=== PATIENT | female | born 1935 | race Caucasian/White ===

== ENCOUNTER 2020-02-28 22:10 | Inpatient (IN) ==
[2020-02-28] MEDS ORDERED: SODIUM CHLORIDE 0.9% 1000ML 1,000 ML IV ONE (22:22)
[2020-02-28] MEDS ORDERED: SODIUM CHLORIDE 0.9% 1000ML 500 ML IV ONE (22:53)
[2020-02-28] MEDS ORDERED: SODIUM CHLORIDE 0.9% 500 ML IV SCH (23:00)
[2020-02-28 23:09] LABS: INR 1.2 (0.9-1.1); Partial Thromboplastin Ratio 1.1; Partial Thromboplastin Time 31.9 Seconds (21.0-31.0); Prothrombin Time 12.7 Seconds (9.0-12.0)
[2020-02-28 23:10] LABS: Appearance Urine Turbid (Clear); Bacteria Urine Automated 1+ (Negative); Bilirubin Urine Negative (Negative); Blood Urine 3+ (Negative); Color Urine Yellow; Epithelial Cell Urine Auto >30 /lpf (0-5); Glucose Urine UA Negative (Negative); Ketones Urine Negative (Negative); Leukocyte Esterase Urine 3+ (Negative); Nitrite Urine Positive (Negative); Protein Urine 3+ (Negative); Specific Gravity Urine 1.012 (1.000-1.030); Urobilinogen Urine Negative (Negative); WBC Urine Automated >30 /hpf (0-5)
[2020-02-28 23:11] LABS: BUN Creatinine Ratio 8.6 (10-20); Calcium 7.9 mg/dl (8.5-10.1); Creatinine Clr Calc Pharmacy 17.3 ml/min; Est GFR (African American) 20.9; Est GFR (Non-African American) 18.1; Magnesium 1.4 mg/dl (1.8-2.4)
[2020-02-28] MEDS ORDERED: POTASSIUM CHLORIDE 10 MEQ TABCR PO STA (23:14)
[2020-02-28 23:16] LABS: Basophils # (auto) 0.04 K/uL (0-0.2); Basophils % (auto) 0.1 %; Eosinophils # (auto) 0.05 K/uL (0-0.5); Eosinophils % (auto) 0.1 %; Hematocrit (blood only) 28.4 % (37-47); Hemoglobin 9.2 g/dL (12.0-16.0); Immature Granulocytes # (auto) 1.02 K/uL (0.00-0.02); Immature Granulocytes % (auto) 2.6 %; Lymphocytes # (auto) 0.81 K/uL (1.2-3.4); Lymphocytes % (auto) 2.1 %; Mean Corpuscular Hemoglobin 29.4 pg (25-34); Mean Corpuscular Hgb Conc 32.4 g/dL (32-36); Mean Corpuscular Volume 90.7 fL (80-100); Mean Platelet Volume 9.9 fL (7.4-10.4); Monocytes # (auto) 1.81 K/uL (0.11-0.59); Monocytes % (auto) 4.7 %; Neutrophils # (auto) 34.81 K/uL (1.4-6.5); Neutrophils % (auto) 90.4 %; Platelet Count 228 K/uL (130-400); Platelet Estimate Normal (Normal); RDW Coefficient of Variation 15.5 % (11.5-14.5); RDW Standard Deviation 51.7 fL (36.4-46.3); Red Blood Count 3.13 M/uL (4.2-5.4); White Blood Count 38.54 K/uL (4.8-10.8)
[2020-02-28] MEDS ORDERED: VANCOMYCIN HCL 1,500 MG in SODIUM CHLORIDE 0.9% 500 ML IV ONE (23:17)
[2020-02-28] MEDS ORDERED: PIPERACILLIN/TAZOBACTAM 4.5 GM/120 ML BAG IV ONE (23:17)
[2020-02-28] MEDS ORDERED: SODIUM CHLORIDE 0.9% 500 ML IV ONE (23:17)
[2020-02-28] MEDS ORDERED: PIPERACILL/TAZOBAC CONSULT ACTIVE PRN (23:17)
[2020-02-28] MEDS ORDERED: VANCOMYCIN CONSULT ACTIVE PRN (23:17)
[2020-02-28 23:25] LABS: Albumin Globulin Ratio 0.6 (0.9-2); Bilirubin,Total 0.6 mg/dl (0.2-1); Globulin 3.5 gm/dl (2.5-4.0); Total Protein 5.5 gm/dl (6.4-8.2); Troponin I 0.022 ng/ml (0-0.045)
[2020-02-28] MEDS: MAGNESIUM SULFATE / D5W 1 GM/100 ML BAG IV SCH (23:43)
[2020-02-29] MEDS ORDERED: SODIUM CHLORIDE 0.9% 1000ML 500 ML IV ONE ×2 (00:33→02:02)
[2020-02-29] MEDS: MAGNESIUM SULFATE / D5W 1 GM/100 ML BAG IV SCH (00:49)
--- NOTE | 2020-02-29 00:50 | Emergency Department Note ---
History of Present Illness General Chief complaint: Fall Stated complaint: FALL, L HIP & R SHOULDER PAIN, HYPOTENSIVE, TACHY Time Seen by Provider: 02/28/20 22:22 History of Present Illness Maximum Pain Intensity: 4 This 84-year-old presents to the ER complaining of fall and weakness Location: Generalized Quality: Weak Severity: Moderate Duration: Last night Timing: Patient states she fell and was unable to get up Context: Granddaughter was concerned and sent her in Modifying factors: better with rest; worse with activity Patient states she fell last night in the kitchen and could not get up. Patient denies chest pain, dyspnea, Bon pain, vomiting, diarrhea, urinary symptoms, head injury, neck pain, numbness, tingling. Patient denies any medical complaints currently. She appears quite dehydrated. Home Medications Home Medications Medication Instructions Recorded Confirmed Type aspirin 81 mg PO DAILY 02/28/20 02/28/20 History levothyroxine 1 tab PO DAILY 02/28/20 02/28/20 History tramadol 50 mg PO DAILY PRN 02/28/20 02/28/20 History Allergies Allergy/AdvReac Type Severity Reaction Status Date / Time No Known Allergies Allergy Unverified 02/28/20 23:08 Past Med/Surg History Medical History Hypothyroidism Surgical History No pertinent past surgical history Social History Smoking Status: Never smoker Hx Alcohol Use: No Hx Substance Use: No Beliefs That Will Affect Care: None Current Living Situation: Alone Other Information That Helps Us Care for You: No Feels Safe at Home: Yes Safety Concerns: Feels Safe At This Time Review of Systems A total of 10 systems reviewed and were otherwise negative Physical Exam Vital Signs Vital Signs - 24 hr 02/28/20 22:26 02/28/20 22:31 02/28/20 22:57 Temperature 37.8 C H Temperature Source Oral Pulse Rate 119 H Pulse Rate [Bilateral Apical] 113 H Respiratory Rate 24 24 Respiratory Effort / Characteristics Spontaneous Non-Labored Respiratory Depth Normal Blood Pressure 91/43 L Blood Pressure [Right Arm] 101/47 L Blood Pressure Mean 59 Blood Pressure Mean [Right Arm] 65 Pulse Oximetry 100 100 100 Oxygen Delivery Method Room Air Room Air Room Air Sepsis Recent Fever Within 48 Hours Yes Sepsis New/Unexplained Change in Mental Status No Sepsis Action Taken by Nursing Physician Notified 02/28/20 23:17 02/29/20 00:15 02/29/20 00:16 Temperature 37 C Temperature Source Oral Pulse Rate Pulse Rate [Bilateral Apical] 112 H 106 H Respiratory Rate 18 20 Respiratory Effort / Characteristics Non-Labored Respiratory Depth Blood Pressure Blood Pressure [Right Arm] 92/54 L 84/41 L Blood Pressure Mean Blood Pressure Mean [Right Arm] 66 55 Pulse Oximetry 98 95 95 Oxygen Delivery Method Room Air Room Air Room Air Sepsis Recent Fever Within 48 Hours Sepsis New/Unexplained Change in Mental Status Sepsis Action Taken by Nursing 02/29/20 00:42 Temperature Temperature Source Pulse Rate Pulse Rate [Bilateral Apical] 101 H Respiratory Rate 22 Respiratory Effort / Characteristics Non-Labored Respiratory Depth Blood Pressure Blood Pressure [Right Arm] 88/59 L Blood Pressure Mean Blood Pressure Mean [Right Arm] 68 Pulse Oximetry 95 Oxygen Delivery Method Room Air Sepsis Recent Fever Within 48 Hours Sepsis New/Unexplained Change in Mental Status Sepsis Action Taken by Nursing VITALS: Vitals are noted on the nurse's note and reviewed by myself. Vital signs hypertensive and tachycardic. GENERAL: Elderly female dehydrated appearing, in acute distress SKIN: The skin was without rashes, erythema, edema, or bruising. There is no tenting of the skin. Capillary reflex less than 2 seconds. HEAD: Normocephalic atraumatic. EARS: External auditory canals clear, tympanic membranes pearly parrish without erythema or effusion bilaterally. EYES: Pupils equal round and reactive to light and accommodation. Conjunctivae without injection, sclerae without icterus. Extraocular movements intact. NOSE: Patent, turbinates without inflammation or discharge. No sinus tenderness. MOUTH: Mucous membranes dry. Pharynx without erythema or exudate. Uvula midline. Airway patent. Tongue does not deviate. NECK: Supple without nuchal rigidity. No lymphadenopathy. No thyromegaly. Cervical spine is nontender. No JVD. HEART: Regular rate and rhythm LUNGS: Clear to auscultation bilaterally without wheezes, rales or rhonchi. No retractions or accessory muscle use. ABDOMEN: Positive bowel sounds x 4. Normal tympanic percussion. Soft, tender to palpation lower abdomen, without masses or organomegaly. Rubi sign negative. No guarding or rebound tenderness. No CVA tenderness MUSCULOSKELETAL: No muscle atrophy, erythema, or edema noted. NEURO: Patient was alert and oriented to person place and time. Normal sensation to light and sharp touch. No focal neurological deficits. Course Administered Medications Norepinephrine Bitartrate 8 mg (/ Dextrose) 508 mls @ 33.147 mls/hr IV .[id number] INGE; Protocol Stop: 03/30/20 01:29 Last Titration: 02/29/20 02:56 Dose: 0.12 mcg/kg/min, 33.1 mls/hr Documented by: [id number] Admin: 02/29/20 02:13 Dose: 0.05 mcg/kg/min, 13.8 mls/hr Documented by: [id number] Cosigned by: [id number] Sodium Chloride (Nss 1000ml) 1,000 mls @ 100 mls/hr IV .Q10H [facility] Stop: 03/30/20 01:54 Last Admin: 02/29/20 01:58 Dose: 100 mls/hr Documented by: [id number] Famotidine 20 mg/ Syringe 5 mls @ 2.5 mls/min IV Q12 INGE Stop: 03/30/20 01:54 Last Admin: 02/29/20 02:10 Dose: 2.5 mls/min Documented by: [id number] Ondansetron HCl (Zofran) 4 mg IV Q4H PRN PRN Reason: Nausea Stop: 03/30/20 02:40 Last Admin: 02/29/20 02:50 Dose: 4 mg Documented by: [id number] Discontinued Medications Fentanyl Citrate (Fentanyl Citrate) 25 mcg IV NOW ONE Stop: 02/29/20 02:41 Last Admin: 02/29/20 03:33 Dose: Not Given Documented by: [id number] Sodium Chloride (Nss 1000ml) 1,000 mls @ 999 mls/hr IV .Q1H1M ONE Stop: 02/28/20 23:22 Last Infusion: 02/28/20 23:29 Dose: 0 mls/hr Documented by: [id number] Admin: 02/28/20 22:32 Dose: 999 mls/hr Documented by: [id number] Sodium Chloride (Nss 1000ml) 500 mls @ 999 mls/hr IV .Q31M ONE Stop: 02/28/20 23:23 Last Infusion: 02/28/20 23:49 Dose: 0 mls/hr Documented by: [id number] Admin: 02/28/20 22:50 Dose: 999 mls/hr Documented by: [id number] Sodium Chloride (Nss) 500 mls @ 100 mls/hr IV .Q5H [facility] Stop: 03/29/20 22:59 Last Infusion: 02/29/20 03:15 Dose: 0 mls/hr Documented by: [id number] Infusion: 02/29/20 02:40 Dose: 0 mls/hr Documented by: [id number] Admin: 02/28/20 23:43 Dose: 100 mls/hr Documented by: [id number] Magnesium Sulfate/Dextrose (Magnesium Sulfate / D5w) 1 gm in 100 mls @ 100 mls/hr IV Q1H [facility] Stop: 02/29/20 01:15 Last Infusion: 02/29/20 01:30 Dose: 0 mls/hr Documented by: [id number] Admin: 02/29/20 00:49 Dose: 100 mls/hr Documented by: [id number] Infusion: 02/29/20 00:41 Dose: 0 mls/hr Documented by: [id number] Admin: 02/28/20 23:43 Dose: 100 mls/hr Documented by: [id number] Piperacillin Sod/Tazobactam Sod (Zosyn) 4.5 gm in 120 mls @ 240 mls/hr IV NOW ONE Stop: 02/28/20 23:46 Last Infusion: 02/29/20 00:52 Dose: 0 mls/hr Documented by: [id number] Admin: 02/29/20 00:02 Dose: 240 mls/hr Documented by: [id number] Vancomycin HCl 1,500 mg/ (Sodium Chloride) 530 mls @ 200 mls/hr IV NOW ONE Stop: 02/29/20 01:55 Last Infusion: 02/29/20 03:16 Dose: 0 mls/hr Documented by: [id number] Admin: 02/29/20 00:55 Dose: 200 mls/hr Documented by: [id number] Sodium Chloride (Nss) 500 mls @ 999 mls/hr IV .Q31M ONE Stop: 02/28/20 23:47 Last Infusion: 02/29/20 00:19 Dose: 0 mls/hr Documented by: [id number] Admin: 02/28/20 23:43 Dose: 999 mls/hr Documented by: [id number] Sodium Chloride (Nss 1000ml) 500 mls @ 999 mls/hr IV .Q31M ONE Stop: 02/29/20 01:03 Last Infusion: 02/29/20 02:39 Dose: 0 mls/hr Documented by: [id number] Admin: 02/29/20 01:08 Dose: 999 mls/hr Documented by: [id number] Albumin Human (Albumin 25%) 50 mls @ 50 mls/hr IV Q1H [facility] Stop: 02/29/20 03:59 Last Infusion: 02/29/20 02:58 Dose: 0 mls/hr Documented by: [id number] Admin: 02/29/20 01:58 Dose: 50 mls/hr Documented by: [id number] Infusion: 02/29/20 01:58 Dose: 50 mls/hr Documented by: [id number] Admin: 02/29/20 01:14 Dose: 50 mls/hr Documented by: [id number] Sodium Chloride (Nss 1000ml) 1,000 mls @ 100 mls/hr IV .Q10H [facility] Stop: 03/30/20 02:14 Last Admin: 02/29/20 02:23 Dose: Not Given Documented by: [id number] Sodium Chloride (Nss 1000ml) 500 mls @ 999 mls/hr IV .Q31M ONE Stop: 02/29/20 02:32 Last Infusion: 02/29/20 02:39 Dose: 0 mls/hr Documented by: [id number] Admin: 02/29/20 02:04 Dose: 999 mls/hr Documented by: [id number] Potassium Chloride (Klor-Con M10) 40 meq PO NOW STA Stop: 02/28/20 23:15 Last Admin: 02/28/20 23:42 Dose: 40 meq Documented by: [id number] Critical Care Time Critical Care Time: Yes Total Critical Care Time: 60 I have personally spent 60 minutes of critical care time in the direct management of this patient. This includes bedside care, interpretation of diagnostic studies, and testing, discussion with consultants, patient, and fa bebe members, and other required patient management activities. This 60 minutes is in excess of all separately billable procedures. Medical Decision Making Medical Records Attestation: I reviewed the patient's medical records. Home Medications Current Medication List: was personally reviewed by me Laboratory Data Attestation: I reviewed the patient's lab results. Result diagrams: 02/28/20 22:41 02/28/20 22:41 Lab Results 02/28/20 02/28/20 02/28/20 Range/Units 22:25 22:41 22:41 WBC 38.54 H* (4.8-10.8) K/uL RBC 3.13 L (4.2-5.4) M/uL Hgb 9.2 L (12.0-16.0) g/dL Hct 28.4 L (37-47) % MCV 90.7 (80-100) fL MCH 29.4 (25-34) pg MCHC 32.4 (32-36) g/dL RDW Std Deviation 51.7 H (36.4-46.3) fL RDW Coeff of Marisel 15.5 H (11.5-14.5) % Plt Count 228 (130-400) K/uL MPV 9.9 (7.4-10.4) fL Immature Gran % (Auto) 2.6 % Neut % (Auto) 90.4 % Lymph % (Auto) 2.1 % [place] % (Auto) 4.7 % Eos % (Auto) 0.1 % Baso % (Auto) 0.1 % Neut # (Auto) 34.81 H (1.4-6.5) K/uL Lymph # (Auto) 0.81 L (1.2-3.4) K/uL [place] # (Auto) 1.81 H (0.11-0.59) K/uL Eos # (Auto) 0.05 (0-0.5) K/uL Baso # (Auto) 0.04 (0-0.2) K/uL Immature Gran # (Auto) 1.02 H (0.00-0.02) K/uL Platelet Estimate Normal (Normal) PT 12.7 H (9.0-12.0) Seconds INR 1.2 H (0.9-1.1) APTT 31.9 H (21.0-31.0) Seconds PTT Ratio 1.1 Sodium (136-145) mmol/L Potassium (3.5-5.1) mmol/L Chloride (98-107) mmol/L Carbon Dioxide (21-32) mmol/L Anion Gap (3-11) BUN (7-18) mg/dl Creatinine (0.6-1.2) mg/dl Est Cr Clr Drug Dosing ml/min Est GFR ( Amer) Est GFR (Non-Af Amer) BUN/Creatinine Ratio (10-20) Glucose (70-99) mg/dl POC Glucose 97 (70-99) mg/dl Lactate (0.4-2.0) mmol/L Calcium (8.5-10.1) mg/dl Magnesium (1.8-2.4) mg/dl Total Bilirubin (0.2-1) mg/dl AST (15-37) U/L ALT (12-78) U/L Alkaline Phosphatase (45-117) U/L Total Creatine Kinase (26-192) U/L Troponin I (0-0.045) ng/ml Total Protein (6.4-8.2) gm/dl Albumin (3.4-5.0) gm/dl Globulin (2.5-4.0) gm/dl Albumin/Globulin Ratio (0.9-2) Procalcitonin (0-0.5) ng/ml Random Cortisol mcg/dl Urine Color Urine Appearance (Clear) Urine pH (4.5-7.5) Ur Specific [place] (1.000-1.030) Urine Protein (Negative) Urine Glucose (UA) (Negative) Urine Ketones (Negative) Urine Blood (Negative) Urine Nitrite (Negative) Urine Bilirubin (Negative) Urine Urobilinogen (Negative) Ur Leukocyte Esterase (Negative) Urine WBC (Auto) (0-5) /hpf Urine RBC (Auto) (0-4) /hpf U Hyaline Cast (Auto) (0-5) /lpf U Epithel Cells (Auto) (0-5) /lpf Urine Bacteria (Auto) (Negative) Urine Yeast 02/28/20 02/28/20 02/28/20 Range/Units 22:41 22:43 22:44 WBC (4.8-10.8) K/uL RBC (4.2-5.4) M/uL Hgb (12.0-16.0) g/dL Hct (37-47) % MCV (80-100) fL MCH (25-34) pg MCHC (32-36) g/dL RDW Std Deviation (36.4-46.3) fL RDW Coeff of Marisel (11.5-14.5) % Plt Count (130-400) K/uL MPV (7.4-10.4) fL Immature Gran % (Auto) % Neut % (Auto) % Lymph % (Auto) % [place] % (Auto) % Eos % (Auto) % Baso % (Auto) % Neut # (Auto) (1.4-6.5) K/uL Lymph # (Auto) (1.2-3.4) K/uL [place] # (Auto) (0.11-0.59) K/uL Eos # (Auto) (0-0.5) K/uL Baso # (Auto) (0-0.2) K/uL Immature Gran # (Auto) (0.00-0.02) K/uL Platelet Estimate (Normal) PT (9.0-12.0) Seconds INR (0.9-1.1) APTT (21.0-31.0) Seconds PTT Ratio Sodium 141 (136-145) mmol/L Potassium 3.0 L (3.5-5.1) mmol/L Chloride 113 H (98-107) mmol/L Carbon Dioxide 12 L (21-32) mmol/L Anion Gap 15.0 H (3-11) BUN 21 H (7-18) mg/dl Creatinine 2.40 H (0.6-1.2) mg/dl Est Cr Clr Drug Dosing 17.3 ml/min Est GFR ( Amer) 20.9 Est GFR (Non-Af Amer) 18.1 BUN/Creatinine Ratio 8.6 L (10-20) Glucose 97 (70-99) mg/dl POC Glucose (70-99) mg/dl Lactate 8.6 H* (0.4-2.0) mmol/L Calcium 7.9 L (8.5-10.1) mg/dl Magnesium 1.4 L (1.8-2.4) mg/dl Total Bilirubin 0.6 (0.2-1) mg/dl AST 42 H (15-37) U/L ALT 16 (12-78) U/L Alkaline Phosphatase 75 (45-117) U/L Total Creatine Kinase 1202 H (26-192) U/L Troponin I 0.022 (0-0.045) ng/ml Total Protein 5.5 L (6.4-8.2) gm/dl Albumin 2.0 L (3.4-5.0) gm/dl Globulin 3.5 (2.5-4.0) gm/dl Albumin/Globulin Ratio 0.6 L (0.9-2) Procalcitonin (0-0.5) ng/ml Random Cortisol 133.61 mcg/dl Urine Color Urine Appearance (Clear) Urine pH (4.5-7.5) Ur Specific [place] (1.000-1.030) Urine Protein (Negative) Urine Glucose (UA) (Negative) Urine Ketones (Negative) Urine Blood (Negative) Urine Nitrite (Negative) Urine Bilirubin (Negative) Urine Urobilinogen (Negative) Ur Leukocyte Esterase (Negative) Urine WBC (Auto) (0-5) /hpf Urine RBC (Auto) (0-4) /hpf U Hyaline Cast (Auto) (0-5) /lpf U Epithel Cells (Auto) (0-5) /lpf Urine Bacteria (Auto) (Negative) Urine Yeast 02/28/20 02/28/20 02/29/20 Range/Units 22:44 22:50 00:44 WBC (4.8-10.8) K/uL RBC (4.2-5.4) M/uL Hgb (12.0-16.0) g/dL Hct (37-47) % MCV (80-100) fL MCH (25-34) pg MCHC (32-36) g/dL RDW Std Deviation (36.4-46.3) fL RDW Coeff of Marisel (11.5-14.5) % Plt Count (130-400) K/uL MPV (7.4-10.4) fL Immature Gran % (Auto) % Neut % (Auto) % Lymph % (Auto) % [place] % (Auto) % Eos % (Auto) % Baso % (Auto) % Neut # (Auto) (1.4-6.5) K/uL Lymph # (Auto) (1.2-3.4) K/uL [place] # (Auto) (0.11-0.59) K/uL Eos # (Auto) (0-0.5) K/uL Baso # (Auto) (0-0.2) K/uL Immature Gran # (Auto) (0.00-0.02) K/uL Platelet Estimate (Normal) PT (9.0-12.0) Seconds INR (0.9-1.1) APTT (21.0-31.0) Seconds PTT Ratio Sodium (136-145) mmol/L Potassium (3.5-5.1) mmol/L Chloride (98-107) mmol/L Carbon Dioxide (21-32) mmol/L Anion Gap (3-11) BUN (7-18) mg/dl Creatinine (0.6-1.2) mg/dl Est Cr Clr Drug Dosing ml/min Est GFR ( Amer) Est GFR (Non-Af Amer) BUN/Creatinine Ratio (10-20) Glucose (70-99) mg/dl POC Glucose (70-99) mg/dl Lactate 6.5 H* (0.4-2.0) mmol/L Calcium (8.5-10.1) mg/dl Magnesium (1.8-2.4) mg/dl Total Bilirubin (0.2-1) mg/dl AST (15-37) U/L ALT (12-78) U/L Alkaline Phosphatase (45-117) U/L Total Creatine Kinase (26-192) U/L Troponin I (0-0.045) ng/ml Total Protein (6.4-8.2) gm/dl Albumin (3.4-5.0) gm/dl Globulin (2.5-4.0) gm/dl Albumin/Globulin Ratio (0.9-2) Procalcitonin 63.80 H (0-0.5) ng/ml Random Cortisol mcg/dl Urine Color Yellow Urine Appearance Turbid A (Clear) Urine pH 6.0 (4.5-7.5) Ur Specific [place] 1.012 (1.000-1.030) Urine Protein 3+ H (Negative) Urine Glucose (UA) Negative (Negative) Urine Ketones Negative (Negative) Urine Blood 3+ H (Negative) Urine Nitrite Positive A (Negative) Urine Bilirubin Negative (Negative) Urine Urobilinogen Negative (Negative) Ur Leukocyte Esterase 3+ H (Negative) Urine WBC (Auto) >30 H (0-5) /hpf Urine RBC (Auto) 10-30 H (0-4) /hpf U Hyaline Cast (Auto) 1-5 (0-5) /lpf U Epithel Cells (Auto) >30 H (0-5) /lpf Urine Bacteria (Auto) 1+ H (Negative) Urine Yeast Not Reportable Imaging Data Attestation: I personally reviewed and interpreted this imaging study as follows: Blood Pressure Blood Pressure Findings: Low blood pressure Blood Pressure Disposition: further management by hospitalist [facility] Narrative Prior records/ancillary studies reviewed and summarized above. Nursing notes reviewed. Additional history obtained from EMS. The patient's history was concerning for weakness Differential diagnosis: Etiologies such as metabolic, infection, hypo/hyperglycemia, electrolyte abnormalities, cardiac sources, intracerebral event, toxicologic, neurologic, as well as others were entertained. Physical examination: As above. ER treatment provided: IV Lock An order was placed for continuous cardiac monitoring. The monitor shows a rate of 60-1 20 with a sinus rhythm. IV fluids, Zosyn, vancomycin, magnesium, potassium 2 IV lines, Levophed On reassessment the patient felt better. Diagnostics interpretation by me: ECG: Ordered for weakness EKG: Normal sinus, normal intervals, no acute ST-T wave changes. Rate of 114. Impression sinus tachycardia interpreted by myself I think arrhythmia is unlikely. EKG shows normal sinus rhythm with no interval abnormalities such as QT prolongation or WPW. There are no findings to suggest Brugada syndrome. Cardiac monitoring in the emergency department reveals no tachycardic or bradycardic dysrhythmia. Hypertrophic cardiomyopathy was considered but there are no clear historical elements pointing toward this. EKG is not suggestive. The QRS voltage is not extremely large and there are no suggestive Q waves. The labs revealed leukocytosis, elevated creatinine, low potassium, low magnesium, urine is infected Extremely elevated lactic and repeat is minimally improved Blood cultures pending, COVID test pending Imaging studies: Chest x-ray with no acute consolidation, pneumothorax or free air per my termination ADDENDUM - Added by Shailesh Jackson M.D. on 02/29/2020 12:44 AM (-07:00) 8 mm calculus at the distal aspect of the right ureter near the UVJ with mild to moderate upstream dilatation of the collecting system. Also there is some perinephric stranding/fluid involving the left kidney (staghorn calculus). Would correlate clinically to exclude left renal infection. Spoke with her requesting provider at 9:43 PM 02/28/20. CT ABDOMEN & PELVIS Without Contrast: Distended gallbladder. Staghorn calculus involving the left kidney. No hydronephrosis. No appendicitis, colitis, diverticulitis or bowel obstruction. No adnexal masses, free air or free fluid. Small to moderate hiatal hernia. Coronary arteriosclerosis. Radiologist: Shailesh Jackson M.D. CT C SPINE: No evidence of acute or healing fracture or malalignment. Multilevel spine degenerative changes. Diffuse osteopenia. No critical central canal stenosis or apical pneumothorax. Radiologist: Shailesh Jackson M.D. CT HEAD: No acute intracranial hemorrhage, mass effect or edema. No evidence of acute cortical stroke. Periventricular small vessel ischemic change. No midline shift or hydrocephalus. Diffuse parenchymal atrophy. 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 Atherosclerotic calcifications of the carotid siphons and vertebrobasilar arteries. Visualized sinuses and mastoid air cells are clear. Radiologist: Shailesh Jackson M.D. Consultation: A consultation was placed with the hospitalist, Dr. Mejia and MAYELA Vidal from the unit. The case was discussed and diagnostics were reviewed. The patient was evaluated in the ER for further treatment. The unit was consulted and the MAYELA Vidal was made aware of the critical status of this patient. Patient was sent to the unit. Consultation with urology, Dr. Bauman. He was paged for over an hour and a half with no response. We were able to get a hold Dr. Hooper who got a hold of Dr. Bauman and he came in to evaluate the patient and take him to the OR from the ICU. Exam and history seem consistent with septic shock and infected kidney stone with acute renal failure low potassium and low magnesium. Patient given broad- spectrum antibiotics. 2 lines were placed. Medicine and the unit were consulted. Urology was consulted. She will be admitted. She was reassessed multiple times. Patient's blood pressure began to drop. She was placed on Levophed. This did improve. Multiple pages were made to urology with no response. Finally we were able to speak with urology and they took the patient emergently to the OR from the unit. By the evaluation outlined above emergent etiologies such as cardiac sources, intracerebral event, toxologic, neurologic, as well as others were deemed relatively unlikely. The pt informed about the findings as listed above. All questions were answered and pleased with the treatment. The chart was completed utilizing [employer] Speech voice recognition software. Grammatical errors, random word insertions, pronoun errors, and incomplete sentences are an occassional consequence of this system due to software limitations, ambient noise, and hardware issues. Any formal questions or concerns about the content, text, or information contained within the body of this dictation should be directly addressed to the physician intellectual property legal assistant for clarification. Impression & Plan Septic shock, Ureterolithiasis, Acute pyelonephritis, Acute kidney failure, Hypokalemia, Hypomagnesemia Discharge Plan Visit Data *Final* Discharge Date/Time: 02/29/20 01:35 Chief Complaint: Fall Stated Complaint: FALL, L HIP & R SHOULDER PAIN, HYPOTENSIVE, TACHY ED Provider: Frankie Liu ED Midlevel Provider: Camilla Mckeon Discharge Problem: Septic shock, Ureterolithiasis, Acute pyelonephritis, Acute kidney failure, Hypokalemia, Hypomagnesemia Patient Disposition: Admitted As Inpatient Condition: Critical Discharge Instructions Interventions: ED Discharge Assessment Last Done: 02/29/20 01:35
[2020-02-29] MEDS: ALBUMIN 25% 50 ML IV SCH ×2 (01:14→01:58)
[2020-02-29] MEDS ORDERED: STAT IV Infusion **Titration per Protocol STA ×3 (01:20→05:05)
[2020-02-29] MEDS ORDERED: PIPERACILL/TAZOBAC CONSULT ACTIVE PRN (01:55)
[2020-02-29] MEDS ORDERED: ICU PROTOCOL FOR HYPERGLYCEMIA PRN (01:55)
[2020-02-29] MEDS ORDERED: VANCOMYCIN CONSULT ACTIVE PRN (01:55)
[2020-02-29] MEDS: SODIUM CHLORIDE 0.9% 1000ML 1,000 ML IV SCH (01:58)
[2020-02-29] MEDS: FAMOTIDINE 20 MG in SYRINGE 3 ML IV SCH ×3 (02:10→20:06)
--- NOTE | 2020-02-29 02:10 | Critical Care Consultation ---
Date of Consultation February 29, 2020 Assessment & Plan (1) Admitted to intensive care unit: Reason Critically Ill: 84-year-old female presenting after ground-level fall laying on the floor for greater than 24 hours found to be in severe sepsis with septic shock secondary to retained ureteral stone and UTI requiring close hemodynamic monitoring and urological intervention for ureteral stenting. NEURO - * CAM ICU: NEGATIVE * PAIN: Fentanyl PRN/Acetaminophen CARDIAC/VASCULAR - * Rhabdomyolysis: * CPK ~1,000 * Continue IVF - received aggressive boluses in the ED. * Monitor renal function. * Hypotension: * In the setting of sepsis. * Appropriate IVF boluses in the ED. * Continue w/ aggressive IVF. * Pressors as needed. * EKG: ST@114bpm, No ST/T-wave changes appreciated. QTc 476 ms. Monitor on telemetry. RESPIRATORY - * Respiratory Distress: * Compensatory in the setting of profound metabolic acidosis. * Chest x-ray without infiltrative changes or pulmonary edema. * Physical exam consistent with tachypnea and clear lung sounds. No rales or rhonchi noted. * ABG demonstrates metabolic acidosis with respiratory compensation. * Concerns for respiratory failure in the setting of severe sepsis, metabolic acidosis, and generalized physical fatigue. * Low threshold for intubation. GI/NUTRITION - * N.p.o. * Prophylaxis: Famotidine RENAL/LYTES - * Acute kidney injury: * Multifactorial in the setting of prerenal from hypovolemia as well as rhabdomyolysis. * Received aggressive IV fluid resuscitation. * Continue with IV fluids. * Trend PRP. * Hypokalemia: * Received p.o. in the emergency department. * Repeat lytes. Replace appropriately. * Hypomagnesemia: * Replete as needed. * IVF: Normal saline at 100 mL/hr. - * Retained RIGHT-sided ureteral stone with pyelonephritis and UTI: * Resulting in severe sepsis. * Received IV vancomycin and Zosyn in the emergency department. * Please see ID. * Plan to go to the OR for bilateral ureteral stent placement. * Aim for source control. * Mayer in place - Strict I&Os. ENDO - * No history of diabetes. * BSGs per unit protocol. ISS --> gtt per unit policy. * Hypothyroidism: * Continue with levothyroxine either p.o./IV as tolerated. HEME - * Anemia: * Uncertain at baseline. * Will type and screen. * Trend H&H. * Transfuse as needed. ID - * Severe sepsis with septic shock secondary to retained RIGHT-sided ureteral stone with pyelonephritis and UTI: * Received IV vancomycin and Zosyn in the emergency department. * Likely discontinue vancomycin pending nasal MRSA swab. * Continue with aggressive IV antibiotics in the critically ill patient. * Lactate greater than 8. Trending down. Continue to trend. * Check procalcitonin. * Blood/urine cultures pending. LINES/IV ACCESS - * PIVs x2 * Mayer DVT PROPHYLAXIS - * Heparin SQ * SCDs I have personally spent 60 minutes of critical care time in the direct management of this patient. This is a life/limb threatening event. This includes time spent evaluating patient, direct bedside care, chart review, placing orders, interpretation of diagnostic studies, discussion with consultants, p atient, and family members, as well as other required patient management activities. This time is exclusive of all separately billable procedures, and teaching time and separate from and in addition to any other critical care service time. Thank you for allowing us to participate in the care of this patient. Please refer to my attending physician's documentation for any further recommendations. (2) Severe sepsis: (3) Pyelonephritis: (4) UTI (urinary tract infection): (5) Rhabdomyolysis: (6) Fall: (7) Hypomagnesemia: (8) Hypokalemia: (9) REEMA (acute kidney injury): (10) Ureterolithiasis: (11) Septic shock: History of Present Illness Attending Physician: Roman Oliveros MD History of Present Illness Patient is an 84-year-old female with limited past medical history significant for hypothyroidism alone presenting to the emergency department after a fall sustained greater than 24 hours ago. The patient subsequently laid on the floor until she was found by her granddaughter this evening. She reports that she remembers the fall and states that she "tripped" which caused the event. She was unable to gather herself from the ground. She did not strike her head. She reports no loss of consciousness. She does admit to having to sleep on the binh or, however. Patient admits to experiencing some RIGHT-sided flank pain over the last few days as well as some slight burning with urination which she reports is not her baseline. She denies any previous history of similar symptoms in the past. Upon arrival in the emergency department, the patient was found to be hypotensive and tachycardic. She received appropriate crystalloid resuscitation as well as IV antibiotics. CT scan demonstrates RIGHT-sided distal 8 mm calculus with RIGHT-sided ureteral stranding and mild hydronephrosis. Left-sided staghorn calculi appreciated with some mild pe rinephric stranding as well. Urine is foul appearing and consistent with infection. Patient ultimately with severe sepsis with septic shock secondary to retained stone and UTI. Leukocytosis in excess of 38,000. Lactate 8.6 which is downtrending to 6.5. CPK greater than 1200. Upon arrival in the ICU, the patient is awake, alert, and oriented. She reports that she generally feels poor. She does complain of some RIGHT-sided abdominal pain and flank pain. She denies any headaches, dizziness, lightheadedness, chest pain, palpitations, shortness of breath, difficulty breathing, nausea, vomiting, or blood in her urine or stool. Patient is not a daily smoker. Allergies Allergy/AdvReac Type Severity Reaction Status Date / Time No Known Allergies Allergy Unverified 02/28/20 23:08 Home Medications Home Medications Medication Instructions Recorded Confirmed Type aspirin 81 mg PO DAILY 02/28/20 02/28/20 History levothyroxine 1 tab PO DAILY 02/28/20 02/28/20 History tramadol 50 mg PO DAILY PRN 02/28/20 02/28/20 History Patient History Medical History Hypothyroidism Surgical History No pertinent past surgical history Social History Smoking Status: Never smoker Hx Alcohol Use: No Hx Substance Use: No Beliefs That Will Affect Care: None Current Living Situation: Alone Other Information That Helps Us Care for You: No Feels Safe at Home: Yes Safety Concerns: Feels Safe At This Time Review of Systems Review of Systems: A complete 10 point review of systems was reviewed with the patient with pertinent positives and negatives as per history of present illness. All else were negative. Physical Exam Physical Exam: VITAL SIGNS - Vital signs and nursing notes were reviewed. GENERAL - 84-year-old female appearing her stated age who is in mild distress. Communicates well with provider and answers questions appropriately. SKIN - Without rashes. HEAD - NC/AT. EYES - PERRL with EOMI bilaterally. Sclera anicteric. EARS - No deformities of external structures noted on gross examination bilaterally. NOSE - Midline and without cyanosis. No epistaxis or purulent drainage noted. MOUTH/OROPHARYNX - Without perioral cyanosis. Buccal mucosa pink and dry. Tongue midline with equal elevation of palate bilaterally. NECK - Neck with FROM. No nuchal rigidity. LUNGS - Tachypneic. Chest wall symmetric without accessory muscle use, intercostals retractions, or central cyanosis. Normal vesicular breath sounds CTA B/L. No wheezes, rales, or rhonchi appreciated. CARDIAC - RRR with S1/S2. No murmur, rubs, or gallops appreciated. ABDOMEN - Abdominal contour obese without pulsations or visible masses. BS normoactive all four quadrants. Mild RIGHT sided TTP. No palpable masses, hepatosplenomegaly, or ascites noted. EXTREMITIES - No clubbing or peripheral cyanosis. No pretibial edema present. +3/5 radial and dorsalis pedis pulses palpated throughout. +5/5 strength noted in UE/LE bilaterally. NEUROLOGIC - Cranial nerves II through XII grossly intact. Sensory intact to light touch throughout. PSYCH - A&Ox3 and cooperates fully with examiner. Pt is very pleasant and interacts well with examiner. Results & Data Results & Data ([facility]) Vital Signs (Past 12 Hours) Vital Signs Temp Pulse Pulse Resp BP BP Pulse Ox 02/29/20 01:35 106 H 20 82/51 L 98 02/29/20 01:24 37.1 C 102 H 20 85/47 L 96 02/29/20 00:42 101 H 22 88/59 L 95 02/29/20 00:16 95 02/29/20 00:15 37 C 106 H 20 84/41 L 95 02/28/20 23:17 112 H 18 92/54 L 98 02/28/20 22:57 113 H 24 101/47 L 100 02/28/20 22:31 100 02/28/20 22:26 37.8 C H 119 H 24 91/43 L 100 Coding Level of Care Code Critical Care 1st 30-74 mins Diagnoses Admitted to intensive care unit Z78.9 Severe sepsis A41.9; R65.20 Pyelonephritis N12 UTI (urinary tract infection) N39.0 Rhabdomyolysis M62.82 Fall W19.XXXA Hypomagnesemia E83.42 Hypokalemia E87.6 REEMA (acute kidney injury) N17.9 Ureterolithiasis N20.1 Septic shock A41.9; R65.21 Time Spent (min) 65
[2020-02-29] MEDS ORDERED: PNEUMOCOCCAL ADMINISTRATION CHARGE ONE (02:13)
[2020-02-29] MEDS ORDERED: PNEUMOCOCCAL POLYSACCHARIDES 25 MCG/0.5 ML VIAL/SYR IM ONE (02:13)
[2020-02-29] MEDS: NOREPINEPHRINE BIT INJ 8 MG in DEXTROSE 5% 500 ML IV SCH ×4 (02:13→22:50)
[2020-02-29] MEDS ORDERED: SODIUM CHLORIDE 0.9% 1000ML 1,000 ML IV SCH (02:15)
[2020-02-29] MEDS ORDERED: FAMOTIDINE 20 MG in SYRINGE 3 ML IV SCH (02:15)
[2020-02-29] MEDS ORDERED: fentaNYL citrate 100 MCG/2 ML VIAL IV ONE (02:40)
[2020-02-29] MEDS ORDERED: ONDANSETRON INJ 2 MG/ML 2 ML VIAL IV PRN (02:41)
--- NOTE | 2020-02-29 02:56 | Urology Consultation ---
Date of Consultation February 29, 2020 Assessment & Plan (1) Septic shock: Acute ill with obstructing right stone and left staghorn. Will plan for cystoscopy with bilateral stent placement. Agree with critical management and continued fluid management. Patient on small amount of pressor for hypotension. On broad spectrum IV. Plan for emergent stent placement. Risks and benefits discussed with patient. Understands need for urgent intervention. (2) Ureterolithiasis: (3) Acute pyelonephritis: History of Present Illness Attending Physician: Roman Oliveros MD History of Present Illness New consultation for patient with UTI/Pyelo, discomfort, and ill feelings. Patient has left staghorn with right obstructing stone and signs of sepsis. Presented acutely ill. Patient developed sudden onset of pain into flank going down and radiating into groin and back in waves comes and goes. Can be severe at times. Discussed and reviewed patient's family history for any history of issues, infections, and disease. Also, discussed patient's medical/surgery history especially related to any history of urinary issues or stone disease. Patient was admitted and is undergoing fluid resuscitation and critical management with broad spectrum IV antibiotics. Allergies Allergy/AdvReac Type Severity Reaction Status Date / Time No Known Allergies Allergy Unverified 02/28/20 23:08 Home Medications Home Medications Medication Instructions Recorded Confirmed Type aspirin 81 mg PO DAILY 02/28/20 02/28/20 History levothyroxine 1 tab PO DAILY 02/28/20 02/28/20 History tramadol 50 mg PO DAILY PRN 02/28/20 02/28/20 History Patient History Medical History Hypothyroidism Surgical History No pertinent past surgical history Social History Smoking Status: Never smoker Hx Alcohol Use: No Hx Substance Use: No Beliefs That Will Affect Care: None Current Living Situation: Alone Other Information That Helps Us Care for You: No Feels Safe at Home: Yes Safety Concerns: Feels Safe At This Time Review of Systems Review of Systems: All systems reviewed & are unremarkable except as noted in HPI & below Limited due to acute illness. Physical Exam Physical Exam: General: Alert and answering questions and acutely ill. Advanced age with chronic issues. HEENT: Normocephalic Atraumatic. Inspection normal. Cranial Nerves 2-12 Grossly intact. Nares are clear. Neck is supple. Normal inspection of neck. Neurologic: No deficits on inspection. Acutely ill. Baseline for motor function and sensory. Psychologic: Anxious Respiratory: Mild increased effort. No use of accessory muscles. Tachypnea Cardiovascular: Mild tachycardia Skin: Diaphoretic Extremities: Moving without issues. No motor deficits on inspection Lymphatics: No edema Abdomen: Moderate flank tenderness. Distended. No rebound or guarding. Results & Data Vital Signs (Past 12 Hours) Vital Signs Temp Pulse Pulse Resp BP BP Pulse Ox 02/29/20 01:40 37.3 C 109 H 30 H 93/49 L 93 02/29/20 01:35 106 H 20 82/51 L 98 02/29/20 01:24 37.1 C 102 H 20 85/47 L 96 02/29/20 00:42 101 H 22 88/59 L 95 02/29/20 00:16 95 02/29/20 00:15 37 C 106 H 20 84/41 L 95 02/28/20 23:17 112 H 18 92/54 L 98 02/28/20 22:57 113 H 24 101/47 L 100 02/28/20 22:31 100 02/28/20 22:26 37.8 C H 119 H 24 91/43 L 100 PG Care Time/CCT Total # of Minutes Spent Total Time Spent with Patient: Total time spent is greater than 50% in coordination of care (as documented) at patient's floor/unit and/or counseling patient: Coding Level of Care Code 88991 Inpt Consult Level 5 Diagnoses Septic shock A41.9; R65.21 Ureterolithiasis N20.1 Acute pyelonephritis N10
--- NOTE | 2020-02-29 03:26 | Anesthesiology Consultation ---
Date of Service February 29, 2020 Assessment & Plan (1) Encounter for pre-operative examination: Chart Review Chart Review: Acceptable Risk for Surgery and Patient NOT seen in Pre Admission Testing Consults Requested none ASA [id number] Proposed Anesthesia Anesthesia Type: General Anesthesia Line Insertion: Arterial line and Central Venous Catheter Risk / Benefits Reviewed With: PT / POA / Parent / Guardian, Accepts Plan and Informed Consent Obtained History Surgery Operation Date: 02/29/20 03:30 Proposed Procedures p Ureteral Stent Insertion/Removal(Bilateral) - Patrick Bauman DO Height/Weight Height: 5 ft 4 in Weight: 74.4 kg Allergies Allergy/AdvReac Type Severity Reaction Status Date / Time No Known Allergies Allergy Unverified 02/28/20 23:08 Medications Home Medications Medication Instructions Recorded Confirmed Last Taken aspirin 81 mg PO DAILY 02/28/20 02/28/20 Unknown levothyroxine 1 tab PO DAILY 02/28/20 02/28/20 Unknown tramadol 50 mg PO DAILY PRN 02/28/20 02/28/20 Unknown Active Medications Generic Name Dose Route Start Last Admin Trade Name Freq PRN Reason Stop Dose Admin Norepinephrine Bitartrate 8 mg 508 mls @ 33.147 mls/hr 02/29/20 01:30 02:56 / Dextrose IV 03/30/20 01:29 0.12 mcg/kg/min .[id number] INGE 33.1 mls/hr Titration Protocol 0.12 MCG/KG/MIN Sodium Chloride 1,000 mls @ 100 mls/hr 02/29/20 01:55 02/29/20 01:58 Nss 1000ml IV 03/30/20 01:54 100 mls/hr .Q10H INGE Administration Famotidine 20 mg/ Syringe 5 mls @ 2.5 mls/min 02/29/20 01:55 02/29/20 02:10 IV 03/30/20 01:54 2.5 mls/min Q12 INGE Administration Ondansetron HCl 4 mg 02/29/20 02:41 02/29/20 02:50 Zofran IV 03/30/20 02:40 4 mg Q4H PRN Administration Nausea NPO Date Last Intake of Fluids: 02/28/20 Last Intake of Fluids Comment: unknown time Date Last Intake of Solids: 07/25/20 Last Intake of Solids Comment: unknown time Past Medical History Medical History Hypothyroidism Exercise / Class Metabolic Activity III < 4 Walking/Shop/Light housework Past Surgical History Surgical History No pertinent past surgical history Past Anesthesia History No Hx of Anesthesia Complications and No Family Hx of Anesthesia Complications History of PONV No Hx of PONV and No Hx of Motion Sickness Social History Smoking Status: Never smoker Hx Alcohol Use: No Hx Substance Use: No Physical Exam Vital Signs Last Vital Signs Temp 37.7 C H 02/29/20 04:50 Pulse 147 H 02/29/20 05:10 Resp 14 02/29/20 05:10 BP 125/67 02/29/20 05:10 Pulse Ox 100 02/29/20 05:10 ENMT Mouth: no dentition abnormality Thyromental Distance: > or= 3.5 Finger Breadths Mallampati Class: II Neck normal visual inspection Respiratory + uses accessory muscles and + tachypneic Auscultation: lungs clear to auscultation bilaterally Cardiovascular Rate/Rhythm: regular rate and regular rhythm Psychiatric Orientation: alert Testing Laboratory Results 02/28/20 22:41 02/28/20 22:41 PT 12.7 Seconds (9.0-12.0) H 02/28/20 22:41 INR 1.2 (0.9-1.1) H 02/28/20 22:41 APTT 31.9 Seconds (21.0-31.0) H 02/28/20 22:41 Urine Color Yellow 02/28/20 22:50 Urine Appearance Turbid (Clear) A 02/28/20 22:50 Urine pH 6.0 (4.5-7.5) 02/28/20 22:50 Ur Specific [place] 1.012 (1.000-1.030) 02/28/20 22:50 Urine Protein 3+ (Negative) H 02/28/20 22:50 Urine Glucose (UA) Negative (Negative) 02/28/20 22:50 Urine Ketones Negative (Negative) 02/28/20 22:50 Urine Nitrite Positive (Negative) A 02/28/20 22:50 Ur Leukocyte Esterase 3+ (Negative) H 02/28/20 22:50 Urine WBC (Auto) >30 /hpf (0-5) H 02/28/20 22:50 Urine RBC (Auto) 10-30 /hpf (0-4) H 02/28/20 22:50 U Hyaline Cast (Auto) 1-5 /lpf (0-5) 02/28/20 22:50 U Epithel Cells (Auto) >30 /lpf (0-5) H 02/28/20 22:50 Urine Bacteria (Auto) 1+ (Negative) H 02/28/20 22:50 02/28/20 22:25 POC Glucose 97
--- NOTE | 2020-02-29 03:35 | Emergency Department Note ---
ED Visit Note The patient was seen and examined with Alyssia Mckeon PA-C. I agree with the history, physical and findings. Please see the note for disposition and details. Patient presented. Laboratory testing was initiated. The patient was hydrated. She was found to have a significant leukocytosis and lactic acidosis. This was concerning for sepsis. She also had REEMA and hypokalemia on chemistry panel. The patient was hydrated with 30 mL/kg of normal saline. She received Zosyn and vancomycin for broad-spectrum antibiotic coverage. CT imaging of the head, cervical spine, and abdomen and pelvis was performed. The patient has hydronephrosis and a right distal ureteral stone. Her urinalysis was very concerning for infection. This couples to sepsis from a urinary source likely due to UTI and obstructing kidney stone. The patient had blood pressures that were fluctuating and going low despite the fluid resuscitation. Levophed was ordered. The patient also had consultations with internal medicine, critical care, and urology. The patient was admitted to the ICU by internal medicine. There was some difficulty getting in touch with urology but I was able to contact Dr. Hooper for assistance even though he was not surety bond agent. He was able to reach Dr. Bauman who was on-call and he presented to the hospital due to the concerns for infected kidney stone. I refer you to the EMR for their notes for further details. The patient was admitted to the ICU and then taken to the OR by urology. Critical care: I have personally spent greater than 45 minutes of critical care time in the direct management of this patient. This includes bedside care, interpretation of diagnostic studies, and testing, discussion with consultants, patient, and family members, and other required patient management activities. These minutes are in excess of all separately billable procedures. .
[2020-02-29 04:27] LABS: iSTAT Allen Test Pass; iSTAT Arterial Blood Gas HCO3 12 meg/L (19-24); iSTAT Arterial Blood Gas pCO2 18 mmHg (35-46); iSTAT Arterial Blood Gas pH 7.43 (7.35-7.45); iSTAT Arterial Blood Gas pO2 72 mmHg (80-95); iSTAT Carbon Dioxide 12 mmol/L (24-31); iSTAT Site R Radial
--- NOTE | 2020-02-29 04:41 | Operative Report ---
PG Post Operative Report Pre & Post Diagnosis Operation Date: 02/29/20 03:30 Pre-Op Diagnosis: Septic shock, Ureterolithiasis, Acute pyelonephritis Post-Op Diagnosis: Septic shock, Ureterolithiasis, Acute pyelonephritis I identified the patient and participated in the time-out.: Yes Procedure Operation Date: 02/29/20 03:30 Actual Procedures p Emergent Cystoscopy, Bilateral retrograde pyelogram and Ureteral stent insertion bilateral(Bilateral) - Patrick Bauman DO Surgeon Patrick Bauman, II, DO Hotel General Manager None Estimated Blood Loss 1 Findings Consistent with Post-Op Diagnosis Stent placed in good position draining purulent urine from left renal pelvis. Specimens None Drains 6 Fr x 24 cm bilateral stents. 20 Fr Catheter Anesthesia Type General Complications none Disposition Disposition: Recovery Room Indications Patient with obstruction and sepsis. Emergent stent placement. Risks and benefits discussed at length but patient unable to sign due to illness. Verbal consent documented by nursing after discussing with myself. Description of Procedure Patient was consented and brought back to the operating room. Patient was placed under anesthesia in the supine position and moved to the dorsal lithotomy position. Patient was prepped and draped in the regular sterile fashion. A time out was completed. A 30degree Cystoscope was placed into the bladder and the entire bladder was examined. The UO's were identified. The left followed by the right UO was cannulized with a catheter and a retrograde pyelogram was completed. A wire was then placed. With the wire in place, a 6 Fr Double J stent was placed. This was repeated for the right ureter. It was confirmed with fluoroscopy. With the stent in place, the bladder was emptied and irrigated. The bladder was partially filled. The scope was removed. A 20 Fr Catheter was placed. The patient was cleaned, aroused from anesthesia, and transferred to the pacu in stable condition having tolerated the procedure well with no complications. I was present and participated in all aspects of the procedure. The patient will be monitored in the PACU until transferred. I attest to the content of the Intraoperative Record and any orders documented therein. Any exceptions are noted below.
[2020-02-29] MEDS ORDERED: SUCCINYLCHOLINE 100MG/5ML SYR IV ONE (04:43)
[2020-02-29] MEDS ORDERED: PHENYLEPHRINE 100MCG/ML 5ML SYR ONE (04:43)
[2020-02-29] MEDS ORDERED: fentaNYL citrate 100 MCG/2 ML VIAL ONE (04:43)
[2020-02-29] MEDS ORDERED: PROPOFOL IV EMULSION 10 MG/ML 20 ML VIAL IV ONE (04:43)
[2020-02-29] MEDS ORDERED: PROPOFOL IV EMULSION 10 MG/ML 100 ML VIAL IV ONE (05:03)
[2020-02-29] MEDS ORDERED: MIDAZOLAM BOLUS FROM BAG IV PRN (05:05)
[2020-02-29] MEDS ORDERED: ICU ELECTROLYTE REPLACEMENT PROTOCOL PRN (05:05)
[2020-02-29] MEDS ORDERED: MIDAZOLAM HCL 125 MG/250 ML BAG IV SCH (05:15)
[2020-02-29] MEDS ORDERED: ACETAMINOPHEN 1000 MG/100 ML IV IV PRN (05:21)
--- NOTE | 2020-02-29 05:21 | Anesthesiology Progress Note ---
Date of Service February 29, 2020 Anesthesia Post Procedure Vital Signs Vital Signs: Temp Pulse Pulse Resp BP BP Pulse Ox 02/29/20 05:10 147 H 14 125/67 100 02/29/20 05:00 145 H 14 119/58 L 100 02/29/20 04:50 37.7 C H 149 H 14 125/67 100 02/29/20 02:53 124 H 32 H 89/56 L 100 02/29/20 02:38 125 H 35 H 86/41 L 93 02/29/20 02:35 119 H 37 H 82/33 L 91 02/29/20 02:33 118 H 39 H 77/34 L 86 L 02/29/20 02:26 115 H 30 H 80/41 L 92 02/29/20 02:23 111 H 33 H 75/42 L 83 L 02/29/20 02:08 111 H 33 H 84/43 L 94 02/29/20 01:53 113 H 30 H 78/47 L 96 02/29/20 01:45 121 H 17 93/49 L 96 02/29/20 01:40 37.3 C 109 H 30 H 93/49 L 93 02/29/20 01:35 106 H 20 82/51 L 98 02/29/20 01:24 37.1 C 102 H 20 85/47 L 96 02/29/20 00:42 101 H 22 88/59 L 95 02/29/20 00:16 95 02/29/20 00:15 37 C 106 H 20 84/41 L 95 02/28/20 23:17 112 H 18 92/54 L 98 02/28/20 22:57 113 H 24 101/47 L 100 02/28/20 22:31 100 02/28/20 22:26 37.8 C H 119 H 24 91/43 L 100 Pain Intensity Left Arm: Pain Intensity: 2 Transfer of Care Handoff Completed per policy Notes Mental Status: see notes below Nausea / Vomiting: adequately controlled Pain: adequately controlled Airway Patency, RR, SpO2: see Notes below BP & HR: see Notes below Hydration State: see Notes below Anesthetic Complications: no major complications apparent Notes: Patient remains intubated and on pressors as planned. CXR ordered for line and tube placement by ICU. Full signout to ICU NADINE
[2020-02-29] MEDS ORDERED: ePHEDrine sulfate 50 MG/ML AMP IV PRN (05:23)
[2020-02-29] MEDS ORDERED: ATROPINE SULFATE 0.1 MG/ML 10ML SYR IV PRN (05:23)
--- NOTE | 2020-02-29 05:23 | Anesthesia Procedure Note ---
Anesthesia Procedure Note Central Line Note Indication: Central intravenous access Consent: Risk / Benefits Reviewed With: PT / POA / Parent / Guardian, Accepts Plan and Informed Consent Obtained Monitors attached: Blood Pressure, CO2, EKG and Pulse Oximetry Oxygen delivery method: ETT Time out completed: Yes Premedication: General anesthesia Laterality: Left Location: Internal Jugular Surgical Prep: Hand hygeine: Alcohol based hand rub Equipment/Supplies: Cap, Mask, Sterile gown, Sterile gloves, Sterile drapes and Sterile procedures used Skin prep: Chloraprep Ultrasound Guidance: Ultrasound used: Yes US equipment and supplies: Sterile Gel and Sterile Probe Cover Central line lumen: Triple Attempts: 1 Post-Procedure: Pt hemodynamically stable (patient remains on pressors to ICU), Pt tolerates well, No complication and Post placement CXR ordered Anesthesia Charges Indication for Procedure (1) Encounter for pre-operative examination:
--- NOTE | 2020-02-29 06:14 | History & Physical Report ---
Date of Service February 29, 2020 Assessment & Plan (1) Admitted to intensive care unit: Admitted to intensive care unit with septic shock secondary to complicated UTI/8 mm right UVJ obstructing stone causing mild to moderate hydro-ureter dilatation/pyelonephritis- Present on Admission?: Yes (2) Pyelonephritis: Present on Admission?: Yes (3) Severe sepsis: Severe sepsis/septic shock/due to complicated UTI/pyelonephritis/obstructing right UVJ stone- Empiric antibiotic treatment with vancomycin IV and Zosyn IV. Aggressive IV fluid with normal saline per septic protocol. Maintenance fluids normal saline at 150 mils per hour Follow urine culture and sensitivities Patient may require pressors. Patient taken urgently to the OR by urology for removal of obstructing stone. Present on Admission?: Yes (4) Septic shock: See above Present on Admission?: Yes (5) Rhabdomyolysis: CK 1202 upon admission, with creatinine 2.40. Patient had a fall and was possibly laying on the floor for up to 24 hours. Follow serial BMP magnesium and CK levels Present on Admission?: Yes (6) REEMA (acute kidney injury): See above Creatinine was 2.40 upon admission, with no previous for comparison Follow serial laboratories after rehydration Present on Admission?: Yes (7) Hypomagnesemia: Replacing IV Present on Admission?: Yes (8) Fall: See above Present on Admission?: Yes (9) Ureterolithiasis: See above Present on Admission?: Yes Admission and Anticipated Discharge Date Admission Date: February 29, 2020 History of Present Illness Chief Complaint: The patient presented to the emergency department complaining of generalized weakness, recent fall, with left hip and right shoulder pain. Primary Care Provider: Rob Mann The patient is a 84-year-old female with a past medical history including hypothyroidism and arthritis, who presented to the emergency department after a fall which was preceded by generalized weakness, and resulted in pain in left hip and right shoulder. Upon arrival to emergency department, patient was found to be hypotensive and tachycardic. She did have appropriate laboratories and imaging studies ordered, and did receive IV fluid resuscitation. Allergies Allergy/AdvReac Type Severity Reaction Status Date / Time No Known Allergies Allergy Unverified 02/28/20 23:08 Home Medications Home Medications Medication Instructions Recorded Confirmed Type aspirin 81 mg PO DAILY 02/28/20 02/28/20 History levothyroxine 1 tab PO DAILY 02/28/20 02/28/20 History tramadol 50 mg PO DAILY PRN 02/28/20 02/28/20 History Past Med/Surg History Medical History Hypothyroidism Surgical History No pertinent past surgical history Social History Smoking Status: Never smoker Hx Alcohol Use: No Hx Substance Use: No Beliefs That Will Affect Care: None Current Living Situation: Alone Other Information That Helps Us Care for You: No Feels Safe at Home: Yes Safety Concerns: Feels Safe At This Time Review of Systems Review of Systems: Unobtainable due to cognitive status Physical Exam Physical Exam: The patient is lethargic and nonresponsive, normocephalic and atraumatic, lying in bed and in no acute distress, looks parrish and septic. HEENT--PERRL, EOMI, mucous membranes and oropharynx dry. Neck--supple. No JVD. No bruits. Thyroid normal, trachea midline, no adenopathy. Heart--normal S1 and S2. No murmurs, rubs or gallops. Lungs--clear bilaterally, no respiratory distress, no accessory muscle use. Abdomen--normal bowel sounds and soft. Nontender. Nondistended Extremities--no cyanosis or clubbing. No edema. Dermatologic--skin appears parrish and dry. Neurologic--cranial nerves II through XII grossly intact. Rheumatologic--limited exam Psychiatric--lethargic and unresponsive Results & Data Results & Data ([facility]) Vital Signs (Past 12 Hours) Vital Signs Temp Pulse Pulse Resp BP BP Pulse Ox 02/29/20 05:29 142 H 97/57 L 99 02/29/20 05:20 144 H 14 112/61 99 02/29/20 05:10 147 H 14 125/67 100 02/29/20 05:00 145 H 14 119/58 L 100 02/29/20 04:50 99.9 F H 149 H 14 125/67 100 02/29/20 02:53 124 H 32 H 89/56 L 100 02/29/20 02:38 125 H 35 H 86/41 L 93 02/29/20 02:35 119 H 37 H 82/33 L 91 02/29/20 02:33 118 H 39 H 77/34 L 86 L 02/29/20 02:26 115 H 30 H 80/41 L 92 02/29/20 02:23 111 H 33 H 75/42 L 83 L 02/29/20 02:08 111 H 33 H 84/43 L 94 02/29/20 01:53 113 H 30 H 78/47 L 96 02/29/20 01:45 121 H 17 93/49 L 96 02/29/20 01:40 99.1 F 109 H 30 H 93/49 L 93 02/29/20 01:35 106 H 20 82/51 L 98 02/29/20 01:24 98.8 F 102 H 20 85/47 L 96 02/29/20 00:42 101 H 22 88/59 L 95 02/29/20 00:16 95 02/29/20 00:15 98.6 F 106 H 20 84/41 L 95 02/28/20 23:17 112 H 18 92/54 L 98 02/28/20 22:57 113 H 24 101/47 L 100 02/28/20 22:31 100 02/28/20 22:26 100.0 F H 119 H 24 91/43 L 100 Laboratory Results Laboratory Results WBC 38.54 K/uL (4.8-10.8) H* 02/28/20 22:41 RBC 3.13 M/uL (4.2-5.4) L 02/28/20 22:41 Hgb 9.2 g/dL (12.0-16.0) L 02/28/20 22:41 Hct 28.4 % (37-47) L 02/28/20 22:41 MCV 90.7 fL (80-100) 02/28/20 22:41 MCH 29.4 pg (25-34) 02/28/20 22:41 MCHC 32.4 g/dL (32-36) 02/28/20 22:41 RDW Std Deviation 51.7 fL (36.4-46.3) H 02/28/20 22:41 RDW Coeff of Marisel 15.5 % (11.5-14.5) H 02/28/20 22:41 Plt Count 228 K/uL (130-400) 02/28/20 22:41 MPV 9.9 fL (7.4-10.4) 02/28/20 22: Immature Gran % (Auto) 2.6 % 02/28/20: Neut % (Auto) 90.4 % 02/28/20: Lymph % (Auto) 2.1 % 02/28/20: [place] % (Auto) 4.7 % 02/28/20: Eos % (Auto) 0.1 % 02/28/20: Baso % (Auto) 0.1 % 02/28/20: Neut # (Auto) 34.81 K/uL (1.4-6.5) H 02/28/20: Lymph # (Auto) 0.81 K/uL (1.2-3.4) L 02/28/20 22: [place] # (Auto) 1.81 K/uL (0.11-0.59) H 02/28/20: Eos # (Auto) 0.05 K/uL (0-0.5) 02/28/20: Baso # (Auto) 0.04 K/uL (0-0.2) 02/28/20: Immature Gran # (Auto) 1.02 K/uL (0.00-0.02) H 02/28/20:41 Platelet Estimate Normal (Normal) 02/28/20: PT 12.7 Seconds (9.0-12.0) H 02/28/20: INR 1.2 (0.9-1.1) H 02/28/20 22:41 APTT 31.9 Seconds (21.0-31.0) H 02/28/20: PTT Ratio 1.1 02/28/20: Sample Site R Radial 02/29/20 02:28 POC pH 7.43 (7.35-7.45) 02/29/20 02:28 POC pCO2 18 mmHg (35-46) L 02/29/20 02:28 POC pO2 72 mmHg (80-95) L 02/29/20 02:28 POC HCO3 12 barbara/L (19-24) L 02/29/20 02:28 POC Total CO2 12 mmol/L (24-31) L 02/29/20 02:28 POC Base Excess -13.0 barbara/L (-9-1.8) L 02/29/20 02:28 POC ABG O2 Sat 95.0 % (90-95) 02/29/20 02:28 Miguel Angel Test Pass 02/29/20 02:28 Sodium 141 mmol/L (136-145) 02/28/20 22:41 Potassium 3.0 mmol/L (3.5-5.1) L 02/28/20 22:41 Chloride 113 mmol/L (98-107) H 02/28/20 22:41 Carbon Dioxide 12 mmol/L (21-32) L 02/28/20 22:41 Anion Gap 15.0 (3-11) H 02/28/20 22:41 BUN 21 mg/dl (7-18) H 02/28/20 22:41 Creatinine 2.40 mg/dl (0.6-1.2) H 02/28/20 22:41 Est Cr Clr Drug Dosing 17.3 ml/min 02/28/20 22:41 Est GFR ( Amer) 20.9 02/28/20 22:41 Est GFR (Non-Af Amer) 18.1 02/28/20 22:41 BUN/Creatinine Ratio 8.6 (10-20) L 02/28/20 22:41 Glucose 97 mg/dl (70-99) 02/28/20 22:41 POC Glucose 97 mg/dl (70-99) 02/28/20 22:25 Lactate 6.5 mmol/L (0.4-2.0) H* 02/29/20 00:44 Calcium 7.9 mg/dl (8.5-10.1) L 02/28/20 22:41 Magnesium 1.4 mg/dl (1.8-2.4) L 02/28/20 22:41 Total Bilirubin 0.6 mg/dl (0.2-1) 02/28/20 22:41 AST 42 U/L (15-37) H 02/28/20 22:41 ALT 16 U/L (12-78) 02/28/20 22:41 Alkaline Phosphatase 75 U/L (45-117) 02/28/20 22:41 Total Creatine Kinase 1202 U/L (26-192) H 02/28/20 22:41 Troponin I 0.022 ng/ml (0-0.045) 02/28/20 22:41 Total Protein 5.5 gm/dl (6.4-8.2) L 02/28/20 22:41 Albumin 2.0 gm/dl (3.4-5.0) L 02/28/20 22:41 Globulin 3.5 gm/dl (2.5-4.0) 02/28/20 22:41 Albumin/Globulin Ratio 0.6 (0.9-2) L 02/28/20 22:41 Procalcitonin 63.80 ng/ml (0-0.5) H 02/28/20 22:44 Random Cortisol 133.61 mcg/dl 02/28/20 22:44 Urine Color Yellow 02/28/20 22:50 Urine Appearance Turbid (Clear) A 02/28/20 22:50 Urine pH 6.0 (4.5-7.5) 02/28/20 22:50 Ur Specific [place] 1.012 (1.000-1.030) 02/28/20 22:50 Urine Protein 3+ (Negative) H 02/28/20 22:50 Urine Glucose (UA) Negative (Negative) 02/28/20 22:50 Urine Ketones Negative (Negative) 02/28/20 22:50 Urine Blood 3+ (Negative) H 02/28/20 22:50 Urine Nitrite Positive (Negative) A 02/28/20 22:50 Urine Bilirubin Negative (Negative) 02/28/20 22:50 Urine Urobilinogen Negative (Negative) 02/28/20 22:50 Ur Leukocyte Esterase 3+ (Negative) H 02/28/20 22:50 Urine WBC (Auto) >30 /hpf (0-5) H 02/28/20 22:50 Urine RBC (Auto) 10-30 /hpf (0-4) H 02/28/20 22:50 U Hyaline Cast (Auto) 1-5 /lpf (0-5) 02/28/20 22:50 U Epithel Cells (Auto) >30 /lpf (0-5) H 02/28/20 22:50 Urine Bacteria (Auto) 1+ (Negative) H 02/28/20 22:50 Urine Yeast Not Reportable 02/28/20 22:50 Nasal Screen MRSA (PCR) Negative (Negative) 02/29/20 02:57 Stl C. diff Tox B Gene Negative Cdiff Gene (Neg) 02/29/20 02:57 Diagnostic Findings [facility] Patient: LINDA WRIGHT (Female) : 37 Status: ER Date: 02/28/20 23:09 Room #: History: PATIENT FELL Slices: 59 Priors: Tech: Echo Bruner @ [phone] Exams: CT HEAD Accession Numbers: [id number] Preliminary Findings Only See Final Report For Complete Findings CT HEAD: No acute intracranial hemorrhage, mass effect or edema. No evidence of acute cortical stroke. Periventricular small vessel ischemic change. No midline shift or hydrocephalus. Diffuse parenchymal atrophy. 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 Atherosclerotic calcifications of the carotid siphons and vertebrobasilar arteries. Visualized sinuses and mastoid air cells are clear. Radiologist: Shailesh Jackson M.D. Study ready at 23:10 and initial results transmitted at 00:00 Communications: Clear Time Type Notes 02/29/20 00:[address] Liu on 02/28 00:38 (-04:00) *This report constitutes a preliminary interpretation only. Non-acute findings felt to be unrelated to the clinical presentation may not be discussed in this report. The study will be interpreted and a final report will be generated by the local Radiologist the following shift. To reach the hospital radiology department call [phone]. If a discrepancy is found between the preliminary and final interpretations of this study, please notify us via our Client Portal at [email or web address].You can also fax this report with a description of the discrepancy, or include the final report, to our daytime fax number [phone].If faxing, please indicate the severity of discrepancy using one of the following categories: [ ] 1 - Agree/Informational [ ] 2 - Unlikely to Affect Management [ ] 3 - Possible Eventual Change of Management [ ] 4 - Probable Immediate Change of Management For all other patient related information, please fax us at [phone]. [id number] [facility] Patient: LINDA WRIGHT (Female) : 37 Status: ER Date: 02/28/20 23:10 Room #: History: PATIENT FELL, BEST OBTAINABLE IMAGES, PATIENT UNABLE TO HOLD STILL Slices: 640 Priors: Tech: Echo Bruner @ [phone] Exams: CT C SPINE Accession Numbers: [id number] Preliminary Findings Only See Final Report For Complete Findings CT C SPINE: No evidence of acute or healing fracture or malalignment. Multilevel spine degenerative changes. Diffuse osteopenia. No critical central canal stenosis or apical pneumothorax. Radiologist: Shailesh Jackson M.D. Study ready at 23:14 and initial results transmitted at 00:08 *This report constitutes a preliminary interpretation only. Non-acute findings felt to be unrelated to the clinical presentation may not be discussed in this report. The study will be interpreted and a final report will be generated by the local Radiologist the following shift. To reach the hospital radiology department call [phone]. If a discrepancy is found between the preliminary and final interpretations of this study, please notify us via our Client Portal at [email or web address].You can also fax this report with a description of the discrepancy, or include the final report, to our daytime fax number [phone].If faxing, please indicate the severity of discrepancy using one of the following categories: [ ] 1 - Agree/Informational [ ] 2 - Unlikely to Affect Management [ ] 3 - Possible Eventual Change of Management [ ] 4 - Probable Immediate Change of Management For all other patient related information, please fax us at [phone]. [id number] [facility] Patient: LINDA WRIGHT (Female) : 37 Status: ER Date: 02/28/20 23:14 Room #: History: PATIENT FELL, ABDOMINAL PAINS UNKNOWN ABOUT APPENDIX, BEST OBTAINABLE IMAGES, PATIENT UNABLE TO HOLD BREATH OR RAISE ARMS Slices: 526 Priors: Tech: Echo Bruner @ [phone] Exams: CT ABDOMEN & PELVIS Without Contrast Accession Numbers: [id number] Preliminary Findings Only See Final Report For Complete Findings ADDENDUM - Added by Shailesh Jackson M.D. on 02/29/2020 12:44 AM (-07:00) 8 mm calculus at the distal aspect of the right ureter near the UVJ with mild to moderate upstream dilatation of the collecting system. Also there is some perinephric stranding/fluid involving the left kidney (staghorn calculus). Would correlate clinically to exclude left renal infection. Spoke with her requesting provider at 9:43 PM 02/28/20. CT ABDOMEN & PELVIS Without Contrast: Distended gallbladder. Staghorn calculus involving the left kidney. No hydronephrosis. No appendicitis, colitis, diverticulitis or bowel obstruction. No adnexal masses, free air or free fluid. Small to moderate hiatal hernia. Coronary arteriosclerosis. Radiologist: Shailesh Jackson M.D. Study ready at 23:15 and initial results transmitted at 00:18 *This report constitutes a preliminary interpretation only. Non-acute findings felt to be unrelated to the clinical presentation may not be discussed in this report. The study will be interpreted and a final report will be generated by the local Radiologist the following shift. To reach the hospital radiology department call [phone]. If a discrepancy is found between the preliminary and final interpretations of this study, please notify us via our Client Portal at [email or web address] [email or web address].You can also fax this report with a description of the discrepancy, or include the final report, to our daytime fax number [phone].If faxing, please indicate the severity of discrepancy using one of the following categories: [ ] 1 - Agree/Informational [ ] 2 - Unlikely to Affect Management [ ] 3 - Possible Eventual Change of Management [ ] 4 - Probable Immediate Change of Management For all other patient related information, please fax us at [phone]. [id number] Code Status & VTE Plan Code Status Full code VTE Prophylaxis Plan VTE Prophylaxis will be ordered: Yes Critical Care Time Critical Care Time: Yes Total Critical Care Time: 40 PG Care Time/CCT Total # of Minutes Spent Total Time Spent with Patient: Total time spent is greater than 50% in coordination of care (as documented) at patient's floor/unit and/or counseling patient: Critical Care Time: Yes Total Critical Care Time: 40 Coding Level of Care Code 71785 Initial Inpt Care Lvl 3 Diagnoses Admitted to intensive care unit Z78.9 Pyelonephritis N12 Severe sepsis A41.9; R65.20 Septic shock A41.9; R65.21 Rhabdomyolysis M62.82 REEMA (acute kidney injury) N17.9 Hypomagnesemia E83.42 Fall W19.XXXA Ureterolithiasis N20.1 Additional Codes Critical Care Time - Critical Care Time: Yes ([id number]) Time Spent (min) 40
[2020-02-29] MEDS ORDERED: STAT IV STA (06:22)
[2020-02-29] MEDS ORDERED: SODIUM BICARB 8.4% INJ 50 MEQ/50 ML SYR IV STA (06:22)
[2020-02-29] MEDS: VASOPRESSIN 20 UNITS in 0.9 % SODIUM CHLORIDE 100 ML IV SCH ×3 (06:26→19:15)
--- NOTE | 2020-02-29 06:27 | Communication Note ---
Date of Service: February 29, 2020 Shortly after arrival in the ICU, patient was assessed by urology. She was taken emergently to the OR where she underwent cystoscopy with bilateral ureter al stenting. Patient remained intubated status post intervention. She remains on Levophed. Central line and arterial lines placed by anesthesia. Upon arrival in the ICU, the patient is sedated on propofol. Orders were placed for vasopressin in addition to Levophed as there is been escalation of her dosing. ABG was attempted, however arterial line dislodged. Additional arterial access was obtained by myself. Please see separate note. ABG concerning for worsening metabolic acidosis with less respiratory compromise. Orders were placed for sodium bicarbonate pushes as well as bicarb drip. Patient remains hypotensive and tachycardic. Orders were made to increase respiratory rate and decrease FiO2. I have personally spent 38 minutes of critical care time in the direct management of this patient. This is a life/limb threatening event. This includes time spent evaluating patient, direct bedside care, chart review, placing orders, interpretation of diagnostic studies, discussion with consultants, patient, and family members, as well as other required patient management activities. This time is exclusive of all separately billable procedures, and teaching time and separate from and in addition to any other critical care service time. Coding Level of Care Code Critical Care alec henson'l 30 min Time Spent (min) 38
--- NOTE | 2020-02-29 06:28 | Procedure Note ---
Procedure Note Date of Service February 29, 2020 Procedure: Arterial Line Placement Attending: Dr. Olmedo APC: Young Castellanos PA-C Indication: Monitoring on Pressors Anesthesia: None Emergent consent implied in the setting of need for frequent ABGs, currently on pressors, and for frequent lab draws. Arterial line from the OR had dislodged. Replacement necessary. A time-out was completed verifying correct patient, procedure, site, positioning, and implant(s) or special equipment if applicable. Allens test was performed to ensure adequate perfusion. Patients LEFT wrist was prepped and draped in the usual sterile fashion. Ultrasound guidance was used to aid needle placement. A 20g Arrow arterial line was introduced into the LEFT Radial artery. Catheter was threaded, and the needle was removed with appropriate blood return. Good waveform was observed. The patient tolerated the procedure well. Confirmation of placement with ultrasound. Blood Loss: Minimal Complications: None Procedural Ultrasound Guidance: Procedure Date: 02/29/2020 Indication: Pressors, ABGs, Frequent Labs Attending: Dr. Olmedo APC: Young Castellanos PA-C Artery Identified: YES Line confirmed in Artery with ultrasound: YES Complications: NONE Patient tolerated procedure: WELL Coding CPT Codes Tubes, Drains, and Vasc Access - Tubes, Drains, and Vasc Access: [id number] Place Catheter In Artery ([id number]) [facility] [place] Procedure Codes (Charges) Tubes, Drains, and Vasc Access Procedure 1: Tubes, Drains, and Vasc Access: [id number] Place Catheter In Artery
[2020-02-29 06:33] LABS: iSTAT Art Bld Gas pCO2 Correct 50 mmHg (35-46); iSTAT Art Bld Gas pH Corrected 7.121 (7.35-7.45); iSTAT Arterial Blood Gas HCO3 16 meg/L (19-24); iSTAT Arterial Blood Gas pCO2 49 mmHg (35-46); iSTAT Arterial Blood Gas pH 7.13 (7.35-7.45); iSTAT Arterial Blood Gas pO2 272 mmHg (80-95); iSTAT Arterial Blood Gas pO2 C 276; iSTAT Carbon Dioxide 18 mmol/L (24-31); iSTAT FiO2 100 %; iSTAT Hematocrit 26 % (37-47); iSTAT Hemoglobin 8.8 g/dl (12.0-16.0); iSTAT Potassium 4.1 mmol/L (3.3-5.0); iSTAT Site Art Line; iSTAT Sodium 139 mmol/L (135-144)
[2020-02-29] MEDS: SODIUM BICARBONATE 8.4% 150 MEQ in DEXTROSE 5% 1,000 ML IV SCH ×2 (06:37→17:03)
[2020-02-29 06:40] LABS: Hematocrit (blood only) 27.9 % (37-47); Hemoglobin 8.8 g/dL (12.0-16.0); Mean Corpuscular Hemoglobin 28.9 pg (25-34); Mean Corpuscular Hgb Conc 31.5 g/dL (32-36); Mean Corpuscular Volume 91.8 fL (80-100); Mean Platelet Volume 10.4 fL (7.4-10.4); Platelet Count 172 K/uL (130-400); RDW Coefficient of Variation 15.5 % (11.5-14.5); RDW Standard Deviation 52.3 fL (36.4-46.3); Red Blood Count 3.04 M/uL (4.2-5.4); White Blood Count 35.29 K/uL (4.8-10.8)
[2020-02-29 06:50] LABS: INR 1.3 (0.9-1.1)
[2020-02-29 07:01] LABS: ANC (manual) 31.06 K/uL (1.4-6.5); Dohle Bodies 1+; Echinocytes 1+; Lymphocytes % (manual) 3.4 %; Metamyelocytes # (manual) 3.03 K/uL (0-0); Metamyelocytes % (manual) 8.6 %; Neutrophils # (manual) 31.06 K/uL (1.4-6.5); Toxic Vacuolation 2+
[2020-02-29 07:11] LABS: Albumin Globulin Ratio 0.6 (0.9-2); Albumin Level 2.1 gm/dl (3.4-5.0); BUN Creatinine Ratio 11.1 (10-20); Bilirubin,Total 1.1 mg/dl (0.2-1); Creatinine Clr Calc Pharmacy 18.5 ml/min; Est GFR (African American) 22.3; Est GFR (Non-African American) 19.2; Globulin 3.3 gm/dl (2.5-4.0); Total Protein 5.4 gm/dl (6.4-8.2)
--- NOTE | 2020-02-29 07:38 | CT Scan Report ---
CT SCAN OF THE CERVICAL SPINE CLINICAL HISTORY: Fall. COMPARISON STUDY: No priors. TECHNIQUE: CT scan of the cervical spine is performed from the skull base to the upper thoracic spine . Images are reviewed in the axial, sagittal, and coronal planes. IV contrast was not administered fo r this examination. A dose lowering technique was utilized adhering to the principles of ALARA. FINDINGS: Skeletal structures: The skeletal structures are osteopenic. There is no evidence of fracture or subl uxation involving the cervical spine. Vertebral body height is maintained. There is minimal retrolist hesis at C3-C4. Alignment is otherwise preserved. Anterior osteophytes are seen throughout. The odont oid process and lateral masses are intact. The atlantoaxial articulation is preserved noting producti ve degenerative change. The spinous processes appear intact. There is mild to moderate multilevel cer vical spondylosis. Uncovertebral and facet arthropathy contribute to neural foraminal narrowing at se veral levels. Intervertebral discs: There is moderate disc space narrowing seen at C5-C6 and C6-C7. The remaining d isc spaces appear maintained. Central canal: Posterior discussed by complexes at C5-C6 and C6-7 may contribute to mild acquired com promise of the central canal. Soft tissues: The prevertebral and paraspinous soft tissues are within normal limits. Calvarium: The visualized calvarium at the skull base appears intact. Brain parenchyma: Partially visualized brain parenchyma the skull base is within normal limits. Sinuses and mastoids: The visualized paranasal sinuses are clear. The mastoid air cells are well pneu matized. Lung apices: Clear as visualized. IMPRESSION: 1. There is no evidence of fracture or subluxation involving the cervical spine. 2. Osteopenia and spondylotic change as above. ACT 112: Negative or not required by law. Electronically signed by: Naseem Bararza M.D. 02/29/2020 7:36 AM
[2020-02-29] MEDS: fentaNYL citrate 100 MCG/2 ML VIAL IV PRN ×3 (07:57→17:03)
[2020-02-29] MEDS: PIPERACILLIN/TAZOBACTAM 4.5 GM in DEXTROSE 5% 100 ML IV SCH ×2 (07:57→20:05)
[2020-02-29] MEDS ORDERED: MAGNESIUM SULFATE / D5W 1 GM/100 ML BAG IV ONE (08:00)
--- NOTE | 2020-02-29 08:05 | CT Scan Report ---
CT SCAN OF THE BRAIN WITHOUT IV CONTRAST CLINICAL HISTORY: Fall. COMPARISON STUDY: No priors. TECHNIQUE: Unenhanced axial CT scan of the brain is performed from the vertex to the skull base. A do se lowering technique was utilized adhering to the principles of ALARA. The examination is degraded b y motion artifact. CT DOSE: 1934.57 mGy.cm FINDINGS: Brain parenchyma: There are age-related involutional changes noting moderate patchy subcortical and periventricular microangiopathic change. There is no hemorrhage, mass effect, or evidence of acute te rritorial ischemia by CT criteria. 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 A small chronic lacunar infarct is noted in the left thalamus. Zendejas-white matter differentiation i s preserved. No extra-axial fluid collection is seen. Ventricles, sulci, cisterns: Prominent secondary to involutional change. Intracranial vasculature: There is atherosclerotic calcification of the cavernous carotid and vertebr al arteries. Calvarium: The skeletal structures are osteopenic. No depressed calvarial fracture is identified. Sinuses and mastoids: The visualized paranasal sinuses are clear. The mastoid air cells are well pneu matized. Orbits: The bony orbits are grossly intact. IMPRESSION: There is no hemorrhage, mass effect, or evidence of acute territorial ischemia by CT crit ruchi noting a motion degraded examination. ACT 112: Negative or not required by law. Electronically signed by: Naseem Barraza M.D. 02/29/2020 8:03 AM
--- NOTE | 2020-02-29 08:09 | CT Scan Report ---
ABDOMEN AND PELVIS CT WITHOUT CONTRAST HISTORY: Acute abdominal pain status post fall fall, pain TECHNIQUE: Multiaxial CT images of the abdomen and pelvis were performed without contrast. A dose lo wering technique was utilized adhering to the principles of ALARA. COMPARISON STUDY: None. FINDINGS: Limited exam secondary to motion artifact and upper cavity positioning. Bibasilar opacities suggest a telectasis. No pneumatosis or pneumoperitoneum. Imaged inferior cardiac chambers are moderately enlar ged. Coronary artery calcifications. Limited evaluation of the solid abdominal organs without the use of IV contrast. There is trace abdominal pelvic ascites. The visualized spleen is unremarkable. Mild adrenal gland thickening. Trace edema surrounds the distal pancreatic body and tail. Moderately dist ended gallbladder. Unenhanced liver is unremarkable. Bilateral perinephric stranding. Left staghorn calculus of the renal pelvis measures up to at least 2 .3 cm. Mild dilation of the left superior pole collecting system. There is moderate right-sided hydro ureteronephrosis secondary to an obstructing 8 x 4 x 10 mm calculus of the distal right ureter approx imately 5 mm proximal to the ureterovesicular junction. Partially decompressed urinary bladder. Unrem arkable uterus and adnexa. Aorta and IVC are unremarkable. Nonspecific mildly enlarged right inguinal lymph node, 12 mm. Prominent distal esophageal lymph nodes with small to moderate hiatal hernia. No bowel obstruction or bowel wall thickening. The appendix is not definitively seen. Soft tissues are unremarkable. 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 IMPRESSION: 1. Limited exam as above. 2. Moderate right-sided hydroureteronephrosis secondary to an 8 x 4 x 10 mm calculus of the distal ri ght ureter just proximal to the ureterovesicular junction. 3. Large left-sided staghorn calculus with mild dilation of the left superior pole collecting system. 4. Trace abdominal pelvic ascites. 5. Stranding is also noted surrounding the distal pancreatic body and tail. Correlate with lipase lev el. 6. Small hiatal hernia with distal periesophageal stranding. 7. Moderate gallbladder distention. ACT 112: Negative or not required by law. The above report was generated using voice recognition software. It may contain grammatical, syntax o r spelling errors. Electronically signed by: Be Brice M.D. 02/29/2020 8:07 AM
--- NOTE | 2020-02-29 08:36 | XRay Report ---
XR chest 1V portable HISTORY: 84 years-old Female central line, ETT placement acute respiratory failure COMPARISON: Chest radiograph 02/28/2020 TECHNIQUE: Semierect AP view of the chest FINDINGS: Cardiac silhouette is enlarged. Mild pulmonary vascular congestion with hypoinflation. Endotracheal t ube overlies the midline, 4.0 cm superior to the anny. Status post placement of a left IJ central v enous catheter, distal tip partially obscured from telemetry leads. The distal tip appears to project within the location of the SVC brachiocephalic confluence. No postprocedural pneumothorax. Mild blun ting of the costophrenic angles. Hazy bibasilar opacities suggest atelectasis. No overt pulmonary alfonso ma. Degenerative changes of the shoulders and spine. IMPRESSION: 1. Satisfactory positioning of the endotracheal tube. 2. Left IJ central venous catheter distal tip terminates in the expected location of the brachiocepha lic SVC confluence. No postprocedural pneumothorax identified. 3. Cardiomegaly. ACT 112: Negative or not required by law. The above report was generated using voice recognition software. It may contain grammatical, syntax o r spelling errors. Electronically signed by: Be Brice M.D. 02/29/2020 8:35 AM
--- NOTE | 2020-02-29 08:39 | Fluoroscopy Report ---
FL retrograde includes kub HISTORY: 84 years-old Female BILATERAL STENTS STATUS post placement of bilateral ureteral stents COMPARISON: CT abdomen pelvis 02/28/2020 TECHNIQUE: 4 spot fluoroscopic images of the abdomen and pelvis were obtained utilizing 115.8 seconds fluoroscopy time FINDINGS: Persistent right hydronephrosis. Bilateral ureteral stents appear to be in satisfactory positioning. Calculus of the distal right ureter redemonstrated. IMPRESSION: Fluoroscopic assistance as above. Please see procedural report for further details. ACT 112: Negative or not required by law. The above report was generated using voice recognition software. It may contain grammatical, syntax o r spelling errors. Electronically signed by: Be Brice M.D. 02/29/2020 8:38 AM
--- NOTE | 2020-02-29 08:50 | XRay Report ---
XR chest 1V portable HISTORY: 84 years-old Female fall acute chest trauma status post fall COMPARISON: Chest radiograph 02/29/2020 at 5:10 AM, CT abdomen pelvis 02/28/2020 TECHNIQUE: Portable AP view of the chest FINDINGS: Cardiac silhouette is mildly enlarged. No pneumothorax, pleural effusion, airspace consolidation or o vert pulmonary edema. Minimal bibasilar atelectasis. Degenerative changes of the shoulders and spine. IMPRESSION: Cardiomegaly without acute process. ACT 112: Negative or not required by law. The above report was generated using voice recognition software. It may contain grammatical, syntax o r spelling errors. Electronically signed by: Be Brice M.D. 02/29/2020 8:48 AM
[2020-02-29] MEDS: HEPARIN SOD 5,000 UNIT/0.5 ML VIAL SQ SCH ×2 (08:57→20:05)
[2020-02-29] MEDS ORDERED: VANCOMYCIN HCL 1,000 MG in SODIUM CHLORIDE 0.9% 250 ML IV SCH (09:00)
[2020-02-29] MEDS: MIDAZOLAM HCL 1 MG/ML 2ML VIAL IV PRN (10:23)
--- NOTE | 2020-02-29 13:19 | Urology Progress Note ---
Date of Service February 29, 2020 Assessment & Plan (1) Septic shock: Acute ill with obstructing right stone and left staghorn. POD0 s/p stent for bilateral obstruction. Urine from left appeared more concerning than right which was the obstructed side. Large debris in bladder. Catheter in place. Agree with critical management and continued fluid management. Patient on pressor for hypotension to maintain blood pressure. Patient has Gram - Bacilli. Would presume Pseudomonas On broad spectrum IV with zosyn and vancomycin. Will await full culture report and may be able to deesculate off of vancomycin. Patient's emergency contact had lost her phone after leaving hospital yesterday and has been out of contact. Multiple attempts to call Granddaughter by myself. Nursing has been in contact and updated them on procedure and condition. Agree with continued critical management and close monitoring. (2) Ureterolithiasis: (3) Acute pyelonephritis: Subjective Postop from stent placement for obstruction issues with sepsis. Patient acutely ill after found down by family. On ventilator and critical management of issue. Gram neg Bacilli in culture. Continues to have hypotension and acute illness. Severely acidotic on p resentation. Patient tolerated stent placement and continues with critical management on pressors. No new nausea or vomiting. Urine output has been good. Sedated to prevent removal of lines and due to acute illness. Review of Systems Review of Systems: Unobtainable due to cognitive status, Unobtainable due to endotracheal tube and Unobtainable due to reduced consciousness Limited due to acute illness. Physical Exam Physical Exam: General: Intubated, Sedated. Critical condition in ICU HEENT: Normocephalic Atraumatic. Inspection normal. Intubated. Psychologic: Sedated Respiratory: Intubated and rate controlled. No use of accessory muscles. No tachypnea or dyspnea. Cardiovascular: Moderate tachycardia Skin: Starr and Dry. No rashes or visible lesions. Multiple bruises from arterial lines Extremities/Lymphatics: Moderate edema Abdomen: Mod distended. No rebound or guarding. : Mayer draining clear urine. Results & Data Vital Signs (Past 12 Hours) Vital Signs Temp Pulse Pulse Resp BP BP Pulse Ox 02/29/20 12:59 124 H 103/46 L 97 02/29/20 12:10 128 H 90/60 L 99 02/29/20 12:00 128 H 90/60 L 02/29/20 11:36 37.6 C H 130 H 115/62 99 02/29/20 11:07 130 H 90/60 L 99 02/29/20 10:50 129 H 26 H 100 02/29/20 10:38 131 H 71/47 L 100 02/29/20 10:15 132 H 02/29/20 10:00 37.9 C H 132 H 45/23 L 02/29/20 09:44 133 H 106/72 02/29/20 09:30 132 H 02/29/20 08:59 133 H 100/79 02/29/20 08:30 134 H 115/75 100 02/29/20 08:00 37.9 C H 137 H 130/87 100 02/29/20 07:49 138 H 20 100 02/29/20 07:44 137 H 143/80 H 100 02/29/20 07:29 138 H 142/95 H 100 02/29/20 06:59 137 H 139/83 100 02/29/20 06:34 142 H 18 100 02/29/20 05:29 142 H 97/57 L 99 02/29/20 05:20 144 H 14 112/61 99 02/29/20 05:10 147 H 14 125/67 100 02/29/20 05:00 145 H 14 119/58 L 100 02/29/20 04:51 135 H 14 100 02/29/20 04:50 37.7 C H 149 H 14 125/67 100 02/29/20 02:53 124 H 32 H 89/56 L 100 02/29/20 02:38 125 H 35 H 86/41 L 93 02/29/20 02:35 119 H 37 H 82/33 L 91 02/29/20 02:33 118 H 39 H 77/34 L 86 L 02/29/20 02:26 115 H 30 H 80/41 L 92 02/29/20 02:23 111 H 33 H 75/42 L 83 L 02/29/20 02:08 111 H 33 H 84/43 L 94 02/29/20 01:53 113 H 30 H 78/47 L 96 02/29/20 01:45 121 H 17 93/49 L 96 02/29/20 01:40 37.3 C 109 H 30 H 93/49 L 93 02/29/20 01:35 106 H 20 82/51 L 98 02/29/20 01:24 37.1 C 102 H 20 85/47 L 96 PG Care Time/CCT Total # of Minutes Spent Total Time Spent with Patient: Total time spent is greater than 50% in coordination of care (as documented) at patient's floor/unit and/or counseling patient: Coding Level of Care Code 77890 Subseq Hosp Care Lvl 3 Diagnoses Septic shock A41.9; R65.21 Ureterolithiasis N20.1 Acute pyelonephritis N10
--- NOTE | 2020-02-29 14:27 | Hospitalist Progress Note ---
Date of Service February 29, 2020 Assessment & Plan (1) Admitted to intensive care unit: Admitted to intensive care unit with septic shock secondary to complicated UTI/8 mm right UVJ obstructing stone causing mild to moderate hydro-ureter dilatation/pyelonephritis- Respiratory status improving Ongoing pressor support required Maintain intubation to avoid re-intubation if pt were to suddenly decompensate (2) Pyelonephritis: (3) Severe sepsis: Severe sepsis/septic shock/due to complicated UTI/pyelonephritis/obstructing right UVJ stone- Empiric antibiotic treatment with vancomycin IV and Zosyn IV. Aggressive IV fluid with normal saline per septic protocol. Maintenance fluids normal saline at 150 mils per hour Follow urine culture and sensitivities Patient may require pressors. 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 Patient had a fall and was possibly laying on the floor for up to 24 hours. Follow serial BMP magnesium and CK levels (6) REEMA (acute kidney injury): See above Creatinine was 2.40 upon admission, with no previous for comparison Follow serial laboratories after rehydration (7) Hypomagnesemia: Replacing IV (8) Fall: See above (9) Ureterolithiasis: See above Admission and Anticipated Discharge Date Admission Date: February 29, 2020 Subjective Pt still with need for pressors per nursing, however she is improving. There was some discussion regarding extubation options as pt is stable from a respiratory standpoint, however it will be left in place due to risk of decompensation related more to other hemodynamic instability regarding BP. Pt is uncomfortable and asking for mouth swabs. Denies other pain or SOB. Review of Systems Review of Systems: Unable to obtain full ROS due to pt's intubation status Physical Exam Constitutional: WD/WN, vitals as above Eyes: normal visual hamm by confrontation and + anicteric sclerae Neck: normal visual inspection and trachea midline Respiratory: normal respiratory effort; no respiratory distress coarse lung sounds on vent Cardiovascular: Rate/Rhythm: regular rate and regular rhythm Gastrointestinal (Abdomen): Inspection/Auscultation: abdomen not distended Percussion/Palpation: abdomen soft; abdomen nontender Musculoskeletal: Head/Neck/Chest: normocephalic and head atraumatic negative for edema, peripheral pulses intact Skin: no rashes, warm and dry Neurologic: awake; not confused Speech / Cognition: normal speech Psychiatric: Orientation: alert and cooperative Eye Contact: good eye contact Results & Data Results & Data ([facility]) Vital Signs (Past 12 Hours) Vital Signs Temp Pulse Pulse Resp BP BP Pulse Ox 02/29/20 12:59 124 H 103/46 L 97 02/29/20 12:10 128 H 90/60 L 99 02/29/20 12:00 128 H 90/60 L 02/29/20 11:36 37.6 C H 130 H 115/62 99 02/29/20 11:07 130 H 90/60 L 99 02/29/20 10:50 129 H 26 H 100 02/29/20 10:38 131 H 71/47 L 100 02/29/20 10:15 132 H 02/29/20 10:00 37.9 C H 132 H 45/23 L 02/29/20 09:44 133 H 106/72 02/29/20 09:30 132 H 02/29/20 08:59 133 H 100/79 02/29/20 08:30 134 H 115/75 100 02/29/20 08:00 37.9 C H 137 H 130/87 100 02/29/20 07:49 138 H 20 100 02/29/20 07:44 137 H 143/80 H 100 02/29/20 07:29 138 H 142/95 H 100 02/29/20 06:59 137 H 139/83 100 02/29/20 06:34 142 H 18 100 02/29/20 05:29 142 H 97/57 L 99 02/29/20 05:20 144 H 14 112/61 99 02/29/20 05:10 147 H 14 125/67 100 02/29/20 05:00 145 H 14 119/58 L 100 02/29/20 04:51 135 H 14 100 02/29/20 04:50 37.7 C H 149 H 14 125/67 100 02/29/20 02:53 124 H 32 H 89/56 L 100 02/29/20 02:38 125 H 35 H 86/41 L 93 02/29/20 02:35 119 H 37 H 82/33 L 91 02/29/20 02:33 118 H 39 H 77/34 L 86 L 07/26/20 02:26 115 H 30 H 80/41 L 92 PG Care Time/CCT Total # of Minutes Spent Total Time Spent with Patient: Total time spent is greater than 50% in coordination of care (as documented) at patient's floor/unit and/or counseling patient: Coding Level of Care Code 01265 Subseq Hosp Care Lvl 3 Diagnoses Admitted to intensive care unit Z78.9 Pyelonephritis N12 Severe sepsis A41.9; R65.20 Septic shock A41.9; R65.21 Rhabdomyolysis M62.82 REEMA (acute kidney injury) N17.9 Hypomagnesemia E83.42 Fall W19.XXXA Ureterolithiasis N20.1
[2020-02-29] MEDS ORDERED: DAPTOMYCIN CONSULT ACTIVE PRN (16:18)
[2020-02-29] MEDS ORDERED: DAPTOmycin 325 MG in SYRINGE 0 ML IV SCH (20:00)
[2020-02-29 23:29] LABS: Hematocrit (blood only) 25.7 % (37-47); Hemoglobin 8.5 g/dL (12.0-16.0)
[2020-02-29 23:39] LABS: iSTAT Art Bld Gas pCO2 Correct 24 mmHg (35-46); iSTAT Art Bld Gas pH Corrected 7.518 (7.35-7.45); iSTAT Arterial Blood Gas HCO3 19 meg/L (19-24); iSTAT Arterial Blood Gas pCO2 23 mmHg (35-46); iSTAT Arterial Blood Gas pH 7.53 (7.35-7.45); iSTAT Arterial Blood Gas pO2 90 mmHg (80-95); iSTAT Arterial Blood Gas pO2 C 94; iSTAT Carbon Dioxide 20 mmol/L (24-31); iSTAT FiO2 30 %; iSTAT Hematocrit 24 % (37-47); iSTAT Hemoglobin 8.2 g/dl (12.0-16.0); iSTAT Potassium 3.3 mmol/L (3.3-5.0); iSTAT Site Art Line; iSTAT Sodium 137 mmol/L (135-144)
[2020-02-29 23:58] LABS: BUN Creatinine Ratio 13.2 (10-20); Calcium 7.1 mg/dl (8.5-10.1); Creatinine Clr Calc Pharmacy 18.6 ml/min; Est GFR (African American) 22.4; Est GFR (Non-African American) 19.3; Phosphorus 2.5 mg/dl (2.5-4.9); Potassium 3.3 mmol/L (3.5-5.1)
[2020-03-01] MEDS ORDERED: CALCIUM GLUCONATE 10% 1,000 MG in SODIUM CHLORIDE 0.9% 50 ML IV STA (00:10)
[2020-03-01] MEDS ORDERED: MAGNESIUM SULFATE / D5W 1 GM/100 ML BAG IV ONE (00:10)
[2020-03-01] MEDS: SODIUM CHLORIDE 0.9% 1000ML 1,000 ML IV SCH ×3 (00:19→21:47)
[2020-03-01] MEDS: POTASSIUM CHLORIDE / WTR 20 MEQ/100 ML PLCT IV SCH ×2 (00:21→02:20)
[2020-03-01] MEDS: VASOPRESSIN 20 UNITS in 0.9 % SODIUM CHLORIDE 100 ML IV SCH ×2 (03:06→13:16)
[2020-03-01 05:01] LABS: INR 1.3 (0.9-1.1); Prothrombin Time 13.2 Seconds (9.0-12.0)
[2020-03-01 05:11] LABS: Albumin Level 1.7 gm/dl (3.4-5.0); BUN Creatinine Ratio 14.5 (10-20); Calcium 7.1 mg/dl (8.5-10.1); Creatinine Clr Calc Pharmacy 20.2 ml/min; Est GFR (African American) 24.9; Est GFR (Non-African American) 21.5; Magnesium 2.2 mg/dl (1.8-2.4); Potassium 4.1 mmol/L (3.5-5.1)
[2020-03-01 05:12] LABS: Albumin Globulin Ratio 0.5 (0.9-2); Bilirubin,Total 0.9 mg/dl (0.2-1); Globulin 3.6 gm/dl (2.5-4.0); Phosphorus 2.5 mg/dl (2.5-4.9); Total Protein 5.3 gm/dl (6.4-8.2)
[2020-03-01 05:28] LABS: Hematocrit (blood only) 24.5 % (37-47); Hemoglobin 8.1 g/dL (12.0-16.0); Mean Corpuscular Hemoglobin 29.1 pg (25-34); Mean Corpuscular Hgb Conc 33.1 g/dL (32-36); Mean Corpuscular Volume 88.1 fL (80-100); Mean Platelet Volume 12.6 fL (7.4-10.4); Platelet Count 55 K/uL (130-400); RDW Coefficient of Variation 15.6 % (11.5-14.5); RDW Standard Deviation 50.7 fL (36.4-46.3); Red Blood Count 2.78 M/uL (4.2-5.4); White Blood Count 33.11 K/uL (4.8-10.8)
[2020-03-01 05:30] LABS: Basophils # (auto) 0.01 K/uL (0-0.2); Echinocytes 1+; Eosinophils # (auto) 0.02 K/uL (0-0.5); Eosinophils % (auto) 0.1 %; Immature Granulocytes # (auto) 2.47 K/uL (0.00-0.02); Immature Granulocytes % (auto) 7.5 %; Lymphocytes # (auto) 1.42 K/uL (1.2-3.4); Lymphocytes % (auto) 4.3 %; Monocytes # (auto) 1.22 K/uL (0.11-0.59); Monocytes % (auto) 3.7 %; Neutrophils # (auto) 27.97 K/uL (1.4-6.5); Neutrophils % (auto) 84.4 %; Platelet Estimate Decreased (Normal); Toxic Granulation 1+; Toxic Vacuolation 2+
[2020-03-01 05:44] LABS: iSTAT Allen Test Pass; iSTAT Arterial Blood Gas HCO3 19 meg/L (19-24); iSTAT Arterial Blood Gas pCO2 24 mmHg (35-46); iSTAT Arterial Blood Gas pH 7.52 (7.35-7.45); iSTAT Arterial Blood Gas pO2 95 mmHg (80-95); iSTAT Carbon Dioxide 20 mmol/L (24-31); iSTAT FiO2 30 %; iSTAT Site Art Line
--- NOTE | 2020-03-01 07:30 | XRay Report ---
XR chest 1V portable HISTORY: 84 years-old Female f/u acute respiratory failure COMPARISON: Chest radiograph 02/29/2020 TECHNIQUE: Portable AP view of the chest FINDINGS: Endotracheal tube overlies the midline, 2.9 cm superior to the anny. Left IJ central venous cathete r distal tip terminates in the expected location of the proximal SVC. Cardiomegaly with pulmonary vas cular congestion. No pneumothorax. Trace pleural effusions with mild left greater than right bibasila r opacities. Degenerative changes of the shoulders and spine. IMPRESSION: 1. Satisfactory positioning of the endotracheal tube. 2. Cardiomegaly with pulmonary vascular congestion. 3. Small pleural effusions with mild left greater than right bibasilar opacities ACT 112: Negative or not required by law. The above report was generated using voice recognition software. It may contain grammatical, syntax o r spelling errors. Electronically signed by: Be Brice M.D. 03/01/2020 7:28 AM
[2020-03-01 07:54] LABS: iSTAT Art Bld Gas pCO2 Correct 26 mmHg (35-46); iSTAT Art Bld Gas pH Corrected 7.494 (7.35-7.45); iSTAT Arterial Blood Gas HCO3 20 meg/L (19-24); iSTAT Arterial Blood Gas pCO2 26 mmHg (35-46); iSTAT Arterial Blood Gas pO2 108 mmHg (80-95); iSTAT Arterial Blood Gas pO2 C 109; iSTAT Carbon Dioxide 21 mmol/L (24-31); iSTAT FiO2 30 %; iSTAT Hematocrit 23 % (37-47); iSTAT Hemoglobin 7.8 g/dl (12.0-16.0); iSTAT Potassium 3.9 mmol/L (3.3-5.0); iSTAT Site Art Line; iSTAT Sodium 136 mmol/L (135-144)
--- NOTE | 2020-03-01 08:05 | Anesthesiology Progress Note ---
Date of Service March 01, 2020 Anesthesia Post Procedure Vital Signs Vital Signs: Temp Pulse Pulse Resp BP BP Pulse Ox 03/01/20 07:32 92 H 100 03/01/20 07:30 94 H 100 03/01/20 07:20 94 H 28 H 100 03/01/20 07:15 91 H 100 03/01/20 07:01 91 H 97/50 L 100 03/01/20 07:00 92 H 100 03/01/20 06:45 93 H 100 03/01/20 06:31 95 H 99/60 L 100 03/01/20 06:16 93 H 100 03/01/20 06:01 98 H 99/55 L 100 03/01/20 05:31 91 H 93/51 L 99 03/01/20 05:28 89 21 100 03/01/20 05:15 92 H 18 97 03/01/20 05:08 37.3 C 03/01/20 05:01 99 H 86/55 L 100 03/01/20 04:31 94 H 127/65 100 03/01/20 04:01 96 H 104/61 100 03/01/20 03:31 91 H 104/58 L 100 03/01/20 03:01 98 H 102/58 L 100 03/01/20 02:31 101 H 22 101/59 L 100 03/01/20 02:02 105 H 150/63 H 03/01/20 01:31 104 H 125/67 100 03/01/20 01:00 101 H 115/60 100 03/01/20 00:30 103 H 94/62 L 100 03/01/20 00:00 96 H 102/64 97 02/29/20 23:32 107 H 24 96 02/29/20 23:30 113 H 93/57 L 02/29/20 23:27 112 H 110/63 02/29/20 23:21 114 H 70/56 L 97 02/29/20 23:07 110 H 98/54 L 100 02/29/20 22:51 100 H 152/69 H 99 02/29/20 22:36 107 H 127/80 99 02/29/20 22:22 109 H 137/58 L 99 02/29/20 22:06 37.2 C 111 H 127/72 99 02/29/20 21:51 107 H 131/91 100 02/29/20 21:36 113 H 136/66 100 02/29/20 21:21 112 H 137/64 100 02/29/20 21:06 113 H 122/66 99 02/29/20 20:51 109 H 119/74 100 02/29/20 20:36 111 H 144/54 H 100 02/29/20 20:21 110 H 131/65 100 02/29/20 20:06 111 H 123/66 100 02/29/20 20:00 111 H 26 H 100 02/29/20 19:51 110 H 135/65 99 02/29/20 19:36 111 H 121/58 L 99 02/29/20 19:21 113 H 114/62 98 02/29/20 19:11 118 H 107/57 L 99 02/29/20 18:30 37.7 C H 124 H 94 02/29/20 18:15 131 H 95 02/29/20 18:00 123 H 94 02/29/20 17:45 117 H 94 02/29/20 17:30 125 H 97 02/29/20 17:25 125 H 26 H 98 02/29/20 17:15 131 H 02/29/20 17:00 130 H 02/29/20 16:45 129 H 99 02/29/20 16:30 126 H 100 02/29/20 16:27 115 H 83/72 L 100 02/29/20 16:22 121 H 93 02/29/20 16:21 119 H 83/72 L 85 L 02/29/20 16:15 117 H 02/29/20 16:06 118 H 103/58 L 02/29/20 16:00 118 H 91/38 L 02/29/20 15:52 117 H 107/50 L 02/29/20 15:46 121 H 109/65 100 02/29/20 15:45 120 H 98 02/29/20 15:30 120 H 02/29/20 15:15 118 H 92 02/29/20 15:06 119 H 153/131 H 96 02/29/20 15:01 119 H 100 02/29/20 14:46 120 H 97 02/29/20 14:37 120 H 121/66 99 02/29/20 14:31 120 H 98 02/29/20 14:16 122 H 94 02/29/20 14:15 120 H 25 H 99 02/29/20 14:08 121 H 104/60 100 02/29/20 14:01 120 H 97 02/29/20 13:46 122 H 89 L 02/29/20 13:37 123 H 112/66 99 02/29/20 13:31 122 H 97 02/29/20 13:16 123 H 98 02/29/20 13:07 125 H 111/65 99 02/29/20 13:01 124 H 122/72 99 02/29/20 12:59 124 H 103/46 L 97 02/29/20 12:46 126 H 98 02/29/20 12:36 127 H 95/68 L 100 02/29/20 12:30 128 H 82 L 02/29/20 12:15 128 H 99 02/29/20 12:10 128 H 90/60 L 99 02/29/20 12:00 128 H 90/60 L 02/29/20 11:36 37.6 C H 130 H 115/62 99 02/29/20 11:07 130 H 90/60 L 99 02/29/20 10:50 129 H 26 H 100 02/29/20 10:38 131 H 71/47 L 100 02/29/20 10:15 132 H 02/29/20 10:00 37.9 C H 132 H 45/23 L 02/29/20 09:44 133 H 106/72 02/29/20 09:30 132 H 02/29/20 08:59 133 H 100/79 02/29/20 08:30 134 H 115/75 100 Pain Intensity Left Arm: Pain Intensity: 2 Notes Mental Status: alert / awake / arousable and participated in evaluation Patient Amnestic to Procedure: Yes Nausea / Vomiting: adequately controlled Pain: adequately controlled Airway Patency, RR, SpO2: stable & adequate BP & HR: stable & adequate and see Notes below Hydration State: stable & adequate Anesthetic Complications: no major complications apparent and Pt Satisfied with anesthetic care Notes: Pt continues to require some pressors secondary to septic shock but overall improving.
--- NOTE | 2020-03-01 08:21 | Critical Care Progress Note ---
Date of Service March 01, 2020 Assessment & Plan (1) Gram negative sepsis: Reason Critically Ill: 84-year-old female here with a PMHx significant for hypothyroidism and arthritis who presented with fall at home with generalized weakness, and who was admitted for septic shock, obstructive uropathy 2/2 BL ureteropelvic nephrolithiasis. Neuro - [facility] ICU: NEGATIVE Sedation: 2 mg midazolam Q2H prn sedation for agitation, has not required for >16 hours Analgesia: fentanyl 25 mcg Q2H No acute concerns Cardiac - * Hypotension 2/2 septic shock * supported with Levo 0.02 mcg/kg/min and vasopressin 0.04 unit/min * trying to titrate down vasopressin followed by levo as tolerated * no hx cardiac ECHO, + 11L?/admission, vascular congestion on CXR Respiratory - * Respiratory failure * Respiratory alkalosis w/o metabolic compensation * last ABG 7.52/24/95/19 5 am this morning * Vent settings switched to AC to allow larger tidal volumes and slower respiratory rate * plan to continue intubation and ventilation while on dual pressor support GI - * stress ulcer prophylaxis * Famotidine held in setting of Thrombocytopenia, sulcralfate per OG tube ordered RENAL/LYTES - * No significant electrolyte derangement. * Replace lytes as needed. * Pyelonephritis 2/2 BL ureteropelvic nephrolithiasis s/p BL stent placement * UCx growing E. Coli, sensitivities pending * REEMA * Cr improving, down to 2.08 from 2.5 on admission * no hx of baseline Cr * post renal ATN from sepsis vs. pre-renal hypotension * urine sodium and creatinine ordered for FeNa calculations * EMR shows +11L for admission? unclear if this is accurate given small volume of fluids in chart - No concerns at this time. ENDO - hx hypothyroidism, random cortisol 133.61, TSH level ordered, HEME - * Stable H&H. * Thrombocytopenia * 172 -> 55 this morning * likely secondary to pepcid or sepsis * inappropriate time frame for development of HIT however heparin products stopped until HIT assay returns ID - * gram negative sepsis 2/2 pyelonephritis and obstructive nephrolithiasis * blood cultures growing gram negative bacilli * urine cultures growing E. Coli * coverage with Zosyn INTEGUMENTARY - No acute concerns LINES/IV ACCESS - L IJ CVC R art line L PIV DVT PROPHYLAXIS - SCDs, heparin SQ held Thank you for allowing us to be part of this patient's care. Please refer to Dr. Jones's documentation for any further recommendations. (2) REEMA (acute kidney injury): (3) Fall: (4) Rhabdomyolysis: (5) Pyelonephritis: (6) Admitted to intensive care unit: (7) Septic shock: (8) Ureterolithiasis: (9) Hypokalemia: (10) Hypomagnesemia: (11) Thrombocytopenia: Admission and Anticipated Discharge Date Admission Date: February 29, 2020 Supervising Physician Co-Signing Physician Notes Patient seen and examined. EMR reviewed. Agree with family practice resident note with the following exceptions. 84-year-old admitted with pyelonephritis urosepsis. Organism appears to be an E. coli. She continues to have issues requiring vasopressor support. She is on minimal vent settings currently. Random cortisol on presentation was elevated over 100. We will check echocardiogram given her hemodynamic instability. There does not appear to be any evidence of perinephric abscess on CT scanning of her abdomen. Hope white count will continue to decrease. Will recheck lactate to see if it is clearing. Continue to follow serum creatinine closely. Procalcitonin remains significantly elevated and will need to be followed closely. She is not ready for ventilator liberation given her persistent hemodynamic instability. Remains critically ill Subjective doing okay this morning. off sedation, writing on paper to communicate. Attests to having pain with urination despite barros tube placement. frequently feels subjectively hot though afebrile. appears frustrated with written communication and intubation. Review of Systems Constitutional: + fever; no chills Respiratory: no cough, no dyspnea and no pain on inspiration Cardiovascular: no chest pain and no palpitations Gastrointestinal: no abdominal pain Genitourinary: + dysuria; no hematuria Physical Exam Physical Exam: VITAL SIGNS - Vital signs and nursing notes were reviewed. GENERAL -84 yo F intubated, awake and responsive SKIN - Without rashes. HEAD - NC/AT. EYES - PERRL. Sclera anicteric. Palpebral conjunctiva pink and moist with no injection noted. EARS - No deformities of external structures noted on gross examination bilaterally. NOSE - Midline and without cyanosis. No epistaxis or purulent drainage noted. MOUTH/OROPHARYNX - ET Tube in place. Without perioral cyanosis. NECK - Supple to palpation. No nuchal rigidity. LUNGS - clear lung sounds BL, no wheezes, rhonchi or rales. CARDIAC - bradycardic sinus rhythm with S1/S2. No murmur, rubs, or gallops appreciated. ABDOMEN -nondistended, soft, normal bowel sounds. nontender to palpation. EXTREMITIES - No clubbing or peripheral cyanosis. No pretibial edema present. NEUROLOGIC - No focal neurological deficits noted on exam. Results & Data Results & Data ([facility]) Vital Signs (Past 12 Hours) Vital Signs Temp Pulse Resp BP Pulse Ox 03/01/20 07:32 92 H 100 03/01/20 07:30 94 H 100 03/01/20 07:20 94 H 28 H 100 03/01/20 07:15 91 H 100 03/01/20 07:01 91 H 97/50 L 100 03/01/20 07:00 92 H 100 03/01/20 06:45 93 H 100 03/01/20 06:31 95 H 99/60 L 100 03/01/20 06:16 93 H 100 03/01/20 06:01 98 H 99/55 L 100 03/01/20 05:31 91 H 93/51 L 99 03/01/20 05:28 89 21 100 03/01/20 05:15 92 H 18 97 03/01/20 05:08 37.3 C 03/01/20 05:01 99 H 86/55 L 100 03/01/20 04:31 94 H 127/65 100 03/01/20 04:01 96 H 104/61 100 03/01/20 03:31 91 H 104/58 L 100 03/01/20 03:01 98 H 102/58 L 100 03/01/20 02:31 101 H 22 101/59 L 100 03/01/20 02:02 105 H 150/63 H 03/01/20 01:31 104 H 125/67 100 03/01/20 01:00 101 H 115/60 100 03/01/20 00:30 103 H 94/62 L 100 03/01/20 00:00 96 H 102/64 97 02/29/20 23:32 107 H 24 96 02/29/20 23:30 113 H 93/57 L 02/29/20 23:27 112 H 110/63 02/29/20 23:21 114 H 70/56 L 97 02/29/20 23:07 110 H 98/54 L 100 02/29/20 22:51 100 H 152/69 H 99 02/29/20 22:36 107 H 127/80 99 02/29/20 22:22 109 H 137/58 L 99 02/29/20 22:06 37.2 C 111 H 127/72 99 02/29/20 21:51 107 H 131/91 100 02/29/20 21:36 113 H 136/66 100 02/29/20 21:21 112 H 137/64 100 02/29/20 21:06 113 H 122/66 99 02/29/20 20:51 109 H 119/74 100 02/29/20 20:36 111 H 144/54 H 100 Laboratory Results WBC 33.11 K/uL (4.8-10.8) H* 03/01/20 04:41 RBC 2.78 M/uL (4.2-5.4) L 03/01/20 04:41 Hgb 8.1 g/dL (12.0-16.0) L 03/01/20 04:41 POC Hgb 7.8 g/dl (12.0-16.0) L 03/01/20 07:37 Hct 24.5 % (37-47) L 03/01/20 04:41 POC Hct 23 % (37-47) L 03/01/20 07:37 MCV 88.1 fL (80-100) 03/01/20 04:41 MCH 29.1 pg (25-34) 03/01/20 04:41 MCHC 33.1 g/dL (32-36) 03/01/20 04:41 RDW Std Deviation 50.7 fL (36.4-46.3) H 03/01/20 04:41 RDW Coeff of Marisel 15.6 % (11.5-14.5) H 03/01/20 04:41 Plt Count 55 K/uL (130-400) L D 03/01/20 04:41 MPV 12.6 fL (7.4-10.4) H 03/01/20 04:41 Immature Gran % (Auto) 7.5 % 03/01/20 04:41 Neut % (Auto) 84.4 % 03/01/20 04:41 Lymph % (Auto) 4.3 % 03/01/20 04:41 Callahan % (Auto) 3.7 % 03/01/20 04:41 Eos % (Auto) 0.1 % 03/01/20 04:41 Baso % (Auto) 0.0 % 03/01/20 04:41 Neut # (Auto) 27.97 K/uL (1.4-6.5) H 03/01/20 04:41 Lymph # (Auto) 1.42 K/uL (1.2-3.4) 03/01/20 04:41 Callahan # (Auto) 1.22 K/uL (0.11-0.59) H 03/01/20 04:41 Eos # (Auto) 0.02 K/uL (0-0.5) 03/01/20 04:41 Baso # (Auto) 0.01 K/uL (0-0.2) 03/01/20 04:41 Immature Gran # (Auto) 2.47 K/uL (0.00-0.02) H 03/01/20 04:41 Absolute Nucleated RBC Cancelled 03/01/20 03:07 Nucleated RBC % (auto) Cancelled 03/01/20 03:07 Neutrophils % (Manual) Cancelled 03/01/20 03:07 Band Neutrophils % Cancelled 03/01/20 03:07 Lymphocytes % (Manual) Cancelled 03/01/20 03:07 Prolymphocyte % Cancelled 03/01/20 03:07 Reactive Lymphs % (Man) Cancelled 03/01/20 03:07 Monocytes % (Manual) Cancelled 03/01/20 03:07 Eosinophils % (Manual) Cancelled 03/01/20 03:07 Basophils % (Manual) Cancelled 03/01/20 03:07 Metamyelocytes % (Man) Cancelled 03/01/20 03:07 Myelocytes % (Man) Cancelled 03/01/20 03:07 Promyelocytes % (Man) Cancelled 03/01/20 03:07 Blast Cells % (Manual) Cancelled 03/01/20 03:07 Plasma Cell % (Manual) Cancelled 03/01/20 03:07 Other Cells % Cancelled 03/01/20 03:07 Nucleated RBC % Cancelled 03/01/20 03:07 Neutrophils # (Manual) Cancelled 03/01/20 03:07 Band Neutrophils # Cancelled 03/01/20 03:07 Total Absolute Neuts Cancelled 03/01/20 03:07 Lymphocytes # (Manual) Cancelled 03/01/20 03:07 Prolymphocyte # Cancelled 03/01/20 03:07 Reactive Lymphs # Cancelled 03/01/20 03:07 Total Abs Lymphocytes Cancelled 03/01/20 03:07 Monocytes # (Manual) Cancelled 03/01/20 03:07 Eosinophils # (Manual) Cancelled 03/01/20 03:07 Basophils # (Manual) Cancelled 03/01/20 03:07 Metamyelocytes # (Man) Cancelled 03/01/20 03:07 Myelocytes # (Manual) Cancelled 03/01/20 03:07 Promyelocytes # (Man) Cancelled 03/01/20 03:07 Blast Cells # (Man) Cancelled 03/01/20 03:07 Plasma Cell # (Manual) Cancelled 03/01/20 03:07 Other Cells # Cancelled 03/01/20 03:07 Nucleated RBCs # (Man) Cancelled 03/01/20 03:07 Hypersegmented Neuts Cancelled 03/01/20 03:07 Hyposegmented Neuts Cancelled 03/01/20 03:07 Hypogranular Neuts Cancelled 03/01/20 03:07 Large Granular Lymphs Cancelled 03/01/20 03:07 # Lrg Granular Lymphs Cancelled 03/01/20 03:07 Hairy Cells Cancelled 03/01/20 03:07 Smudge Cells Cancelled 03/01/20 03:07 Toxic Granulation 1+ 03/01/20 04:41 Toxic Vacuolation 2+ 03/01/20 04:41 Dohle Bodies Cancelled 03/01/20 03:07 Jayesh Rods Cancelled 03/01/20 03:07 Platelet Estimate Decreased (Normal) L 03/01/20 04:41 Hypogranular Platelets Cancelled 03/01/20 03:07 Clumped Platelets Cancelled 03/01/20 03:07 Giant Platelets Cancelled 03/01/20 03:07 Platelet Satelliting Cancelled 03/01/20 03:07 RBC Morphology Cancelled 03/01/20 03:07 Polychromasia Cancelled 03/01/20 03:07 Hypochromasia Cancelled 03/01/20 03:07 Poikilocytosis Cancelled 03/01/20 03:07 Basophilic Stippling Cancelled 03/01/20 03:07 Anisocytosis Cancelled 03/01/20 03:07 Microcytosis Cancelled 03/01/20 03:07 Macrocytosis Cancelled 03/01/20 03:07 Spherocytes Cancelled 03/01/20 03:07 Pappenheimer Bodies Cancelled 03/01/20 03:07 Sickle Cells Cancelled 03/01/20 03:07 Target Cells Cancelled 03/01/20 03:07 Tear Drop Cells Cancelled 03/01/20 03:07 Ovalocytes Cancelled 03/01/20 03:07 Stomatocytes Cancelled 03/01/20 03:07 [place] Bodies Cancelled 03/01/20 03:07 Echinocytes 1+ 03/01/20 04:41 Acanthocytes (Spur) Cancelled 03/01/20 03:07 Rouleaux Cancelled 03/01/20 03:07 RBC Agglutinates Cancelled 03/01/20 03:07 Schistocytes Cancelled 03/01/20 03:07 RBC Morph Comment Cancelled 03/01/20 03:07 Sezary Cell Cancelled 03/01/20 03:07 PT 13.2 Seconds (9.0-12.0) H 03/01/20 04:41 INR 1.3 (0.9-1.1) H 03/01/20 04:41 APTT 31.9 Seconds (21.0-31.0) H 02/28/20 22:41 PTT Ratio 1.1 02/28/20 22:41 Sample Site Art Line 03/01/20 07:37 POC pH 7.50 (7.35-7.45) H 03/01/20 07:37 POC pCO2 26 mmHg (35-46) L 03/01/20 07:37 POC pO2 108 mmHg (80-95) H 03/01/20 07:37 POC HCO3 20 barbara/L (19-24) 03/01/20 07:37 POC Total CO2 21 mmol/L (24-31) L 03/01/20 07:37 POC Base Excess -3.0 barbara/L (-9-1.8) 03/01/20 07:37 ABG pH (Temp Correct) 7.494 (7.35-7.45) H 03/01/20 07:37 ABG pCO2 (Temp Corrct 26 mmHg (35-46) L 03/01/20 07:37 POC ABG pO2 at Pt Temp 109 03/01/20 07:37 POC ABG O2 Sat 99.0 % (90-95) H 03/01/20 07:37 Miguel Angel Test NA 03/01/20 07:37 O2 Delivery Device Ventilator 03/01/20 07:37 POC O2 Rate 18 03/01/20 05:25 Minute Ventilation 7.2 03/01/20 05:25 POC FiO2 30 % 03/01/20 07:37 Tidal Volume 400 03/01/20 05:25 PEEP 5 03/01/20 07:37 POC Sodium 136 mmol/L (135-144) 03/01/20 07:37 Sodium 141 mmol/L (136-145) 03/01/20 04:41 POC Potassium 3.9 mmol/L (3.3-5.0) 03/01/20 07:37 Potassium 4.1 mmol/L (3.5-5.1) D 03/01/20 04:41 Chloride 108 mmol/L (98-107) H 03/01/20 04:41 Carbon Dioxide 21 mmol/L (21-32) 03/01/20 04:41 Anion Gap 12.0 (3-11) H 03/01/20 04:41 BUN 30 mg/dl (7-18) H 03/01/20 04:41 Creatinine 2.08 mg/dl (0.6-1.2) H 03/01/20 04:41 Est Cr Clr Drug Dosing 20.2 ml/min 03/01/20 04:41 Est GFR ( Amer) 24.9 03/01/20 04:41 Est GFR (Non-Af Amer) 21.5 03/01/20 04:41 BUN/Creatinine Ratio 14.5 (10-20) 03/01/20 04:41 Glucose 104 mg/dl (70-99) H 03/01/20 04:41 POC Glucose 97 mg/dl (70-99) 02/28/20 22:25 POC Glucose (other) 104 mg/dl (70-99) H 03/01/20 10:58 Lactate 6.4 mmol/L (0.4-2.0) H* 03/01/20 04:41 Calcium 7.1 mg/dl (8.5-10.1) L 03/01/20 04:41 Phosphorus 2.5 mg/dl (2.5-4.9) 03/01/20 04:41 Magnesium 2.2 mg/dl (1.8-2.4) 03/01/20 04:41 Total Bilirubin 0.9 mg/dl (0.2-1) 03/01/20 04:41 AST 74 U/L (15-37) H 03/01/20 04:41 ALT 26 U/L (12-78) 03/01/20 04:41 Alkaline Phosphatase 78 U/L (45-117) 03/01/20 04:41 Total Creatine Kinase 711 U/L (26-192) H 03/01/20 04:41 Troponin I 0.022 ng/ml (0-0.045) 02/28/20 22:41 Total Protein 5.3 gm/dl (6.4-8.2) L 03/01/20 04:41 Albumin 1.7 gm/dl (3.4-5.0) L 03/01/20 04:41 Globulin 3.6 gm/dl (2.5-4.0) 03/01/20 04:41 Albumin/Globulin Ratio 0.5 (0.9-2) L 03/01/20 04:41 Procalcitonin 101.20 ng/ml (0-0.5) H 03/01/20 04:41 Random Cortisol 133.61 mcg/dl 02/28/20 22:44 Urine Color Yellow 02/28/20 22:50 Urine Appearance Turbid (Clear) A 02/28/20 22:50 Urine pH 6.0 (4.5-7.5) 02/28/20 22:50 Ur Specific [place] 1.012 (1.000-1.030) 02/28/20 22:50 Urine Protein 3+ (Negative) H 02/28/20 22:50 Urine Glucose (UA) Negative (Negative) 02/28/20 22:50 Urine Ketones Negative (Negative) 02/28/20 22:50 Urine Blood 3+ (Negative) H 02/28/20 22:50 Urine Nitrite Positive (Negative) A 02/28/20 22:50 Urine Bilirubin Negative (Negative) 02/28/20 22:50 Urine Urobilinogen Negative (Negative) 02/28/20 22:50 Ur Leukocyte Esterase 3+ (Negative) H 02/28/20 22:50 Urine WBC (Auto) >30 /hpf (0-5) H 02/28/20 22:50 Urine RBC (Auto) 10-30 /hpf (0-4) H 02/28/20 22:50 U Hyaline Cast (Auto) 1-5 /lpf (0-5) 02/28/20 22:50 U Epithel Cells (Auto) >30 /lpf (0-5) H 02/28/20 22:50 Urine Bacteria (Auto) 1+ (Negative) H 02/28/20 22:50 Urine Yeast Not Reportable 02/28/20 22:50 Nasal Screen MRSA (PCR) Negative (Negative) 02/29/20 02:57 Stl C. diff Tox B Gene Negative Cdiff Gene (Neg) 02/29/20 02:57 Blood Type B Positive 02/29/20 06:26 Antibody Screen NEGATIVE 02/29/20 06:26 Critical Care Time Total Critical Care Time: 45 Resident Activity Tracking Resident Involvement: Resident Care Provided Care Provided: Adult Hospital Medicine
[2020-03-01] MEDS: PIPERACILLIN/TAZOBACTAM 4.5 GM in DEXTROSE 5% 100 ML IV SCH ×2 (08:32→16:25)
[2020-03-01] MEDS: FAMOTIDINE 20 MG in SYRINGE 3 ML IV SCH (08:32)
[2020-03-01] MEDS: HEPARIN SOD 5,000 UNIT/0.5 ML VIAL SQ SCH (08:33)
--- NOTE | 2020-03-01 09:32 | Hospitalist Progress Note ---
Date of Service March 01, 2020 Assessment & Plan (1) Admitted to intensive care unit: Admitted to intensive care unit with septic shock secondary to complicated UTI, 8 mm right UVJ obstructing stone causing mild to moderate hydro-ureter dilatation/pyelonephritis- Respiratory status still requiring ventilator Ongoing pressor support required, tapering as able Maintain intubation per icu team oversight (2) Pyelonephritis: (3) Severe sepsis: Severe sepsis/septic shock/due to complicated UTI/pyelonephritis/obstructing right UVJ stone- Empiric antibiotic treatment with Daptomycin and Zosyn IV. Follow urine culture and sensitivities Patient taken urgently to the OR by urology for removal of obstructing stone nurse clinical 02/28 (4) Septic shock: See above (5) Rhabdomyolysis: CK 1202 ->711, with creatinine 2.40->2.08 Patient had a fall and was possibly laying on the floor for up to 24 hours. (6) REEMA (acute kidney injury): resolving with rehydration (7) Hypomagnesemia: replete (8) Fall: See above (9) Ureterolithiasis: See above Admission and Anticipated Discharge Date Admission Date: February 29, 2020 Subjective this pt remains on the ventilator, she is able to communicate with a pad and pencil, she remains on pressors although being tapered Review of Systems Review of Systems: Unobtainable due to endotracheal tube she says she is comfortable but feels hot and wants her dentures Physical Exam Physical Exam: The patient appeared ill but compensating Vital signs as documented. still on pressors Head exam is normocephalic atraumatic no scleral icterus Neck is without JVD .trachea is midline Lungs are coarse bilaterally Cardiac exam, Rhythm is regular.. No murmurs, Abdominal exam reveals normal bowel sounds, soft non tender, no masses Extremities are nonedematous and both pedal pulses are normal. Neurologic exam is alert and can communicate with pad and paper Skin is without bruises or rashes Results & Data Results & Data ([facility]) Vital Signs (Past 12 Hours) Vital Signs Temp Pulse Resp BP Pulse Ox 03/01/20 07:32 92 H 100 03/01/20 07:30 94 H 100 03/01/20 07:20 94 H 28 H 100 03/01/20 07:15 91 H 100 03/01/20 07:01 91 H 97/50 L 100 03/01/20 07:00 92 H 100 03/01/20 06:45 93 H 100 03/01/20 06:31 95 H 99/60 L 100 03/01/20 06:16 93 H 100 03/01/20 06:01 98 H 99/55 L 100 03/01/20 05:31 91 H 93/51 L 99 03/01/20 05:28 89 21 100 03/01/20 05:15 92 H 18 97 03/01/20 05:08 99.1 F 03/01/20 05:01 99 H 86/55 L 100 03/01/20 04:31 94 H 127/65 100 03/01/20 04:01 96 H 104/61 100 03/01/20 03:31 91 H 104/58 L 100 03/01/20 03:01 98 H 102/58 L 100 03/01/20 02:31 101 H 22 101/59 L 100 03/01/20 02:02 105 H 150/63 H 03/01/20 01:31 104 H 125/67 100 03/01/20 01:00 101 H 115/60 100 03/01/20 00:30 103 H 94/62 L 100 03/01/20 00:00 96 H 102/64 97 02/29/20 23:32 107 H 24 96 02/29/20 23:30 113 H 93/57 L 02/29/20 23:27 112 H 110/63 02/29/20 23:21 114 H 70/56 L 97 02/29/20 23:07 110 H 98/54 L 100 02/29/20 22:51 100 H 152/69 H 99 02/29/20 22:36 107 H 127/80 99 02/29/20 22:22 109 H 137/58 L 99 02/29/20 22:06 99.0 F 111 H 127/72 99 02/29/20 21:51 107 H 131/91 100 02/29/20 21:36 113 H 136/66 100 PG Care Time/CCT Total # of Minutes Spent Total Time Spent with Patient: Total time spent is greater than 50% in coordination of care (as documented) at patient's floor/unit and/or counseling patient: Coding Level of Care Code 95459 Subseq Hosp Care Lvl 3 Diagnoses Admitted to intensive care unit Z78.9 Pyelonephritis N12 Severe sepsis A41.9; R65.20 Septic shock A41.9; R65.21 Rhabdomyolysis M62.82 REEMA (acute kidney injury) N17.9 Hypomagnesemia E83.42 Fall W19.XXXA Ureterolithiasis N20.1
--- NOTE | 2020-03-01 10:53 | XRay Report ---
KUB CLINICAL HISTORY: OG tube placement COMPARISON STUDY: CT of the abdomen and pelvis February 28, 2020. FINDINGS: Bilateral ureteral stents are partially imaged. A staghorn type calculus within left kidney is noted. The endotracheal tube is 3.4 cm above the anny. Nasogastric tube is coiled within the st omach. Tip projects over the gastric fundus. Visualized bowel gas pattern is normal. There are suspec nata small bilateral pleural effusions. IMPRESSION: Nasogastric tube slightly coiled within the stomach. Tip projects over the gastric fundus . ACT 112: Negative or not required by law. Electronically signed by: Dimitris Diaz M.D. 03/01/2020 10:52 AM
[2020-03-01] MEDS ORDERED: IMPACT LIQD 1.0 CAL 1,000 ML BAG OG SCH (11:45)
[2020-03-01] MEDS ORDERED: PEPTAMEN INTENSE VHP 1.0 CAL 1,000 ML BAG OG SCH (12:00)
[2020-03-01] MEDS: SUCRALFATE 1 GM/10 ML UDC NG SCH ×3 (13:17→21:47)
--- NOTE | 2020-03-01 13:34 | Electrocardiogram Report ---
Test Reason : Blood Pressure : / mmHG Vent. Rate : 114 BPM Atrial Rate : 114 BPM P-R Int : 146 ms QRS Dur : 072 ms QT Int : 346 ms P-R-T Axes : 051 004 034 degrees QTc Int : 476 ms Sinus tachycardia Cannot rule out Anterior infarct , age undetermined Abnormal ECG No previous ECGs available Confirmed by Hugo Lopez ([id number]) on 03/01/2020 1:34:10 PM Referred By: REFERRED SELF Confirmed By:Hugo Lopez
--- NOTE | 2020-03-01 13:40 | Electrocardiogram Report ---
Test Reason : Blood Pressure : / mmHG Vent. Rate : 123 BPM Atrial Rate : 123 BPM P-R Int : 148 ms QRS Dur : 070 ms QT Int : 324 ms P-R-T Axes : 055 011 049 degrees QTc Int : 463 ms Sinus tachycardia with occasional Premature ventricular complexes Low voltage QRS Cannot rule out Anterior infarct (cited on or before 28-FEB-2020) Abnormal ECG When compared with ECG of 28-FEB-2020 22:18, (unconfirmed) Premature ventricular complexes are now Present Nonspecific T wave abnormality, worse in Inferior leads Nonspecific T wave abnormality now evident in Lateral leads Confirmed by Hugo Lopez ([id number]) on 03/01/2020 1:40:04 PM Referred By: REFERRED SELF Confirmed By:Hugo Lopez
--- NOTE | 2020-03-01 14:53 | Billing Data ---
Date of Service March 01, 2020 Seen and examined. Please refer to my supervisory note on the family practice resident progress note Coding Level of Care Code Critical Care 09 04- mins
[2020-03-01 17:48] LABS: Creatinine Urine Random 71.4 mg/dl
[2020-03-01] MEDS: MIDAZOLAM HCL 1 MG/ML 2ML VIAL IV PRN (22:44)
[2020-03-01] MEDS: fentaNYL citrate 100 MCG/2 ML VIAL IV PRN (22:44)
[2020-03-02] MEDS: PIPERACILLIN/TAZOBACTAM 4.5 GM in DEXTROSE 5% 100 ML IV SCH ×2 (00:53→08:21)
[2020-03-02 04:08] LABS: Mean Corpuscular Hgb Conc 33.5 g/dL (32-36)
[2020-03-02 04:12] LABS: INR 1.1 (0.9-1.1); Prothrombin Time 11.8 Seconds (9.0-12.0)
[2020-03-02 04:29] LABS: Hematocrit (blood only) 23.6 % (37-47); Hemoglobin 7.9 g/dL (12.0-16.0); Mean Corpuscular Hemoglobin 29.2 pg (25-34); Mean Corpuscular Volume 87.1 fL (80-100); RDW Coefficient of Variation 15.8 % (11.5-14.5); RDW Standard Deviation 50.9 fL (36.4-46.3); Red Blood Count 2.71 M/uL (4.2-5.4); White Blood Count 29.66 K/uL (4.8-10.8)
[2020-03-02 04:33] LABS: Albumin Globulin Ratio 0.5 (0.9-2); Albumin Level 1.6 gm/dl (3.4-5.0); BUN Creatinine Ratio 18.6 (10-20); Bilirubin,Total 0.7 mg/dl (0.2-1); Calcium 7.3 mg/dl (8.5-10.1); Creatinine Clr Calc Pharmacy 21.5 ml/min; Est GFR (African American) 26.7; Est GFR (Non-African American) 23.1; Globulin 3.5 gm/dl (2.5-4.0); Magnesium 2.2 mg/dl (1.8-2.4); Phosphorus 1.9 mg/dl (2.5-4.9); Potassium 3.2 mmol/L (3.5-5.1); Total Protein 5.1 gm/dl (6.4-8.2)
[2020-03-02 04:49] LABS: Platelet Count 35 K/uL (130-400)
[2020-03-02 04:51] LABS: Basophils # (auto) 0.01 K/uL (0-0.2); Dohle Bodies 1+; Echinocytes 1+; Eosinophils # (auto) 0.06 K/uL (0-0.5); Eosinophils % (auto) 0.2 %; Giant Platelets 1+; Immature Granulocytes # (auto) 0.26 K/uL (0.00-0.02); Immature Granulocytes % (auto) 0.9 %; Lymphocytes # (auto) 1.61 K/uL (1.2-3.4); Lymphocytes % (auto) 5.4 %; Monocytes # (auto) 0.43 K/uL (0.11-0.59); Monocytes % (auto) 1.4 %; Neutrophils # (auto) 27.29 K/uL (1.4-6.5); Neutrophils % (auto) 92.1 %; Platelet Estimate SIGNIFIC DECREASED (Normal)
[2020-03-02 05:58] LABS: iSTAT Arterial Blood Gas HCO3 22 meg/L (19-24); iSTAT Arterial Blood Gas pCO2 29 mmHg (35-46); iSTAT Arterial Blood Gas pO2 108 mmHg (80-95); iSTAT Carbon Dioxide 23 mmol/L (24-31); iSTAT FiO2 30 %; iSTAT Site Art Line
[2020-03-02] MEDS ORDERED: POTASSIUM PHOS 3 MMOL/1 ML INFUSION IV STA ×2 (06:12→07:23)
[2020-03-02] MEDS: SODIUM CHLORIDE 0.9% 1000ML 1,000 ML IV SCH ×2 (06:22→15:33)
[2020-03-02] MEDS: POTASSIUM CHLORIDE / WTR 20 MEQ/100 ML PLCT IV SCH ×2 (06:30→08:22)
--- NOTE | 2020-03-02 07:19 | XRay Report ---
XR chest 1V portable CLINICAL HISTORY: f/u COMPARISON STUDY: Chest radiograph March 01, 2020. FINDINGS: The tip of the endotracheal tube is 2.5 cm above the anny. Nasogastric tube is slightly c oiled within the stomach. Tip projects over the proximal stomach. There is no pneumothorax following placement of a left internal jugular central line. Catheter tip projects over the distal SVC. There a re small bilateral pleural effusions with persistent bibasilar opacities. Pulmonary vascular congesti on has slightly improved. IMPRESSION: 1. Satisfactory positioning of lines and tubes. 2. No pneumothorax. 3. Small bilateral pleural effusions with mild bibasilar opacities. 4. Mild improvement in pulmonary vascular congestion. ACT 112: Negative or not required by law. Electronically signed by: Dimitris Diaz M.D. 03/02/2020 7:17 AM
[2020-03-02] MEDS ORDERED: POTASSIUM CHLORIDE / WTR 10 MEQ/100 ML PLCT IV ONE (07:45)
[2020-03-02] MEDS: SUCRALFATE 1 GM/10 ML UDC NG SCH ×4 (08:21→22:07)
[2020-03-02] MEDS: VASOPRESSIN 20 UNITS in 0.9 % SODIUM CHLORIDE 100 ML IV SCH (08:23)
[2020-03-02] MEDS ORDERED: POTASSIUM PHOSPHATE 21 MMOL in SODIUM CHLORIDE 0.9% 500 ML IV ONE (08:45)
--- NOTE | 2020-03-02 09:10 | Critical Care Progress Note ---
Date of Service March 02, 2020 Assessment & Plan (1) Gram negative sepsis: Reason Critically Ill: 84-year-old female here with a PMHx significant for hypothyroidism and arthritis who presented with fall at home with generalized weakness, and who was admitted for septic shock, obstructive uropathy 2/2 BL ureteropelvic nephrolithiasis. Neuro - [facility] ICU: NEGATIVE Alert and oriented x3, no acute concerns Cardiac - * Hypotension 2/2 septic shock: Resolved * Off pressure support, last pressure 109/59, normal pulse, appropriate peripheral perfusion Respiratory - * Respiratory failure due to gram-negative sepsis: Resolved * Extubated this morning, doing well on 2 L nasal cannula * No complaints of difficulty breathing, chest pain, shortness of breath GI - * Sucralfate ordered for GI prophylaxis in setting of questionable heparin- induced thrombocytopenia. Pepcid is discontinued. * Advancing diet as tolerated RENAL/LYTES - * Hypokalemia, hypophosphatemia * Replace lytes as needed. * Pyelonephritis 2/2 BL ureteropelvic nephrolithiasis s/p BL stent placement * UCx growing pansensitive E. coli, antibiotics switched to Rocephin * REEMA * Cr improving, down to 1.96 from 2.5 on admission * no hx of baseline Cr * Most likely from inadequate kidney perfusion due to hypotension from septic shock * Improving with sepsis treatment - No concerns at this time. ENDO - hx hypothyroidism, random cortisol 133.61, TSH level within normal limits HEME - * Stable H&H. * Thrombocytopenia * 172 -> 55 -> 35 this morning * likely secondary to pepcid or sepsis * inappropriate time frame for development of HIT however heparin products stopped until HIT assay returns * HIT assay pending ID - * gram negative sepsis 2/2 pyelonephritis and obstructive nephrolithiasis * Blood cultures growing E. coli sensitivities pending * Urine culture growing E. coli pansensitive; Zosyn narrowed to Rocephin INTEGUMENTARY - No acute concerns LINES/IV ACCESS - L IJ CVC L PIV DVT PROPHYLAXIS - SCDs, heparin SQ held Thank you for allowing us to be part of this patient's care. Please refer to Dr. Jones's documentation for any further recommendations. (2) REEMA (acute kidney injury): (3) Fall: (4) Rhabdomyolysis: (5) Pyelonephritis: (6) Admitted to intensive care unit: (7) Septic shock: (8) Ureterolithiasis: (9) Hypokalemia: (10) Hypomagnesemia: (11) Thrombocytopenia: Admission and Anticipated Discharge Date Admission Date: February 29, 2020 Supervising Physician Co-Signing Physician Notes Seen and examined. EMR reviewed. Discussed with critical care nurse and family practice resident bedside as well as on multidisciplinary rounds. Patient has significantly improved. She is hemodynamically stable and off pressors. She completed an SBT this morning and has been extubated and is doing well. We will work on removing her Mayer catheter and PT and OT consultations. Advance diet as tolerated. De-escalate antibiotics to Rocephin given the sensitivity of the E. coli. If she does well, she can likely transfer to the floor later this afternoon or tomorrow. Subjective Feeling well this morning with no acute complaints. Extubated this morning and doing well on room air. No complaints of shortness of breath or trouble breathing. Denies any appetite despite the fact she has not eaten for the last couple of days. Denies any nausea or vomiting. Denies any chest pain, palpitations. Review of Systems Constitutional: no fever, no chills, no body aches and no fatigue Respiratory: no cough and no dyspnea Cardiovascular: no chest pain, no dyspnea and no edema Gastrointestinal: no abdominal pain, no nausea, no vomiting, no constipation and no diarrhea/loose stools Genitourinary: no dysuria Physical Exam Physical Exam: VITAL SIGNS - Vital signs and nursing notes were reviewed. GENERAL -84-year-old female in no acute distress, appears fatigued SKIN - Without rashes. HEAD - NC/AT. EYES - PERRL. Sclera anicteric. Palpebral conjunctiva pink and moist with no injection noted. EARS - No deformities of external structures noted on gross examination bilaterally. NOSE - Midline and without cyanosis. No epistaxis or purulent drainage noted. MOUTH/OROPHARYNX -poor dentition, no erythema, without perioral cyanosis. NECK - Supple to palpation. No nuchal rigidity. LUNGS -clear to auscultation bilaterally without wheezes, rhonchi, crackles, or rales. CARDIAC -regular rate and rhythm. No murmur, rubs, or gallops appreciated. ABDOMEN -soft nontender nondistended with normal bowel sounds. EXTREMITIES - No clubbing or peripheral cyanosis. No pretibial edema present. radial and dorsalis pedis pulses palpated bilaterally. NEUROLOGIC - No focal neurological deficits noted on exam. Results & Data Results & Data ([facility]) Vital Signs (Past 12 Hours) Vital Signs Pulse Resp BP Pulse Ox 03/02/20 06:52 84 24 99 03/02/20 06:00 80 100 03/02/20 05:43 79 92/57 L 100 03/02/20 05:15 82 20 100 03/02/20 05:01 80 100 03/02/20 04:43 80 82/54 L 97 03/02/20 04:01 81 99 03/02/20 04:00 105/52 L 03/02/20 03:43 80 94/58 L 100 03/02/20 03:00 81 100 03/02/20 02:43 84 88/49 L 100 03/02/20 02:20 78 18 99 03/02/20 02:00 78 99 03/02/20 01:43 78 88/53 L 99 03/02/20 01:00 74 100 03/02/20 00:44 82 112/56 L 100 03/02/20 00:00 80 132/60 99 03/01/20 23:43 80 78/48 L 99 03/01/20 23:36 81 19 100 03/01/20 23:00 89 99 03/01/20 22:43 87 108/56 L 100 03/01/20 22:01 83 100 03/01/20 21:43 85 106/67 100 CBC: Down to 29.66, hemoglobin down to 7.9, platelets down to 35 AB.50//108/22 Potassium of 3.2, BUN 37, creatinine down to 1.96 BMP otherwise normal Calcium 7.3, [place] 1.9, mag 2.2 Transaminitis decreasingAST down to 64, ALT 32, alk phos 141 Total CK down to 214 Procol down to 62.96 Urine creatinine 71.4, urine sodium 18, FeNa calculation 0.3% (prerenal azotemia) Heparin-induced thrombocytopenia assay still pending Resident Activity Tracking Resident Involvement: Resident Care Provided Care Provided: Adult [facility] Medicine
[2020-03-02] MEDS ORDERED: POTASSIUM PHOSPHATE 15 MMOL in SODIUM CHLORIDE 0.9% 250 ML IV ONE (10:30)
[2020-03-02 12:30] LABS: BUN Creatinine Ratio 18.6 (10-20); Calcium 7.1 mg/dl (8.5-10.1); Creatinine Clr Calc Pharmacy 22.5 ml/min; Est GFR (African American) 28.3; Est GFR (Non-African American) 24.4
--- NOTE | 2020-03-02 13:14 | Billing Data ---
Date of Service March 02, 2020 Coding Level of Care Code 01979 Subseq Hosp Care Lvl 3
[2020-03-02] MEDS: cefTRIAXone SODIUM 2,000 MG in DEXTROSE 5% 50 ML IV SCH (15:35)
--- NOTE | 2020-03-02 18:44 | Hospitalist Progress Note ---
Date of Service March 02, 2020 Assessment & Plan (1) Admitted to intensive care unit: Admitted to intensive care unit with septic shock secondary to complicated UTI, 8 mm right UVJ obstructing stone causing mild to moderate hydro-ureter dilatation/pyelonephritis- Status post extubation doing well with oxygenation Persistent soft blood pressures remain in the ICU for management per icu team oversight (2) Pyelonephritis: (3) Severe sepsis: Severe sepsis/septic shock/due to complicated UTI/pyelonephritis/obstructing right UVJ stone- Changed to IV ceftriaxone she does have a E. 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 (6) REEMA (acute kidney injury): Continues resolving with rehydration (7) Hypomagnesemia: replete per ICU protocol (8) Fall: See above will eventually need PT OT once her blood pressure rebounds may consider case management involvement for possible SNF placement (9) Ureterolithiasis: See above Admission and Anticipated Discharge Date Admission Date: February 29, 2020 Subjective patient is extubated she is weak and tired and she is cool extremities she still has lower mean arterial pressures although off pressors at this time she will remain in the ICU due to her variable physiological hemodynamic response Review of Systems Review of Systems: Moderate distress and fatigue no headache, blurry or double vision no speech or swallowing issues no chest pain, pressure or palpitations no shortness of breath, cough or wheezes no abdominal pain, nausea or vomiting, diarrhea or constipation no dysuria, hematuria or frequency Patient has chronic venous stasis changes to her lower extremities with very dry scaly skin and poor pulses. She is got some acrocyanosis to her fingers no back pain, CVA tenderness or radicular pain no bruising, bleeding or rashes no focal signs of weakness or numbness or altered sensation no complaints or anxiety or depression Physical Exam Physical Exam: The patient appeared ill but compensating Vital signs as documented. still on pressors Head exam is normocephalic atraumatic no scleral icterus Neck is without JVD .trachea is midline Lungs are coarse bilaterally Cardiac exam, Rhythm is regular.. No murmurs, Abdominal exam reveals normal bowel sounds, soft non tender, no masses Extremities chronic venous stasis changes to her lower extremities with very dry scaly skin and poor pulses. She is got some acrocyanosis to her fingers. Neurologic exam is alert and can communicate with pad and paper Skin is without bruises or rashes Results & Data Results & Data ([facility]) Vital Signs (Past 12 Hours) Vital Signs Temp Pulse Resp BP Pulse Ox 03/02/20 17:30 75 19 98 03/02/20 17:23 76 19 96/55 L 98 03/02/20 17:00 78 24 97 03/02/20 16:53 81 24 95/55 L 97 03/02/20 16:30 79 25 H 97 03/02/20 16:23 80 23 101/55 L 96 03/02/20 16:00 98.2 F 81 25 H 99 03/02/20 15:53 81 23 105/60 97 03/02/20 15:30 83 24 90 03/02/20 15:23 82 29 H 103/61 100 03/02/20 15:00 86 24 95 03/02/20 14:53 78 24 95/53 L 99 03/02/20 14:30 77 20 97 03/02/20 14:23 76 24 103/54 L 98 03/02/20 14:00 75 20 97 03/02/20 13:53 76 18 91/52 L 96 03/02/20 13:31 78 22 98 03/02/20 13:23 79 22 118/55 L 98 03/02/20 13:16 81 25 H 99 03/02/20 13:01 80 22 99 03/02/20 12:53 78 22 99/52 L 99 03/02/20 12:46 79 23 98 03/02/20 12:31 85 25 H 99 03/02/20 12:23 78 20 92/56 L 100 03/02/20 12:16 80 24 98 03/02/20 12:01 85 27 H 100 03/02/20 11:53 78 22 90/62 L 99 03/02/20 11:46 78 22 98 03/02/20 11:31 82 26 H 100 03/02/20 11:23 78 21 106/57 L 100 03/02/20 11:16 80 24 100 03/02/20 11:00 78 22 98 03/02/20 10:53 78 21 102/49 L 100 03/02/20 10:45 79 22 100 03/02/20 10:30 80 19 100 03/02/20 10:23 82 24 102/65 100 03/02/20 10:15 80 25 H 97 03/02/20 10:00 81 27 H 100 03/02/20 09:45 82 119/57 L 100 03/02/20 09:30 77 100 03/02/20 09:15 77 100 03/02/20 09:00 81 22 99 03/02/20 08:43 83 109/59 L 100 03/02/20 08:30 81 100 03/02/20 08:00 99.0 F 82 22 99 03/02/20 07:43 84 115/53 L 100 03/02/20 07:30 86 100 03/02/20 06:52 84 24 99 PG Care Time/CCT Total # of Minutes Spent Total Time Spent with Patient: Total time spent is greater than 50% in coordination of care (as documented) at patient's floor/unit and/or counseling patient: Coding Level of Care Code 74970 Subseq Hosp Care Lvl 3 Diagnoses Admitted to intensive care unit Z78.9 Pyelonephritis N12 Severe sepsis A41.9; R65.20 Septic shock A41.9; R65.21 Rhabdomyolysis M62.82 REEMA (acute kidney injury) N17.9 Hypomagnesemia E83.42 Fall W19.XXXA Ureterolithiasis N20.1
[2020-03-02] MEDS: NOREPINEPHRINE BIT INJ 8 MG in DEXTROSE 5% 500 ML IV SCH (19:38)
[2020-03-02] MEDS: fentaNYL citrate 100 MCG/2 ML VIAL IV PRN (23:21)
[2020-03-03] MEDS: SODIUM CHLORIDE 0.9% 1000ML 1,000 ML IV SCH (01:32)
[2020-03-03] MEDS: VASOPRESSIN 20 UNITS in 0.9 % SODIUM CHLORIDE 100 ML IV SCH (01:33)
[2020-03-03 05:30] LABS: Hematocrit (blood only) 25.6 % (37-47); Hemoglobin 8.2 g/dL (12.0-16.0); Mean Corpuscular Volume 90.5 fL (80-100); Mean Platelet Volume 12.7 fL (7.4-10.4); Platelet Count 38 K/uL (130-400); RDW Coefficient of Variation 16.1 % (11.5-14.5); RDW Standard Deviation 53.4 fL (36.4-46.3); Red Blood Count 2.83 M/uL (4.2-5.4); White Blood Count 21.27 K/uL (4.8-10.8)
[2020-03-03 05:32] LABS: ALC (manual) 0.36 K/uL (1.2-3.4); ANC (manual) 20.72 K/uL (1.4-6.5); BUN Creatinine Ratio 17.8 (10-20); Calcium 7.3 mg/dl (8.5-10.1); Creatinine Clr Calc Pharmacy 22.4 ml/min; Dohle Bodies 1+; Eosinophils # (manual) 0.19 K/uL (0-0.5); Eosinophils % (manual) 0.9 %; Est GFR (African American) 28.1; Est GFR (Non-African American) 24.3; Giant Platelets 1+; Lymphocytes # (manual) 0.36 K/uL (1.2-3.4); Lymphocytes % (manual) 1.7 %; Magnesium 2.2 mg/dl (1.8-2.4); Neutrophils # (manual) 20.72 K/uL (1.4-6.5); Neutrophils % (manual) 97.4 %; Platelet Estimate Decreased (Normal); Potassium 3.5 mmol/L (3.5-5.1)
[2020-03-03 05:39] LABS: Phosphorus 2.7 mg/dl (2.5-4.9)
--- NOTE | 2020-03-03 08:00 | Critical Care Progress Note ---
Date of Service March 03, 2020 Assessment & Plan (1) Gram negative sepsis: Reason Critically Ill: 84-year-old female here with a PMHx significant for hypothyroidism and arthritis who presented with fall at home with generalized weakness, and who was admitted for septic shock, obstructive uropathy 2/2 BL ureteropelvic nephrolithiasis. Neuro - [facility] ICU: NEGATIVE Alert and oriented x3, no acute concerns Cardiac - * Hypotension 2/2 septic shock: Resolved Respiratory - * Respiratory failure due to gram-negative sepsis: Resolved GI - * Sucralfate ordered for GI prophylaxis in setting of questionable heparin- induced thrombocytopenia. Pepcid is discontinued. * Advancing diet as tolerated RENAL/LYTES - * Pyelonephritis 2/2 BL ureteropelvic nephrolithiasis s/p BL stent placement * UCx growing pansensitive E. coli, antibiotics switched to Rocephin * Currently on day 3 out of 14 of antibiotic treatment; will finish 14 days of medications on March 15 * REEMA * Cr improving, down to 1. 88 from 2.5 on admission * no hx of baseline Cr * Most likely from inadequate kidney perfusion due to hypotension from septic shock * Improving with sepsis treatment - No concerns at this time. ENDO - hx hypothyroidism, random cortisol 133.61, TSH level within normal limits HEME - * Stable H&H. * Thrombocytopenia * 172 -> 55 -> 38 this morning * likely secondary to pepcid or sepsis * inappropriate time frame for development of HIT however heparin products stopped until HIT assay returns * HIT assay pending ID - * E. coli sepsis 2/2 pyelonephritis and obstructive nephrolithiasis * Blood and urine cultures growing E. coli sensitive to Rocephin INTEGUMENTARY - No acute concerns LINES/IV ACCESS - L IJ CVC L PIV DVT PROPHYLAXIS - SCDs, heparin SQ held Advancement of care: PT and OT ordered, advance to full diet, patient okay to downgrade out of the ICU today. Recommend removing IJ prior to leaving ICU Thank you for allowing us to be part of this patient's care. Please refer to Dr. Jones's documentation for any further recommendations. (2) REEMA (acute kidney injury): (3) Fall: (4) Rhabdomyolysis: (5) Pyelonephritis: (6) Admitted to intensive care unit: (7) Septic shock: (8) Ureterolithiasis: (9) Hypokalemia: (10) Hypomagnesemia: (11) Thrombocytopenia: Admission and Anticipated Discharge Date Admission Date: February 29, 2020 Supervising Physician Co-Signing Physician Notes Seen and examined. EMR reviewed. Discussed on multidisciplinary rounds and with critical care nurse as well as family practice resident. Agree with her assessment and plan as noted. The patient is improving. She continues to require IV antibiotics for bacteremia. Will be more aggressive with physical therapy occupational therapy and mobilizing her. Speech therapy consultation today. Discontinue Mayer. Out of bed to chair. Okay to transition to the floor. Will sign off when she leaves the ICU. Feel free to contact us if we can be of additional pulmonary or critical care assistance Subjective Planing of right-sided leg pain today. Describes the pain as going up the entire length of her leg. Denies any single worst point of pain. Denies any nausea vomiting. Review of Systems Review of Systems: All systems reviewed & are unremarkable except as noted in HPI & below Physical Exam Physical Exam: VITAL SIGNS - Vital signs and nursing notes were reviewed. GENERAL -84-year-old female in no acute distress, appears fatigued SKIN - Without rashes. HEAD - NC/AT. EYES - PERRL. Sclera anicteric. Palpebral conjunctiva pink and moist with no injection noted. EARS - No deformities of external structures noted on gross examination bilaterally. NOSE - Midline and without cyanosis. No epistaxis or purulent drainage noted. MOUTH/OROPHARYNX -poor dentition, no erythema, without perioral cyanosis. NECK - Supple to palpation. No nuchal rigidity. LUNGS -clear to auscultation bilaterally without wheezes, rhonchi, crackles, or rales. CARDIAC -regular rate and rhythm. No murmur, rubs, or gallops appreciated. ABDOMEN -soft nontender nondistended with normal bowel sounds. EXTREMITIES - No clubbing or peripheral cyanosis. No pretibial edema present. skin pressure changes from SCDs, negative emmanuel's sign bilaterally, no unilateral swelling NEUROLOGIC - No focal neurological deficits noted on exam. Results & Data Results & Data ([facility]) Vital Signs (Past 12 Hours) Vital Signs Pulse Resp BP Pulse Ox 03/03/20 06:00 80 26 H 100 03/03/20 05:53 78 26 H 108/62 98 03/03/20 05:23 80 24 99/56 L 98 03/03/20 05:01 79 26 H 99 03/03/20 04:53 80 27 H 114/65 100 03/03/20 04:23 79 24 108/72 98 03/03/20 04:01 78 25 H 100 03/03/20 03:53 77 25 H 103/64 99 03/03/20 03:23 72 22 96/53 L 97 03/03/20 03:01 73 22 97 03/03/20 02:53 69 19 81/49 L 98 03/03/20 02:23 71 21 85/48 L 98 03/03/20 02:00 71 22 100 03/03/20 01:53 70 19 95/51 L 100 03/03/20 01:23 70 20 90/53 L 100 03/03/20 01:00 65 19 98 03/03/20 00:53 71 19 92/53 L 97 03/03/20 00:31 71 18 86/49 L 98 03/03/20 00:23 72 18 79/50 L 98 03/03/20 00:00 73 18 97 03/02/20 23:54 68 19 87/49 L 96 03/02/20 23:24 83 31 H 148/87 H 91 03/02/20 23:00 81 22 97 03/02/20 22:53 79 22 104/52 L 96 03/02/20 22:23 79 23 101/56 L 98 03/02/20 22:00 76 23 98 03/02/20 21:53 75 22 99/57 L 99 03/02/20 21:23 74 21 107/58 L 98 03/02/20 21:01 71 18 96 03/02/20 20:53 72 18 90/45 L 98 03/02/20 20:23 72 18 100/58 L 95 03/02/20 20:01 72 19 100 WBC down to 21.27, hemoglobin 8.2, platelets 38 Electrolytes within normal limits, creatinine stable at 1.88. No baseline creatinine available. Heparin antibody pending Shayy 2.7, mag 2.2, calcium 7.3, repleted as needed Micro cultures: Urine culture, blood culture growing E. coli sensitive to ceftriaxone Resident Activity Tracking Resident Involvement: Resident Care Provided Care Provided: Adult [facility]
[2020-03-03] MEDS ORDERED: ACETAMINOPHEN 325 MG TAB PO PRN (09:12)
[2020-03-03] MEDS: SUCRALFATE 1 GM/10 ML UDC NG SCH ×4 (12:17→20:25)
--- NOTE | 2020-03-03 13:01 | Billing Data ---
Date of Service March 03, 2020 Coding Level of Care Code 66898 Initial Inpt Care Lvl 3
[2020-03-03] MEDS: cefTRIAXone SODIUM 2,000 MG in DEXTROSE 5% 50 ML IV SCH (15:51)
--- NOTE | 2020-03-03 16:01 | Hospitalist Progress Note ---
Date of Service March 03, 2020 Assessment & Plan (1) Pyelonephritis: treated with ceftriaxone for E coli found in urine culture and stone removal/stent will need stent removal as outpt (2) Severe sepsis: Severe sepsis/septic shock/due to complicated UTI/pyelonephritis/obstructing right UVJ stone- Changed to IV ceftriaxone she does have a E. 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 (3) Septic shock: resolved (4) REEMA (acute kidney injury): Continues resolving with rehydration (5) Hypomagnesemia: replete per ICU protocol (6) Fall: See above will eventually need PT OT once her blood pressure rebounds may consider case management involvement for possible SNF placement (7) Ureterolithiasis: See above (8) Admitted to intensive care unit: Admitted to intensive care unit with septic shock secondary to complicated UTI, 8 mm right UVJ obstructing stone causing mild to moderate hydro-ureter dilatation/pyelonephritis- Status post extubation 03/03/20 and continues to do well with oxygenation-> transfered out of ICU at this time (9) Rhabdomyolysis: CK 1202 -> 214, with creatinine 2.40-> 1.87 Patient had a fall and was possibly laying on the floor for up to 24 hours. (10) Hypothyroidism: resume out pt synthroid (11) DVT prophylaxis: heparin for dvt prevention Admission and Anticipated Discharge Date Admission Date: February 29, 2020 Subjective Patient continues to be awake and alert she is able to eat food is cleared by speech therapy her hemodynamics are improved and she is off pressors she will be transferred out of the ICU to the medical floor she is markedly weak and tired and will need physical therapy and Occupational Therapy along with continuing speech therapy Review of Systems Review of Systems: Continues with moderate distress and fatigue no headache, blurry or double vision no speech or swallowing issues no chest pain, pressure or palpitations no shortness of breath, cough or wheezes no abdominal pain, nausea or vomiting, diarrhea or constipation no dysuria, hematuria or frequency Patient has chronic venous stasis changes to her lower extremities with very dry scaly skin and poor pulses. no back pain, CVA tenderness or radicular pain no bruising, bleeding or rashes no focal signs of weakness or numbness or altered sensation no complaints or anxiety or depression Physical Exam Physical Exam: The patient appeared ill but compensating Vital signs as documented. still on pressors Head exam is normocephalic atraumatic no scleral icterus Neck is without JVD .trachea is midline Lungs are coarse bilaterally Cardiac exam, Rhythm is regular.. No murmurs, Abdominal exam reveals normal bowel sounds, soft non tender, no masses Extremities chronic venous stasis changes to her lower extremities with very dry scaly skin and poor pulses. Neurologic exam is alert and can communicate with pad and paper Skin is without bruises or rashes Results & Data Results & Data ([facility]) Vital Signs (Past 12 Hours) Vital Signs Temp Pulse Pulse Resp BP BP Pulse Ox 03/03/20 15:52 98.6 F 74 19 100/66 94 03/03/20 13:38 83 27 H 108/69 96 03/03/20 11:54 85 23 115/67 97 03/03/20 11:24 78 21 117/63 98 03/03/20 10:24 78 28 H 118/60 100 03/03/20 09:53 78 25 H 116/65 97 03/03/20 09:24 75 25 H 109/54 L 96 03/03/20 08:23 79 28 H 103/67 98 03/03/20 07:53 77 28 H 100/64 100 03/03/20 07:23 78 25 H 106/62 94 03/03/20 06:00 80 26 H 100 03/03/20 05:53 78 26 H 108/62 98 03/03/20 05:23 80 24 99/56 L 98 03/03/20 05:01 79 26 H 99 03/03/20 04:53 80 27 H 114/65 100 03/03/20 04:23 79 24 108/72 98 03/03/20 04:01 78 25 H 100 PG Care Time/CCT Total # of Minutes Spent Total Time Spent with Patient: Total time spent is greater than 50% in coordination of care (as documented) at patient's floor/unit and/or counseling patient: Coding Level of Care Code 41722 Subseq Hosp Care Lvl 3 Diagnoses Pyelonephritis N12 Severe sepsis A41.9; R65.20 Septic shock A41.9; R65.21 REEMA (acute kidney injury) N17.9 Hypomagnesemia E83.42 Fall W19.XXXA Ureterolithiasis N20.1 Admitted to intensive care unit Z78.9 Rhabdomyolysis M62.82 Hypothyroidism E03.9 DVT prophylaxis Z29.9
[2020-03-03] MEDS: HEPARIN SOD 5,000 UNIT/0.5 ML VIAL SQ SCH (20:32)
[2020-03-04] MEDS ORDERED: MICONAZOLE NITRATE POWDER 43 GM EXT PRN (00:56)
--- NOTE | 2020-03-04 08:34 | Hospitalist Progress Note ---
Date of Service March 04, 2020 Assessment & Plan (1) Pyelonephritis: continues on ceftriaxone for E coli found in urine culture and stone removal/stent will need stent removal as outpt (2) Severe sepsis: Severe sepsis/septic shock/due to complicated UTI/pyelonephritis/obstructing right UVJ stone- Changed to IV ceftriaxone she does have a E. 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 (3) Septic shock: resolved (4) REEMA (acute kidney injury): Continues resolving with rehydration (5) Hypomagnesemia: replete per ICU protocol (6) Fall: See above will eventually need PT OT once her blood pressure rebounds may consider case management involvement for possible SNF placement (7) Ureterolithiasis: See above (8) Admitted to intensive care unit: Admitted to intensive care unit with septic shock secondary to complicated UTI, 8 mm right UVJ obstructing stone causing mild to moderate hydro-ureter dilatation/pyelonephritis- Status post extubation 03/03/20 and continues to do well with oxygenation-> transfered out of ICU at this time (9) Rhabdomyolysis: CK 1202 -> 214, with creatinine 2.40-> 1.87 Patient had a fall and was possibly laying on the floor for up to 24 hours. (10) Hypothyroidism: resume out pt synthroid (11) DVT prophylaxis: heparin for dvt prevention Admission and Anticipated Discharge Date Admission Date: February 29, 2020 Subjective Patient appears improved, she is participating in physical therapy and Occupational Therapy along with continuing speech therapy, most likely will need rehab after acure hospital stay Review of Systems Review of Systems: Continues with moderate distress and fatigue no headache, blurry or double vision no speech or swallowing issues no chest pain, pressure or palpitations no shortness of breath, cough or wheezes no abdominal pain, nausea or vomiting, diarrhea or constipation no dysuria, hematuria or frequency Patient has chronic venous stasis changes to her lower extremities with very dry scaly skin and poor pulses. no back pain, CVA tenderness or radicular pain no bruising, bleeding or rashes no focal signs of weakness or numbness or altered sensation no complaints or anxiety or depression Physical Exam Physical Exam: The patient appeared ill but improving daily Vital signs as documented. still on pressors Head exam is normocephalic atraumatic no scleral icterus Neck is without JVD .trachea is midline Lungs are coarse bilaterally Cardiac exam, Rhythm is regular.. No murmurs, Abdominal exam reveals normal bowel sounds, soft non tender, no masses Extremities chronic venous stasis changes to her lower extremities with very dry scaly skin and poor pulses. Neurologic exam is alert and can communicate with pad and paper Skin is without bruises or rashes Results & Data Results & Data ([facility]) Vital Signs (Past 12 Hours) Vital Signs Temp Pulse Resp BP Pulse Ox 03/04/20 08:01 97.5 F L 76 18 108/70 97 03/03/20 23:43 98.8 F 72 20 112/74 95 PG Care Time/CCT Total # of Minutes Spent Total Time Spent with Patient: Total time spent is greater than 50% in coordination of care (as documented) at patient's floor/unit and/or counseling patient: Coding Level of Care Code 36372 Subseq Hosp Care Lvl 2 Diagnoses Pyelonephritis N12 Severe sepsis A41.9; R65.20 Septic shock A41.9; R65.21 REEMA (acute kidney injury) N17.9 Hypomagnesemia E83.42 Fall W19.XXXA Ureterolithiasis N20.1 Admitted to intensive care unit Z78.9 Rhabdomyolysis M62.82 Hypothyroidism E03.9 DVT prophylaxis Z29.9
[2020-03-04] MEDS: SUCRALFATE 1 GM/10 ML UDC NG SCH ×4 (08:37→21:24)
[2020-03-04] MEDS: HEPARIN SOD 5,000 UNIT/0.5 ML VIAL SQ SCH ×2 (08:37→21:24)
[2020-03-04] MEDS: cefTRIAXone SODIUM 2,000 MG in DEXTROSE 5% 50 ML IV SCH (17:01)
[2020-03-05] MEDS: SUCRALFATE 1 GM/10 ML UDC NG SCH ×4 (07:30→21:22)
[2020-03-05] MEDS ORDERED: POTASSIUM PHOS 3 MMOL/1 ML INFUSION IV STA (09:17)
[2020-03-05] MEDS ORDERED: POTASSIUM PHOSPHATE 15 MMOL in SODIUM CHLORIDE 0.9% 250 ML IV ONE (09:30)
[2020-03-05] MEDS: HEPARIN SOD 5,000 UNIT/0.5 ML VIAL SQ SCH ×2 (10:14→21:22)
[2020-03-05] MEDS: cefTRIAXone SODIUM 2,000 MG in DEXTROSE 5% 50 ML IV SCH (15:33)
--- NOTE | 2020-03-05 17:36 | Hospitalist Progress Note ---
Date of Service March 05, 2020 Assessment & Plan (1) Pyelonephritis: continues on ceftriaxone for E coli found in urine culture and stone removal/stent will need stent removal as outpt currently on day 5 of antibiotics since bacteria worse found and blood cultures also will complete 2-week course last dose being on March 13 (2) Severe sepsis: Severe sepsis/septic shock/due to complicated UTI/pyelonephritis/obstructing right UVJ stone- Changed to IV ceftriaxone she does have a E. 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 difficile on 03/05/2020 was negative (5) Hypomagnesemia: replete Phosphorus is also noted to be low on 731 this was repleted via intravenous form (6) Fall: See above will eventually need PT OT once her blood pressure rebounds may consider case management involvement for possible SNF placement (7) Ureterolithiasis: See above (8) Admitted to intensive care unit: Admitted to intensive care unit with septic shock secondary to complicated UTI, 8 mm right UVJ obstructing stone causing mild to moderate hydro-ureter dilatation/pyelonephritis- Status post extubation 03/03/20 and continues to do well with oxygenation-for further pulmonary distress (9) Rhabdomyolysis: CK 1202 -> 214, with creatinine 2.40-> 1.87 Patient had a fall and was possibly laying on the floor for up to 24 hours. (10) Hypothyroidism: resume out pt synthroid (11) DVT prophylaxis: heparin for dvt prevention Admission and Anticipated Discharge Date Admission Date: February 29, 2020 Subjective Patient continues to improve, she is participating in physical therapy and Occupational Therapy along with continuing speech therapy, most likely will need rehab after acute hospital stay Review of Systems Review of Systems: Continues with moderate distress and fatigue no headache, blurry or double vision no speech or swallowing issues no chest pain, pressure or palpitations no shortness of breath, cough or wheezes no abdominal pain, nausea or vomiting, having loose bowel movements no dysuria, hematuria or frequency Patient has chronic venous stasis changes to her lower extremities with very dry scaly skin and poor pulses. no back pain, CVA tenderness or radicular pain no bruising, bleeding or rashes no focal signs of weakness or numbness or altered sensation no complaints or anxiety or depression Physical Exam Physical Exam: The patient appeared ill but improving daily Vital signs as documented. still on pressors Head exam is normocephalic atraumatic no scleral icterus Neck is without JVD .trachea is midline Lungs are coarse bilaterally Cardiac exam, Rhythm is regular.. No murmurs, Abdominal exam reveals hyper bowel sounds, soft non tender, no masses Extremities chronic venous stasis changes to her lower extremities with very dry scaly skin and poor pulses. Neurologic exam is alert and globally has some weakness but no significant neurological deficits noted Skin is without bruises or rashes Results & Data Results & Data ([facility]) Vital Signs (Past 12 Hours) Vital Signs Temp Pulse Resp BP BP Pulse Ox 03/05/20 15:47 98.2 F 82 16 133/65 97 03/05/20 07:10 97.7 F 83 16 133/77 97 PG Care Time/CCT Total # of Minutes Spent Total Time Spent with Patient: Total time spent is greater than 50% in coordination of care (as documented) at patient's floor/unit and/or counseling patient: Coding Level of Care Code 65095 Subseq Hosp Care Lvl 2 Diagnoses Pyelonephritis N12 Severe sepsis A41.9; R65.20 Septic shock A41.9; R65.21 REEMA (acute kidney injury) N17.9 Hypomagnesemia E83.42 Fall W19.XXXA Ureterolithiasis N20.1 Admitted to intensive care unit Z78.9 Rhabdomyolysis M62.82 Hypothyroidism E03.9 DVT prophylaxis Z29.9
[2020-03-05 23:39] LABS: Plt Ab, Heparin Induced Negative (Negative)
[2020-03-06] MEDS: SUCRALFATE 1 GM/10 ML UDC NG SCH ×4 (08:16→21:00)
[2020-03-06] MEDS: HEPARIN SOD 5,000 UNIT/0.5 ML VIAL SQ SCH ×2 (08:56→21:00)
[2020-03-06 14:15] LABS: Hematocrit (blood only) 30.8 % (37-47); Hemoglobin 9.6 g/dL (12.0-16.0); Mean Corpuscular Hemoglobin 28.2 pg (25-34); Mean Corpuscular Hgb Conc 31.2 g/dL (32-36); Mean Corpuscular Volume 90.6 fL (80-100); Mean Platelet Volume 11.6 fL (7.4-10.4); Platelet Count 227 K/uL (130-400); RDW Coefficient of Variation 15.8 % (11.5-14.5); RDW Standard Deviation 52.6 fL (36.4-46.3); White Blood Count 20.09 K/uL (4.8-10.8)
[2020-03-06 14:32] LABS: BUN Creatinine Ratio 12.1 (10-20); Calcium 7.7 mg/dl (8.5-10.1); Creatinine Clr Calc Pharmacy 31.2 ml/min; Est GFR (African American) 41.6; Est GFR (Non-African American) 35.9; Potassium 3.6 mmol/L (3.5-5.1)
[2020-03-06 14:48] LABS: ALC (manual) 2.45 K/uL (1.2-3.4); ANC (manual) 15.21 K/uL (1.4-6.5); Eosinophils # (manual) 0.34 K/uL (0-0.5); Eosinophils % (manual) 1.7 %; Lymphocytes # (manual) 2.45 K/uL (1.2-3.4); Lymphocytes % (manual) 12.2 %; Metamyelocytes # (manual) 0.34 K/uL (0-0); Metamyelocytes % (manual) 1.7 %; Monocytes # (manual) 1.57 K/uL (0.11-0.59); Monocytes % (manual) 7.8 %; Myelocytes # (manual) 0.18 K/uL (0-0); Myelocytes % (manual) 0.9 %; Neutrophils # (manual) 15.21 K/uL (1.4-6.5); Neutrophils % (manual) 75.7 %; RBC Morphology Unremarkable
[2020-03-06] MEDS: cefTRIAXone SODIUM 2,000 MG in DEXTROSE 5% 50 ML IV SCH (15:31)
--- NOTE | 2020-03-06 18:07 | Hospitalist Progress Note ---
Date of Service March 06, 2020 Assessment & Plan (1) Pyelonephritis: continues on ceftriaxone for E coli found in urine culture and stone removal/stent will need stent removal as outpt currently on day 6 of antibiotics since bacteria was found on blood cultures also will complete 2-week course last dose being on March 13 (2) Severe sepsis: Severe sepsis/septic shock/due to complicated UTI/pyelonephritis/obstructing right UVJ stone- Changed to IV ceftriaxone she does have a E. 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 difficile on 03/05/2020 was negative (5) Hypomagnesemia: replete Phosphorus is also noted to be low on 731 this was repleted via intravenous form (6) Fall: See above will eventually need PT OT once her blood pressure rebounds may consider case management involvement for possible SNF placement (7) Ureterolithiasis: See above (8) Admitted to intensive care unit: Admitted to intensive care unit with septic shock secondary to complicated UTI, 8 mm right UVJ obstructing stone causing mild to moderate hydro-ureter dilatation/pyelonephritis- Status post extubation 03/03/20 and continues to do well with oxygenation-no further pulmonary distress (9) Rhabdomyolysis: CK 1202 -> 214, with creatinine 2.40-> 1.87 Patient had a fall and was possibly laying on the floor for up to 24 hours. (10) Hypothyroidism: resume out pt synthroid (11) DVT prophylaxis: heparin for dvt prevention Admission and Anticipated Discharge Date Admission Date: February 29, 2020 Subjective Patient continues to improve, she is participating in physical therapy and Occupational Therapy along with continuing speech therapy, Anticipating placement for rehab after acute hospital stay Review of Systems Review of Systems: Continues with moderate distress and fatigue no headache, blurry or double vision no speech or swallowing issues no chest pain, pressure or palpitations no shortness of breath, cough or wheezes no abdominal pain, nausea or vomiting, having loose bowel movements no dysuria, hematuria or frequency Patient has chronic venous stasis changes to her lower extremities with very dry scaly skin and poor pulses. no back pain, CVA tenderness or radicular pain no bruising, bleeding or rashes no focal signs of weakness or numbness or altered sensation no complaints or anxiety or depression Physical Exam Physical Exam: The patient appeared ill but improving daily Vital signs as documented. still on pressors Head exam is normocephalic atraumatic no scleral icterus Neck is without JVD .trachea is midline Lungs are coarse bilaterally Cardiac exam, Rhythm is regular.. No murmurs, Abdominal exam reveals hyper bowel sounds, soft non tender, no masses Extremities chronic venous stasis changes to her lower extremities with very dry scaly skin and poor pulses. Neurologic exam is alert and globally has some weakness but no significant neurological deficits noted Skin is without bruises or rashes Results & Data Results & Data ([facility]) Vital Signs (Past 12 Hours) Vital Signs Temp Pulse Pulse Resp BP Pulse Ox 03/06/20 16:00 98.6 F 86 20 141/81 H 96 03/06/20 07:40 99.0 F 60 18 127/79 96 PG Care Time/CCT Total # of Minutes Spent Total Time Spent with Patient: Total time spent is greater than 50% in coordination of care (as documented) at patient's floor/unit and/or counseling patient: Coding Level of Care Code 99012 Subseq Hosp Care Lvl 2 Diagnoses Pyelonephritis N12 Severe sepsis A41.9; R65.20 Septic shock A41.9; R65.21 REEMA (acute kidney injury) N17.9 Hypomagnesemia E83.42 Fall W19.XXXA Ureterolithiasis N20.1 Admitted to intensive care unit Z78.9 Rhabdomyolysis M62.82 Hypothyroidism E03.9 DVT prophylaxis Z29.9
[2020-03-07] MEDS: HEPARIN SOD 5,000 UNIT/0.5 ML VIAL SQ SCH ×2 (09:43→20:30)
[2020-03-07] MEDS: SUCRALFATE 1 GM/10 ML UDC NG SCH ×4 (09:43→20:30)
[2020-03-07] MEDS: cefTRIAXone SODIUM 2,000 MG in DEXTROSE 5% 50 ML IV SCH (15:57)
--- NOTE | 2020-03-07 17:53 | Hospitalist Progress Note ---
Date of Service March 07, 2020 Assessment & Plan (1) Pyelonephritis: continues on ceftriaxone for E coli found in urine culture and stone removal/stent will need stent removal as outpt currently on day 6 of antibiotics since bacteria was found on blood cultures also will complete 2-week course last dose being on March 13 (2) Severe sepsis: Severe sepsis/septic shock/due to complicated UTI/pyelonephritis/obstructing right UVJ stone- Changed to IV ceftriaxone she does have a E. 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 difficile on 03/05/2020 was negative (5) Hypomagnesemia: replete Phosphorus is also noted to be low on 03/05 this was repleted via intravenous form (6) Fall: See above will eventually need PT OT once her blood pressure rebounds may consider case management involvement for possible SNF placement (7) Ureterolithiasis: See above (8) Admitted to intensive care unit: Admitted to intensive care unit with septic shock secondary to complicated UTI, 8 mm right UVJ obstructing stone causing mild to moderate hydro-ureter dilatation/pyelonephritis- Status post extubation 03/03/20 and continues to do well with oxygenation-no further pulmonary distress (9) Rhabdomyolysis: CK 1202 -> 214, with creatinine 2.40-> 1.36 Patient had a fall and was possibly laying on the floor for up to 24 hours. (10) Hypothyroidism: resume out pt synthroid (11) DVT prophylaxis: heparin for dvt prevention Admission and Anticipated Discharge Date Admission Date: February 29, 2020 Subjective Patient continues to improve, she is participating in physical therapy and Occupational Therapy along with continuing speech therapy, Anticipating placement for rehab after acute hospital stay No new issues noted on 03/07/2020 Review of Systems Review of Systems: Continues with moderate distress and fatigue no headache, blurry or double vision no speech or swallowing issues no chest pain, pressure or palpitations no shortness of breath, cough or wheezes no abdominal pain, nausea or vomiting, having loose bowel movements no dysuria, hematuria or frequency Patient has chronic venous stasis changes to her lower extremities with very dry scaly skin and poor pulses. no back pain, CVA tenderness or radicular pain no bruising, bleeding or rashes no focal signs of weakness or numbness or altered sensation no complaints or anxiety or depression Physical Exam Physical Exam: The patient appeared ill but improving daily Vital signs as documented. still on pressors Head exam is normocephalic atraumatic no scleral icterus Neck is without JVD .trachea is midline Lungs are coarse bilaterally Cardiac exam, Rhythm is regular.. No murmurs, Abdominal exam reveals hyper bowel sounds, soft non tender, no masses Extremities chronic venous stasis changes to her lower extremities with very dry scaly skin and poor pulses. Neurologic exam is alert and globally has some weakness but no significant neurological deficits noted Skin is without bruises or rashes Results & Data Results & Data ([facility]) Vital Signs (Past 12 Hours) Vital Signs Temp Pulse Resp BP Pulse Ox 03/07/20 14:45 98.8 F 81 16 145/73 H 95 03/07/20 06:51 98.8 F 78 18 134/69 96 PG Care Time/CCT Total # of Minutes Spent Total Time Spent with Patient: Total time spent is greater than 50% in coordination of care (as documented) at patient's floor/unit and/or counseling patient: Coding Level of Care Code 13217 Subseq Hosp Care Lvl 2 Diagnoses Pyelonephritis N12 Severe sepsis A41.9; R65.20 Septic shock A41.9; R65.21 REEMA (acute kidney injury) N17.9 Hypomagnesemia E83.42 Fall W19.XXXA Ureterolithiasis N20.1 Admitted to intensive care unit Z78.9 Rhabdomyolysis M62.82 Hypothyroidism E03.9 DVT prophylaxis Z29.9
[2020-03-08] MEDS: SUCRALFATE 1 GM/10 ML UDC NG SCH ×3 (08:36→16:24)
[2020-03-08] MEDS: HEPARIN SOD 5,000 UNIT/0.5 ML VIAL SQ SCH (08:36)
[2020-03-08 10:58] LABS: Hematocrit (blood only) 32.5 % (37-47); Mean Corpuscular Hemoglobin 28.4 pg (25-34); Mean Corpuscular Hgb Conc 30.8 g/dL (32-36); Mean Corpuscular Volume 92.3 fL (80-100); Mean Platelet Volume 11.2 fL (7.4-10.4); Platelet Count 390 K/uL (130-400); RDW Coefficient of Variation 15.9 % (11.5-14.5); RDW Standard Deviation 53.6 fL (36.4-46.3); Red Blood Count 3.52 M/uL (4.2-5.4); White Blood Count 17.65 K/uL (4.8-10.8)
[2020-03-08 11:20] LABS: ALC (manual) 2.15 K/uL (1.2-3.4); ANC (manual) 13.04 K/uL (1.4-6.5); Basophils % (manual) 1.7 %; Eosinophils # (manual) 0.46 K/uL (0-0.5); Eosinophils % (manual) 2.6 %; Lymphocytes # (manual) 2.15 K/uL (1.2-3.4); Lymphocytes % (manual) 12.2 %; Metamyelocytes # (manual) 0.16 K/uL (0-0); Metamyelocytes % (manual) 0.9 %; Monocytes # (manual) 0.62 K/uL (0.11-0.59); Monocytes % (manual) 3.5 %; Myelocytes # (manual) 0.92 K/uL (0-0); Myelocytes % (manual) 5.2 %; Neutrophils # (manual) 13.04 K/uL (1.4-6.5); Neutrophils % (manual) 73.9 %
[2020-03-08 11:22] LABS: Albumin Globulin Ratio 0.4 (0.9-2); Albumin Level 2.1 gm/dl (3.4-5.0); BUN Creatinine Ratio 8.7 (10-20); Bilirubin,Total 0.5 mg/dl (0.2-1); Calcium 8.3 mg/dl (8.5-10.1); Creatinine Clr Calc Pharmacy 34.5 ml/min; Est GFR (Non-African American) 40.5; Globulin 4.7 gm/dl (2.5-4.0); Potassium 3.2 mmol/L (3.5-5.1); Total Protein 6.8 gm/dl (6.4-8.2)
[2020-03-08] MEDS ORDERED: POTASSIUM CHLORIDE 20 MEQ TABCR PO STA (11:56)
--- NOTE | 2020-03-08 14:23 | Ultrasound Report ---
US venous doppler LE RT CLINICAL HISTORY: Right arm swelling and edema. COMPARISON STUDY: No previous studies for comparison. FINDINGS: Real-time and color flow Doppler imaging were performed. Flow was seen within the femoral, popliteal and calf veins with no intraluminal thrombus demonstrated. The saphenous vein is patent. No te is made of soft tissue edema. IMPRESSION: No evidence of right upper extremity DVT. ACT 112: Negative or not required by law. Electronically signed by: Valerio Landa M.D. 03/08/2020 2:22 PM
[2020-03-08 16:22] VITALS: TEMP 99.1; O2SAT 97
[2020-03-08] MEDS: cefTRIAXone SODIUM 2,000 MG in DEXTROSE 5% 50 ML IV SCH (16:27)
--- NOTE | 2020-03-08 16:58 | Discharge Summary ---
Date of Service March 08, 2020 Admission HPI Per Admitting Provider The patient is a 84-year-old female with a past medical history including hypothyroidism and arthritis, who presented to the emergency department after a fall which was preceded by generalized weakness, and resulted in pain in left hip and right shoulder. Upon arrival to emergency department, patient was found to be hypotensive and tachycardic. She did have appropriate laboratories and imaging studies ordered, and did receive IV fluid resuscitation. Principal Diagnosis Gram negative bacteremia, sepsis Discharge Exam Constitutional WD/WN, vitals as above Respiratory normal respiratory effort, lungs clear to auscultation Cardiovascular Rate/Rhythm: regular rate and regular rhythm Heart Sounds: normal S1 and normal S2 right leg > left Gastrointestinal (Abdomen) Inspection/Auscultation: abdomen normal to inspection and normal bowel sounds; abdomen not distended Percussion/Palpation: abdomen soft; abdomen nontender Musculoskeletal no cyanosis or clubbing, extremities motor strength 5/5 Skin no rashes, warm and dry Neurologic moves all extremities and awake Discharge Data Allergies Allergy/AdvReac Type Severity Reaction Status Date / Time No Known Allergies Allergy Unverified 02/28/20 23:08 Consultations 02/29/20 00:57 ED Decision to Admit Stat 02/29/20 01:55 Consult Case Management - Discharge Planning Routine Consult [place] 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 Routine Procedures Performed Operation Date: 02/29/20 03:30 Actual Procedures p Ureteral stent insertion bilateral(Bilateral) - Patrick Bauman DO s Cystoscopy, Bilateral retrograde pyelogram(Bilateral) - Patrick Bauman DO Ordered Studies 02/28/20 22:28 CT abd pelvis wo con Urgent CT cervical spine wo con Urgent CT head/brain wo con Urgent 02/29/20 03:02 FL retrograde includes kub Urgent 03/08/20 13:30 US venous doppler LE RT Routine Hospital Course (1) Pyelonephritis: Patient with gram negative bacteremia form urinary source - stone removal/stent performed urgently by urology 02/28 - will need stent removal as outpt currently on day 9 of antibiotics - will complete 2-week course with cefuroxime to which the E.Coli is susceptible Leukocytosis is improving - now 17 from from 38 (2) Severe sepsis: Severe sepsis/septic shock/due to complicated UTI/pyelonephritis/obstructing right UVJ stone- Resolved Abx as above (3) Septic shock: resolved (4) REEMA (acute kidney injury): Nearly resolved - creat 1.23 today Patient diarrhea has resolved - was checked for C. difficile on 03/05/2020 was negative Follow kidney function outpatien t (5) Hypomagnesemia: repleted Phosphorus is also noted to be low on 03/05 this was repleted via intravenous form (6) Fall: Will go to SNF at discharge for rehab (7) Ureterolithiasis: See above (8) Admitted to intensive care unit: Admitted to intensive care unit with septic shock secondary to complicated UTI, 8 mm right UVJ obstructing stone causing mild to moderate hydro-ureter dilatation/pyelonephritis- Status post extubation 03/03/20 and continues to do well with oxygenation-no further pulmonary distress (9) Rhabdomyolysis: resolved CK 1202 -> 214, with creatinine 2.40-> 1.36 Patient had a fall and was possibly laying on the floor for up to 24 hours. (10) Hypothyroidism: Continue out pt synthroid (11) DVT prophylaxis: heparin for dvt prevention (12) Elevated alkaline phosphatase measurement: Other LFTs within normal limits, follow up outpatient Total Time Total Time Spent Total Time Spent (In Minutes): greater than 30 minutes Discharge Plan Discharge Items Patient Disposition: Transfer [facility] Reason For Visit: SEPTIC SHOCK DUE TO COMPLICATED UTI Discharge Diagnosis: Sepsis Condition on Discharge: Critical Activity: Resume your previous activity Non-emergency contact: Primary Care Provider Call non-emergency contact if: you have any medication questions Follow-up/Referrals: Timoteo Mcfarlnad DO [Physician] - (Follow up for stent removal) Rob Mann [Primary Care Provider] - Diet: Regular Addtl Attending Provider Instructions: (1) Pyelonephritis with sepsis : Given ceftriaxone inpatient for E coli found in urine culture Urgent stone removal and stent placement on 02/28 with subsequent ICU stay. Will need stent removal as outpatient, please follow up with Dr. Bauman office with urology currently on day 9 of antibiotics - blood cultures were positive for gram negative bacteremia - -E.coli sensitive to cefuroxime - will give 5 days starting tomorrow for a 2- week course (2) REEMA (acute kidney injury): Creatinine nearly resolved - now 1.23 -Recheck in a week Patient diarrhea which resolved - checked for C. difficile on 03/05/2020 was negative (3)Rhabdomyolysis: Resolved (4) Right leg edema Negative for DVT on US (5) Elevated alk phos Recheck in a week Pending Studies at Discharge: No Stand-Alone Forms: My [facility] Skilled Items Patient informed of condition?: Yes DNR: No Discharge Level of Care: Acute rehab Communicable Disease: No Discharge Prognosis: Improving Lines: None Urinary Catheter: No Medications and DC Order Prescriptions: New cefuroxime axetil 500 mg tablet 500 mg PO BID Qty: 10 RF: 0 Continued aspirin 81 mg Tablet,Delayed Release (Dr/Ec) 81 mg PO DAILY RF: 0 tramadol 50 mg Tablet 50 mg PO DAILY PRN (Reason: Pain) RF: 0 levothyroxine 1 tab PO DAILY RF: 0 Discharge Orders: Discharge Order (Routine); Ordered 03/08/20 Ordered By: Yolanda Metcalf/Other Patient Handouts: Urinary Tract Infections in Women, Falls Preventing Admission Data Admit Date/Time: 02/29/20 01:05 Attending Provider: Artie Mcfarland Admit Provider: Roman Oliveros Primary Care Provider: Rob Mann Other Providers: Roman Oliveros ; Thad Olmedo ; [facility] ; [facility] ; Brenda Mart[facility] [place] Other Interventions: Discharge Summary Assessment (RN) Last Done: 03/08/20 17:33 DC Date/Time DO NOT enter until pt leaves facility: 03/08/20 19:54 Supervising Physician Co-Signing Physician Notes I supervised Yolanda Overton NP on this patient's care. I examined the patient today independently of her. I discussed the plan of care with her with the plan being as written in her note except for any following changes/exceptions: None. No issues today. Feeling better. Ready for discharge. Coding Level of Care Code D/C Day Management >30 mins Diagnoses Pyelonephritis N12 Severe sepsis A41.9; R65.20 Septic shock A41.9; R65.21 REEMA (acute kidney injury) N17.9 Hypomagnesemia E83.42 Fall W19.XXXA Ureterolithiasis N20.1 Admitted to intensive care unit Z78.9 Rhabdomyolysis M62.82 Hypothyroidism E03.9 DVT prophylaxis Z29.9 Elevated alkaline phosphatase measurement R74.8
[2020-03-08 17:34] VITALS: BP 143/72; PULSE 83
== END 2020-03-08 19:54 | DRG 853 ==
LOC: ED 22:10 → 1E 02-29 01:05 → SUATTDRO 02-29 01:05 → 1E 02-29 01:35 → 2N 03-03 11:24 → 3N 03-05 00:55

== ENCOUNTER 2020-07-22 13:14 | Inpatient (IN) ==
[2020-07-22] MEDS ORDERED: MoRPHine SULFATE 4 MG/ML 1 ML CARP\\VIAL IV PRN (13:21)
[2020-07-22] MEDS ORDERED: ONDANSETRON INJ 2 MG/ML 2 ML VIAL IV STA (13:21)
--- NOTE | 2020-07-22 13:46 | Emergency Department Note ---
Impression & Plan Closed intertrochanteric fracture of right hip ED Provider Note NAME: LINDA WRIGHT AGE: 85 SEX: F : 1935 ARRIVES VIA: Ambulance INFORMANT: Patient, prehospital personnel ED PROVIDER(S): Joseph Sullivan DO CHIEF COMPLAINT: Fall HPI: The patient is an 85-year-old female who presented to the emergency department by ambulance for an evaluation of right hip pain. The patient was walking in her home when she twisted the wrong way and fell. The patient landed onto her right hip. The patient is a history of left hip injury in the past. She was unable to ambulate and has very severe pain in the right hip especially with any movement. She presented to the emergency department by ambulance. She denies having any neck pain. The patient complains of severe pain upon movement. The patient states that her pain is moderate to severe with any movement of the hip. She states when she is remaining still it is still mild to moderate. ROS: See above HPI for pertinent positives & negatives. A total of 10 systems reviewed and were otherwise negative. PAST MEDICAL HISTORY: See Below PAST SURGICAL HISTORY: See Below FAMILY HISTORY: See Below SOCIAL HISTORY: See Below HOME MEDICATIONS: See Below ALLERGIES: See Below VITALS: See Below PHYSICAL EXAMINATION: GENERAL: The patient is awake and alert. The patient is very anxious appearing appears to be in significant pain. EYES: The conjunctivae are clear. The pupils are round and reactive. EARS, NOSE, MOUTH AND THROAT: The nose is without any evidence of any deformity. Mucous membranes are moist. Tongue is midline. NECK: The neck is nontender and supple. RESPIRATORY: Normal respiratory effort is noted there is no evidence of wheezing rhonchi or rales CARDIOVASCULAR: Regular rate and rhythm noted there no murmurs rubs or gallops normal S1 normal S2. GASTROINTESTINAL: The abdomen is soft. Abdomen is nontender. MUSCULOSKELETAL/EXTREMITIES: The right hip is internally rotated and significantly shortened. Pulses are symmetric in both feet. SKIN: Venous stasis changes are noted in both feet. There is pedal edema bilaterally. NEUROLOGIC: Patient is awake alert and oriented x3. MEDICAL DECISION MAKING: The patient is an 85-year-old female who presented to the emergency department for an evaluation after a fall. The patient has a history of left hip fracture with replacement in the past. She had very severe pain in her left hip. History and physical exam appear to be consistent with hip fracture. This was confirmed on radiographic studies. The patient was treated with pain medication in the emergency department. She was reevaluated multiple times. I [facility] her [facility] They have agreed to evaluate the patient in the emergency department for further management and disposition. Triage Nursing notes reviewed. Prior medical records reviewed Vital Signs: reviewed and remarkable for elevated blood pressure Differential diagnosis: Fracture, dislocation, neurovascular compromise, compartment syndrome, soft tissue injury, as well as other pathologies. ER treatment provided: See below Diagnostics interpreted by me: ECG: EKG was obtained in the emergency department. My interpretation is normal sinus rhythm at 87 bpm. There is no ectopy. Poor baseline was noted. Diffuse ST segment abnormalities were noted. This was compared to a tracing from February 282019. No significant changes were noted. Cardiac Monitoring: An order was placed for continuous cardiac monitoring. The monitor shows a rate of 86 bpm with sinus rhythm. Laboratory studies: As stated above and show below. Imaging studies: See below Consultation(s): 1400: I discussed this case with Addis who is [facility] They will evaluate the patient in the emergency department. Past Med/Surg History Medical History Acute kidney failure Acute pyelonephritis Admitted to intensive care unit REEMA (acute kidney injury) Asymptomatic proteinuria DVT prophylaxis Elevated alkaline phosphatase measurement Encounter for pre-operative examination Gram negative sepsis Hypokalemia Hypomagnesemia Hypothyroidism Pyelonephritis Rhabdomyolysis Septic shock Severe sepsis Thrombocytopenia Ureterolithiasis Surgical History History of left hip replacement No pertinent past surgical history Social History Smoking Status: Former smoker Hx Alcohol Use: No Hx Substance Use: No Communication Ability: Effective Beliefs That Will Affect Care: None marital status: / Current Living Situation: Alone Feels Safe at Home: Yes Assistive Devices: Walker Allergies Allergies Allergy/AdvReac Type Severity Reaction Status Date / Time No Known Allergies Allergy Unverified 07/22/20 14:02 Home Meds Home Medications Medication Instructions Recorded Confirmed aspirin 81 mg PO DAILY 02/28/20 07/22/20 tramadol 50 mg PO Q12H PRN 02/28/20 07/22/20 acetaminophen 325 mg tablet 650 mg PO Q4H PRN tab 03/16/20 07/22/20 levothyroxine 125 mcg tablet 125 mcg PO DAILY 03/16/20 07/22/20 miconazole nitrate 2 % topical 1 appln TOP BID 03/16/20 07/22/20 cream docusate sodium 100 mg PO DAILY 07/22/20 07/22/20 furosemide 10 mg PO DAILY 07/22/20 07/22/20 Results & Data (ED) Vital Signs Vital Signs - 24 hr 07/22/20 13:20 07/22/20 13:29 07/22/20 14:43 Temperature 36.4 C L Temperature Source Oral Pulse Rate 88 89 Pulse Rate from SpO2 Sensor 88 Respiratory Rate 18 14 Respiratory Effort / Characteristics Non-Labored Spontaneous Respiratory Depth Normal Respiratory Pattern Regular Blood Pressure 171/79 H Blood Pressure Mean 109 Blood Pressure Position Sitting Pulse Oximetry 96 92 95 Oxygen Delivery Method Room Air Room Air Oxygen Flow Rate 92 Sepsis Recent Fever Within 48 Hours No Sepsis New/Unexplained Change in Mental Status N/A Sepsis Action Taken by Nursing No Action Required 07/22/20 15:00 Temperature Temperature Source Pulse Rate 86 Pulse Rate from SpO2 Sensor 86 Respiratory Rate 17 Respiratory Effort / Characteristics Respiratory Depth Respiratory Pattern Blood Pressure Blood Pressure Mean Blood Pressure Position Pulse Oximetry 98 Oxygen Delivery Method Oxygen Flow Rate Sepsis Recent Fever Within 48 Hours Sepsis New/Unexplained Change in Mental Status Sepsis Action Taken by Shelter Medications Current Medication List: was personally reviewed by me Laboratory Data Attestation: I reviewed the patient's lab results. Result diagrams: 07/22/20 14:50 07/22/20 14:50 Lab Results 07/22/20 07/22/20 07/22/20 Range/Units 14:50 14:50 14:50 WBC 11.58 H (4.8-10.8) K/uL RBC 3.54 L (4.2-5.4) M/uL Hgb 9.9 L (12.0-16.0) g/dL Hct 31.8 L (37-47) % MCV 89.8 (80-100) fL MCH 28.0 (25-34) pg MCHC 31.1 L (32-36) g/dL RDW Std Deviation 47.4 H (36.4-46.3) fL RDW Coeff of Marisel 14.2 (11.5-14.5) % Plt Count 315 (130-400) K/uL MPV 9.5 (7.4-10.4) fL Immature Gran % (Auto) 0.5 % Neut % (Auto) 81.7 % Lymph % (Auto) 10.3 % Mesa % (Auto) 5.4 % Eos % (Auto) 1.7 % Baso % (Auto) 0.4 % Neut # (Auto) 9.46 H (1.4-6.5) K/uL Lymph # (Auto) 1.19 L (1.2-3.4) K/uL Mesa # (Auto) 0.62 H (0.11-0.59) K/uL Eos # (Auto) 0.20 (0-0.5) K/uL Baso # (Auto) 0.05 (0-0.2) K/uL Immature Gran # (Auto) 0.06 H (0.00-0.02) K/uL PT 10.8 (9.0-12.0) Seconds INR 1.0 (0.9-1.1) APTT 26.2 (21.0-31.0) Seconds PTT Ratio 0.9 Sodium 137 (136-145) mmol/L Potassium 3.8 (3.5-5.1) mmol/L Chloride 108 H (98-107) mmol/L Carbon Dioxide 23 (21-32) mmol/L Anion Gap 7.0 (3-11) BUN 16 (7-18) mg/dl Creatinine 1.39 H (0.6-1.2) mg/dl Est Cr Clr Drug Dosing 31.1 ml/min Est GFR ( Amer) 40.2 Est GFR (Non-Af Amer) 34.7 BUN/Creatinine Ratio 11.4 (10-20) Glucose 106 H (70-99) mg/dl Calcium 8.7 (8.5-10.1) mg/dl Total Bilirubin 0.3 (0.2-1) mg/dl AST 16 (15-37) U/L ALT 9 L (12-78) U/L Alkaline Phosphatase 100 (45-117) U/L Troponin I < 0.015 (0-0.045) ng/ml Total Protein 7.3 (6.4-8.2) gm/dl Albumin 2.9 L (3.4-5.0) gm/dl Globulin 4.4 H (2.5-4.0) gm/dl Albumin/Globulin Ratio 0.7 L (0.9-2) Lipase 99 (73-393) U/L SARS-CoV-2 Ag (Rapid) (Negative) 07/22/20 Range/Units Unknown WBC (4.8-10.8) K/uL RBC (4.2-5.4) M/uL Hgb (12.0-16.0) g/dL Hct (37-47) % MCV (80-100) fL MCH (25-34) pg MCHC (32-36) g/dL RDW Std Deviation (36.4-46.3) fL RDW Coeff of Marisel (11.5-14.5) % Plt Count (130-400) K/uL MPV (7.4-10.4) fL Immature Gran % (Auto) % Neut % (Auto) % Lymph % (Auto) % Mesa % (Auto) % Eos % (Auto) % Baso % (Auto) % Neut # (Auto) (1.4-6.5) K/uL Lymph # (Auto) (1.2-3.4) K/uL Mesa # (Auto) (0.11-0.59) K/uL Eos # (Auto) (0-0.5) K/uL Baso # (Auto) (0-0.2) K/uL Immature Gran # (Auto) (0.00-0.02) K/uL PT (9.0-12.0) Seconds INR (0.9-1.1) APTT (21.0-31.0) Seconds PTT Ratio Sodium (136-145) mmol/L Potassium (3.5-5.1) mmol/L Chloride (98-107) mmol/L Carbon Dioxide (21-32) mmol/L Anion Gap (3-11) BUN (7-18) mg/dl Creatinine (0.6-1.2) mg/dl Est Cr Clr Drug Dosing ml/min Est GFR ( Amer) Est GFR (Non-Af Amer) BUN/Creatinine Ratio (10-20) Glucose (70-99) mg/dl Calcium (8.5-10.1) mg/dl Total Bilirubin (0.2-1) mg/dl AST (15-37) U/L ALT (12-78) U/L Alkaline Phosphatase (45-117) U/L Troponin I (0-0.045) ng/ml Total Protein (6.4-8.2) gm/dl Albumin (3.4-5.0) gm/dl Globulin (2.5-4.0) gm/dl Albumin/Globulin Ratio (0.9-2) Lipase (73-393) U/L SARS-CoV-2 Ag (Rapid) Negative (Negative) Administered Medications Morphine Sulfate (Morphine Sulfate 4 Mg/Ml 1 Ml Carp\Vial) 4 mg IV Q30M PRN PRN Reason: Pain Stop: 08/05/20 13:20 Last Admin: 07/22/20 13:50 Dose: 4 mg Documented by: [id number] Ondansetron HCl (Ondansetron Inj 2 Mg/Ml 2 Ml Vial) 4 mg IV NOW STA Stop: 07/22/20 13:22 Last Admin: 07/22/20 13:49 Dose: 4 mg Documented by: [id number] Imaging Data Radiologist's Impression: Patient: LINDA WRIGHT Admit Date: 07/22/20 MR#: [id number] Address1: [facility] [address] Acct ID:[id number] Address2: [address] [place] [address] Date: 1935 [place] Zip: [place] [address] Age: 85 Location: ED Sex: F Room/Bed: Att Phy: Diagnosis: FALL,RT HIP FX Mavis Phy: Rob Mann PA-C Service Date: 07/22/20 [facility] Phy: Interpreting Phy: Valerio Landa MD Admit Phy: Ordering Phy: Joseph Sullivan DO cc: ~ XR hip RT 2V w pelvis CLINICAL HISTORY: Right hand pain status post trauma COMPARISON: CT scan performed February 28, 2020 DISCUSSION: There are bilateral double pigtail right-sided nephroureteral stents. There are advanced arthritic changes present within the right hip. There is an acute intertrochanteric right hip fracture. The greater trochanteric fragment is displaced by 2 cm. There is a total left hip arthroplasty. There is no evidence of SI joint diastases. There is no evidence of symphysis diastases. IMPRESSION: Acute intertrochanteric right hip fracture. ACT 112: Negative or not required by law. Electronically signed by: Valerio Landa M.D. 07/22/2020 1:55 PM Dictated: 07/22/20 1353 Transcribed: 07/22/20 135 Patient: LINDA WRIGHT Admit Date: 07/22/20 MR#: [id number] Address1: [address] Acct ID:[id number] Address2: [address] [place] [address] Date: 1935 [place] Zip: [place] [address] Age: 85 Location: ED Sex: F Room/Bed: Att Phy: Diagnosis: FALL,RT HIP FX Mavis Phy: Rob Mann PA-C Service Date: 07/22/20 [facility] Phy: Interpreting Phy: Moose Coon MD Admit Phy: Ordering Phy: Joseph Sullivan, cc: ~ XR chest 1V portable HISTORY: Atypical Chest Pain COMPARISON: Chest 02/23/2020. FINDINGS: The cardiac silhouette is mildly enlarged. Moderate hiatus hernia, unchanged. No pleural effusions. No pneumothorax. Old, healed right humeral neck fracture. No focal lung consolidations to suggest pneumonia. No evidence for pulmonary edema. IMPRESSION: No acute process. ACT 112: Negative or not required by law. Electronically signed by: Moose Coon M.D. 07/22/2020 1:55 PM Dictated: 07/22/20 1351 Transcribed: 07/22/201350 Blood Pressure Blood Pressure Findings: Elevated blood pressure Blood Pressure Disposition: further management by hospitalist Discharge Plan Visit Data Chief Complaint: Hip Pain Stated Complaint: fall ED Provider: Joseph Sullivan Discharge Problem: Closed intertrochanteric fracture of right hip Prescriptions Prescriptions: No Action levothyroxine 125 mcg tablet 125 mcg PO DAILY RF: 0 miconazole nitrate 2 % cream 1 appln TOP BID RF: 0 acetaminophen [Tylenol] 325 mg tablet 650 mg PO Q4H PRN (Reason: Pain) RF: 0 aspirin 81 mg Tablet,Delayed Release (Dr/Ec) 81 mg PO DAILY RF: 0 tramadol 50 mg Tablet 50 mg PO Q12H PRN (Reason: Pain) RF: 0 docusate sodium 100 mg capsule 100 mg PO DAILY RF: 0 furosemide 20 mg tablet 10 mg PO DAILY RF: 0
--- NOTE | 2020-07-22 13:56 | XRay Report ---
XR hip RT 2V w pelvis CLINICAL HISTORY: Right hand pain status post trauma COMPARISON: CT scan performed February 28, 2020 DISCUSSION: There are bilateral double pigtail right-sided nephroureteral stents. There are advanced arthritic changes present within the right hip. There is an acute intertrochanteric right hip fractur e. The greater trochanteric fragment is displaced by 2 cm. There is a total left hip arthroplasty. Th ere is no evidence of SI joint diastases. There is no evidence of symphysis diastases. IMPRESSION: Acute intertrochanteric right hip fracture. ACT 112: Negative or not required by law. Electronically signed by: Valerio Landa M.D. 07/22/2020 1:55 PM
--- NOTE | 2020-07-22 13:56 | XRay Report ---
XR chest 1V portable HISTORY: Atypical Chest Pain COMPARISON: Chest 02/23/2020. FINDINGS: The cardiac silhouette is mildly enlarged. Moderate hiatus hernia, unchanged. No pleural ef fusions. No pneumothorax. Old, healed right humeral neck fracture. No focal lung consolidations to ross ggest pneumonia. No evidence for pulmonary edema. IMPRESSION: No acute process. ACT 112: Negative or not required by law. Electronically signed by: Moose Coon M.D. 07/22/2020 1:55 PM
[2020-07-22 15:03] LABS: Basophils # (auto) 0.05 K/uL (0-0.2); Basophils % (auto) 0.4 %; Eosinophils % (auto) 1.7 %; Hematocrit (blood only) 31.8 % (37-47); Hemoglobin 9.9 g/dL (12.0-16.0); Immature Granulocytes # (auto) 0.06 K/uL (0.00-0.02); Immature Granulocytes % (auto) 0.5 %; Lymphocytes # (auto) 1.19 K/uL (1.2-3.4); Lymphocytes % (auto) 10.3 %; Mean Corpuscular Hgb Conc 31.1 g/dL (32-36); Mean Corpuscular Volume 89.8 fL (80-100); Mean Platelet Volume 9.5 fL (7.4-10.4); Monocytes # (auto) 0.62 K/uL (0.11-0.59); Monocytes % (auto) 5.4 %; Neutrophils # (auto) 9.46 K/uL (1.4-6.5); Neutrophils % (auto) 81.7 %; Platelet Count 315 K/uL (130-400); RDW Coefficient of Variation 14.2 % (11.5-14.5); RDW Standard Deviation 47.4 fL (36.4-46.3); Red Blood Count 3.54 M/uL (4.2-5.4); White Blood Count 11.58 K/uL (4.8-10.8)
[2020-07-22 15:22] LABS: Partial Thromboplastin Ratio 0.9; Partial Thromboplastin Time 26.2 Seconds (21.0-31.0); Prothrombin Time 10.8 Seconds (9.0-12.0)
[2020-07-22 15:24] LABS: Alanine Aminotransferase 9 U/L (12-78); Albumin Level 2.9 gm/dl (3.4-5.0); Aspartate Aminotransferase 16 U/L (15-37); BUN Creatinine Ratio 11.4 (10-20); Blood Urea Nitrogen 16 mg/dl (7-18); Calcium 8.7 mg/dl (8.5-10.1); Carbon Dioxide 23 mmol/L (21-32); Chloride 108 mmol/L (98-107); Creatinine Clr Calc Pharmacy 31.1 ml/min; Est GFR (African American) 40.2; Est GFR (Non-African American) 34.7; Glucose 106 mg/dl (70-99); Lipase 99 U/L (73-393); Potassium 3.8 mmol/L (3.5-5.1); Sodium 137 mmol/L (136-145)
[2020-07-22 15:30] LABS: Albumin Globulin Ratio 0.7 (0.9-2); Alkaline Phosphatase 100 U/L (45-117); Bilirubin,Total 0.3 mg/dl (0.2-1); Globulin 4.4 gm/dl (2.5-4.0); Total Protein 7.3 gm/dl (6.4-8.2); Troponin I < 0.015 ng/ml (0-0.045)
[2020-07-22] MEDS ORDERED: hydrALAZINE HCL 20 MG/ML VIAL IV PRN (17:18)
[2020-07-22] MEDS ORDERED: bisacodyL 10 MG SUPP PR PRN (17:18)
[2020-07-22] MEDS ORDERED: traMADol HCL 50 MG TABLET PO PRN (17:18)
[2020-07-22] MEDS ORDERED: NALOXONE HCL 0.4 MG/1 ML VIAL/CARP IV PRN (17:18)
[2020-07-22] MEDS ORDERED: ACETAMINOPHEN 325 MG TAB PO PRN (17:18)
[2020-07-22] MEDS: MoRPHine SULFATE 2 MG/ML CARP IV PRN (17:41)
[2020-07-22] MEDS: D5W AND NSS 1,000 ML IV SCH (17:59)
[2020-07-22] MEDS: ACETAMINOPHEN 1000 MG/100 ML IV IV PRN (18:46)
--- NOTE | 2020-07-22 18:59 | History & Physical Report ---
Date of Service July 22, 2020 Assessment & Plan (1) Closed intertrochanteric fracture of right hip: 85-year-old female with history of hypothyroidism, arthritis, pyelonephritis Presented with right hip pain after of mechanical fall Closed intertrochanteric fracture of the right hip Status post mechanical fall At this point, patient has no medical contraindication to proceed with orthopedic surgery to address above right hip fracture Patient is mild to moderate risk for cardiopulmonary complications in light of advanced age, comorbidities Explained to patient, she is understanding, agreeable, comfortable with the plan of care Discussed with Dr. Hayes Plan for or tomorrow, n.p.o. post midnight Hold aspirin As needed morphine IV, tramadol, Tylenol for pain PT and OT evaluation postsurgically DVT prophylaxis-need Lovenox subcutaneous Hypertension Not including past medical history Most likely secondary to underlying pain Pain management per above Hydralazine as needed for systolic BP more than 160 UTI Patient on empiric Bactrim started 2 days ago We will give IV ceftriaxone tonight UA pending DVT prophylaxis We will need subcutaneous Lovenox when okay with orthopedic surgery Disposition PT and OT evaluation May need to transition to rehab after surgery Admission and Anticipated Discharge Date Admission Date: July 22, 2020 History of Present Illness 85-year-old female with history of hypothyroidism, arthritis, pyelonephritis Presenting with severe right hip pain status post mechanical fall. Patient was at her usual state of health until this afternoon. As per patient, she walked to charge her phone but unfortunately lost her balance and fell landing on her right side. Patient denies any loss of consciousness, chest pain, palpitations, dizziness, lightheadedness. She did experience a severe right hip pain after the fall, hence was brought to the ER for evaluation At the ER, the patient was found to have right traumatic fracture. Hospitalist consulted for admission. On exam, patient seen resting in bed, not in acute respiratory distress, but is having severe right hip pain which is worse with movement. She denies having any headache, dizziness, change in vision, focal neurologic deficits Chest pain, shortness of breath, palpitations, abdominal pain. No problems with urination or bowel movement, fevers or chills. No other symptoms Primary Care Provider: Rob Mann Allergies Allergy/AdvReac Type Severity Reaction Status Date / Time No Known Allergies Allergy Unverified 07/22/20 14:02 Home Medications Medication Instructions Recorded Confirmed Type aspirin 81 mg PO DAILY 02/28/20 07/22/20 History tramadol 50 mg PO Q12H PRN 02/28/20 07/22/20 History acetaminophen 325 mg tablet 650 mg PO Q4H PRN tab 03/16/20 07/22/20 History levothyroxine 125 mcg tablet 125 mcg PO DAILY 03/16/20 07/22/20 History miconazole nitrate 2 % topical 1 appln TOP BID 03/16/20 07/22/20 History cream docusate sodium 100 mg PO DAILY 07/22/20 07/22/20 History furosemide 10 mg PO DAILY 07/22/20 07/22/20 History Past Med/Surg History Medical History Acute kidney failure Acute pyelonephritis Admitted to intensive care unit REEMA (acute kidney injury) Asymptomatic proteinuria DVT prophylaxis Elevated alkaline phosphatase measurement Encounter for pre-operative examination Gram negative sepsis Hypokalemia Hypomagnesemia Hypothyroidism Pyelonephritis Rhabdomyolysis Septic shock Severe sepsis Thrombocytopenia Ureterolithiasis Surgical History History of left hip replacement No pertinent past surgical history Social History Smoking Status: Former smoker Hx Alcohol Use: No Hx Substance Use: No Communication Ability: Effective Beliefs That Will Affect Care: None marital status: / Current Living Situation: Alone Feels Safe at Home: Yes Assistive Devices: Walker Review of Systems Review of Systems: All systems reviewed & are unremarkable except as noted in Subjective Physical Exam Physical Exam: General- oriented x 3, not in distress, speaks in sentences with no effort or accessory muscle use Head- atraumatic Eyes- PERRL, EOMI, anicteric ENT- oropharynx clear Neck- supple, no JVD, no adenopathy, no thyromegaly; carotids +2/2, no bruits ap preciated Lungs- clear to auscultation bilaterally, no rales/wheezes Heart- normal rate, regular rhythm; no murmur, no gallop, no rub appreciated Abdomen- normal bowel sounds, nondistended, soft, nontender, no masses or hepatosplenomegaly Extremities- Right lower extremity externally rotated, with tenderness to palpation no pretibial edema, no calf tenderness; peripheral pulses intact Positive erythema on both lower extremity, but no warmth or tenderness; poor hygiene of bilateral lower extremity including feet Neuro- alert, oriented x 3; CN 2-12 grossly intact; motor 5/5 bilaterally;se nsation 100% on all extremities; no other gross focal neurologic deficits Skin- warm & dry Results & Data Results & Data ([facility]) Vital Signs (Past 12 Hours) Vital Signs Temp Pulse Resp BP Pulse Ox 07/22/20 16:52 148/111 H 07/22/20 16:31 88 17 123/74 97 07/22/20 16:30 89 14 97 07/22/20 16:00 85 14 144/69 H 97 07/22/20 15:30 80 18 133/52 L 92 07/22/20 15:23 81 19 133/57 L 93 07/22/20 15:00 86 17 98 07/22/20 14:43 89 14 95 07/22/20 13:29 92 07/22/20 13:20 36.4 C L 88 18 171/79 H 96 Laboratory Results Laboratory Results - last 24 hr 07/22/20 07/22/20 07/22/20 14:50 14:50 14:50 WBC 11.58 H RBC 3.54 L Hgb 9.9 L Hct 31.8 L MCV 89.8 MCH 28.0 MCHC 31.1 L RDW Std Deviation 47.4 H RDW Coeff of Marisel 14.2 Plt Count 315 MPV 9.5 Immature Gran % (Auto) 0.5 Neut % (Auto) 81.7 Lymph % (Auto) 10.3 Reynolds % (Auto) 5.4 Eos % (Auto) 1.7 Baso % (Auto) 0.4 Neut # (Auto) 9.46 H Lymph # (Auto) 1.19 L Reynolds # (Auto) 0.62 H Eos # (Auto) 0.20 Baso # (Auto) 0.05 Immature Gran # (Auto) 0.06 H PT 10.8 INR 1.0 APTT 26.2 PTT Ratio 0.9 Sodium 137 Potassium 3.8 Chloride 108 H Carbon Dioxide 23 Anion Gap 7.0 BUN 16 Creatinine 1.39 H Est Cr Clr Drug Dosing 31.1 Est GFR ( Amer) 40.2 Est GFR (Non-Af Amer) 34.7 BUN/Creatinine Ratio 11.4 Glucose 106 H Calcium 8.7 Total Bilirubin 0.3 AST 16 ALT 9 L Alkaline Phosphatase 100 Troponin I < 0.015 Total Protein 7.3 Albumin 2.9 L Globulin 4.4 H Albumin/Globulin Ratio 0.7 L Lipase 99 SARS-CoV-2 Ag (Rapid) Blood Type Antibody Screen 07/22/20 07/22/20 17:56 Unknown WBC RBC Hgb Hct MCV MCH MCHC RDW Std Deviation RDW Coeff of Marisel Plt Count MPV Immature Gran % (Auto) Neut % (Auto) Lymph % (Auto) Reynolds % (Auto) Eos % (Auto) Baso % (Auto) Neut # (Auto) Lymph # (Auto) Reynolds # (Auto) Eos # (Auto) Baso # (Auto) Immature Gran # (Auto) PT INR APTT PTT Ratio Sodium Potassium Chloride Carbon Dioxide Anion Gap BUN Creatinine Est Cr Clr Drug Dosing Est GFR ( Amer) Est GFR (Non-Af Amer) BUN/Creatinine Ratio Glucose Calcium Total Bilirubin AST ALT Alkaline Phosphatase Troponin I Total Protein Albumin Globulin Albumin/Globulin Ratio Lipase SARS-CoV-2 Ag (Rapid) Negative Blood Type Pending Antibody Screen Pending Code Status & VTE Plan VTE Prophylaxis Plan VTE Prophylaxis will be ordered: Yes (1) Closed intertrochanteric fracture of right hip Encounter type: initial encounter Fracture alignment: displaced Qualified Code(s): S72.141A - Displaced intertrochanteric fracture of right femur, initial encounter for closed fracture
--- NOTE | 2020-07-22 19:09 | Anesthesiology Consultation ---
Date of Service July 22, 2020 Covid 19 negative on 07/22/20. Her hgb on admission was 9.9. She is getting a type and screen. Assessment & Plan (1) Encounter for pre-operative examination: Chart Review Chart Review: Acceptable Risk for Surgery and Patient NOT seen in Pre Admission Testing Consults Requested none medicine is following the patient History Height/Weight Height: 5 ft 4 in Weight: 81.2 kg Allergies Allergy/AdvReac Type Severity Reaction Status Date / Time No Known Allergies Allergy Unverified 07/22/20 14:02 Medications Home Medications Medication Instructions Recorded Confirmed Last Taken aspirin 81 mg PO DAILY 02/28/20 07/22/20 07/22/20 tramadol 50 mg PO Q12H PRN 02/28/20 07/22/20 Unknown acetaminophen 325 mg tablet 650 mg PO Q4H PRN tab 03/16/20 07/22/20 Unknown levothyroxine 125 mcg tablet 125 mcg PO DAILY 03/16/20 07/22/20 07/22/20 miconazole nitrate 2 % topical 1 appln TOP BID 03/16/20 07/22/20 07/22/20 cream docusate sodium 100 mg PO DAILY 07/22/20 07/22/20 07/22/20 furosemide 10 mg PO DAILY 07/22/20 07/22/20 07/22/20 Active Medications Generic Name Dose Route Start Last Admin Trade Name Freq PRN Reason Stop Dose Admin Acetaminophen 1,000 mg 07/22/20 17:32 07/22/20 18:46 Acetaminophen 1000 Mg/100 Ml Iv IV 07/25/20 17:31 1,000 mg Q8H PRN Administration Pain or Fever Dextrose/Sodium Chloride 1,000 mls @ 75 mls/hr 07/22/20 17:18 07/22/20 17:59 D5w And Nss IV 08/21/20 17:17 75 mls/hr .[id number] INGE Administration Ceftriaxone Sodium 2,000 mg/ 70 mls @ 100 mls/hr 07/22/20 18:30 07/22/20 19:13 Dextrose IV 07/27/20 18:29 100 mls/hr Q24H INGE Administration Protocol Morphine Sulfate 2 mg 07/22/20 17:27 07/22/20 17:41 Morphine Sulfate 2 Mg/Ml Carp IV 12/31/20 17:26 2 mg Q3H PRN Administration Pain Ondansetron HCl 4 mg 07/22/20 13:21 07/22/20 13:49 Ondansetron Inj 2 Mg/Ml 2 Ml Vial IV 07/22/20 13:22 4 mg NOW STA Administration Past Medical History Medical History (Updated 07/22/20 @ 19:14 by Moose Vincent MD) REEMA (acute kidney injury) Anemia Asymptomatic proteinuria Hypomagnesemia Hypothyroidism Pyelonephritis Thrombocytopenia Ureterolithiasis Past Surgical History Surgical History History of left hip replacement No pertinent past surgical history Social History Smoking Status: Former smoker Hx Alcohol Use: No Hx Substance Use: No Physical Exam Vital Signs Last Vital Signs Temp 36.4 C L 07/22/20 13:20 Pulse 88 07/22/20 16:31 Resp 17 07/22/20 16:31 BP 148/111 H 07/22/20 16:52 Pulse Ox 97 07/22/20 16:31 Testing Laboratory Results 07/22/20 14:50 07/22/20 14:50 PT 10.8 Seconds (9.0-12.0) 07/22/20 14:50 INR 1.0 (0.9-1.1) 07/22/20 14:50 APTT 26.2 Seconds (21.0-31.0) 07/22/20 14:50 Electrocardiogram Date: 07/22/20 Findings: + NSST changes SR with PVCs, rate 87 Chest X-Ray Date: 07/22/20 Findings: + NAD
[2020-07-22] MEDS: cefTRIAXone SODIUM 2,000 MG in DEXTROSE 5% 50 ML IV SCH (19:13)
[2020-07-22] MEDS ORDERED: DOCUSATE SODIUM/SENNA 50/8.6MG TAB PO SCH (21:00)
[2020-07-22] MEDS: MICONAZOLE NITRATE 2% CR 30 GM TUBE EXT SCH (21:15)
--- NOTE | 2020-07-23 01:21 | Consultation Report ---
DATE OF CONSULTATION: 07/22/2020 ORTHOPEDIC CONSULTATION CHIEF COMPLAINT: Right hip pain. HISTORY OF PRESENT ILLNESS: The patient is an 85-year-old female who lives with her granddaughter and great grandchildren as well as a [id number]. Today, she was walking at her home when she fell onto her right hip. She had severe pain and was unable to ambulate. She was brought by ambulance to the Emergency Room. X-rays were obtained demonstrating a right intertrochanteric femur fracture with subtrochanteric extension as well as severe right hip arthritis. She was seen by the internal medicine service and admitted to the hospital. Orthopedics was consulted for management of the fracture. The patient was seen and examined on the floor. She denied any pain other than her hip and right obliques. She normally ambulates without a walker. She has had some crepitance in her right hip as well as some pain in the past. However, she has never had any interest in having her right hip replaced as she previously had a left hip replacement and was not happy with the results of that. Denies any numbness or tingling down the right leg. PAST MEDICAL HISTORY: Hypothyroidism, history of ureterolithiasis, history of gram-negative sepsis, history of pyelonephritis, septic shock and rhabdomyolysis. PAST SURGICAL HISTORY: Left total hip arthroplasty. Urological surgery as well. SOCIAL HISTORY: As per HPI. Denies tobacco, alcohol and illicits. He is a former smoker. ALLERGIES: No known drug allergies. MEDICATIONS: Include aspirin, Tylenol, Synthroid, Colace and Lasix as well as a topical miconazole and tramadol. PHYSICAL EXAMINATION: Pleasant female, resting in bed in no apparent distress. Mood and affect are appropriate. Right lower extremity exam reveals the leg to be shortened and externally rotated. She has pain with passive log roll, which was done gently. She is neurovascularly intact. She does have some abnormal thickened and dried skin on the lower extremities below the knee. Does not have a specific dermatologic diagnosis for this. The skin overlying the lateral aspect of the hip and above the knee, however, is normal. RESULTS REVIEWED: Lab work done in the ER shows her H and H to be 9.9/31. Creatinine is 1.39. INR is 1.0. Right hip x-rays demonstrated an acute right intertrochanteric femur fracture with subtrochanteric extension. IMPRESSION: An 85-year-old female with a right intertrochanteric femur fracture in the setting of right hip arthritis. She is anemic on her admission labs. PLAN: I reviewed the diagnosis with the patient. Treatment options were discussed. Surgery was offered to do a closed versus open reduction and internal fixation of the intertrochanteric femur fracture. It was explained carefully that this would not treat the hip arthritis and that she would likely still have the crepitance and pain from the hip arthritis. She would need a hip replacement surgery done in order to correct that, however, as stated above,she is not interested in any hip replacement surgery because of her bad experience in the past. She will need medical clearance. After reviewing all the risks and benefits of surgery, alternatives to surgery and expected outcome, she elected to proceed. All questions were answered. Informed consent was signed. We will plan on doing her surgery tomorrow.
[2020-07-23] MEDS: MoRPHine SULFATE 2 MG/ML CARP IV PRN ×5 (01:53→22:04)
[2020-07-23] MEDS: LEVOTHYROXINE SODIUM 125 MCG TABLET PO SCH (04:51)
[2020-07-23 05:01] LABS: Appearance Urine Cloudy (Clear); Bacteria Urine Automated Negative (Negative); Bilirubin Urine Negative (Negative); Blood Urine 2+ (Negative); Color Urine Yellow; Glucose Urine UA Negative (Negative); Ketones Urine Negative (Negative); Leukocyte Esterase Urine 3+ (Negative); Nitrite Urine Negative (Negative); Specific Gravity Urine 1.014 (1.000-1.030); Urobilinogen Urine Negative (Negative); WBC Urine Automated >30 /hpf (0-5); pH Urine 7.5 (4.5-7.5)
[2020-07-23 05:21] LABS: Protein Urine Trace (Negative)
[2020-07-23 05:22] LABS: Sulfosalicylic Acid Urine Positive (Negative)
--- NOTE | 2020-07-23 06:02 | Electrocardiogram Report ---
Test Reason : Blood Pressure : / mmHG Vent. Rate : 087 BPM Atrial Rate : 087 BPM P-R Int : 184 ms QRS Dur : 076 ms QT Int : 374 ms P-R-T Axes : 066 -05 034 degrees QTc Int : 450 ms Poor data quality, interpretation may be adversely affected Sinus rhythm with occasional Premature ventricular complexes Nonspecific T wave abnormality When compared with ECG of 29-FEB-2020 02:49, No significant change Confirmed by Joe Baxter ([id number]) on 07/23/2020 6:02:03 AM Referred By: REFERRED SELF Confirmed By:Joe Baxter
[2020-07-23] MEDS: D5W AND NSS 1,000 ML IV SCH ×2 (06:29→19:50)
--- NOTE | 2020-07-23 07:38 | Orthopedic Progress Note ---
Date of Service July 23, 2020 Assessment & Plan (1) Closed intertrochanteric fracture of right hip: OR today. NPO with IVF. Surgical site marked. Informed consent complete. All questions answered. Present on Admission?: Yes Admission and Anticipated Discharge Date Admission Date: July 22, 2020 Subjective Patient has had a hard time getting comfortable due to her hip fracture. Denies f/c/cp/sob/n/t. Physical Exam Physical Exam: Resting in bed in NAD, A&O x3 R leg shortened, ER, NVI Results & Data ([facility]) Vital Signs (Past 12 Hours) Vital Signs Temp Pulse Resp BP Pulse Ox 07/22/20 23:01 36.8 C 76 17 133/72 99 (1) Closed intertrochanteric fracture of right hip Encounter type: initial encounter Fracture alignment: displaced Qualified Code(s): S72.141A - Displaced intertrochanteric fracture of right femur, initial encounter for closed fracture
[2020-07-23] MEDS: MICONAZOLE NITRATE 2% CR 30 GM TUBE EXT SCH ×2 (08:17→21:54)
[2020-07-23] MEDS ORDERED: DOCUSATE SODIUM 100 MG CAP PO SCH (09:00)
[2020-07-23] MEDS ORDERED: ROCURONIUM BROMIDE 10 MG/ML 5 ML VIAL IV ONE (15:26)
[2020-07-23] MEDS ORDERED: PROPOFOL IV EMULSION 10 MG/ML 20 ML VIAL IV ONE (15:26)
[2020-07-23] MEDS ORDERED: fentaNYL citrate 100 MCG/2 ML VIAL ONE ×3 (15:26→18:02)
[2020-07-23] MEDS ORDERED: ONDANSETRON INJ 2 MG/ML 2 ML VIAL ONE (15:26)
[2020-07-23] MEDS ORDERED: LIDOCAINE HCL 2% 2 ML VIAL/AMP(20MG/ML) INFIL ONE (15:26)
[2020-07-23] MEDS ORDERED: ONDANSETRON INJ 2 MG/ML 2 ML VIAL IV PRN ×2 (15:27→18:24)
[2020-07-23] MEDS ORDERED: ATROPINE SULFATE 0.1 MG/ML 10ML SYR IV PRN (15:27)
[2020-07-23] MEDS ORDERED: ePHEDrine sulfate 50 MG/ML AMP IV PRN (15:27)
[2020-07-23] MEDS ORDERED: BUPIVACAINE 0.5 % 5 MG/1 ML MPF 30ML VIAL ONE (15:47)
--- NOTE | 2020-07-23 18:06 | Post Operative Brief Note ---
Immediate Post Op Note v1 Date of Surgery July 23, 2020 Pre & Post Diagnosis Operation Date: 07/23/20 11:30 Pre-Op Diagnosis: right intertrochanteric femur fracture Post-Op Diagnosis: right intertrochanteric femur fracture I identified the patient and participated in the time-out.: Yes Procedure Operation Date: 07/23/20 11:30 Actual Procedures p Right Troch Nail(Right) - Reid Keller MD Surgeon Reid Keller MD Accounts Payable Payroll Coordinator Anshu Perez MD Estimated Blood Loss 50 Findings Consistent with Post-Op Diagnosis Drains Mayer Catheter Anesthesia Type General Complications none Disposition Accompanied Patient To Recovery: No Disposition: Recovery Room
--- NOTE | 2020-07-23 18:09 | Fluoroscopy Report ---
FL femur RT 2V CLINICAL HISTORY: Right hip fracture. Internal fixation. COMPARISON STUDY: 07/22/2020 FLUOROSCOPY TIME: 69 seconds. NUMBER OF FLUOROSCOPIC IMAGES: 6 FINDINGS: The patient intertrochanteric right hip fracture has been internally fixated with a trochan teric nail, and interlocking intramedullary latoya with 2 distal transverse femoral diaphyseal screws. T here are severe arthritic changes within the right hip. IMPRESSION: 1. Internally fixated intertrochanteric right hip fracture. 2. Severe arthritic changes within the right hip ACT 112: Negative or not required by law. Electronically signed by: Valerio Landa M.D. 07/23/2020 6:08 PM
[2020-07-23] MEDS ORDERED: MAGNESIUM HYDROXIDE SUSP 30 ML UDC PO PRN (18:24)
[2020-07-23] MEDS ORDERED: bisacodyL 10 MG SUPP PR PRN (18:24)
[2020-07-23] MEDS ORDERED: METOCLOPRAMIDE HCL INJ 5 MG/ML 2 ML VIAL IV PRN (18:24)
[2020-07-23] MEDS ORDERED: diphenhydrAMINE 50 MG/ML VIAL IV PRN (18:24)
[2020-07-23] MEDS ORDERED: HYDROmorphone INJ 0.5 MG/0.5 ML SYR IV PRN (18:24)
[2020-07-23] MEDS ORDERED: ALUMINUM/MAGNESIUM SUSP 30 ML UDC PO PRN (18:24)
[2020-07-23] MEDS ORDERED: NALOXONE HCL 0.4 MG/1 ML VIAL/CARP IV PRN (18:24)
[2020-07-23] MEDS: fentaNYL citrate 100 MCG/2 ML VIAL IV PRN ×2 (18:28→18:33)
[2020-07-23] MEDS ORDERED: SODIUM CHLORIDE 0.9% 1000ML 1,000 ML IV SCH (18:30)
[2020-07-23] MEDS: HYDROmorphone INJ 2 MG/ML SYR/VIAL IV PRN ×3 (18:40→18:55)
--- NOTE | 2020-07-23 19:03 | Anesthesiology Progress Note ---
Date of Service July 23, 2020 Anesthesia Post Procedure Vital Signs Vital Signs: Temp Pulse Pulse Resp BP BP Pulse Ox 07/23/20 18:55 80 17 163/68 H 100 07/23/20 18:45 76 24 157/68 H 96 07/23/20 18:35 70 12 153/61 H 100 07/23/20 18:25 70 14 157/63 H 100 07/23/20 18:15 36.3 C L 62 20 142/56 H 100 07/23/20 14:32 36.8 C 93 H 18 151/73 H 95 07/22/20 23:01 36.8 C 76 17 133/72 99 Pain Intensity Right Hip: Pain Intensity: 5 Transfer of Care Handoff Completed per policy Notes Mental Status: alert / awake / arousable Patient Amnestic to Procedure: Yes Nausea / Vomiting: adequately controlled Pain: adequately controlled Airway Patency, RR, SpO2: stable & adequate BP & HR: stable & adequate Hydration State: stable & adequate Anesthetic Complications: no major complications apparent
--- NOTE | 2020-07-23 19:21 | XRay Report ---
XR pelvis 1-2V routine CLINICAL HISTORY: Fracture status post internal fixation COMPARISON: 07/22/2020 DISCUSSION: The distal portions of bilateral nephroureteral stents are visualized. There is an old to juan manuel left hip arthroplasty. There is been interval internal fixation of the intertrochanteric right hi p fracture with a trochanteric nail and interlocking medullary latoya. The inferior aspect of the greate r trochanteric fragment demonstrates 1 cm of displacement. There are advanced osteoarthritic changes within the right hip. IMPRESSION: Interval internal fixation of an intertrochanteric right hip fracture with a trochanteric nail and interlocking intramedullary latoya ACT 112: Negative or not required by law. Electronically signed by: Valerio Landa M.D. 07/23/2020 7:19 PM
--- NOTE | 2020-07-23 19:22 | XRay Report ---
XR femur RT 2V routine CLINICAL HISTORY: Right hip fracture status post surgery COMPARISON: None. DISCUSSION: The distal aspect of bilateral double pigtail nephroureteral stents are visualized. There is an old total left hip arthroplasty. There is interval internal fixation of an intertrochanteric r ight hip fracture with a trochanteric nail and interlocking intramedullary latoya. The distal latoya is fix ated with 2 transverse screws. There are moderate arthritic changes within the right knee. There are advanced arthritic changes within the right hip. IMPRESSION: 1. Internally fixated intertrochanteric right hip fracture. ACT 112: Negative or not required by law. Electronically signed by: Valerio Landa M.D. 07/23/2020 7:21 PM
--- NOTE | 2020-07-23 19:57 | Operative Report (OR) ---
DATE OF OPERATION: 07/23/2020 PREOPERATIVE DIAGNOSIS: Right intertrochanteric femur fracture with subtrochanteric extension. POSTOPERATIVE DIAGNOSIS: Right intertrochanteric femur fracture with subtrochanteric extension. OPERATION PERFORMED: Closed reduction intramedullary nailing of right intertrochanteric femur fracture with subtrochanteric extension. SURGEON: Reid Keller MD. MARKET RESEARCH ASSOCIATE: Dr. Anshu Perez. ESTIMATED BLOOD LOSS: 50 mL. SPECIMENS: None. COMPLICATIONS: None. IMPLANTS: 1. Synthes 340 x 11 mm diameter trochanteric fixation nail. 2. One 85 mm helical blade. 3. Two 5.0 mm cross-locking screws measuring 42 and 44 mm. INDICATIONS: Ms. Velazquez is an 85-year-old female who fell at home yesterday sustaining an intertrochanteric femur fracture of the right hip. She was brought to the Emergency Room where x-rays showed the above fracture. She was admitted to the hospital by the internal medicine team. She was cleared for surgery. I had a long discussion with her about the risks and benefits of surgery, alternatives to surgery, and expected outcomes. After reviewing all these, she elected to proceed with surgery. All questions were answered. Informed consent was signed. OPERATIVE FINDINGS: Fracture was closed reduced and stabilized with a trochanteric fixation nail with a helical blade, and 2 distal cross-locking screws. DESCRIPTION OF THE OPERATION: The patient was identified in the preoperative holding area where her surgical site was marked. She was brought back to the main operating room where general anesthesia was administered on the hospital bed. She was then carefully moved over on to the fracture table. She was then appropriately positioned on the fracture table, slid down against the perineal post. The right foot was padded with ABD pads and a cotton roll and then secured with a Coban. Nonoperative leg was placed into flexion and abduction. We then brought in our fluoroscopy. A fluoroscopic image confirmed the above fracture pattern. The leg was then placed in traction to regain her length. Once this was complete, we internally rotated the leg through the foot. The fracture was gently manipulated. This gave us a good reapproximation of the head and neck fragment relative to the shaft. However, greater trochanter fragment was still sitting posterolaterally. We then brought the leg into abduction and the fracture could be felt to reduce. We now still had some slight lateral displacement of the greater trochanter fragment. However, there was good relationship of the head and neck fragment relative to the shaft. Therefore, I elected to accept this slight deformity and did not feel that an open reduction was indicated. Next, the leg was prepped and draped in the normal sterile fashion. Prior to incision, a multidisciplinary timeout was called. All in the room were in agreement. We began by marking out on the skin the trajectory on the lateral and AP views for our incision. We made a small stab incision at the site of the helical blade and introduced the ball spike pusher down on to the lateral aspect of the femur. This was used to reduce the lateral displacement of the greater trochanter fragment. We then made our proximal incision for a length of approximately 6 cm. We incised through the subcutaneous tissues and the fascia. The guidewire was placed at the tip of the trochanter and centered on the lateral view, then driven down through the trochanter fragment into the distal fragment. This was checked on AP and lateral fluoroscopy views. We were happy with position of the guidewire. We then used our opening reamer. This was followed by the guidewire. The guidewire was slid down to the level of the patella. We then calculated our measurement. We were in between a 340 and a 360 and therefore elected to use a 340 nail so the nail would not become too prominent distally. We then used the 12.5 mm reamer and reamed out the intramedullary canal. There was no chatter. We then opened up the 11 mm diameter x 340 mm length nail. This was introduced over the guidewire. We positioned the nail so that the helical blade would enter into the center-center position on the femoral head. Once this was optimized, we checked distally and our length was just slightly short, which we had expected, but this was acceptable. We then placed a guidewire up into the femoral head under AP and fluoroscopic views. It was measured at a 92 and therefore I elected to use an 85 mm helical blade so as to compress the fracture. We then reamed over the top of the guidewire. The helical blade was then inserted over the guidewire. We then were able to compress the fracture using the helical blade. Next, the leg was brought into abduction. Perfect circles techniques were used to place two distal cross-locking screws. These measured 42 and 44 mm respectively. We then took our final fluoroscopic images, which we were happy with. The wounds were irrigated out. We then began to close. The deep subcutaneous layers were closed with 0 Vicryl sutures. The deep dermal layer was closed with 2-0 Vicryl. Stapler was used for the skin. Sterile dressings were applied. The patient was awoken from anesthesia and transferred to the recovery room in stable condition. POSTOPERATIVE COURSE: The patient will be readmitted to the floor. She will be weightbearing as tolerated with a walker and assistance. She will be on Lovenox for DVT prophylaxis. I attest to the content of the Intraoperative Record and any orders documented therein. Any exception s are noted below.
[2020-07-23] MEDS: cefTRIAXone SODIUM 2,000 MG in DEXTROSE 5% 50 ML IV SCH (20:13)
--- NOTE | 2020-07-23 20:42 | Hospitalist Progress Note ---
Date of Service July 23, 2020 Assessment & Plan (1) Closed intertrochanteric fracture of right hip: 85-year-old female with history of hypothyroidism, arthritis, pyelonephritis Presented with right hip pain after of mechanical fall Closed intertrochanteric fracture of the right hip Status post mechanical fall s/p Surgery today stable overall monitor closely Hold aspirin As needed morphine IV, tramadol, Tylenol for pain PT and OT evaluation postsurgically DVT prophylaxis-need Lovenox subcutaneous Hypertension Not including past medical history Most likely secondary to underlying pain Pain management per above Hydralazine as needed for systolic BP more than 160 UTI Patient on empiric Bactrim started 2 days [facility] afebrile continue IV ceftriaxone DVT prophylaxis will need subcutaneous Lovenox when okay with orthopedic surgery Disposition PT and OT evaluation May need to transition to rehab after surgery Admission and Anticipated Discharge Date Admission Date: July 22, 2020 Subjective ff up for r hip fracture seen resting in bed, post op states she feels fine, just tired no headache, dizziness, chest pain, dyspnea, palpitations, nausea, abdominal pain no other symptoms Review of Systems Review of Systems: All systems reviewed & are unremarkable except as noted in Subjective Physical Exam Physical Exam: General- oriented x 3, not in distress, speaks in sentences with no effort or accessory muscle use Eyes- anicteric Neck- no JVD Lungs- clear breath sounds bilaterally, no rales/wheezes Heart- normal rate, regular rhythm; no murmurs Abdomen- normal bowel sounds, nondistended, soft, nontender Extremities- no pretibial edema, no calf tenderness Neuro- alert, oriented x 3; no gross focal neurologic deficits Skin- warm & dry Results & Data Results & Data ([facility]) Vital Signs (Past 12 Hours) Vital Signs Temp Pulse Pulse Resp BP BP Pulse Ox 07/23/20 20:20 36.3 C L 79 16 129/74 99 07/23/20 19:45 36.3 C L 75 16 137/74 100 07/23/20 19:15 78 12 151/65 H 100 07/23/20 19:05 36.2 C L 76 13 152/67 H 100 07/23/20 18:55 80 17 163/68 H 100 07/23/20 18:45 76 24 157/68 H 96 07/23/20 18:35 70 12 153/61 H 100 07/23/20 18:25 70 14 157/63 H 100 07/23/20 18:15 36.3 C L 62 20 142/56 H 100 07/23/20 14:32 36.8 C 93 H 18 151/73 H 95 Laboratory Results Laboratory Results - last 24 hr 07/23/20 07/23/20 07/23/20 04:45 08:00 08:00 Urine Color Yellow Urine Appearance Cloudy A Urine pH 7.5 Ur Specific [place] 1.014 Urine Protein Trace H Urine Glucose (UA) Negative Urine Ketones Negative Urine Blood 2+ H Urine Nitrite Negative Urine Bilirubin Negative Urine Urobilinogen Negative Ur Leukocyte Esterase 3+ H Urine WBC (Auto) >30 H Urine RBC (Auto) 10-30 H U Hyaline Cast (Auto) 5-10 H U Epithel Cells (Auto) 10-20 H Urine Bacteria (Auto) Negative Urine Yeast Not Reportable [facility] SARS-CoV-2, RNA, NAAT NEGATIVE (1) Closed intertrochanteric fracture of right hip Encounter type: initial encounter Fracture alignment: displaced Qualified Code(s): S72.141A - Displaced intertrochanteric fracture of right femur, initial encounter for closed fracture
[2020-07-23] MEDS: ceFAZolin 2000MG 2,000 MG/15 ML SYR IV SCH (21:53)
[2020-07-23] MEDS: ACETAMINOPHEN 1000 MG/100 ML IV IV PRN (22:04)
[2020-07-23] MEDS: SENNA 8.6 MG TAB PO SCH (22:05)
[2020-07-23] MEDS: DOCUSATE SODIUM 100 MG CAP PO SCH (22:05)
[2020-07-23] MEDS: ACETAMINOPHEN 500 MG TAB PO SCH (22:05)
[2020-07-24] MEDS: KETOROLAC TROMETHAMINE 15 MG/ML VIAL IV SCH ×2 (00:20→05:13)
[2020-07-24] MEDS: LEVOTHYROXINE SODIUM 125 MCG TABLET PO SCH (05:13)
[2020-07-24] MEDS: ACETAMINOPHEN 500 MG TAB PO SCH ×3 (05:13→20:41)
[2020-07-24] MEDS: ceFAZolin 2000MG 2,000 MG/15 ML SYR IV SCH (05:35)
[2020-07-24 06:26] LABS: Basophils # (auto) 0.03 K/uL (0-0.2); Basophils % (auto) 0.4 %; Eosinophils # (auto) 0.05 K/uL (0-0.5); Eosinophils % (auto) 0.7 %; Hematocrit (blood only) 24.5 % (37-47); Hemoglobin 7.5 g/dL (12.0-16.0); Immature Granulocytes # (auto) 0.03 K/uL (0.00-0.02); Immature Granulocytes % (auto) 0.4 %; Lymphocytes % (auto) 16.9 %; Mean Corpuscular Hgb Conc 30.6 g/dL (32-36); Mean Corpuscular Volume 91.4 fL (80-100); Monocytes # (auto) 1.03 K/uL (0.11-0.59); Monocytes % (auto) 14.5 %; Neutrophils # (auto) 4.78 K/uL (1.4-6.5); Neutrophils % (auto) 67.1 %; Platelet Count 238 K/uL (130-400); RDW Coefficient of Variation 14.5 % (11.5-14.5); RDW Standard Deviation 48.3 fL (36.4-46.3); Red Blood Count 2.68 M/uL (4.2-5.4); White Blood Count 7.12 K/uL (4.8-10.8)
[2020-07-24 07:02] LABS: BUN Creatinine Ratio 12.3 (10-20); Calcium 7.9 mg/dl (8.5-10.1); Creatinine Clr Calc Pharmacy 27.9 ml/min; Est GFR (African American) 35.3; Est GFR (Non-African American) 30.4; Potassium 4.6 mmol/L (3.5-5.1)
[2020-07-24 07:09] LABS: RBC Morphology Unremarkable
[2020-07-24] MEDS ORDERED: dexAMETHasone 4 MG TAB PO SCH (08:00)
[2020-07-24] MEDS: MICONAZOLE NITRATE 2% CR 30 GM TUBE EXT SCH ×2 (08:22→20:42)
[2020-07-24] MEDS: MULTIVITAMIN TAB PO SCH (08:22)
[2020-07-24] MEDS: DOCUSATE SODIUM 100 MG CAP PO SCH ×2 (08:23→20:40)
[2020-07-24] MEDS: ENOXAPARIN INJ 40 MG/0.4 ML SYR SQ SCH (09:19)
[2020-07-24] MEDS: D5W AND NSS 1,000 ML IV SCH (10:16)
--- NOTE | 2020-07-24 11:14 | Orthopedic Progress Note ---
Date of Service July 24, 2020 Assessment & Plan (1) Closed intertrochanteric fracture of right hip: PT/OT WBAT RLE Pain control per internal med Lovenox for DVT prophylaxis Follow-up [facility] 2 weeks with x-rays after discharge Admission and Anticipated Discharge Date Admission Date: July 22, 2020 Subjective Did well overnight. Pain controlled on medications. Denies f/c/cp/sob. Physical Exam Physical Exam: Dressings small amount of blood on distal guaze, otherwise c/d/i. Distally NVI. Results & Data ([facility]) Vital Signs (Past 12 Hours) Vital Signs Temp Pulse Resp BP Pulse Ox 07/24/20 07:02 37.0 C 81 16 114/70 95 07/24/20 03:11 36.4 C L 76 18 126/73 98 07/24/20 00:10 36.6 C 70 18 115/59 L 100 X-rays show Hardware in good position, no complication (1) Closed intertrochanteric fracture of right hip Encounter type: initial encounter Fracture alignment: displaced Qualified Code(s): S72.141A - Displaced intertrochanteric fracture of right femur, initial encounter for closed fracture
[2020-07-24 11:56] LABS: Hematocrit (blood only) 21.8 % (37-47); Hemoglobin 6.7 g/dL (12.0-16.0)
[2020-07-24] MEDS: MoRPHine SULFATE 2 MG/ML CARP IV PRN (12:10)
[2020-07-24] MEDS ORDERED: SODIUM CHLORIDE 0.9% 250 ML IV PRN (12:33)
--- NOTE | 2020-07-24 13:27 | CT Scan Report ---
CT SCAN OF THE BRAIN WITHOUT IV CONTRAST CLINICAL HISTORY: Fall. COMPARISON STUDY: CT of the brain dated 02/28/2020. TECHNIQUE: Unenhanced axial CT scan of the brain is performed from the vertex to the skull base. A do se lowering technique was utilized adhering to the principles of ALARA. FINDINGS: Brain parenchyma: There are age-related involutional changes noting moderate subcortical and periven tricular microangiopathic change. There is no hemorrhage, mass effect, or evidence of acute territori al ischemia by CT criteria. 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 Mineralization is noted in the basal ganglia. 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 Zendejas-white matter differentiation is preserved. No extra-ax ial fluid collection is seen. Ventricles, sulci, cisterns: Prominent secondary to involutional change. Intracranial vasculature: There is atherosclerotic calcification of the cavernous carotid and vertebr al arteries. Calvarium: The skeletal structures are osteopenic. There is no depressed calvarial fracture. Sinuses and mastoids: The visualized paranasal sinuses are clear. The mastoid air cells are well pneu matized. Orbits: The bony orbits are grossly intact. IMPRESSION: There is no hemorrhage, mass effect, or evidence of acute territorial ischemia by CT eleni hpoper. ACT 112: Negative or not required by law. Electronically signed by: Naseem Barraza M.D. 07/24/2020 1:26 PM
--- NOTE | 2020-07-24 14:07 | CT Scan Report ---
CT SCAN OF THE CHEST, ABDOMEN, AND PELVIS WITHOUT IV CONTRAST CLINICAL HISTORY: Trauma. Fall. COMPARISON STUDY: Chest x-ray dated 07/22/2020. Abdominal CT dated 02/28/2020. TECHNIQUE: Unenhanced CT scan of the chest, abdomen, and pelvis was performed from the thoracic inlet to the proximal femora. Images are reviewed in the axial, sagittal, and coronal planes. IV contrast was not administered as per the referring clinician. Note that the examination was performed in signi ficantly suboptimal fashion without IV contrast in the setting of trauma. A dose lowering technique was utilized adhering to the principles of ALARA. CT DOSE: 1808.51 mGy.cm FINDINGS: CHEST: Thyroid: Imaged portions of the thyroid gland are normal in size and heterogeneous in attenuation. Thoracic aorta: The thoracic aorta is normal in caliber and demonstrates standard 3-vessel arch anato my. Heart: The heart is mildly enlarged and without pericardial effusion. The coronary arteries are dense ly calcified. There is diminished attenuation of the cardiac blood pool as compared to the myocardium suggesting anemia. The pulmonary trunk is dilated, measuring 3.8 cm in diameter. This suggests pulmo nary artery hypertension. Lungs and pleural spaces: Evaluation of the lung parenchyma is modestly degraded by motion artifact. There is trace right pleural effusion. No airspace consolidation or pneumothorax is identified. The t rachea and central airways are clear. Foci of scarring/atelectasis are noted at the lung bases. Mediastinum: There is no mediastinal hematoma or lymphadenopathy. Tonia: Not well assessed without IV contrast. Axillae: There is no axillary lymphadenopathy. Bony thorax: The bony thorax appears intact. The skeletal structures are osteopenic. Degenerative travis nge is seen throughout the thoracic spine with mild hyperkyphosis. Advanced arthritic change is noted in the shoulders. No lytic or blastic lesions are identified. ABDOMEN AND PELVIS: Liver: The unenhanced liver is normal in size, contour, and attenuation. There is no intrahepatic speedy iary ductal dilatation. Gallbladder: The gallbladder is distended but otherwise normal in appearance. Spleen: Normal in size and attenuation. Pancreas: The unenhanced pancreas is grossly unremarkable. Adrenal glands: Nonspecific thickening of the adrenal glands is similar to previous. Kidneys: The unenhanced kidneys demonstrate cortical atrophy and are without hydronephrosis. Bilatera l ureteral stents are in appropriate position. A 4 mm calcification is identified in the right pelvis along the course of the right ureteral stent as seen on image #[id number]. No calcifications are seen along the course of the left stent. A 2 cm staghorn calculus is seen in the left renal pelvis. A punctate nonobstructing calculus is seen in the lower pole of the right kidney. There is no evidence of contou r deforming mass lesion. Mild stranding around both ureters is likely related to the presence of indw elling stents. Abdominal vasculature: The abdominal aorta is normal in course and caliber noting mild atheroscleroti c calcification. Stomach and bowel: There is a moderate hiatal hernia. There is no bowel obstruction. Fecal retention is seen in the right colon. The appendix is normal in appearance. Peritoneum: There is no intraperitoneal free air or abdominal ascites. Lymphadenopathy: None. Pelvic viscera: Evaluation of the pelvis is degraded by streak artifact from a left hip arthroplasty. The bladder is decompressed and not well evaluated. Intraluminal gas is likely related to instrument ation. The bladder contains the distal ends of bilateral ureteral stents. The uterus and adnexa are n ormal as visualized. There is asymmetric atrophy of the left iliopsoas musculature as compared to the right. Intra-articular hemorrhage is noted within the right iliacus muscle. Skeletal structures: The skeletal structures are osteopenic. No acute fracture is seen involving the lumbosacral spine, bony pelvis, or proximal femora. There is a subacute fracture of the right proxima l femur with intertrochanteric and intramedullary nails in place. Simultaneous gas, stranding, and fl uid around the right hip likely represents expected postoperative change. There is moderate lumbosacr al spondylosis. No lytic or blastic lesions are seen. Advanced arthritic change is seen in the right hip. A left hip arthroplasty is in place. IMPRESSION: 1. Suboptimal examination without IV contrast. 2. There is no acute posttraumatic intrathoracic abnormality. 3. Intramuscular hemorrhage is noted within the right iliacus. This is nonspecific and could be on a posttraumatic basis or related to recent right hip fracture/surgery. 4. There is no evidence of solid organ injury in the abdomen or pelvis on this unenhanced examination . 5. Trace right pleural effusion. No airspace consolidation is seen typical for pneumonia and there is no pneumothorax. 6. Moderate hiatal hernia. 7. Bilateral ureteral stents are in place. There is no hydronephrosis. 8. There is a 4 mm calculus identified in the distal right ureter along the course of the stent. 9. Additional bilateral nonobstructing renal calculi as above. 10. Subacute fracture of the right hip status post internal fixation. Fluid, subcutaneous gas, and ed frantz overlying the right proximal femur are likely related to recent surgery and clinical correlation will be required. 11. The gallbladder is distended but otherwise normal in appearance. 12. Additional findings as above. ACT 112: Negative or not required by law. Electronically signed by: Naseem Barraza M.D. 07/24/2020 2:06 PM
[2020-07-24] MEDS: traMADol HCL 50 MG TABLET PO PRN (16:08)
[2020-07-24 17:31] LABS: Hematocrit (blood only) 23.1 % (37-47); Hemoglobin 7.4 g/dL (12.0-16.0)
[2020-07-24] MEDS: cefTRIAXone SODIUM 2,000 MG in DEXTROSE 5% 50 ML IV SCH (19:14)
[2020-07-24] MEDS ORDERED: INFLUENZA VACCINE HIGH DOSE 65+ 0.7 ML SYR IM ONE (20:04)
[2020-07-24] MEDS ORDERED: INFLUENZA ADMINISTRATION CHARGE ONE (20:04)
--- NOTE | 2020-07-24 20:04 | Hospitalist Progress Note ---
Date of Service July 24, 2020 Assessment & Plan (1) Closed intertrochanteric fracture of right hip: 85-year-old female with history of hypothyroidism, arthritis, pyelonephritis Presented with right hip pain after of mechanical fall Closed intertrochanteric fracture of the right hip Status post mechanical fall s/p Surgery 07/23 (+) anemia- management noted below Hold aspirin As needed morphine IV, tramadol, Tylenol for pain PT and OT evaluation DVT prophylaxis-hold Lovenox in light of anemia Anemia, Acute Blood Loss Hg 6.7 1 unit pRBC given repeat H&H at 1130pm CT head, chest, abd/pelvis: no hemorrhage check anemia panel hold ASA, Lovenox monitor Hypertension Not including past medical history Most likely secondary to underlying pain Pain management per above Hydralazine as needed for systolic BP more than 160 UTI Patient on empiric 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 Day 3/3 DVT prophylaxis HOLD subcutaneous Lovenox in light of anemia SCD for now Disposition PT and OT evaluation May need to transition to rehab after surgery Admission and Anticipated Discharge Date Admission Date: July 22, 2020 Subjective ff up for right hip fracture, s/p right hip surgery repair patient seen sitting up in bed, comfortable, not distressed Appears more alert, in better spirits today States that she feels better today Has pain on the right hip, but manageable with pain medicine Denies headache, dizziness, nausea vomiting, focal weakness or numbness, chest pain, shortness of breath, abdominal pain No other symptoms Review of Systems Review of Systems: All systems reviewed & are unremarkable except as noted in Subjective Physical Exam Physical Exam: General- oriented x 3, not in distress, speaks in sentences with no effort or accessory muscle use Eyes- anicteric Neck- no JVD Lungs- clear BS BL, no rales/wheezing Heart- normal rate, regular rhythm; no murmurs Abdomen- normal bowel sounds, nondistended, soft, nontender Extremities-right hip surgical site: Dressing in place, no bleeding or discharge, no ecchymosis, has moderate edema on the right thigh Left lower extremity essentially normal Neuro- alert, oriented x 3; no gross focal neurologic deficits Skin- warm & dry Results & Data Results & Data ([facility]) Vital Signs (Past 12 Hours) Vital Signs Temp Pulse Pulse Resp BP BP Pulse Ox 07/24/20 16:45 37.1 C 99 H 18 122/66 96 07/24/20 15:44 37.1 C 88 18 111/69 98 07/24/20 14:55 37.1 C 98 H 16 130/73 99 07/24/20 14:20 37.1 C 98 H 16 99 07/24/20 14:05 37.1 C 94 H 16 110/67 98 07/24/20 14:02 36.9 C 81 16 124/78 95 07/24/20 13:48 37.0 C 81 18 116/72 Laboratory Results Laboratory Results - last 24 hr 07/22/20 07/24/20 07/24/20 17:56 05:07 05:07 WBC 7.12 RBC 2.68 L Hgb 7.5 L Hct 24.5 L MCV 91.4 MCH 28.0 MCHC 30.6 L RDW Std Deviation 48.3 H RDW Coeff of Marisel 14.5 Plt Count 238 MPV 10.0 Immature Gran % (Auto) 0.4 Neut % (Auto) 67.1 Lymph % (Auto) 16.9 [place] % (Auto) 14.5 Eos % (Auto) 0.7 Baso % (Auto) 0.4 Neut # (Auto) 4.78 Lymph # (Auto) 1.20 [place] # (Auto) 1.03 H Eos # (Auto) 0.05 Baso # (Auto) 0.03 Immature Gran # (Auto) 0.03 H RBC Morphology Unremarkable Sodium 139 Potassium 4.6 D Chloride 110 H Carbon Dioxide 25 Anion Gap 5.0 BUN 19 H Creatinine 1.55 H Est Cr Clr Drug Dosing 27.9 Est GFR ( Amer) 35.3 Est GFR (Non-Af Amer) 30.4 BUN/Creatinine Ratio 12.3 Glucose 110 H Calcium 7.9 L Blood Type B Positive Antibody Screen NEGATIVE Crossmatch See Detail 07/24/20 07/24/20 10:55 17:23 WBC RBC Hgb 6.7 L* 7.4 L Hct 21.8 L 23.1 L MCV MCH MCHC RDW Std Deviation RDW Coeff of Marisel Plt Count MPV Immature Gran % (Auto) Neut % (Auto) Lymph % (Auto) [place] % (Auto) Eos % (Auto) Baso % (Auto) Neut # (Auto) Lymph # (Auto) [place] # (Auto) Eos # (Auto) Baso # (Auto) Immature Gran # (Auto) RBC Morphology Sodium Potassium Chloride Carbon Dioxide Anion Gap BUN Creatinine Est Cr Clr Drug Dosing Est GFR ( Amer) Est GFR (Non-Af Amer) BUN/Creatinine Ratio Glucose Calcium Blood Type Antibody Screen Crossmatch (1) Closed intertrochanteric fracture of right hip Encounter type: initial encounter Fracture alignment: displaced Qualified Code(s): S72.141A - Displaced intertrochanteric fracture of right femur, initial encounter for closed fracture
[2020-07-24] MEDS: SENNA 8.6 MG TAB PO SCH (20:41)
[2020-07-24] MEDS: SODIUM CHLORIDE 0.9% 1000ML 1,000 ML IV SCH (20:47)
[2020-07-25] MEDS: ACETAMINOPHEN 500 MG TAB PO SCH ×3 (06:08→21:11)
[2020-07-25] MEDS: LEVOTHYROXINE SODIUM 125 MCG TABLET PO SCH (06:10)
[2020-07-25 06:19] LABS: Mean Corpuscular Hemoglobin 28.6 pg (25-34); Mean Corpuscular Hgb Conc 31.8 g/dL (32-36); Mean Corpuscular Volume 89.8 fL (80-100); Mean Platelet Volume 9.9 fL (7.4-10.4); Platelet Count 227 K/uL (130-400); RDW Coefficient of Variation 14.8 % (11.5-14.5); RDW Standard Deviation 49.2 fL (36.4-46.3); Red Blood Count 2.45 M/uL (4.2-5.4); White Blood Count 6.67 K/uL (4.8-10.8)
[2020-07-25 06:38] LABS: Basophils # (auto) 0.03 K/uL (0-0.2); Basophils % (auto) 0.4 %; Eosinophils # (auto) 0.04 K/uL (0-0.5); Eosinophils % (auto) 0.6 %; Immature Granulocytes # (auto) 0.05 K/uL (0.00-0.02); Immature Granulocytes % (auto) 0.7 %; Lymphocytes # (auto) 1.51 K/uL (1.2-3.4); Lymphocytes % (auto) 22.6 %; Monocytes # (auto) 0.99 K/uL (0.11-0.59); Monocytes % (auto) 14.8 %; Neutrophils # (auto) 4.05 K/uL (1.4-6.5); Neutrophils % (auto) 60.9 %; RBC Morphology Unremarkable; Reticulocyte % 2.5 % (0.5-2.0); Reticulocytes # 0.06 10^6/uL (0.02-0.10)
[2020-07-25 06:52] LABS: BUN Creatinine Ratio 17.3 (10-20); Calcium 7.6 mg/dl (8.5-10.1); Creatinine Clr Calc Pharmacy 32.5 ml/min; Est GFR (African American) 42.4; Est GFR (Non-African American) 36.6; Potassium 4.3 mmol/L (3.5-5.1)
[2020-07-25 06:58] LABS: Ferritin 108.7 ng/ml (8-388)
[2020-07-25] MEDS ORDERED: SODIUM CHLORIDE 0.9% 250 ML IV PRN (07:55)
[2020-07-25] MEDS: MULTIVITAMIN TAB PO SCH (09:27)
[2020-07-25] MEDS: MICONAZOLE NITRATE 2% CR 30 GM TUBE EXT SCH ×2 (09:30→21:02)
[2020-07-25] MEDS: DOCUSATE SODIUM 100 MG CAP PO SCH ×2 (09:30→21:02)
[2020-07-25 10:35] LABS: Folate (Folic Acid) 7.8 ng/ml (>5.38)
[2020-07-25] MEDS: ONDANSETRON INJ 2 MG/ML 2 ML VIAL IV PRN (11:16)
[2020-07-25 12:57] LABS: Hemoglobin 7.7 g/dL (12.0-16.0)
[2020-07-25] MEDS: MoRPHine SULFATE 2 MG/ML CARP IV PRN (14:48)
[2020-07-25] MEDS: cefTRIAXone SODIUM 2,000 MG in DEXTROSE 5% 50 ML IV SCH (18:30)
[2020-07-25 19:18] LABS: Hematocrit (blood only) 23.7 % (37-47); Hemoglobin 7.6 g/dL (12.0-16.0)
[2020-07-25] MEDS: SODIUM CHLORIDE 0.9% 1000ML 1,000 ML IV SCH (19:40)
[2020-07-25] MEDS: traMADol HCL 50 MG TABLET PO PRN (19:41)
--- NOTE | 2020-07-25 20:33 | Hospitalist Progress Note ---
Date of Service July 25, 2020 Assessment & Plan (1) Closed intertrochanteric fracture of right hip: 85-year-old female with history of hypothyroidism, arthritis, pyelonephritis Presented with right hip pain after of mechanical fall Closed intertrochanteric fracture of the right hip Status post mechanical fall s/p Surgery 07/23 (+) anemia- management noted below Hold aspirin pain well controlled As needed morphine IV, tramadol, Tylenol for pain PT and OT evaluation DVT prophylaxis-hold Lovenox in light of anemia Anemia, Acute Blood Loss Hg 6.7 1 unit pRBC given repeat H&H 7.0 CT head, chest, abd/pelvis: no hemorrhage check anemia panel, Fe 33 hold ASA, Lovenox no other signs of active bleeding at this time monitor Hypertension Not including past medical history Most likely secondary to underlying pain Pain management per above Hydralazine as needed for systolic BP more than 160 UTI Patient on empiric 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 Day 3/3 DVT prophylaxis HOLD subcutaneous Lovenox in light of anemia SCD for now Disposition PT and OT evaluation May need to transition to rehab after surgery Admission and Anticipated Discharge Date Admission Date: July 22, 2020 Subjective ff up for r hip fracture, s/p surgery seen sitting up in bed, comfortable states she feels fine, was not able to sleep last night no headache, dizziness, chest pain, dyspnea, abdominal pain, nausea, melena no other symptoms Review of Systems Review of Systems: All systems reviewed & are unremarkable except as noted in Subjective Physical Exam Physical Exam: General- oriented x 3, not in distress, speaks in sentences with no effort or accessory muscle use Eyes- anicteric Neck- no JVD Lungs- clear BS BL Heart- normal rate, regular rhythm; no murmurs Abdomen- normal bowel sounds, nondistended, soft, nontender Extremities- R hip: dressing in place- no bleeding, discharge no ecchymoses no pretibial edema, no calf tenderness Neuro- alert, oriented x 3; no gross focal neurologic deficits Skin- warm & dry Results & Data Results & Data ([facility]) Vital Signs (Past 12 Hours) Vital Signs Temp Pulse Pulse Resp BP BP Pulse Ox 07/25/20 17:00 36.8 C 92 H 14 135/57 L 96 07/25/20 11:57 36.8 C 92 H 14 128/71 93 07/25/20 10:45 37.1 C 90 16 143/70 H 96 07/25/20 10:15 37.3 C 84 18 137/76 96 07/25/20 09:45 37 C 101 H 16 136/76 97 07/25/20 09:18 07/25/20 09:15 37.0 C 100 H 18 102/52 L 07/25/20 09:00 37.1 C 92 H 18 100/58 L 07/25/20 08:43 37 C 86 18 119/66 94 Pulse Ox 07/25/20 17:00 96 07/25/20 11:57 07/25/20 10:45 07/25/20 10:15 07/25/20 09:45 07/25/20 09:18 97 07/25/20 09:15 07/25/20 09:00 07/25/20 08:43 Laboratory Results Laboratory Results - last 24 hr 07/22/20 07/24/20 07/25/20 17:56 23:50 05:19 WBC 6.67 RBC 2.45 L Hgb 7.0 L 7.0 L Hct 22.0 L 22.0 L MCV 89.8 MCH 28.6 MCHC 31.8 L RDW Std Deviation 49.2 H RDW Coeff of Marisel 14.8 H Plt Count 227 MPV 9.9 Immature Gran % (Auto) 0.7 Neut % (Auto) 60.9 Lymph % (Auto) 22.6 [place] % (Auto) 14.8 Eos % (Auto) 0.6 Baso % (Auto) 0.4 Reticulocyte % (Auto) 2.5 H Neut # (Auto) 4.05 Lymph # (Auto) 1.51 [place] # (Auto) 0.99 H Eos # (Auto) 0.04 Baso # (Auto) 0.03 Reticulocyte # 0.06 Immature Gran # (Auto) 0.05 H RBC Morphology Unremarkable Sodium Potassium Chloride Carbon Dioxide Anion Gap BUN Creatinine Est Cr Clr Drug Dosing Est GFR ( Amer) Est GFR (Non-Af Amer) BUN/Creatinine Ratio Glucose Calcium Iron TIBC Transferrin Ferritin Vitamin B12 Folate Blood Type B Positive Antibody Screen NEGATIVE Crossmatch See Detail 07/25/20 07/25/20 07/25/20 05:19 05:19 12:43 WBC RBC Hgb 7.7 L Hct 24.0 L MCV MCH MCHC RDW Std Deviation RDW Coeff of Marisel Plt Count MPV Immature Gran % (Auto) Neut % (Auto) Lymph % (Auto) [place] % (Auto) Eos % (Auto) Baso % (Auto) Reticulocyte % (Auto) Neut # (Auto) Lymph # (Auto) [place] # (Auto) Eos # (Auto) Baso # (Auto) Reticulocyte # Immature Gran # (Auto) RBC Morphology Sodium 137 Potassium 4.3 Chloride 109 H Carbon Dioxide 23 Anion Gap 5.0 BUN 23 H Creatinine 1.33 H Est Cr Clr Drug Dosing 32.5 Est GFR ( Amer) 42.4 Est GFR (Non-Af Amer) 36.6 BUN/Creatinine Ratio 17.3 Glucose 95 Calcium 7.6 L Iron 33 L TIBC 181 L Transferrin 165 L Ferritin 108.7 Vitamin B12 111 L Folate 7.80 Blood Type Antibody Screen Crossmatch 07/25/20 19:09 WBC RBC Hgb 7.6 L Hct 23.7 L MCV MCH MCHC RDW Std Deviation RDW Coeff of Marisel Plt Count MPV Immature Gran % (Auto) Neut % (Auto) Lymph % (Auto) [place] % (Auto) Eos % (Auto) Baso % (Auto) Reticulocyte % (Auto) Neut # (Auto) Lymph # (Auto) [place] # (Auto) Eos # (Auto) Baso # (Auto) Reticulocyte # Immature Gran # (Auto) RBC Morphology Sodium Potassium Chloride Carbon Dioxide Anion Gap BUN Creatinine Est Cr Clr Drug Dosing Est GFR ( Amer) Est GFR (Non-Af Amer) BUN/Creatinine Ratio Glucose Calcium Iron TIBC Transferrin Ferritin Vitamin B12 Folate Blood Type Antibody Screen Crossmatch (1) Closed intertrochanteric fracture of right hip Encounter type: initial encounter Fracture alignment: displaced Qualified Code(s): S72.141A - Displaced intertrochanteric fracture of right femur, initial encounter for closed fracture
[2020-07-25] MEDS: SENNA 8.6 MG TAB PO SCH (21:02)
[2020-07-26 06:37] LABS: Basophils # (auto) 0.07 K/uL (0-0.2); Basophils % (auto) 0.9 %; Eosinophils # (auto) 0.29 K/uL (0-0.5); Eosinophils % (auto) 3.6 %; Hematocrit (blood only) 22.8 % (37-47); Hemoglobin 7.2 g/dL (12.0-16.0); Immature Granulocytes # (auto) 0.06 K/uL (0.00-0.02); Immature Granulocytes % (auto) 0.8 %; Lymphocytes # (auto) 1.39 K/uL (1.2-3.4); Lymphocytes % (auto) 17.4 %; Mean Corpuscular Hemoglobin 28.7 pg (25-34); Mean Corpuscular Hgb Conc 31.6 g/dL (32-36); Mean Corpuscular Volume 90.8 fL (80-100); Mean Platelet Volume 9.8 fL (7.4-10.4); Monocytes # (auto) 0.84 K/uL (0.11-0.59); Monocytes % (auto) 10.5 %; Neutrophils # (auto) 5.34 K/uL (1.4-6.5); Neutrophils % (auto) 66.8 %; Platelet Count 250 K/uL (130-400); RDW Coefficient of Variation 15.3 % (11.5-14.5); RDW Standard Deviation 50.9 fL (36.4-46.3); Red Blood Count 2.51 M/uL (4.2-5.4); White Blood Count 7.99 K/uL (4.8-10.8)
[2020-07-26] MEDS: ACETAMINOPHEN 500 MG TAB PO SCH ×3 (06:40→20:58)
[2020-07-26] MEDS: LEVOTHYROXINE SODIUM 125 MCG TABLET PO SCH (06:41)
[2020-07-26 07:07] LABS: BUN Creatinine Ratio 22.5 (10-20); Calcium 7.9 mg/dl (8.5-10.1); Creatinine Clr Calc Pharmacy 37.9 ml/min; Est GFR (African American) 51.1; Est GFR (Non-African American) 44.1; Potassium 4.2 mmol/L (3.5-5.1)
[2020-07-26 07:08] LABS: Basophilic Stippling 1+
[2020-07-26] MEDS: DOCUSATE SODIUM 100 MG CAP PO SCH ×2 (07:58→20:58)
[2020-07-26] MEDS: MULTIVITAMIN TAB PO SCH (07:58)
[2020-07-26] MEDS: MICONAZOLE NITRATE 2% CR 30 GM TUBE EXT SCH ×2 (07:59→20:58)
[2020-07-26] MEDS ORDERED: SODIUM CHLORIDE 0.9% 250 ML IV PRN (08:39)
[2020-07-26] MEDS: MAGNESIUM HYDROXIDE SUSP 30 ML UDC PO PRN (08:43)
[2020-07-26] MEDS ORDERED: IRON SUCROSE 150 MG in 0.9 % SODIUM CHLORIDE 100 ML IV ONE (09:00)
[2020-07-26] MEDS ORDERED: PANTOprazole 40 MG in SYRINGE 0 ML IV SCH (09:00)
[2020-07-26] MEDS ORDERED: FUROSEMIDE 20 MG in SYRINGE 0 ML IV SCH (09:00)
[2020-07-26] MEDS: PANTOprazole 40 MG in SYRINGE 0 ML IV SCH ×2 (09:27→20:58)
--- NOTE | 2020-07-26 15:17 | Operative Report ---
Post Operative Report Pre & Post Diagnosis Operation Date: 07/23/20 11:30 Pre-Op Diagnosis: right intertrochanteric femur fracture Post-Op Diagnosis: right intertrochanteric femur fracture I identified the patient and participated in the time-out.: Yes Procedure Operation Date: 07/23/20 11:30 Actual Procedures p Right Troch Nail(Right) - Reid Keller MD Surgeon Reid Keller MD Cardiovascular Operating Room Nurse Anshu Perez MD Estimated Blood Loss 50 Findings Consistent with Post-Op Diagnosis Specimens none Anesthesia Type Spinal Complications none Disposition Accompanied Patient To Recovery: Yes Disposition: Recovery Room Description of Procedure as per 's note, I assisted in prepping and draping, instruments handling certain parts of the procedure and wound closure. I attest to the content of the Intraoperative Record and any orders documented therein. Any exceptions are noted below.
[2020-07-26 15:56] LABS: Hematocrit (blood only) 28.1 % (37-47); Hemoglobin 9.1 g/dL (12.0-16.0)
--- NOTE | 2020-07-26 18:02 | Orthopedic Progress Note ---
Date of Service July 26, 2020 Assessment & Plan (1) Closed intertrochanteric fracture of right hip: PT/OT WBAT RLE Pain control per internal med Lovenox for DVT prophylaxis Follow-up Arianna 2 weeks with x-rays after discharge Admission and Anticipated Discharge Date Admission Date: July 22, 2020 Subjective This 85 yo F is 3 days s/p Right hip fracture fixation with Troch nail. She states that her leg feels heavy and that she needs assistance to transfer from her bed to the bathroom. PT is difficult and causes pain that radiates from her hip to her knee. She states that she may need to go to a rehab facility to regain function of her Right leg. She denies CP, SOB, nausea, vomiting, fever, chills, sweats or lethargy. Review of Systems Review of Systems: All systems reviewed & are unremarkable except as noted in Subjective Physical Exam Physical Exam: Right Hip: dressing are clean dry and intact. Patient is unable to perform SLRT. Knee ROM is from 0-40 degrees passively. Log roll test negative. Mild pain with light passive internal and external hip rotation at 40 degrees. Patient is able to actively dorsi/plantar flex foot. Calf soft and supple. NV intact. Quad strength 1/5. Results & Data ([facility]) Vital Signs (Past 12 Hours) Vital Signs Temp Pulse Pulse Resp BP BP Pulse Ox 07/26/20 16:00 07/26/20 15:57 36.8 C 99 H 18 136/65 93 07/26/20 14:09 37.4 C 79 16 111/71 93 07/26/20 13:09 37.4 C 79 14 117/64 93 07/26/20 12:09 37.6 C H 76 14 107/61 95 07/26/20 11:39 37.1 C 79 14 116/70 95 07/26/20 11:25 36.9 C 82 18 123/68 94 07/26/20 11:07 36.8 C 85 18 122/63 94 07/26/20 08:00 07/26/20 07:03 36.8 C 80 18 112/63 95 Pulse Ox 07/26/20 16:00 93 07/26/20 15:57 07/26/20 14:09 07/26/20 13:09 07/26/20 12:09 07/26/20 11:39 07/26/20 11:25 07/26/20 11:07 07/26/20 08:00 95 07/26/20 07:03 (1) Closed intertrochanteric fracture of right hip Encounter type: initial encounter Fracture alignment: displaced Qualified Code(s): S72.141A - Displaced intertrochanteric fracture of right femur, initial encounter for closed fracture
--- NOTE | 2020-07-26 18:39 | Hospitalist Progress Note ---
Date of Service July 26, 2020 Assessment & Plan (1) Closed intertrochanteric fracture of right hip: 85-year-old female with history of hypothyroidism, arthritis, pyelonephritis Presented with right hip pain after of mechanical fall Closed intertrochanteric fracture of the right hip Status post mechanical fall s/p Surgery 07/23 (+) anemia- management noted below Hold aspirin pain well controlled As needed morphine IV, tramadol, Tylenol for pain PT and OT evaluation DVT prophylaxis-hold Lovenox in light of anemia Anemia, Acute Blood Loss, iron deficiency Possible upper GI bleed Hg 6.7 1 unit pRBC given repeat H&H 7.2 CT head, chest, abd/pelvis: no hemorrhage anemia panel: Fe 33 hold ASA, Lovenox --Third unit of packed packed RBCs since admission given today --Lasix also ordered --Fecal occult blood test positive Protonix IV twice daily started --GI consulted N.p.o. 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 Day 3/3 DVT prophylaxis HOLD subcutaneous Lovenox in light of anemia SCD for now Disposition PT and OT evaluation May need to transition to rehab after surgery Admission and Anticipated Discharge Date Admission Date: July 22, 2020 Subjective Follow-up for right hip fracture, status post hip surgery Seen sitting up in bed, comfortable, not in distress States she feels improved today overall Denies abdominal pain, nausea vomiting, no BMs yet Pain well controlled No shortness of breath, chest pain, dizziness, palpitations Feels on the weak side No other symptom Review of Systems Review of Systems: All systems reviewed & are unremarkable except as noted in Subjective Physical Exam Physical Exam: General- oriented x 3, not in distress, speaks in sentences with no effort or accessory muscle use Eyes- anicteric Neck- no JVD Lungs- clear breath sounds bilaterally, crackles, no wheezing noted Heart- normal rate, regular rhythm; no murmurs Abdomen- normal bowel sounds, nondistended, soft, nontender Extremities- no pretibial edema, no calf tenderness Right hip area: Dressings in place, no bleeding or discharge; no ecchymosis Neuro- alert, oriented x 3; no gross focal neurologic deficits Skin- warm & dry Results & Data Results & Data ([facility]) Vital Signs (Past 12 Hours) Vital Signs Temp Pulse Pulse Resp BP BP Pulse Ox 07/26/20 16:00 07/26/20 15:57 36.8 C 99 H 18 136/65 93 07/26/20 14:09 37.4 C 79 16 111/71 93 07/26/20 13:09 37.4 C 79 14 117/64 93 07/26/20 12:09 37.6 C H 76 14 107/61 95 07/26/20 11:39 37.1 C 79 14 116/70 95 07/26/20 11:25 36.9 C 82 18 123/68 94 07/26/20 11:07 36.8 C 85 18 122/63 94 07/26/20 08:00 07/26/20 07:03 36.8 C 80 18 112/63 95 Pulse Ox 07/26/20 16:00 93 07/26/20 15:57 07/26/20 14:09 07/26/20 13:09 07/26/20 12:09 07/26/20 11:39 07/26/20 11:25 07/26/20 11:07 07/26/20 08:00 95 07/26/20 07:03 Laboratory Results Laboratory Results - last 24 hr 07/25/20 07/26/20 07/26/20 19:09 05:52 05:52 WBC 7.99 RBC 2.51 L Hgb 7.6 L 7.2 L Hct 23.7 L 22.8 L MCV 90.8 MCH 28.7 MCHC 31.6 L RDW Std Deviation 50.9 H RDW Coeff of Marisel 15.3 H Plt Count 250 MPV 9.8 Immature Gran % (Auto) 0.8 Neut % (Auto) 66.8 Lymph % (Auto) 17.4 [place] % (Auto) 10.5 Eos % (Auto) 3.6 Baso % (Auto) 0.9 Neut # (Auto) 5.34 Lymph # (Auto) 1.39 [place] # (Auto) 0.84 H Eos # (Auto) 0.29 Baso # (Auto) 0.07 Immature Gran # (Auto) 0.06 H Basophilic Stippling 1+ Sodium 138 Potassium 4.2 Chloride 111 H Carbon Dioxide 24 Anion Gap 3.0 BUN 26 H Creatinine 1.14 Est Cr Clr Drug Dosing 37.9 Est GFR ( Amer) 51.1 Est GFR (Non-Af Amer) 44.1 BUN/Creatinine Ratio 22.5 H Glucose 102 H Calcium 7.9 L Stool Occult Bld Scrn Blood Type Antibody Screen Crossmatch 07/26/20 07/26/20 07/26/20 08:54 14:40 15:35 WBC RBC Hgb 9.1 L Hct 28.1 L MCV MCH MCHC RDW Std Deviation RDW Coeff of Marisel Plt Count MPV Immature Gran % (Auto) Neut % (Auto) Lymph % (Auto) [place] % (Auto) Eos % (Auto) Baso % (Auto) Neut # (Auto) Lymph # (Auto) [place] # (Auto) Eos # (Auto) Baso # (Auto) Immature Gran # (Auto) Basophilic Stippling Sodium Potassium Chloride Carbon Dioxide Anion Gap BUN Creatinine Est Cr Clr Drug Dosing Est GFR ( Amer) Est GFR (Non-Af Amer) BUN/Creatinine Ratio Glucose Calcium Stool Occult Bld Scrn Positive A Blood Type B Positive Antibody Screen NEGATIVE Crossmatch See Detail (1) Closed intertrochanteric fracture of right hip Encounter type: initial encounter Fracture alignment: displaced Qualified Code(s): S72.141A - Displaced intertrochanteric fracture of right femur, initial encounter for closed fracture
[2020-07-26] MEDS: traMADol HCL 50 MG TABLET PO PRN (20:59)
[2020-07-26] MEDS: SENNA 8.6 MG TAB PO SCH (20:59)
[2020-07-27] MEDS: MoRPHine SULFATE 2 MG/ML CARP IV PRN (00:19)
[2020-07-27] MEDS: ACETAMINOPHEN 500 MG TAB PO SCH ×3 (05:50→20:58)
[2020-07-27] MEDS: LEVOTHYROXINE SODIUM 125 MCG TABLET PO SCH (05:50)
[2020-07-27 06:00] LABS: Basophils % (auto) 1.1 %; Eosinophils # (auto) 0.45 K/uL (0-0.5); Eosinophils % (auto) 5.2 %; Hematocrit (blood only) 25.1 % (37-47); Immature Granulocytes # (auto) 0.09 K/uL (0.00-0.02); Lymphocytes # (auto) 2.09 K/uL (1.2-3.4); Mean Corpuscular Hemoglobin 29.1 pg (25-34); Mean Corpuscular Hgb Conc 31.9 g/dL (32-36); Mean Corpuscular Volume 91.3 fL (80-100); Mean Platelet Volume 10.1 fL (7.4-10.4); Monocytes # (auto) 0.83 K/uL (0.11-0.59); Monocytes % (auto) 9.5 %; Neutrophils # (auto) 5.16 K/uL (1.4-6.5); Neutrophils % (auto) 59.2 %; Platelet Count 283 K/uL (130-400); RDW Coefficient of Variation 15.3 % (11.5-14.5); RDW Standard Deviation 49.9 fL (36.4-46.3); Red Blood Count 2.75 M/uL (4.2-5.4); White Blood Count 8.72 K/uL (4.8-10.8)
[2020-07-27 06:26] LABS: Creatinine Clr Calc Pharmacy 39.2 ml/min; Est GFR (African American) 53.4; Est GFR (Non-African American) 46.1
[2020-07-27] MEDS: MULTIVITAMIN TAB PO SCH (08:28)
[2020-07-27] MEDS: DOCUSATE SODIUM 100 MG CAP PO SCH ×2 (08:28→20:58)
[2020-07-27] MEDS: MICONAZOLE NITRATE 2% CR 30 GM TUBE EXT SCH ×2 (08:29→20:58)
[2020-07-27] MEDS: PANTOprazole 40 MG in SYRINGE 0 ML IV SCH (08:29)
--- NOTE | 2020-07-27 08:36 | Gastrointestinal Consultation ---
Date of Consultation July 27, 2020 Assessment & Plan (1) Anemia: 85 y/o female with baseline anemia, admitted with right hip fx and underwent surgical repair 07/23, and HGB dropped from 9.9-> 6.7 post-op; after subsequent pBRC transfusions HGB improved to 9.1; today is 8.0. She's had no overt GIB including no melena, hematochezia, or hematemesis, and BUN not significantly elevated to suggest ongoing upper GIB, though she had + fecal occult blood testing; VSS. Suspect drop in HGB is related to recent surgical procedure. - Will proceed with EGD today to r/o any evidence for UGIB - Can continue PPI for now - Will defer mgmt of her hip fx to surgical/primary services - Further recommendations following EGD Please call with any acute changes, questions or concerns. Please see addendum below with additional recommendation from my supervising physician. (2) Heme positive stool: Supervising Physician Co-Signing Physician Notes I saw and evaluated the patient. We are consulted for anemia and a question of heme positive stool. The patient has a history of a recent hip fracture and underwent a enteric nail placed. The patient denies having any abdominal pain she notes having back pain and hip pain this afternoon. Physical exam Elderly appearing female in no obvious distress No Abdominal tenderness Impression: Patient with recent hip fracture now with new anemia and heme positive stool. There is no report of melena however I think it would be prudent to offer upper endoscopy for further evaluation. If the upper endoscopy is negative then the patient could certainly have a colonoscopy done once her hip fracture has healed completely. History of Present Illness Attending Physician: Erwin Saeed MD History of Present Illness This is an 85 y/o female with PMhx hypothyroidism, h/o UTI, anemia, and others admitted with right hip fx and underwent surgical repair on 07/23. Preprocedure her HGB was 9.9; 1 day post-op was 6.7 and pt received multiple blood transfusions; with improvement yesterday of HGB was 9.1. Though pt states she hasn't had any BMs since admission, she had + fecal occult blood testing and GI was consulted for possible upper GI bleed. Today HGB 8, BUN 26, WBC 8, with Na/K WNL. Pt denies h/o GI bleeding; I don't see that she has had any prior endoscopies. She reports some ongoing discomfort with the hip, but no GI complaints. Specifically no abd pain, nausea, vomiting, hematemesis, heartburn, dysphagia, BRBPR, melena, abd bloating, denies CP, SOB, fever, chills today. Allergies Allergy/AdvReac Type Severity Reaction Status Date / Time tetracycline Allergy Unknown Verified 07/23/20 14:53 Home Medications Medication Instructions Recorded Confirmed Type aspirin 81 mg PO DAILY 02/28/20 07/22/20 History tramadol 50 mg PO Q12H PRN 02/28/20 07/22/20 History acetaminophen 325 mg tablet 650 mg PO Q4H PRN tab 03/16/20 07/22/20 History levothyroxine 125 mcg tablet 125 mcg PO DAILY 03/16/20 07/22/20 History miconazole nitrate 2 % topical 1 appln TOP BID 03/16/20 07/22/20 History cream docusate sodium 100 mg PO DAILY 07/22/20 07/22/20 History furosemide 10 mg PO DAILY 07/22/20 07/22/20 History Patient History Medical History REEMA (acute kidney injury) Anemia Asymptomatic proteinuria Hypomagnesemia Hypothyroidism Pyelonephritis Thrombocytopenia Ureterolithiasis Surgical History History of left hip replacement No pertinent past surgical history Social History Smoking Status: Former smoker Second Hand Exposure: No; Do You Dip or Chew Tobacco: No; Tobacco Cessation Education Requested by Patient: No Hx Alcohol Use: No Hx Substance Use: No Preferred Language: German Communication Ability: Effective Nps Required: No Beliefs That Will Affect Care: None marital status: / Current Living Situation: Family Current Living Situation Comment: candelaria lives w/ patient Other Information That Helps Us Care for You: No Feels Safe at Home: Yes Safety Concerns: Feels Safe At This Time Assistive Devices: Glasses and Walker Review of Systems Review of Systems: All systems reviewed & are unremarkable except as noted in HPI & below Physical Exam Constitutional: WD/WN, vitals as above no acute distress Eyes: PERRL, conjunctivae normal, anicteric sclerae Respiratory: normal respiratory effort, lungs clear to auscultation Cardiovascular: Rate/Rhythm: regular rate and regular rhythm Gastrointestinal (Abdomen): normal bowel sounds, soft, nontender, no hepatosplenomegaly Inspection/Auscultation: abdomen not distended Skin: no rashes, warm and dry Psychiatric: A+Ox3, euthymic affect Results & Data ([facility]) Vital Signs (Past 12 Hours) Vital Signs Temp Pulse Resp BP Pulse Ox 07/27/20 07:15 37.2 C 79 18 134/61 97 07/26/20 22:24 37.1 C 85 18 105/53 L 95 Laboratory Results 07/27/20 07/27/20 07/26/20 Range/Units 05:28 05:28 15:35 WBC 8.72 (4.8-10.8) K/uL RBC 2.75 L (4.2-5.4) M/uL Hgb 8.0 L 9.1 L (12.0-16.0) g/dL Hct 25.1 L 28.1 L (37-47) % MCV 91.3 (80-100) fL MCH 29.1 (25-34) pg MCHC 31.9 L (32-36) g/dL RDW Std Deviation 49.9 H (36.4-46.3) fL RDW Coeff of Marisel 15.3 H (11.5-14.5) % Plt Count 283 (130-400) K/uL MPV 10.1 (7.4-10.4) fL Immature Gran % (Auto) 1.0 % Neut % (Auto) 59.2 % Lymph % (Auto) 24.0 % Dewitt % (Auto) 9.5 % Eos % (Auto) 5.2 % Baso % (Auto) 1.1 % Neut # (Auto) 5.16 (1.4-6.5) K/uL Lymph # (Auto) 2.09 (1.2-3.4) K/uL Dewitt # (Auto) 0.83 H (0.11-0.59) K/uL Eos # (Auto) 0.45 (0-0.5) K/uL Baso # (Auto) 0.10 (0-0.2) K/uL Immature Gran # (Auto) 0.09 H (0.00-0.02) K/uL Creatinine 1.10 (0.6-1.2) mg/dl Est Cr Clr Drug Dosing 39.2 ml/min Est GFR ( Amer) 53.4 Est GFR (Non-Af Amer) 46.1 Stool Occult Bld Scrn (Negative) Blood Type Antibody Screen Crossmatch 07/26/20 07/26/20 Range/Units 14:40 08:54 WBC (4.8-10.8) K/uL RBC (4.2-5.4) M/uL Hgb (12.0-16.0) g/dL Hct (37-47) % MCV (80-100) fL MCH (25-34) pg MCHC (32-36) g/dL RDW Std Deviation (36.4-46.3) fL RDW Coeff of Marisel (11.5-14.5) % Plt Count (130-400) K/uL MPV (7.4-10.4) fL Immature Gran % (Auto) % Neut % (Auto) % Lymph % (Auto) % Dewitt % (Auto) % Eos % (Auto) % Baso % (Auto) % Neut # (Auto) (1.4-6.5) K/uL Lymph # (Auto) (1.2-3.4) K/uL Dewitt # (Auto) (0.11-0.59) K/uL Eos # (Auto) (0-0.5) K/uL Baso # (Auto) (0-0.2) K/uL Immature Gran # (Auto) (0.00-0.02) K/uL Creatinine (0.6-1.2) mg/dl Est Cr Clr Drug Dosing ml/min Est GFR ( Amer) Est GFR (Non-Af Amer) Stool Occult Bld Scrn Positive A (Negative) Blood Type B Positive Antibody Screen NEGATIVE Crossmatch See Detail
[2020-07-27] MEDS ORDERED: ATROPINE SULFATE 0.1 MG/ML 10ML SYR IV PRN (09:18)
[2020-07-27] MEDS ORDERED: ePHEDrine sulfate 50 MG/ML AMP IV PRN (09:18)
--- NOTE | 2020-07-27 09:18 | Anesthesiology Consultation ---
Date of Service July 27, 2020 Assessment & Plan ASA ASA3 Proposed Anesthesia Anesthesia Type: MAC Risk / Benefits Reviewed With: PT / POA / Parent / Guardian, Accepts Plan and Informed Consent Obtained History Surgery Operation Date: 07/23/20 11:30 Proposed Procedures p Right Troch Nail - Reid Keller MD Operation Date: 07/27/20 16:15 Proposed Procedures p Esophagogastroduodenoscopy Dr Akshat Oden, DO Height/Weight Height: 5 ft 4 in Weight: 81.2 kg Allergies Allergy/AdvReac Type Severity Reaction Status Date / Time tetracycline Allergy Unknown Verified 07/23/20 14:53 Medications Home Medications Medication Instructions Recorded Confirmed Last Taken aspirin 81 mg PO DAILY 02/28/20 07/22/20 07/22/20 tramadol 50 mg PO Q12H PRN 02/28/20 07/22/20 Unknown acetaminophen 325 mg tablet 650 mg PO Q4H PRN tab 03/16/20 07/22/20 Unknown levothyroxine 125 mcg tablet 125 mcg PO DAILY 03/16/20 07/22/20 07/22/20 miconazole nitrate 2 % topical 1 appln TOP BID 03/16/20 07/22/20 07/22/20 cream docusate sodium 100 mg PO DAILY 07/22/20 07/22/20 07/22/20 furosemide 10 mg PO DAILY 07/22/20 07/22/20 07/22/20 Active Medications Generic Name Dose Route Start Last Admin Trade Name Freq PRN Reason Stop Dose Admin Acetaminophen 1,000 mg 07/23/20 22:00 07/27/20 05:50 Acetaminophen 500 Mg Tab PO 08/22/20 21:59 1,000 mg Q8 INGE Administration Docusate Sodium 100 mg 07/23/20 21:00 07/27/20 08:28 Docusate Sodium 100 Mg Cap PO 08/22/20 20:59 100 mg BID INGE Administration Enoxaparin Sodium 40 mg 07/24/20 09:00 07/24/20 09:19 Enoxaparin Inj 40 Mg/0.4 Ml Syr SQ 08/23/20 08:59 40 mg QAM INGE Administration Pantoprazole Sodium 40 mg/ 10 mls @ 5 mls/min 07/26/20 09:00 07/27/20 08:29 Syringe IV 08/25/20 08:59 5 mls/min BID INGE Administration Levothyroxine Sodium 125 mcg 07/23/20 06:30 07/27/20 05:50 Levothyroxine Sodium 125 Mcg Tablet PO 08/22/20 06:29 125 mcg DAILYBB INGE Administration Magnesium Hydroxide 30 ml 07/22/20 17:18 07/26/20 08:43 Magnesium Hydroxide Susp 30 Ml Udc PO 08/21/20 17:17 30 ml DAILY PRN Administration Constipation Metoclopramide HCl 10 mg 07/23/20 18:24 07/23/20 20:12 Metoclopramide Hcl Inj 5 Mg/Ml 2 Ml Vial IV 08/22/20 18:23 10 mg Q6H PRN Administration Nausea And Vomiting Miconazole Nitrate 1 appln 07/22/20 21:00 07/27/20 08:29 Miconazole Nitrate 2% Cr 30 Gm Tube EXT 08/21/20 20:59 1 appln BID INGE Administration Morphine Sulfate 2 mg 07/22/20 17:27 07/27/20 00:19 Morphine Sulfate 2 Mg/Ml Carp IV 08/05/20 17:26 2 mg Q3H PRN Administration Pain Multivitamins 1 tab 07/24/20 09:00 07/27/20 08:28 Multivitamin Tab PO 08/23/20 08:59 1 tab QAM INGE Administration Ondansetron HCl 4 mg 07/22/20 17:45 07/25/20 11:16 Ondansetron Inj 2 Mg/Ml 2 Ml Vial IV 08/21/20 17:44 4 mg Q6H PRN Administration Nausea Sennosides 17.2 mg 07/23/20 21:00 07/26/20 20:59 Senna 8.6 Mg Tab PO 08/22/20 20:59 17.2 mg HS INGE Administration Tramadol HCl 50 - 100 mg 07/23/20 18:24 07/26/20 20:59 Tramadol Hcl 50 Mg Tablet PO 08/22/20 18:23 100 mg Q4H PRN Administration Pain & Pre PT NPO Date Last Intake of Fluids: 07/22/20 Time Last Intake of Fluids: 22:00 Date Last Intake of Solids: 07/22/20 Time Last Intake of Solids: 18:00 Past Medical History Medical History REEMA (acute kidney injury) Anemia Asymptomatic proteinuria Hypomagnesemia Hypothyroidism Pyelonephritis Thrombocytopenia Ureterolithiasis Exercise / Class Metabolic Activity IV < 2 Limit ADL/Bedbound Past Surgical History Surgical History History of left hip replacement No pertinent past surgical history Past Anesthesia History No Hx of Anesthesia Complications and No Family Hx of Anesthesia Complications History of PONV No Hx of PONV and No Hx of Motion Sickness Social History Smoking Status: Former smoker Do You Dip or Chew Tobacco: No Hx Alcohol Use: No Hx Substance Use: No substance use type: does not use Review of Systems denies fever/cough/ colds/ chest pain/ SOB/ IVY denies IVY Physical Exam Vital Signs Last Vital Signs Temp 37.2 C 07/27/20 07:15 Pulse 79 07/27/20 07:15 Resp 18 07/27/20 07:15 BP 134/61 07/27/20 07:15 Pulse Ox 97 07/27/20 07:15 ENMT Mouth: + dentures; no TMJ abnormality and no dentition abnormality Thyromental Distance: > or= 3.5 Finger Breadths Mallampati Class: II Neck neck extension not limited Respiratory normal respiratory effort; no respiratory distress Auscultation: lungs clear to auscultation bilaterally Cardiovascular Rate/Rhythm: regular rate and regular rhythm Neurologic moves all extremities Psychiatric Orientation: alert and oriented x 3 Testing Laboratory Results 07/27/20 05:28 07/27/20 05:28 PT 10.8 Seconds (9.0-12.0) 07/22/20 14:50 INR 1.0 (0.9-1.1) 07/22/20 14:50 APTT 26.2 Seconds (21.0-31.0) 07/22/20 14:50 Urine Color Yellow 07/23/20 04:45 Urine Appearance Cloudy (Clear) A 07/23/20 04:45 Urine pH 7.5 (4.5-7.5) 07/23/20 04:45 Ur Specific [place] 1.014 (1.000-1.030) 07/23/20 04:45 Urine Protein Trace (Negative) H 07/23/20 04:45 Urine Glucose (UA) Negative (Negative) 07/23/20 04:45 Urine Ketones Negative (Negative) 07/23/20 04:45 Urine Nitrite Negative (Negative) 07/23/20 04:45 Ur Leukocyte Esterase 3+ (Negative) H 07/23/20 04:45 Urine WBC (Auto) >30 /hpf (0-5) H 07/23/20 04:45 Urine RBC (Auto) 10-30 /hpf (0-4) H 07/23/20 04:45 U Hyaline Cast (Auto) 5-10 /lpf (0-5) H 07/23/20 04:45 U Epithel Cells (Auto) 10-20 /lpf (0-5) H 07/23/20 04:45 Urine Bacteria (Auto) Negative (Negative) 07/23/20 04:45 Blood Type B Positive 07/26/20 08:54 Antibody Screen NEGATIVE 07/26/20 08:54 07/23/20 04:45 Urine Culture - Final Urine,Straight Cath Citrobacter freundii Angelica albicans/dubliniensis
--- NOTE | 2020-07-27 09:35 | History & Physical Bridge Note ---
Date of Service July 27, 2020 History & Physical Bridge Note I have examined the patient, reviewed the History & Physical and in the interval since the performance of the History & Physical I have noted the following changes of clinical significance: no changes noted. Consult is pending, patient with a question of heme positive stools status post recent hip replacement. Plan for upper endoscopy today for further evaluation. If exam is negative we would then recommend an outpatient colonoscopy in 6 to 8 weeks. I Have discussed the risks to include bleeding, infection, perforation and need for follow-up studies
--- NOTE | 2020-07-27 10:04 | Anesthesiology Progress Note ---
Date of Service July 27, 2020 Anesthesia Post Procedure Vital Signs Vital Signs: Temp Pulse Pulse Resp BP BP Pulse Ox 07/27/20 09:13 37.2 C 82 18 144/82 H 97 07/27/20 08:00 07/27/20 07:15 37.2 C 79 18 134/61 97 07/26/20 22:24 37.1 C 85 18 105/53 L 95 07/26/20 16:00 07/26/20 15:57 36.8 C 99 H 18 136/65 93 07/26/20 14:09 37.4 C 79 16 111/71 93 07/26/20 13:09 37.4 C 79 14 117/64 93 07/26/20 12:09 37.6 C H 76 14 107/61 95 07/26/20 11:39 37.1 C 79 14 116/70 95 07/26/20 11:25 36.9 C 82 18 123/68 94 07/26/20 11:07 36.8 C 85 18 122/63 94 Pulse Ox 07/27/20 09:13 07/27/20 08:00 97 07/27/20 07:15 07/26/20 22:24 07/26/20 16:00 93 07/26/20 15:57 07/26/20 14:09 07/26/20 13:09 07/26/20 12:09 07/26/20 11:39 07/26/20 11:25 07/26/20 11:07 Pain Intensity Right Hip: Pain Intensity: 5 Transfer of Care Handoff Completed per policy Notes Mental Status: alert / awake / arousable and participated in evaluation Patient Amnestic to Procedure: Yes Nausea / Vomiting: adequately controlled Pain: adequately controlled Airway Patency, RR, SpO2: stable & adequate BP & HR: stable & adequate Hydration State: stable & adequate Anesthetic Complications: no major complications apparent and Pt Satisfied with anesthetic care
[2020-07-27] MEDS ORDERED: ONDANSETRON INJ 2 MG/ML 2 ML VIAL ONE (10:33)
[2020-07-27] MEDS ORDERED: PROPOFOL IV EMULSION 10 MG/ML 20 ML VIAL IV ONE (10:33)
[2020-07-27] MEDS ORDERED: LIDOCAINE HCL 2% 2 ML VIAL/AMP(20MG/ML) INFIL ONE (10:33)
[2020-07-27] MEDS: traMADol HCL 50 MG TABLET PO PRN ×2 (10:58→20:56)
--- NOTE | 2020-07-27 12:21 | GI REPORT ---
Patient Name: Akilah Velazquez Procedure Date: 07/27/2020 9:31 AM Date of : 1935 Admit Type: Inpatient Age: 85 Gender: Female Attending MD: Kamari Oden DO Procedure: Upper GI endoscopy Providers: Kamari Oden DO Referring MD: Erwin Saeed Indications: Acute post hemorrhagic anemia Medicines: Monitored Anesthesia Care Complications: No immediate complications. Estimated blood loss: Minimal. Estimated Blood Loss: Estimated blood loss was minimal. Procedure: Pre-Anesthesia Assessment: - Prior to the procedure, a History and Physical was performed, and patient medications, allergies and sensitivities were reviewed. The patient's tolerance of previous anesthesia was reviewed. - The risks and benefits of the procedure and the sedation options and risks were discussed with the patient. All questions were answered and informed consent was obtained. - Patient identification and proposed procedure were verified prior to the procedure by the physician, the nurse and the adult education manager. The procedure was verified in the pre-procedure area in the procedure room. - Pre-procedure physical examination revealed no contraindications to sedation. - ASA Grade Assessment: III - A patient with severe systemic disease. - After reviewing the risks and benefits, the patient was deemed in satisfactory condition to undergo the procedure. - The anesthesia plan was to use monitored anesthesia care (MAC). - Immediately prior to administration of medications, the patient was re-assessed for adequacy to receive sedatives. - The heart rate, respiratory rate, oxygen saturations, blood pressure, adequacy of pulmonary ventilation, and response to care were monitored throughout the procedure. - The physical status of the patient was re-assessed after the procedure. After obtaining informed consent, the endoscope was passed under direct vision. Throughout the procedure, the patient's blood pressure, pulse, and oxygen saturations were monitored continuously. The Endoscope was introduced through the mouth, and advanced to the third part of duodenum. The upper GI endoscopy was accomplished without difficulty. The patient tolerated the procedure well. Findings: The examined esophagus was normal. A small hiatal hernia was found. The proximal extent of the gastric folds (end of tubular esophagus) was 38 cm from the incisors. The hiatal narrowing was 39 cm from the incisors. The Z-line was 38 cm from the incisors. Normal mucosa was found in the gastric fundus, in the gastric body and at the incisura. Biopsies were taken with a cold forceps for histology. The pathology specimen was placed into Bottle A. One large non-obstructing non-bleeding cratered gastric ulcer with pigmented material was found on the anterior wall of the gastric antrum. The lesion was 30 mm in largest dimension. The examined duodenum was normal. Impression: - Normal esophagus. - Small hiatal hernia. - Normal mucosa was found in the gastric fundus, in the gastric body and in the incisura. Biopsied. - Non-obstructing non-bleeding gastric ulcer with pigmented material. Likely an NSAID induced etiology. - Normal examined duodenum. Recommendation: - [facility] care. - Full liquid diet today. - Use Protonix (pantoprazole) 40 mg PO BID for 6 weeks then reduce to 20 mg 1 time daily. - Use sucralfate tablets 1 gram PO QID for 4 weeks. - Repeat upper endoscopy in 3 months to check healing. Kamari Oden D.O. Kamari Oden, 07/27/2020 12:21:04 PM This report has been signed electronically. Note Initiated On: 07/27/2020 9:31 AM Number of Addenda: 0 I attest to the content of the Intraoperative Record and orders documented therein, exceptions below {[id number]}
--- NOTE | 2020-07-27 12:39 | Communication Note ---
Date of Service: July 27, 2020 The patient underwent upper endoscopy this afternoon. Findings Large ulcer of the gastric antrum approximately 30 mm in size The ulcer was clean-based with some pigmented material suggesting prior bleeding No therapeutics were indicated Recommendations Full liquid diet today then advance as tolerated Avoid use of nonsteroidals for 6 weeks Protonix or omeprazole 40 mg twice daily for 6 weeks then reduce to 20 mg 1 time daily Carafate 1 g 4 times daily for 4 weeks Repeat upper endoscopy in 3 months Would suggest use of a daily iron supplement for 3 months Please call with any questions or concerns, GI to sign off
[2020-07-27] MEDS: SUCRALFATE 1 GM/10 ML UDC PO SCH ×2 (17:46→20:57)
--- NOTE | 2020-07-27 20:57 | Hospitalist Progress Note ---
Date of Service July 27, 2020 Assessment & Plan (1) Closed intertrochanteric fracture of right hip: 85-year-old female with history of hypothyroidism, arthritis, pyelonephritis Presented with right hip pain after of mechanical fall Closed intertrochanteric fracture of the right hip Status post mechanical fall s/p Surgery 07/23 (+) anemia- management noted below Hold aspirin pain well controlled As needed morphine IV, tramadol, Tylenol for pain PT and OT evaluation DVT prophylaxis-per GI service may resume heparin subcu for DVT prophylaxis tomorrow Anemia, Acute Blood Loss, iron deficiency Possible upper GI bleed Patient was noted to have anemia postoperatively, baseline 9-[address] head, chest, abd/pelvis: no hemorrhage anemia panel: Fe 33 hold Toradol, ASA, Lovenox --Has received 3 units of packed RBCs postop HemoGlobin improved to 8.0 --Also given 1 dose of Venofer 150 mg --Lasix also ordered --Fecal occult blood test positive Protonix IV twice daily started --Status post EGD: Positive for gastric ulcer, nonbleeding GI recommendations: - Full liquid diet today. - Use Protonix (pantoprazole) 40 mg PO BID for 6 weeks then reduce to 20 mg 1 time daily. - Use sucralfate tablets 1 gram PO QID for 4 weeks. - Repeat upper endoscopy in 3 months to check healing. --Start ferrous sulfate tomorrow Monitor H&H Hypertension Not included in past medical history Most likely secondary to underlying pain Pain management per above Hydralazine as needed for systolic BP more than 160 UTI Patient on empiric Bactrim started 2 days DISTILLER afebrile completed IV ceftriaxone Day 3/3 DVT prophylaxis Per GI service, may resume heparin subcu tomorrow for DVT prophylaxis Disposition PT and OT evaluation May need to transition to rehab after surgery Admission and Anticipated Discharge Date Admission Date: July 22, 2020 Subjective Follow-up for Follow-up for right knee fracture status post fall, status post right hip surgery, anemia Seen sitting up in bed, comfortable, sleeping but easily awakened, not in distress, comfortable, in good spirits States she feels fine today overall Denies headache, dizziness, chest pain, shortness of breath, abdominal pain Status post EGD today Right hip pain well controlled No other symptoms next Review of Systems Review of Systems: All systems reviewed & are unremarkable except as noted in Subjective Physical Exam Physical Exam: General- oriented x 3, not in distress, speaks in sentences with no effort or accessory muscle use Eyes- anicteric Neck- no JVD Lungs- clear breath sounds bilaterally Heart- normal rate, regular rhythm; no murmurs Abdomen- normal bowel sounds, nondistended, soft, nontender Extremities- no pretibial edema, no calf tenderness Right hip area: With edema, but no ecchymosis, no bleeding or discharge Neuro- alert, oriented x 3; no gross focal neurologic deficits Skin- warm & dry Results & Data Results & Data ([facility]) Vital Signs (Past 12 Hours) Vital Signs Temp Pulse Resp BP Pulse Ox Pulse Ox 07/27/20 16:00 95 07/27/20 14:55 37 C 71 16 110/51 L 95 07/27/20 13:50 37.0 C 77 16 115/63 96 07/27/20 12:49 36.7 C 77 16 122/65 96 07/27/20 11:52 37.3 C 70 16 127/59 L 96 07/27/20 11:20 37.3 C 66 16 108/56 L 93 07/27/20 10:50 37.2 C 71 14 116/53 L 96 07/27/20 10:27 69 20 128/57 L 99 07/27/20 10:12 70 20 131/56 L 97 07/27/20 09:57 70 20 101/55 L 97 07/27/20 09:13 37.2 C 82 18 144/82 H 97 Laboratory Results Laboratory Results - last 24 hr 07/27/20 07/27/20 05:28 05:28 WBC 8.72 RBC 2.75 L Hgb 8.0 L Hct 25.1 L MCV 91.3 MCH 29.1 MCHC 31.9 L RDW Std Deviation 49.9 H RDW Coeff of Marisel 15.3 H Plt Count 283 MPV 10.1 Immature Gran % (Auto) 1.0 Neut % (Auto) 59.2 Lymph % (Auto) 24.0 [place]ett % (Auto) 9.5 Eos % (Auto) 5.2 Baso % (Auto) 1.1 Neut # (Auto) 5.16 Lymph # (Auto) 2.09 [place]ett # (Auto) 0.83 H Eos # (Auto) 0.45 Baso # (Auto) 0.10 Immature Gran # (Auto) 0.09 H Creatinine 1.10 Est Cr Clr Drug Dosing 39.2 Est GFR ( Amer) 53.4 Est GFR (Non-Af Amer) 46.1 (1) Closed intertrochanteric fracture of right hip Encounter type: initial encounter Fracture alignment: displaced Qualified Code(s): S72.141A - Displaced intertrochanteric fracture of right femur, initial encounter for closed fracture
[2020-07-27] MEDS: SENNA 8.6 MG TAB PO SCH (20:58)
[2020-07-27] MEDS: PANTOprazole 40 MG TAB PO SCH (20:58)
[2020-07-28] MEDS: ACETAMINOPHEN 500 MG TAB PO SCH ×3 (05:58→21:26)
[2020-07-28] MEDS: LEVOTHYROXINE SODIUM 125 MCG TABLET PO SCH (05:58)
[2020-07-28 06:52] LABS: Basophils # (auto) 0.05 K/uL (0-0.2); Basophils % (auto) 0.6 %; Eosinophils # (auto) 0.57 K/uL (0-0.5); Eosinophils % (auto) 6.7 %; Hematocrit (blood only) 27.2 % (37-47); Hemoglobin 8.6 g/dL (12.0-16.0); Immature Granulocytes # (auto) 0.09 K/uL (0.00-0.02); Immature Granulocytes % (auto) 1.1 %; Lymphocytes # (auto) 1.57 K/uL (1.2-3.4); Lymphocytes % (auto) 18.3 %; Mean Corpuscular Hemoglobin 29.4 pg (25-34); Mean Corpuscular Hgb Conc 31.6 g/dL (32-36); Mean Corpuscular Volume 92.8 fL (80-100); Mean Platelet Volume 10.1 fL (7.4-10.4); Monocytes # (auto) 0.86 K/uL (0.11-0.59); Neutrophils # (auto) 5.43 K/uL (1.4-6.5); Neutrophils % (auto) 63.3 %; Platelet Count 317 K/uL (130-400); RDW Coefficient of Variation 15.4 % (11.5-14.5); RDW Standard Deviation 51.5 fL (36.4-46.3); Red Blood Count 2.93 M/uL (4.2-5.4); White Blood Count 8.57 K/uL (4.8-10.8)
[2020-07-28] MEDS: SUCRALFATE 1 GM/10 ML UDC PO SCH ×4 (08:17→21:25)
[2020-07-28] MEDS: MULTIVITAMIN TAB PO SCH (09:16)
[2020-07-28] MEDS: PANTOprazole 40 MG TAB PO SCH ×2 (09:16→21:26)
[2020-07-28] MEDS: MICONAZOLE NITRATE 2% CR 30 GM TUBE EXT SCH ×2 (09:17→20:22)
[2020-07-28] MEDS: DOCUSATE SODIUM 100 MG CAP PO SCH ×3 (09:17→21:26)
--- NOTE | 2020-07-28 16:55 | Hospitalist Progress Note ---
Date of Service July 28, 2020 Assessment & Plan (1) Closed intertrochanteric fracture of right hip: 85-year-old female with history of hypothyroidism, arthritis, pyelonephritis Presented with right hip pain after of mechanical fall Closed intertrochanteric fracture of the right hip Status post mechanical fall s/p Surgery 07/23 (+) anemia-due to gastric ulcer aspirin kept on hold Appreciate input from orthopedics team PT and OT evaluation DVT prophylaxis-SQ Lovenox resumed per post Hip Fx recommendation right leg swelling noted , DVT prophylaxis been interrupted due to anemia , will check Doppler of lower ext Pt will be treated with full anticoagulation /IV heparin if DVT noted with close monitoring of H&H drowsiness /lethargy : no confusion or disorientation noted ordered to hold all sedatives and narcotics meds D/c PRN Phenergan will try to utilize non narcotic meds for pain control r/o infection : ordered for UA and culture Anemia, Acute Blood Loss, iron deficiency Possible upper GI bleed Patient was noted to have anemia postoperatively, baseline 9-[address] head, chest, abd/pelvis: no hemorrhage anemia panel: Fe 33 --Has received 3 units of packed RBCs -hemoglobin remains stable 8.6 pt complains of increased tiredness and fatigue -ordered to check stat H&H -- given 1 dose of Venofer 150 mg --Fecal occult blood test positive --Status post EGD: Positive for gastric ulcer, nonbleeding GI recommendations: - Use Protonix (pantoprazole) 40 mg PO BID for 6 weeks then reduce to 20 mg 1 time daily. - Use sucralfate tablets 1 gram PO QID for 4 weeks. - Repeat upper endoscopy in 3 months to check healing. Patient started on iron supplement UTI Patient on empiric Bactrim started 2 days [employer] afebrile completed IV ceftriaxone Day 3/3 repeat Urine culture ordered for lethargy DVT prophylaxis Subcu Lovenox may require therapeutic anticoagulation if lower ext Doppler shows DVT Disposition PT and OT evaluation-appreciated will need rehab referral made to skilled rehab awaiting insurance approval Admission and Anticipated Discharge Date Admission Date: July 22, 2020 Subjective Follow-up for right knee fracture status post fall, status post right hip surgery/post op anemia: notified by Nursing : pt found to be stuporous , difficult to arouse seen at bedside , sitting semi reclining on bed , sleeping - opened eyes after touching her shoulder , says : she feels very tired , was unable to sleep last 2 nights due to hip pain speech is coherent , thought process appropriate , no confusion noted . having discomfort on right hip and leg area , right leg appears to be more swollen than the left c/o pain with minimum movement per Nursing : excoriation noted on patients posterior thighs. pt reports of burning feeling . pt unable to bend knee or lift leg due to pain . asked nursing to check with next time changing position and wound care consult if needed . Review of Systems Review of Systems: All systems reviewed & are unremarkable except as noted in HPI & below Constitutional: + fatigue; no fever and no chills Musculoskeletal: + joint pain (rt hip ) and + limited range of motion (right hip ) right hip pain Physical Exam Constitutional: WD/WN, vitals as above drowsy , wakes up to voice Eyes: PERRL, conjunctivae normal, anicteric sclerae ENMT: external ear and nose normal, oropharynx normal Neck: trachea midline, no thyromegaly Respiratory: normal respiratory effort, lungs clear to auscultation Cardiovascular: Rate/Rhythm: regular rate and regular rhythm Extremities: + pedal edema and + edema (rt> left ) Gastrointestinal (Abdomen): Percussion/Palpation: abdomen soft; abdomen nontender Musculoskeletal: right hip pain surgical incision area appears to be well healed pt reports of burning sensation underneath the right thigh Neurologic: PERRL, EOMI, accommodation nl, no face palsy, no dysarthria tired and drowsy Results & Data Results & Data ([facility]) Vital Signs (Past 12 Hours) Vital Signs Temp Pulse Resp BP Pulse Ox 07/28/20 15:36 37.5 C 70 16 105/53 L 96 07/28/20 07:00 37.0 C 69 18 127/58 L 95 (1) Closed intertrochanteric fracture of right hip Encounter type: initial encounter Fracture alignment: displaced Qualified Code(s): S72.141A - Displaced intertrochanteric fracture of right femur, initial encounter for closed fracture
[2020-07-28 19:43] LABS: Hematocrit (blood only) 26.8 % (37-47); Hemoglobin 8.5 g/dL (12.0-16.0)
[2020-07-28 21:23] LABS: Appearance Urine Turbid (Clear); Bacteria Urine Automated Negative (Negative); Bilirubin Urine Negative (Negative); Blood Urine 2+ (Negative); Color Urine Yellow; Epithelial Cell Urine Auto >30 /lpf (0-5); Glucose Urine UA Negative (Negative); Ketones Urine Negative (Negative); Leukocyte Esterase Urine 3+ (Negative); Nitrite Urine Negative (Negative); Specific Gravity Urine 1.014 (1.000-1.030); Urobilinogen Urine Negative (Negative); WBC Urine Automated >30 /hpf (0-5)
[2020-07-28] MEDS: SENNA 8.6 MG TAB PO SCH (21:27)
[2020-07-28 21:31] LABS: Protein Urine 1+ (Negative)
[2020-07-28 21:32] LABS: Sulfosalicylic Acid Urine Positive (Negative)
[2020-07-28 21:51] LABS: Cast Urine Automated 0 /lpf (0-5)
[2020-07-29] MEDS: ACETAMINOPHEN 500 MG TAB PO SCH ×3 (05:25→21:25)
[2020-07-29] MEDS: LEVOTHYROXINE SODIUM 125 MCG TABLET PO SCH (05:26)
[2020-07-29 06:06] LABS: Hematocrit (blood only) 27.9 % (37-47); Hemoglobin 8.8 g/dL (12.0-16.0)
--- NOTE | 2020-07-29 07:03 | Ultrasound Report ---
ULTRASOUND BILATERAL LOWER EXTREMITY VENOUS CLINICAL HISTORY: Lower extremity pain and swelling. COMPARISON STUDY: Right lower extremity venous ultrasound dated 03/08/2020 TECHNIQUE: Real-time, grayscale, and color Doppler sonography of the deep veins of the right and left lower extremity was performed from the inguinal crease to the calf. Compression and augmentation wer e utilized. FINDINGS: There is no sonographic evidence of deep venous thrombosis identified in the right or left lower extremity. The common femoral, superficial femoral, and popliteal veins are patent and normally compressible bilaterally. The greater saphenous vein and the profunda femoris vein at the junction w ith the common femoral vein are clear in both legs. The visualized calf veins are patent bilaterally. IMPRESSION: There is no sonographic evidence of deep venous thrombosis identified in the right or lef t lower extremity. ACT 112: Negative or not required by law. Electronically signed by: Naseem Barraza M.D. 07/29/2020 7:01 AM
[2020-07-29] MEDS: SUCRALFATE 1 GM/10 ML UDC PO SCH ×4 (07:14→21:25)
[2020-07-29] MEDS: DOCUSATE SODIUM 100 MG CAP PO SCH ×2 (09:01→21:25)
[2020-07-29] MEDS: MICONAZOLE NITRATE 2% CR 30 GM TUBE EXT SCH ×2 (09:01→21:25)
[2020-07-29] MEDS: PANTOprazole 40 MG TAB PO SCH ×2 (09:01→21:25)
[2020-07-29] MEDS: MULTIVITAMIN TAB PO SCH (09:01)
--- NOTE | 2020-07-29 09:56 | Orthopedic Progress Note ---
Date of Service July 29, 2020 Assessment & Plan (1) Closed intertrochanteric fracture of right hip: Bactroban to area of redness in lateral thigh Reassured patient that it will take several weeks for the fracture to heal before she feels back to her baseline PT/OT daily WBAT RLE Pain control per internal med Lovenox for DVT prophylaxis Follow-up [facility] 2 weeks with x-rays after discharge Admission and Anticipated Discharge Date Admission Date: July 22, 2020 Subjective Patient reports she doesn't feel back to normal, still having some difficulty getting out of bed. No numbness/tingling, no fevers, chills, cp/sob. Physical Exam Physical Exam: RLE: 1 x 2 cm area of redness lateral thigh, honey crusted lesions on top. Patient previously had a blister here which popped. Dressings removed. Incisions c/d/i. New dressings placed. Results & Data ([facility]) Vital Signs (Past 12 Hours) Vital Signs Temp Pulse Resp BP Pulse Ox 07/29/20 07:00 36.6 C 71 17 114/57 L 96 07/28/20 23:40 37.2 C 76 18 116/60 97 (1) Closed intertrochanteric fracture of right hip Encounter type: initial encounter Fracture alignment: displaced Qualified Code(s): S72.141A - Displaced intertrochanteric fracture of right femur, initial encounter for closed fracture
[2020-07-29] MEDS: MUPIROCIN 2% OINT 22 GM TUBE EXT SCH ×2 (11:03→21:26)
[2020-07-29] MEDS: ENOXAPARIN INJ 40 MG/0.4 ML SYR SQ SCH (11:07)
[2020-07-29] MEDS ORDERED: COUGH DROP (SUGAR FREE) LOZ 24 LOZ/1 BOX BUCCAL PRN (12:31)
--- NOTE | 2020-07-29 18:10 | Hospitalist Progress Note ---
Date of Service July 29, 2020 Assessment & Plan (1) Closed intertrochanteric fracture of right hip: 85-year-old female with history of hypothyroidism, arthritis, pyelonephritis Presented with right hip pain after of mechanical fall Closed intertrochanteric fracture of the right hip Status post mechanical fall s/p Surgery 07/23 Developed post op anemia: EGD showed gastric ulcer H&H has been stable Appreciate input from orthopedics team Small blister noted on the bottom part of right thigh, per orthopedics Continue Bactroban twice a day on the blister. DVT prophylaxis-SQ Lovenox resumed per post Hip Fx recommendation Lower extremity Doppler negative for DVT Patient will need skilled rehab after discharge from hospital drowsiness /lethargy : Symptom has resolved, Metabolic encephalopathy possible secondary to acute illness, urine tract infection Management as below. UTI: UA positive, follow urine culture History of of recurrent UTI Anemia, Acute Blood Loss, iron deficiency Possible upper GI bleed Patient was noted to have anemia Hg 6.[address] head, chest, abd/pelvis: no hemorrhage anemia panel: Fe 33 --Has received 3 units of packed RBCs -hemoglobin remains stable 8.6 -- given 1 dose of Venofer 150 mg --Fecal occult blood test positive --Status post EGD: Positive for gastric ulcer, nonbleeding GI recommendations: - Use Protonix (pantoprazole) 40 mg PO BID for 6 weeks then reduce to 20 mg 1 time daily. - Use sucralfate tablets 1 gram PO QID for 4 weeks. - Repeat upper endoscopy in 3 months to check healing. Patient started on iron supplement DVT prophylaxis Subcu Lovenox Disposition PT and OT evaluation-appreciated will need rehab referral made to skilled rehab awaiting insurance approval Admission and Anticipated Discharge Date Admission Date: July 22, 2020 Subjective Follow-up visit for right intertrochanteric hip fracture S/P ORIF (open reduction internal fixation) fracture/UTI/deconditioning Offers no new complain, right hip pain has improved somewhat once able to be out of bed No fever or chills, denies of any cough no shortness of breath no dizzy spell or palpitation Appetite fair Review of Systems Review of Systems: All systems reviewed & are unremarkable except as noted in HPI & below Physical Exam Constitutional: WD/WN, vitals as above Eyes: PERRL, conjunctivae normal, anicteric sclerae ENMT: external ear and nose normal, oropharynx normal Neck: trachea midline, no thyromegaly Respiratory: normal respiratory effort, lungs clear to auscultation Cardiovascular: Rate/Rhythm: regular rate and regular rhythm Extremities: + pedal edema Gastrointestinal (Abdomen): Percussion/Palpation: abdomen soft; abdomen nontender Musculoskeletal: Hip: + surgical incision (Right hip surgical incision site well-healed, no redness tenderness or swel) Neurologic: PERRL, EOMI, accommodation nl, no face palsy, no dysarthria Psychiatric: A+Ox3, euthymic affect Results & Data Results & Data ([facility]) Vital Signs (Past 12 Hours) Vital Signs Temp Pulse Resp BP Pulse Ox 07/29/20 15:15 37.3 C 68 14 115/56 L 96 07/29/20 07:00 36.6 C 71 17 114/57 L 96 (1) Closed intertrochanteric fracture of right hip Encounter type: initial encounter Fracture alignment: displaced Qualified Code(s): S72.141A - Displaced intertrochanteric fracture of right femur, initial encounter for closed fracture
[2020-07-29] MEDS ORDERED: MUPIROCIN 2% OINT 22 GM TUBE EXT SCH (21:00)
[2020-07-29] MEDS: SENNA 8.6 MG TAB PO SCH (21:25)
[2020-07-30] MEDS ORDERED: KETOROLAC TROMETHAMINE 15 MG/ML VIAL IV ONE (01:47)
[2020-07-30] MEDS: LEVOTHYROXINE SODIUM 125 MCG TABLET PO SCH (05:06)
[2020-07-30] MEDS: ACETAMINOPHEN 500 MG TAB PO SCH ×3 (05:06→21:42)
[2020-07-30] MEDS: SUCRALFATE 1 GM/10 ML UDC PO SCH ×4 (06:34→21:42)
[2020-07-30 07:20] LABS: Creatinine Clr Calc Pharmacy 35.4 ml/min; Est GFR (African American) 47.1; Est GFR (Non-African American) 40.6
[2020-07-30] MEDS: MICONAZOLE NITRATE 2% CR 30 GM TUBE EXT SCH ×2 (08:33→21:42)
[2020-07-30] MEDS: MUPIROCIN 2% OINT 22 GM TUBE EXT SCH ×2 (08:34→21:42)
[2020-07-30] MEDS: MULTIVITAMIN TAB PO SCH (08:34)
[2020-07-30] MEDS: DOCUSATE SODIUM 100 MG CAP PO SCH ×2 (08:34→21:42)
[2020-07-30] MEDS: PANTOprazole 40 MG TAB PO SCH ×2 (08:34→21:42)
[2020-07-30] MEDS: ENOXAPARIN INJ 40 MG/0.4 ML SYR SQ SCH (08:35)
--- NOTE | 2020-07-30 13:30 | Orthopedic Progress Note ---
Date of Service July 30, 2020 Assessment & Plan (1) S/P ORIF (open reduction internal fixation) fracture: Continue PT/OT. Dressings were not changed today. Continue Bactroban twice a day on the blister. We will continue to follow while she is in-house. Continue medical management per hospitalist team. Admission and Anticipated Discharge Date Admission Date: July 22, 2020 Subjective Patient is seen in her room this morning. Today. She is eating lunch. She states she feels a little better than yesterday. She has been out of bed twice today. She does have a little discomfort in her right thigh. No other complaints. Review of Systems Review of Systems: Unchanged from yesterday. Physical Exam Physical Exam: Right thigh evaluation reveals dry intact dressings. No bleedthrough. Her crusted blister looks good. No significant erythema or warmth. Slightly improved from yesterday. Musculoskeletal: She has intact motor function to her ankle, knee, and hip, with discomfort, similar to yesterday. Neurologic: Gross sensation is intact across the right leg by soft touch. Results & Data ([facility]) Vital Signs (Past 12 Hours) Vital Signs Temp Pulse Resp BP Pulse Ox 07/30/20 06:50 36.8 C 75 16 132/74 95
--- NOTE | 2020-07-30 17:15 | Hospitalist Progress Note ---
Date of Service July 30, 2020 Assessment & Plan (1) Closed intertrochanteric fracture of right hip: 85-year-old female with history of hypothyroidism, arthritis, pyelonephritis Presented with right hip pain after of mechanical fall Closed intertrochanteric fracture of the right hip Status post mechanical fall s/p Surgery 07/23 Developed post op anemia: EGD showed gastric ulcer H&H has been stable Appreciate input from orthopedics team Small blister noted on the bottom part of right thigh, per orthopedics Continue Bactroban twice a day on the blister. DVT prophylaxis-SQ Lovenox resumed per post Hip Fx recommendation Lower extremity Doppler negative for DVT Patient will need skilled rehab after discharge from hospital drowsiness /lethargy : Symptom has resolved, Metabolic encephalopathy possible secondary to acute illness, urine tract infection Management as below. UTI: Urine culture gram-negative bacilli, Angelica History of recurrent urine tract infection, recent urine culture on 07/23/2020: Citrobacter -resistant to Rocephin Started on cefepime, appreciate pharmacy input We will add p.o. Diflucan for Angelica UTI Anemia, Acute Blood Loss, iron deficiency Possible upper GI bleed Patient was noted to have anemia Hg 6.[address] head, chest, abd/pelvis: no hemorrhage anemia panel: Fe 33 --Has received 3 units of packed RBCs -hemoglobin remains stable 8.6 -- given 1 dose of Venofer 150 mg --Fecal occult blood test positive --Status post EGD: Positive for gastric ulcer, nonbleeding GI recommendations: - Use Protonix (pantoprazole) 40 mg PO BID for 6 weeks then reduce to 20 mg 1 time daily. - Use sucralfate tablets 1 gram PO QID for 4 weeks. - Repeat upper endoscopy in 3 months to check healing. Patient started on iron supplement DVT prophylaxis Subcu Lovenox Disposition PT and OT evaluation-appreciated will need rehab referral made to skilled rehab awaiting insurance approval Admission and Anticipated Discharge Date Admission Date: July 22, 2020 Subjective Follow-up visit for right intertrochanteric hip fracture S/P ORIF (open reduction internal fixation) fracture/UTI/deconditioning Offers no new complain, right hip pain has improved somewhat once able to be out of bed No fever or chills, denies of any cough no shortness of breath no dizzy spell or palpitation Appetite fair Physical Exam Constitutional: WD/WN, vitals as above Eyes: PERRL, conjunctivae normal, anicteric sclerae ENMT: external ear and nose normal, oropharynx normal Neck: trachea midline, no thyromegaly Respiratory: normal respiratory effort, lungs clear to auscultation Cardiovascular: Rate/Rhythm: regular rate and regular rhythm Extremities: + pedal edema Gastrointestinal (Abdomen): Percussion/Palpation: abdomen soft; abdomen nontender Musculoskeletal: Hip: + surgical incision (Right hip surgical incision site well-healed, no redness tenderness or swel) Neurologic: PERRL, EOMI, accommodation nl, no face palsy, no dysarthria Psychiatric: A+Ox3, euthymic affect Results & Data Results & Data ([facility]) Vital Signs (Past 12 Hours) Vital Signs Temp Pulse Resp BP Pulse Ox 07/30/20 15:09 36.8 C 86 16 113/60 99 07/30/20 06:50 36.8 C 75 16 132/74 95 (1) Closed intertrochanteric fracture of right hip Encounter type: initial encounter Fracture alignment: displaced Qualified Code(s): S72.141A - Displaced intertrochanteric fracture of right femur, initial encounter for closed fracture
[2020-07-30] MEDS: FLUCONAZOLE 100 MG TAB PO SCH (18:29)
[2020-07-30] MEDS: CEFEPIME 2,000 MG in SYRINGE 0 ML IV SCH (18:29)
[2020-07-30] MEDS: SENNA 8.6 MG TAB PO SCH (21:42)
[2020-07-30] MEDS: ONDANSETRON INJ 2 MG/ML 2 ML VIAL IV PRN (22:23)
[2020-07-31] MEDS: LEVOTHYROXINE SODIUM 125 MCG TABLET PO SCH (06:23)
[2020-07-31] MEDS: ACETAMINOPHEN 500 MG TAB PO SCH ×3 (06:23→21:32)
[2020-07-31 07:31] LABS: Hematocrit (blood only) 27.7 % (37-47); Hemoglobin 8.7 g/dL (12.0-16.0); Mean Corpuscular Hemoglobin 29.5 pg (25-34); Mean Corpuscular Hgb Conc 31.4 g/dL (32-36); Mean Corpuscular Volume 93.9 fL (80-100); Mean Platelet Volume 9.5 fL (7.4-10.4); Platelet Count 443 K/uL (130-400); RDW Coefficient of Variation 16.1 % (11.5-14.5); RDW Standard Deviation 53.6 fL (36.4-46.3); Red Blood Count 2.95 M/uL (4.2-5.4); White Blood Count 11.86 K/uL (4.8-10.8)
[2020-07-31] MEDS: MULTIVITAMIN TAB PO SCH (09:06)
[2020-07-31] MEDS: FLUCONAZOLE 100 MG TAB PO SCH (09:06)
[2020-07-31] MEDS: PANTOprazole 40 MG TAB PO SCH ×2 (09:06→21:32)
[2020-07-31] MEDS: SUCRALFATE 1 GM/10 ML UDC PO SCH ×4 (09:06→21:31)
[2020-07-31] MEDS: DOCUSATE SODIUM 100 MG CAP PO SCH ×2 (09:07→21:31)
[2020-07-31] MEDS: ENOXAPARIN INJ 40 MG/0.4 ML SYR SQ SCH (09:07)
[2020-07-31] MEDS: MICONAZOLE NITRATE 2% CR 30 GM TUBE EXT SCH ×2 (09:08→21:32)
[2020-07-31] MEDS: MUPIROCIN 2% OINT 22 GM TUBE EXT SCH ×2 (09:08→21:31)
[2020-07-31] MEDS: MAGNESIUM HYDROXIDE SUSP 30 ML UDC PO PRN (18:01)
[2020-07-31] MEDS: CEFEPIME 2,000 MG in SYRINGE 0 ML IV SCH (18:05)
--- NOTE | 2020-07-31 18:41 | Hospitalist Progress Note ---
Date of Service July 31, 2020 Assessment & Plan (1) Closed intertrochanteric fracture of right hip: 85-year-old female with history of hypothyroidism, arthritis, pyelonephritis Presented with right hip pain after of mechanical fall Closed intertrochanteric fracture of the right hip Status post mechanical fall s/p Surgery 07/23 Developed post op anemia: EGD showed gastric ulcer H&H has been stable Appreciate input from orthopedics team Small blister noted on the bottom part of right thigh, per orthopedics Continue Bactroban twice a day on the blister. DVT prophylaxis-SQ Lovenox resumed per post Hip Fx recommendation Lower extremity Doppler negative for DVT Patient will need skilled rehab after discharge from hospital drowsiness /lethargy : Symptom has resolved, Metabolic encephalopathy possible secondary to acute illness, urine tract infection Management as below. UTI: Urine culture gram-negative bacilli, Angelica History of recurrent urine tract infection, recent urine culture on 07/23/2020: Citrobacter -resistant to Rocephin Started on cefepime, appreciate pharmacy input We will add p.o. Diflucan for Angelica UTI Anemia, Acute Blood Loss, iron deficiency Possible upper GI bleed Patient was noted to have anemia Hg 6.[address] head, chest, abd/pelvis: no hemorrhage anemia panel: Fe 33 --Has received 3 units of packed RBCs -hemoglobin remains stable 8.6 -- given 1 dose of Venofer 150 mg --Fecal occult blood test positive --Status post EGD: Positive for gastric ulcer, nonbleeding GI recommendations: - Use Protonix (pantoprazole) 40 mg PO BID for 6 weeks then reduce to 20 mg 1 time daily. - Use sucralfate tablets 1 gram PO QID for 4 weeks. - Repeat upper endoscopy in 3 months to check healing. Patient started on iron supplement DVT prophylaxis Subcu Lovenox Disposition PT and OT evaluation-appreciated will need rehab referral made to skilled rehab awaiting insurance approval Admission and Anticipated Discharge Date Admission Date: July 22, 2020 Subjective Follow-up visit for right intertrochanteric hip fracture S/P ORIF (open reduction internal fixation) fracture/UTI/deconditioning hip pain as improved offers no complain no fever or chills mental status at baseline Physical Exam Constitutional: WD/WN, vitals as above Eyes: PERRL, conjunctivae normal, anicteric sclerae ENMT: external ear and nose normal, oropharynx normal Neck: trachea midline, no thyromegaly Respiratory: normal respiratory effort, lungs clear to auscultation Cardiovascular: Rate/Rhythm: regular rate and regular rhythm Extremities: + pedal edema Gastrointestinal (Abdomen): Percussion/Palpation: abdomen soft; abdomen nontender Musculoskeletal: Hip: + surgical incision (Right hip surgical incision site well-healed, no redness tenderness or swel) Neurologic: PERRL, EOMI, accommodation nl, no face palsy, no dysarthria Psychiatric: A+Ox3, euthymic affect Results & Data Results & Data ([facility]) Vital Signs (Past 12 Hours) Vital Signs Temp Pulse Resp BP Pulse Ox 07/31/20 15:55 37 C 71 16 102/65 97 07/31/20 08:40 37.2 C 70 16 111/65 97 (1) Closed intertrochanteric fracture of right hip Encounter type: initial encounter Fracture alignment: displaced Qualified Code(s): S72.141A - Displaced intertrochanteric fracture of right femur, initial encounter for closed fracture
[2020-07-31] MEDS: SENNA 8.6 MG TAB PO SCH (21:32)
[2020-08-01] MEDS: ACETAMINOPHEN 500 MG TAB PO SCH ×3 (05:38→20:48)
[2020-08-01] MEDS: LEVOTHYROXINE SODIUM 125 MCG TABLET PO SCH (05:38)
[2020-08-01] MEDS: ENOXAPARIN INJ 40 MG/0.4 ML SYR SQ SCH (09:17)
[2020-08-01] MEDS: SUCRALFATE 1 GM/10 ML UDC PO SCH ×4 (09:17→20:47)
[2020-08-01] MEDS: MULTIVITAMIN TAB PO SCH (09:18)
[2020-08-01] MEDS: DOCUSATE SODIUM 100 MG CAP PO SCH ×2 (09:18→20:47)
[2020-08-01] MEDS: FLUCONAZOLE 100 MG TAB PO SCH (09:18)
[2020-08-01] MEDS: PANTOprazole 40 MG TAB PO SCH ×2 (09:18→20:47)
[2020-08-01] MEDS: MUPIROCIN 2% OINT 22 GM TUBE EXT SCH ×2 (09:20→20:48)
[2020-08-01] MEDS: MICONAZOLE NITRATE 2% CR 30 GM TUBE EXT SCH ×2 (09:20→20:47)
[2020-08-01] MEDS: CEFEPIME 2,000 MG in SYRINGE 0 ML IV SCH (18:15)
--- NOTE | 2020-08-01 18:47 | Hospitalist Progress Note ---
Date of Service August 01, 2020 Assessment & Plan (1) Closed intertrochanteric fracture of right hip: 85-year-old female with history of hypothyroidism, arthritis, pyelonephritis Presented with right hip pain after of mechanical fall Closed intertrochanteric fracture of the right hip Status post mechanical fall s/p Surgery 07/23 Developed post op anemia: EGD showed gastric ulcer H&H has been stable Appreciate input from orthopedics team Small blister noted on the bottom part of right thigh, per orthopedics Continue Bactroban twice a day on the blister. DVT prophylaxis-SQ Lovenox resumed per post Hip Fx recommendation Lower extremity Doppler negative for DVT Patient will need skilled rehab after discharge from hospital UTI: Urine culture gram-negative bacilli, Angelica History of recurrent urine tract infection, recent urine culture on 07/23/2020: Citrobacter -resistant to Rocephin Started on cefepime, appreciate pharmacy input We will add p.o. Diflucan for Angelica UTI Anemia, Acute Blood Loss, iron deficiency Possible upper GI bleed Patient was noted to have anemia Hg 6.[address] head, chest, abd/pelvis: no hemorrhage anemia panel: Fe 33 --Has received 3 units of packed RBCs -hemoglobin remains stable 8.6 -- given 1 dose of Venofer 150 mg --Fecal occult blood test positive --Status post EGD: Positive for gastric ulcer, nonbleeding GI recommendations: - Use Protonix (pantoprazole) 40 mg PO BID for 6 weeks then reduce to 20 mg 1 time daily. - Use sucralfate tablets 1 gram PO QID for 4 weeks. - Repeat upper endoscopy in 3 months to check healing. Patient started on iron supplement DVT prophylaxis Subcu Lovenox Disposition PT and OT evaluation-appreciated will need rehab Admission and Anticipated Discharge Date Admission Date: July 22, 2020 Subjective Follow-up visit for right intertrochanteric hip fracture S/P ORIF (open reduction internal fixation) fracture/UTI/deconditioning feels fine awake , doing cross word puzzle feels better after having bowel movement today rt hip pain is better worried about rehab placement after hospital discharge Physical Exam Constitutional: WD/WN, vitals as above Eyes: PERRL, conjunctivae normal, anicteric sclerae ENMT: external ear and nose normal, oropharynx normal Neck: trachea midline, no thyromegaly Respiratory: normal respiratory effort, lungs clear to auscultation Cardiovascular: Rate/Rhythm: regular rate and regular rhythm Gastrointestinal (Abdomen): Percussion/Palpation: abdomen soft; abdomen nontender Neurologic: PERRL, EOMI, accommodation nl, no face palsy, no dysarthria Psychiatric: A+Ox3, euthymic affect Results & Data Results & Data ([facility]) Vital Signs (Past 12 Hours) Vital Signs Temp Pulse Resp BP Pulse Ox 08/01/20 15:52 36.8 C 65 16 98/58 L 98 08/01/20 07:43 36.5 C 78 18 130/69 96 (1) Closed intertrochanteric fracture of right hip Encounter type: initial encounter Fracture alignment: displaced Qualified Code(s): S72.141A - Displaced intertrochanteric fracture of right femur, initial encounter for closed fracture
[2020-08-01] MEDS ORDERED: SOD PHOSPHATE/SOD BIPHOSPHATE ENEMA 132 ML BTL PR STA (20:17)
[2020-08-01] MEDS: SENNA 8.6 MG TAB PO SCH (20:47)
[2020-08-01] MEDS: MAGNESIUM HYDROXIDE SUSP 30 ML UDC PO PRN (20:55)
[2020-08-01] MEDS ORDERED: ACETAMINOPHEN 500 MG TAB PO PRN (22:01)
[2020-08-01] MEDS: CIPROFLOXACIN 250 MG TAB PO SCH (23:35)
[2020-08-02] MEDS: traMADol HCL 50 MG TABLET PO PRN ×2 (04:21→20:17)
[2020-08-02] MEDS: LEVOTHYROXINE SODIUM 125 MCG TABLET PO SCH (06:06)
[2020-08-02 08:16] LABS: Calcium 8.7 mg/dl (8.5-10.1); Creatinine Clr Calc Pharmacy 35.1 ml/min; Est GFR (African American) 46.6; Est GFR (Non-African American) 40.2; Potassium 4.5 mmol/L (3.5-5.1)
[2020-08-02] MEDS: SUCRALFATE 1 GM/10 ML UDC PO SCH ×4 (08:29→20:18)
[2020-08-02] MEDS: POLYETHYLENE (MIRALAX) 17 GM PACK PO SCH (08:47)
[2020-08-02] MEDS: ENOXAPARIN INJ 40 MG/0.4 ML SYR SQ SCH (08:47)
[2020-08-02] MEDS: DOCUSATE SODIUM 100 MG CAP PO SCH ×2 (08:47→20:17)
[2020-08-02] MEDS: MULTIVITAMIN TAB PO SCH (08:48)
[2020-08-02] MEDS: CIPROFLOXACIN 250 MG TAB PO SCH ×2 (08:48→20:17)
[2020-08-02] MEDS: PANTOprazole 40 MG TAB PO SCH ×2 (08:48→20:17)
[2020-08-02] MEDS: FLUCONAZOLE 100 MG TAB PO SCH (08:48)
[2020-08-02] MEDS: MICONAZOLE NITRATE 2% CR 30 GM TUBE EXT SCH ×2 (08:49→20:20)
[2020-08-02] MEDS: MUPIROCIN 2% OINT 22 GM TUBE EXT SCH ×2 (08:49→20:19)
--- NOTE | 2020-08-02 18:34 | Hospitalist Progress Note ---
Date of Service August 02, 2020 Assessment & Plan (1) Closed intertrochanteric fracture of right hip: 85-year-old female with history of hypothyroidism, arthritis, pyelonephritis Presented with right hip pain after of mechanical fall Closed intertrochanteric fracture of the right hip Status post mechanical fall s/p Surgery 07/23 Developed post op anemia: EGD showed gastric ulcer H&H has been stable Appreciate input from orthopedics team Small blister noted on the bottom part of right thigh, per orthopedics Continue Bactroban twice a day on the blister. DVT prophylaxis-SQ Lovenox resumed per post Hip Fx recommendation Lower extremity Doppler negative for DVT Patient will need skilled rehab after discharge from hospital UTI: Urine culture gram-negative bacilli, Angelica abx changed to PO Cipro -per sensivity cont diflucan for angelica infection Anemia, Acute Blood Loss, iron deficiency Possible upper GI bleed Hb stable post transfusion anemia panel: Fe 33 --Has received 3 units of packed RBCs -hemoglobin remains stable 8.6 -- given 1 dose of Venofer 150 mg --Fecal occult blood test positive --Status post EGD: Positive for gastric ulcer, nonbleeding GI recommendations: - Use Protonix (pantoprazole) 40 mg PO BID for 6 weeks then reduce to 20 mg 1 time daily. - Use sucralfate tablets 1 gram PO QID for 4 weeks. - Repeat upper endoscopy in 3 months to check healing. Patient started on iron supplement DVT prophylaxis Subcu Lovenox Disposition PT and OT evaluation-appreciated will need rehab Admission and Anticipated Discharge Date Admission Date: July 22, 2020 Subjective Follow-up visit for right intertrochanteric hip fracture S/P ORIF (open reduction internal fixation) fracture/UTI/deconditioning feels fine awake , alert , very please , offers no complain rt hip surgical pain has improved was able to stay on chair for few hours able to go to bathroom with RW and assistance no fever or chills no cough or SOB waiting for rehab placement Review of Systems Review of Systems: All systems reviewed & are unremarkable except as noted in HPI & below Physical Exam Constitutional: WD/WN, vitals as above Eyes: PERRL, conjunctivae normal, anicteric sclerae ENMT: external ear and nose normal, oropharynx normal Neck: trachea midline, no thyromegaly Respiratory: normal respiratory effort, lungs clear to auscultation Cardiovascular: Rate/Rhythm: regular rate and regular rhythm Extremities: + pedal edema Gastrointestinal (Abdomen): Percussion/Palpation: abdomen soft; abdomen nontender Musculoskeletal: Hip: + surgical incision (Right hip surgical incision site well-healed, no redness tenderness or swel) Neurologic: PERRL, EOMI, accommodation nl, no face palsy, no dysarthria Psychiatric: A+Ox3, euthymic affect Results & Data Results & Data ([facility]) Vital Signs (Past 12 Hours) Vital Signs Temp Pulse Resp BP Pulse Ox 08/02/20 15:33 36.8 C 79 18 105/65 100 08/02/20 07:25 37.0 C 71 16 104/63 97 (1) Closed intertrochanteric fracture of right hip Encounter type: initial encounter Fracture alignment: displaced Qualified Code(s): S72.141A - Displaced intertrochanteric fracture of right femur, initial encounter for closed fracture
[2020-08-02] MEDS: SENNA 8.6 MG TAB PO SCH (20:17)
[2020-08-03] MEDS: LEVOTHYROXINE SODIUM 125 MCG TABLET PO SCH (04:59)
[2020-08-03] MEDS: MUPIROCIN 2% OINT 22 GM TUBE EXT SCH ×2 (08:34→20:46)
[2020-08-03] MEDS: MULTIVITAMIN TAB PO SCH (08:34)
[2020-08-03] MEDS: SUCRALFATE 1 GM/10 ML UDC PO SCH ×4 (08:34→20:45)
[2020-08-03] MEDS: CIPROFLOXACIN 250 MG TAB PO SCH ×2 (08:35→20:46)
[2020-08-03] MEDS: DOCUSATE SODIUM 100 MG CAP PO SCH ×2 (08:35→20:46)
[2020-08-03] MEDS: ENOXAPARIN INJ 40 MG/0.4 ML SYR SQ SCH (08:35)
[2020-08-03] MEDS: PANTOprazole 40 MG TAB PO SCH ×2 (08:35→20:46)
[2020-08-03] MEDS: POLYETHYLENE (MIRALAX) 17 GM PACK PO SCH (08:35)
[2020-08-03] MEDS: MICONAZOLE NITRATE 2% CR 30 GM TUBE EXT SCH ×2 (08:37→20:38)
[2020-08-03] MEDS: FLUCONAZOLE 100 MG TAB PO SCH (09:06)
--- NOTE | 2020-08-03 13:02 | Orthopedic Progress Note ---
Date of Service August 03, 2020 Assessment & Plan (1) S/P ORIF (open reduction internal fixation) fracture: We will continue to follow while she is admitted. Continue PT/OT. Awaiting transfer to longterm facility when a bed becomes available. She will need new films of her right hip and staple removal in 3 to 4 days. Continue DVT prophylaxis. Admission and Anticipated Discharge Date Admission Date: July 22, 2020 Subjective Patient is seen in her room this morning. She is sitting in a chair at bedside. She is 11 days post ORIF of the right femur. She has no complaints at this point, other than having to go to the bathroom. She states she has been up for most of the morning and out of bed. She has participated in therapy. She is still awaiting placement at a longterm facility. Review of Systems Review of Systems: Unchanged from previous exams Physical Exam Physical Exam: General: Well-developed, elderly white female, sitting at bedside. Alert and conversive. Skin: Warm and dry with fair turgor. Venous stasis changes present peripherally. Her surgical wounds are dry and have no drainage. No erythema or warmth. Minimally tender to touch. Musculoskeletal: Patient has intact motor function of her Right hip, knee, and ankle. No significant discomfort with active and passive hip flexion and extension as well as internal/external rotation. Neurologic: Gross sensation is intact across the right leg by soft touch. Peripheral pulses are 2+. Results & Data ([facility]) Vital Signs (Past 12 Hours) Vital Signs Temp Pulse Resp BP Pulse Ox 08/03/20 07:29 37.2 C 74 18 109/55 L 97
--- NOTE | 2020-08-03 17:35 | Hospitalist Progress Note ---
Date of Service August 03, 2020 Assessment & Plan (1) Closed intertrochanteric fracture of right hip: 85-year-old female with history of hypothyroidism, arthritis, pyelonephritis Presented with right hip pain after of mechanical fall Closed intertrochanteric fracture of the right hip Status post mechanical fall s/p Surgery 07/23 Developed post op anemia: EGD showed gastric ulcer H&H has been stable Appreciate input from orthopedics team Small blister noted on the bottom part of right thigh, per orthopedics Continue Bactroban twice a day on the blister. DVT prophylaxis-SQ Lovenox resumed per post Hip Fx recommendation Lower extremity Doppler negative for DVT Patient will need skilled rehab after discharge from hospital UTI: Urine culture gram-negative bacilli, Angelica abx changed to PO Cipro -per sensivity cont diflucan for angelica infection Anemia, Acute Blood Loss, iron deficiency Possible upper GI bleed Hb stable post transfusion anemia panel: Fe 33 --Has received 3 units of packed RBCs -hemoglobin remains stable 8.6 -- given 1 dose of Venofer 150 mg --Fecal occult blood test positive --Status post EGD: Positive for gastric ulcer, nonbleeding GI recommendations: - Use Protonix (pantoprazole) 40 mg PO BID for 6 weeks then reduce to 20 mg 1 time daily. - Use sucralfate tablets 1 gram PO QID for 4 weeks. - Repeat upper endoscopy in 3 months to check healing. Patient started on iron supplement DVT prophylaxis Subcu Lovenox Disposition PT and OT evaluation-appreciated will need rehab waiting for placement Admission and Anticipated Discharge Date Admission Date: July 22, 2020 Subjective Patient is seen in her room this morning. She is sitting in a chair at bedside. She is 11 days post ORIF of the right femur. She has no complaints at this point, other than having to go to the bathroom. She states she has been up for most of the morning and out of bed. She has participated in therapy. She is still awaiting placement at a long-term facility. Physical Exam Constitutional: WD/WN, vitals as above Eyes: PERRL, conjunctivae normal, anicteric sclerae ENMT: external ear and nose normal, oropharynx normal Neck: trachea midline, no thyromegaly Respiratory: normal respiratory effort, lungs clear to auscultation Cardiovascular: Rate/Rhythm: regular rate and regular rhythm Extremities: + pedal edema Gastrointestinal (Abdomen): Percussion/Palpation: abdomen soft; abdomen nontender Musculoskeletal: Hip: + surgical incision (Right hip surgical incision site well-healed, no redness tenderness or swel) Neurologic: PERRL, EOMI, accommodation nl, no face palsy, no dysarthria Psychiatric: A+Ox3, euthymic affect Results & Data Results & Data ([facility]) Vital Signs (Past 12 Hours) Vital Signs Temp Pulse Resp BP Pulse Ox 08/03/20 16:16 37 C 80 16 127/72 99 08/03/20 07:29 37.2 C 74 18 109/55 L 97 (1) Closed intertrochanteric fracture of right hip Encounter type: initial encounter Fracture alignment: displaced Qualified Code(s): S72.141A - Displaced intertrochanteric fracture of right femur, initial encounter for closed fracture
[2020-08-03] MEDS: SENNA 8.6 MG TAB PO SCH (20:45)
[2020-08-04] MEDS: LEVOTHYROXINE SODIUM 125 MCG TABLET PO SCH (06:24)
[2020-08-04] MEDS: POLYETHYLENE (MIRALAX) 17 GM PACK PO SCH (09:08)
[2020-08-04] MEDS: ENOXAPARIN INJ 40 MG/0.4 ML SYR SQ SCH (09:08)
[2020-08-04] MEDS: SUCRALFATE 1 GM/10 ML UDC PO SCH ×4 (09:08→19:36)
[2020-08-04] MEDS: PANTOprazole 40 MG TAB PO SCH ×2 (09:08→19:38)
[2020-08-04] MEDS: FLUCONAZOLE 100 MG TAB PO SCH (09:09)
[2020-08-04] MEDS: CIPROFLOXACIN 250 MG TAB PO SCH ×2 (09:09→19:36)
[2020-08-04] MEDS: DOCUSATE SODIUM 100 MG CAP PO SCH ×2 (09:09→19:37)
[2020-08-04] MEDS: MULTIVITAMIN TAB PO SCH (09:09)
[2020-08-04] MEDS: MUPIROCIN 2% OINT 22 GM TUBE EXT SCH ×2 (09:09→19:36)
[2020-08-04] MEDS: MICONAZOLE NITRATE 2% CR 30 GM TUBE EXT SCH ×2 (09:10→19:37)
--- NOTE | 2020-08-04 18:41 | Hospitalist Progress Note ---
Date of Service August 04, 2020 Assessment & Plan (1) Closed intertrochanteric fracture of right hip: 85-year-old female with history of hypothyroidism, arthritis, pyelonephritis Presented with right hip pain after of mechanical fall S/P ORIF (open reduction internal fixation) fracture on 07/23 Hgb dropped post op Continue PT/OT. She will need new films of her right hip and staple removal in 3 to 4 days. Follow up with ortho outpatient waiting for placement to rehab Small blister noted on the bottom part of right thigh, per orthopedics Continue Bactroban twice a day on the blister. UTI: Urine culture gram-negative bacilli, Angelica abx changed to PO Cipro -per sensivity cont diflucan for angelica infection Anemia, Acute Blood Loss, iron deficiency Hg 6.[address] head, chest, abd/pelvis: no hemorrhage Received 3 units of packed RBCs during the hospital course Received 1 dose of Venofer 150 mg Fecal occult blood test positive Status post EGD: Positive for gastric ulcer, nonbleeding GI on board that recommended Protonix (pantoprazole) 40 mg PO BID for 6 weeks, then reduce to 20 mg 1 time daily. Sucralfate tablets 1 gram PO QID for 4 weeks. Will need a repeat upper endoscopy in 3 months to check healing. Continue iron supplement DVT prophylaxis Subcu Lovenox Disposition PT and OT evaluation-appreciated will need rehab waiting for placement Admission and Anticipated Discharge Date Admission Date: July 22, 2020 Subjective Pt was seen and examined Lying in bed with no distress Denies any any recent complaint Physical Exam Physical Exam: General- No acute distress Head- atraumatic Eyes- PERRL, EOMI, ENT- oropharynx clear Neck- supple, no JVD Lungs- clear to auscultation Heart- regular rhythm; no murmur Abdomen- normal bowel sounds, soft, nontender Extremities- no calf tenderness, +edema, Incision area intake Neuro- alert, oriented x 3; PERRL, EOMI; no facial palsy; no dysarthria Skin- warm & dry Results & Data Results & Data ([facility]) Vital Signs (Past 12 Hours) Vital Signs Temp Pulse Resp BP BP Pulse Ox 08/04/20 15:02 36.7 C 75 16 137/63 95 08/04/20 07:30 36.8 C 70 18 108/62 96 (1) Closed intertrochanteric fracture of right hip Encounter type: initial encounter Fracture alignment: displaced Qualified Code(s): S72.141A - Displaced intertrochanteric fracture of right femur, initial encounter for closed fracture
[2020-08-04 19:33] VITALS: O2SAT 96
[2020-08-04] MEDS: SENNA 8.6 MG TAB PO SCH (19:37)
[2020-08-05] MEDS: LEVOTHYROXINE SODIUM 125 MCG TABLET PO SCH (06:23)
[2020-08-05 07:01] VITALS: PULSE 67; TEMP 98.8
[2020-08-05 07:12] LABS: Creatinine Clr Calc Pharmacy 36.9 ml/min; Est GFR (African American) 49.6; Est GFR (Non-African American) 42.8
[2020-08-05] MEDS: SUCRALFATE 1 GM/10 ML UDC PO SCH ×2 (07:47→13:03)
[2020-08-05] MEDS: MULTIVITAMIN TAB PO SCH (08:16)
[2020-08-05] MEDS: FLUCONAZOLE 100 MG TAB PO SCH (08:16)
[2020-08-05] MEDS: PANTOprazole 40 MG TAB PO SCH (08:16)
[2020-08-05] MEDS: ENOXAPARIN INJ 40 MG/0.4 ML SYR SQ SCH (08:17)
[2020-08-05] MEDS: MUPIROCIN 2% OINT 22 GM TUBE EXT SCH (08:18)
[2020-08-05] MEDS: DOCUSATE SODIUM 100 MG CAP PO SCH (08:18)
[2020-08-05] MEDS: MICONAZOLE NITRATE 2% CR 30 GM TUBE EXT SCH (08:19)
[2020-08-05] MEDS: CIPROFLOXACIN 250 MG TAB PO SCH (08:19)
[2020-08-05] MEDS: POLYETHYLENE (MIRALAX) 17 GM PACK PO SCH (08:19)
--- NOTE | 2020-08-05 10:11 | XRay Report ---
XR femur RT 2V routine CLINICAL HISTORY: 2 week femoral fracture follow-up with intramedullary latoya internal fixation. COMPARISON STUDY: Right femur 07/23/2020. FINDINGS: Status post internal fixation of an intertrochanteric fracture within the proximal right fe mur with an intramedullary latoya law and interlocking femoral neck pin. The hardware appears intact. Th e alignment remains unchanged. Severe osteoarthritis with flattening of the femoral head, subchondral sclerosis, and subchondral cystic change within the right hip. A superimposed chronic avascular necr osis cannot be excluded. No significant callus formation to suggest interval healing. There are skin lee and soft tissue swelling within the lateral aspect of the right hip. The bones are osteopenic . Moderate osteoarthritis within the right knee. IMPRESSION: Status post internal fixation of a right hip intertrochanteric fracture. The hardware re kings intact. The alignment is unchanged. ACT 112: Negative or not required by law. Electronically signed by: Moose Coon M.D. 08/05/2020 10:09 AM
--- NOTE | 2020-08-05 11:28 | Orthopedic Progress Note ---
Date of Service August 05, 2020 Assessment & Plan (1) Closed intertrochanteric fracture of right hip: WBAT RLE with walker assistance Pain control per internal med Lovenox for DVT prophylaxis Awaiting discharge to residential facility Follow-up Arianna 2 weeks with x-rays after discharge Admission and Anticipated Discharge Date Admission Date: July 22, 2020 Subjective This 85-year-old female is 13 days status post open reduction internal fixation of right femur fracture. She states she is doing fine. She is awaiting discharge to rehab facility. She states that she still has difficulty lifting her right lower extremity and bending in her knee due to pain, but states that she is able to ambulate with walker assistance from her bed to the bathroom. She also states that she is able to partake in physical therapy. Patient denies chest pain, shortness of breath, fever, chills, sweats, lethargy, nausea, vomiting or diarrhea. She states that she is ready to be discharged as soon as possible. Review of Systems Review of Systems: All systems reviewed & are unremarkable except as noted in Subjective Physical Exam Physical Exam: Right Hip: dressing are clean dry and intact. Dressings were removed. Wounds are completely healed and lee were taken out as well. Steri-Strips were applied over the incision sites. patient is unable to perform SLRT. Knee ROM is from 0-40 degrees passively. Log roll test negative. Mild pain with light passive internal and external hip rotation at 40 degrees. Patient is able to actively dorsi/plantar flex foot. Calf soft and supple. NV intact. Quad strength 1/5. Results & Data ([facility]) Vital Signs (Past 12 Hours) Vital Signs Temp Pulse Resp BP Pulse Ox 08/05/20 06:57 37.1 C 67 16 112/66 96 (1) Closed intertrochanteric fracture of right hip Encounter type: initial encounter Fracture alignment: displaced Qualified Code(s): S72.141A - Displaced intertrochanteric fracture of right femur, initial encounter for closed fracture
--- NOTE | 2020-08-05 13:15 | Discharge Summary ---
Date of Service August 05, 2020 Admission HPI Per Admitting Provider 85-year-old female with history of hypothyroidism, arthritis, pyelonephritis Presenting with severe right hip pain status post mechanical fall. Patient was at her usual state of health until this afternoon. As per patient, she walked to charge her phone but unfortunately lost her balance and fell landing on her right side. Patient denies any loss of consciousness, chest pain, palpitations, dizziness, lightheadedness. She did experience a severe right hip pain after the fall, hence was brought to the ER for evaluation At the ER, the patient was found to have right traumatic fracture. Hospitalist consulted for admission. On exam, patient seen resting in bed, not in acute respiratory distress, but is having severe right hip pain which is worse with movement. She denies having any headache, dizziness, change in vision, focal neurologic deficits Chest pain, shortness of breath, palpitations, abdominal pain. No problems with urination or bowel movement, fevers or chills. No other symptoms Admission Exam Per Admitting Provider General- oriented x 3, not in distress, speaks in sentences with no effort or accessory muscle use Head- atraumatic Eyes- PERRL, EOMI, anicteric ENT- oropharynx clear Neck- supple, no JVD, no adenopathy, no thyromegaly; carotids +2/2, no bruits appreciated Lungs- clear to auscultation bilaterally, no rales/wheezes Heart- normal rate, regular rhythm; no murmur, no gallop, no rub appreciated Abdomen- normal bowel sounds, nondistended, soft, nontender, no masses or hepatosplenomegaly Extremities- Right lower extremity externally rotated, with tenderness to palpation no pretibial edema, no calf tenderness; peripheral pulses intact Positive erythema on both lower extremity, but no warmth or tenderness; poor hygiene of bilateral lower extremity including feet Neuro- alert, oriented x 3; CN 2-12 grossly intact; motor 5/5 bilaterally;sensation 100% on all extremities; no other gross focal neurologic deficits Skin- warm & dry Principal Diagnosis Right hip fracture status post surgery UTI Gastric ulcer Anemia Discharge Exam General- No acute distress Head- atraumatic Eyes- PERRL, EOMI, ENT- oropharynx clear Neck- supple, no JVD Lungs- clear to auscultation Heart- regular rhythm; no murmur Abdomen- normal bowel sounds, soft, nontender Extremities- no calf tenderness, +edema, Incision area intake Neuro- alert, oriented x 3; PERRL, EOMI; no facial palsy; no dysarthria Skin- warm & dry Discharge Data Allergies Allergy/AdvReac Type Severity Reaction Status Date / Time tetracycline Allergy Unknown Verified 07/23/20 14:53 Consultations 07/22/20 14:03 ED Decision to Admit Stat 07/22/20 17:18 Consult Anesthesiology Routine Consult Case Management - Discharge Planning Routine Consult Orthopedic Surgery Routine 07/24/20 08:00 Consult Case Management - Discharge Planning Routine 07/26/20 16:26 Consult Gastroenterology Routine Procedures Performed Operation Date: 07/23/20 11:30 Actual Procedures p Right Troch Nail(Right) - Reid Keller MD Operation Date: 07/27/20 16:15 Actual Procedures p EGD Biopsy Cytology - Kamari Oden DO Ordered Studies 07/23/20 16:30 FL femur RT 2V Routine FL fluoroscopy <1hr Routine 07/24/20 12:57 CT abd pelvis wo con Stat CT chest wo con Stat CT head/brain wo con Stat 07/28/20 20:22 US venous doppler LE BI Urgent XR chest 1V portable HISTORY: Atypical Chest Pain COMPARISON: Chest 02/23/2020. FINDINGS: The cardiac silhouette is mildly enlarged. Moderate hiatus hernia, unchanged. No pleural effusions. No pneumothorax. Old, healed right humeral neck fracture. No focal lung consolidations to suggest pneumonia. No evidence for pulmonary edema. IMPRESSION: No acute process. ACT 112: Negative or not required by law. Electronically signed by: Moose Coon M.D. 07/22/2020 1:55 PM Dictated: 07/22/20 1351Transcribed: 07/22/20 1351 XR hip RT 2V w pelvis CLINICAL HISTORY: Right hand pain status post trauma COMPARISON: CT scan performed February 28, 2020 DISCUSSION: There are bilateral double pigtail right-sided nephroureteral stents. There are advanced arthritic changes present within the right hip. There is an acute intertrochanteric right hip fracture. The greater trochanteric fragment is displaced by 2 cm. There is a total left hip arthroplasty. There is no evidence of SI joint diastases. There is no evidence of symphysis diastases. IMPRESSION: Acute intertrochanteric right hip fracture. ACT 112: Negative or not required by law. Electronically signed by: Valerio Landa M.D. 07/22/2020 1:55 PM Dictated: 07/22/20 1353Transcribed: 07/22/20 1353 XR femur RT 2V routine CLINICAL HISTORY: Right hip fracture status post surgery COMPARISON: None. DISCUSSION: The distal aspect of bilateral double pigtail nephroureteral stents are visualized. There is an old total left hip arthroplasty. There is interval internal fixation of an intertrochanteric right hip fracture with a trochanteric nail and interlocking intramedullary latoya. The distal latoya is fixated with 2 transverse screws. There are moderate arthritic changes within the right knee. There are advanced arthritic changes within the right hip. IMPRESSION: 1. Internally fixated intertrochanteric right hip fracture. ACT 112: Negative or not required by law. Electronically signed by: Valerio Landa M.D. 07/23/2020 7:21 PM Dictated: 07/23/201918Transcribed: 07/23/201918 FL femur RT 2V CLINICAL HISTORY: Right hip fracture. Internal fixation. COMPARISON STUDY: 07/22/2020 FLUOROSCOPY TIME: 69 seconds. NUMBER OF FLUOROSCOPIC IMAGES: 6 FINDINGS: The patient intertrochanteric right hip fracture has been internally fixated with a trochanteric nail, and interlocking intramedullary latoya with 2 distal transverse femoral diaphyseal screws. There are severe arthritic changes within the right hip. IMPRESSION: 1. Internally fixated intertrochanteric right hip fracture. 2. Severe arthritic changes within the right hip ACT 112: Negative or not required by law. Electronically signed by: Valerio Landa M.D. 07/23/2020 6:08 PM Dictated: 07/23/207Transcribed: 07/23/201806 XR pelvis 1-2V routine CLINICAL HISTORY: Fracture status post internal fixation COMPARISON: 07/22/2020 DISCUSSION: The distal portions of bilateral nephroureteral stents are visualized. There is an old total left hip arthroplasty. There is been interval internal fixation of the intertrochanteric right hip fracture with a trochanteric nail and interlocking medullary latoya. The inferior aspect of the greater trochanteric fragment demonstrates 1 cm of displacement. There are advanced osteoarthritic changes within the right hip. IMPRESSION: Interval internal fixation of an intertrochanteric right hip fracture with a trochanteric nail and interlocking intramedullary latoya ACT 112: Negative or not required by law. Electronically signed by: Valerio Landa M.D. 07/23/2020 7:19 PM Dictated: 07/23/201916Transcribed: 07/23/201916 CT SCAN OF THE CHEST, ABDOMEN, AND PELVIS WITHOUT IV CONTRAST CLINICAL HISTORY: Trauma. Fall. COMPARISON STUDY: Chest x-ray dated 07/22/2020. Abdominal CT dated 02/28/2020. TECHNIQUE: Unenhanced CT scan of the chest, abdomen, and pelvis was performed from the thoracic inlet to the proximal femora. Images are reviewed in the axial, sagittal, and coronal planes. IV contrast was not administered as per the referring clinician. Note that the examination was performed in significantly suboptimal fashion without IV contrast in the setting of trauma. A dose lowering technique was utilized adhering to the principles of ALARA. CT DOSE: 1808.51 mGy.cm FINDINGS: CHEST: Thyroid: Imaged portions of the thyroid gland are normal in size and heterogeneous in attenuation. Thoracic aorta: The thoracic aorta is normal in caliber and demonstrates standard 3-vessel arch anatomy. Heart: The heart is mildly enlarged and without pericardial effusion. The coronary arteries are densely calcified. There is diminished attenuation of the cardiac blood pool as compared to the myocardium suggesting anemia. The pulmona ry trunk is dilated, measuring 3.8 cm in diameter. This suggests pulmonary artery hypertension. Lungs and pleural spaces: Evaluation of the lung parenchyma is modestly degraded by motion artifact. There is trace right pleural effusion. No airspace consolidation or pneumothorax is identified. The trachea and central airways are clear. Foci of scarring/atelectasis are noted at the lung bases. Mediastinum: There is no mediastinal hematoma or lymphadenopathy. Tonia: Not well assessed without IV contrast. Axillae: There is no axillary lymphadenopathy. Bony thorax: The bony thorax appears intact. The skeletal structures are osteopenic. Degenerative change is seen throughout the thoracic spine with mild hyperkyphosis. Advanced arthritic change is noted in the shoulders. No lytic or blastic lesions are identified. ABDOMEN AND PELVIS: Liver: The unenhanced liver is normal in size, contour, and attenuation. There is no intrahepatic biliary ductal dilatation. Gallbladder: The gallbladder is distended but otherwise normal in appearance. Spleen: Normal in size and attenuation. Pancreas: The unenhanced pancreas is grossly unremarkable. Adrenal glands: Nonspecific thickening of the adrenal glands is similar to previous. Kidneys: The unenhanced kidneys demonstrate cortical atrophy and are without hydronephrosis. Bilateral ureteral stents are in appropriate position. A 4 mm calcification is identified in the right pelvis along the course of the right ureteral stent as seen on image #362. No calcifications are seen along the course of the left stent. A 2 cm staghorn calculus is seen in the left renal pelvis. A punctate nonobstructing calculus is seen in the lower pole of the right kidney. There is no evidence of contour deforming mass lesion. Mild stranding around both ureters is likely related to the presence of indwelling stents. Abdominal vasculature: The abdominal aorta is normal in course and caliber noting mild atherosclerotic calcification. Stomach and bowel: There is a moderate hiatal hernia. There is no bowel obstruction. Fecal retention is seen in the right colon. The appendix is normal in appearance. Peritoneum: There is no intraperitoneal free air or abdominal ascites. Lymphadenopathy: None. Pelvic viscera: Evaluation of the pelvis is degraded by streak artifact from a left hip arthroplasty. The bladder is decompressed and not well evaluated. Int raluminal gas is likely related to instrumentation. The bladder contains the distal ends of bilateral ureteral stents. The uterus and adnexa are normal as visualized. There is asymmetric atrophy of the left iliopsoas musculature as compared to the right. Intra-articular hemorrhage is noted within the right iliacus muscle. Skeletal structures: The skeletal structures are osteopenic. No acute fracture is seen involving the lumbosacral spine, bony pelvis, or proximal femora. There is a subacute fracture of the right proximal femur with intertrochanteric and intramedullary nails in place. Simultaneous gas, stranding, and fluid around the right hip likely represents expected postoperative change. There is moderate lumbosacral spondylosis. No lytic or blastic lesions are seen. Advanced arthriti c change is seen in the right hip. A left hip arthroplasty is in place. IMPRESSION: 1. Suboptimal examination without IV contrast. 2. There is no acute posttraumatic intrathoracic abnormality. 3. Intramuscular hemorrhage is noted within the right iliacus. This is nonspecific and could be on a posttraumatic basis or related to recent right hip fracture/surgery. 4. There is no evidence of solid organ injury in the abdomen or pelvis on this unenhanced examination. 5. Trace right pleural effusion. No airspace consolidation is seen typical for pneumonia and there is no pneumothorax. 6. Moderate hiatal hernia. 7. Bilateral ureteral stents are in place. There is no hydronephrosis. 8. There is a 4 mm calculus identified in the distal right ureter along the course of the stent. 9. Additional bilateral nonobstructing renal calculi as above. 10. Subacute fracture of the right hip status post internal fixation. Fluid, subcutaneous gas, and edema overlying the right proximal femur are likely related to recent surgery and clinical correlation will be required. 11. The gallbladder is distended but otherwise normal in appearance. 12. Additional findings as above. ACT 112: Negative or not required by law. Electronically signed by: Naseem Barraza M.D. 07/24/2020 2:06 PM Dictated: 07/24/20 1342Transcribed: 07/24/[address] SCAN OF THE CHEST, ABDOMEN, AND PELVIS WITHOUT IV CONTRAST CLINICAL HISTORY: Trauma. Fall. COMPARISON STUDY: Chest x-ray dated 07/22/2020. Abdominal CT dated 02/28/2020. TECHNIQUE: Unenhanced CT scan of the chest, abdomen, and pelvis was performed from the thoracic inlet to the proximal femora. Images are reviewed in the axial, sagittal, and coronal planes. IV contrast was not administered as per the referring clinician. Note that the examination was performed in significantly suboptimal fashion without IV contrast in the setting of trauma. A dose lowering technique was utilized adhering to the principles of ALARA. CT DOSE: 1808.51 mGy.cm FINDINGS: CHEST: Thyroid: Imaged portions of the thyroid gland are normal in size and heterogeneous in attenuation. Thoracic aorta: The thoracic aorta is normal in caliber and demonstrates st andard 3-vessel arch anatomy. Heart: The heart is mildly enlarged and without pericardial effusion. The coronary arteries are densely calcified. There is diminished attenuation of the cardiac blood pool as compared to the myocardium suggesting anemia. The pulmonary trunk is dilated, measuring 3.8 cm in diameter. This suggests pulmonary artery hypertension. Lungs and pleural spaces: Evaluation of the lung parenchyma is modestly degraded by motion artifact. There is trace right pleural effusion. No airspace consolidation or pneumothorax is identified. The trachea and central airways are clear. Foci of scarring/atelectasis are noted at the lung bases. Mediastinum: There is no mediastinal hematoma or lymphadenopathy. Tonia: Not well assessed without IV contrast. Axillae: There is no axillary lymphadenopathy. Bony thorax: The bony thorax appears intact. The skeletal structures are osteopenic. Degenerative change is seen throughout the thoracic spine with mild hyperkyphosis. Advanced arthritic change is noted in the shoulders. No lytic or blastic lesions are identified. ABDOMEN AND PELVIS: Liver: The unenhanced liver is normal in size, contour, and attenuation. There is no intrahepatic biliary ductal dilatation. Gallbladder: The gallbladder is distended but otherwise normal in appearance. Spleen: Normal in size and attenuation. Pancreas: The unenhanced pancreas is grossly unremarkable. Adrenal glands: Nonspecific thickening of the adrenal glands is similar to previous. Kidneys: The unenhanced kidneys demonstrate cortical atrophy and are without hydronephrosis. Bilateral ureteral stents are in appropriate position. A 4 mm calcification is identified in the right pelvis along the course of the right ureteral stent as seen on image #362. No calcifications are seen along the course of the left stent. A 2 cm staghorn calculus is seen in the left renal pelvis. A punctate nonobstructing calculus is seen in the lower pole of the right kidney. There is no evidence of contour deforming mass lesion. Mild stranding around both ureters is likely related to the presence of indwelling stents. Abdominal vasculature: The abdominal aorta is normal in course and caliber no ting mild atherosclerotic calcification. Stomach and bowel: There is a moderate hiatal hernia. There is no bowel obstruction. Fecal retention is seen in the right colon. The appendix is normal in appearance. Peritoneum: There is no intraperitoneal free air or abdominal ascites. Lymphadenopathy: None. Pelvic viscera: Evaluation of the pelvis is degraded by streak artifact from a left hip arthroplasty. The bladder is decompressed and not well evaluated. Intraluminal gas is likely related to instrumentation. The bladder contains the distal ends of bilateral ureteral stents. The uterus and adnexa are normal as visualized. There is asymmetric atrophy of the left iliopsoas musculature as compared to the right. Intra-articular hemorrhage is noted within the right iliacus muscle. Skeletal structures: The skeletal structures are osteopenic. No acute fracture is seen involving the lumbosacral spine, bony pelvis, or proximal femora. There is a subacute fracture of the right proximal femur with intertrochanteric and intramedullary nails in place. Simultaneous gas, stranding, and fluid around the right hip likely represents expected postoperative change. There is moderate lumbosacral spondylosis. No lytic or blastic lesions are seen. Advanced arthritic change is seen in the right hip. A left hip arthroplasty is in place. IMPRESSION: 1. Suboptimal examination without IV contrast. 2. There is no acute posttraumatic intrathoracic abnormality. 3. Intramuscular hemorrhage is noted within the right iliacus. This is nonspecific and could be on a posttraumatic basis or related to recent right hip fracture/surgery. 4. There is no evidence of solid organ injury in the abdomen or pelvis on this unenhanced examination. 5. Trace right pleural effusion. No airspace consolidation is seen typical for pneumonia and there is no pneumothorax. 6. Moderate hiatal hernia. 7. Bilateral ureteral stents are in place. There is no hydronephrosis. 8. There is a 4 mm calculus identified in the distal right ureter along the course of the stent. 9. Additional bilateral nonobstructing renal calculi as above. 10. Subacute fracture of the right hip status post internal fixation. Fluid, subcutaneous gas, and edema overlying the right proximal femur are likely related to recent surgery and clinical correlation will be required. 11. The gallbladder is distended but otherwise normal in appearance. 12. Additional findings as above. ACT 112: Negative or not required by law. Electronically signed by: Naseem Barraza M.D. 07/24/2020 2:06 PM Dictated: 07/24/20 1342Transcribed: 07/24/[address] SCAN OF THE BRAIN WITHOUT IV CONTRAST CLINICAL HISTORY: Fall. COMPARISON STUDY: CT of the brain dated 02/28/2020. TECHNIQUE: Unenhanced axial CT scan of the brain is performed from the vertex to the skull base. A dose lowering technique was utilized adhering to the principles of ALARA. FINDINGS: Brain parenchyma: There are age-related involutional changes noting moderate ross bcortical and periventricular microangiopathic change. There is no hemorrhage, mass effect, or evidence of acute territorial ischemia by CT criteria. Left cerebellar encephalomalacia is unchanged and consistent with a remote insult. Mineralization is noted in the basal ganglia. There are small chronic lacunar infarct in the left thalamus in the left caudate head. Zendejas-white matter differentiation is preserved. No extra-axial fluid collection is seen. Ventricles, sulci, cisterns: Prominent secondary to involutional change. Intracranial vasculature: There is atherosclerotic calcification of the cavernous carotid and vertebral arteries. Calvarium: The skeletal structures are osteopenic. There is no depressed calvarial fracture. Sinuses and mastoids: The visualized paranasal sinuses are clear. The mastoid air cells are well pneumatized. Orbits: The bony orbits are grossly intact. IMPRESSION: There is no hemorrhage, mass effect, or evidence of acute territorial ischemia by CT criteria. ACT 112: Negative or not required by law. Electronically signed by: Naseem Barraza M.D. 07/24/2020 1:26 PM Dictated: 07/24/20 1323Transcribed: 07/24/20 1323 ULTRASOUND BILATERAL LOWER EXTREMITY VENOUS CLINICAL HISTORY: Lower extremity pain and swelling. COMPARISON STUDY: Right lower extremity venous ultrasound dated 03/08/2020 TECHNIQUE: Real-time, grayscale, and color Doppler sonography of the deep veins of the right and left lower extremity was performed from the inguinal crease to the calf. Compression and augmentation were utilized. FINDINGS: There is no sonographic evidence of deep venous thrombosis identified in the right or left lower extremity. The common femoral, superficial femoral, and popliteal veins are patent and normally compressible bilaterally. The greate r saphenous vein and the profunda femoris vein at the junction with the common femoral vein are clear in both legs. The visualized calf veins are patent bilaterally. IMPRESSION: There is no sonographic evidence of deep venous thrombosis identified in the right or left lower extremity. ACT 112: Negative or not required by law. Electronically signed by: Naseem Barraza M.D. 07/29/2020 7:01 AM Dictated: 07/29/20 0701Transcribed: 07/29/20 0701 XR femur RT 2V routine CLINICAL HISTORY: 2 week femoral fracture follow-up with intramedullary latoya internal fixation. COMPARISON STUDY: Right femur 07/23/2020. FINDINGS: Status post internal fixation of an intertrochanteric fracture within the proximal right femur with an intramedullary latoya law and interlocking femoral neck pin. The hardware appears intact. The alignment remains unchanged. Severe osteoarthritis with flattening of the femoral head, subchondral sclerosis, and subchondral cystic change within the right hip. A superimposed chronic avascular necrosis cannot be excluded. No significant callus formation to suggest interval healing. There are skin lee and soft tissue swelling within the lateral aspect of the right hip. The bones are osteopenic. Moderate osteoarthritis within the right knee. IMPRESSION: Status post internal fixation of a right hip intertrochanteric fracture. The hardware remains intact. The alignment is unchanged. ACT 112: Negative or not required by law. Electronically signed by: Moose Coon M.D. 08/05/2020 10:09 AM Dictated: 08/05/20 1007Transcribed: 08/05/20 1007 Hospital Course (1) Closed intertrochanteric fracture of right hip: 85-year-old female with history of hypothyroidism, arthritis, pyelone phritis Presented with right hip pain after of mechanical fall S/P ORIF (open reduction internal fixation) fracture on 07/23 Hgb dropped post op Continue PT/OT. She will need new films of her right hip and staple removal in 3 to 4 days. Follow up with ortho outpatient waiting for placement to rehab Small blister noted on the bottom part of right thigh, per orthopedics Continue Bactroban twice a day on the blister. UTI: Urine culture gram-negative bacilli, Kaylan abx changed to PO Cipro -per sensivity cont diflucan for kaylan infection Anemia, Acute Blood Loss, iron deficiency Hg 6.[address] head, chest, abd/pelvis: no hemorrhage Received 3 units of packed RBCs during the hospital course Received 1 dose of Venofer 150 mg Fecal occult blood test positive Status post EGD: Positive for gastric ulcer, nonbleeding GI on board that recommended Protonix (pantoprazole) 40 mg PO BID for 6 weeks, then reduce to 20 mg 1 time daily. Sucralfate tablets 1 gram PO QID for 4 weeks. Will need a repeat upper endoscopy in 3 months to check healing. Continue iron supplement DVT prophylaxis Subcu Lovenox Disposition PT and OT evaluation-appreciated will need rehab waiting for placement Total Time Total Time Spent Total Time Spent (In Minutes): 35 minutes Total Time Includes: Examination of the Patient, Discharge Planning, Medication Reconciliation, Communication With Other Providers and Other Discharge Plan Discharge Items Patient Disposition: Transfer Intermediate Fac Reason For Visit: RIGHT HIP FRACTURE Discharge Diagnosis: Right hip fracture status post surgery UTI Gastric ulcer anemia Condition on Discharge: Good Activity: Per Instructions section Lifting: Wait until after follow-up appointment Bathing: Keep incision dry Exercise/Sports: Wait until after follow-up appointment Non-emergency contact: Primary Care Provider and Surgeon Call non-emergency contact if: you have any medication questions, your pain is not controlled, your temperature is above 101.5, your wound has increased redness, your wound has increased drainage and your wound pain has increased Follow-up/Referrals: Kamari Oden DO [Physician] - Rob Mann [Primary Care Provider] - Reid Keller MD [Physician] - Diet: Heart Healthy Addtl Attending Provider Instructions: follow up with family physician after discharge from rehab follow up with orthopedics as per scheduled take antibiotic Ciprofloxacin 250mg 1 tab twice daily for 2 days Diflucan for 2 more days for urinary tract infection due to recent hip surgery you are at high risk for developing blood clot in your legs for less than normal movement Lovenox 30 mg subcutaneous injection for 4 weeks to prevent blood clot your legs Follow up with GI for repeat EGD in 3 months to asses healing of gastic ulcer Continue weight bearing as tolerated in right lower extremity with walker assistance DIET: * Resume previous diet. MEDICATIONS: * Please take your prescriptions as instructed at your pre-op appointment and/or see medication discharge instructions listed above. * If concerns develop, call your physician's office at . SPECIAL CARE INSTRUCTIONS: * Ice/Elevate as instructed. * Keep dressing clean, dry, intact. * Your surgical extremity may be discolored due to prepping agents used on the skin. A bluish-green tint is a normal variant and should not cause alarm. Call your doctor at [phone] if: * Temperature above 101.5 degrees * Pain not relieved by pain medicine ordered * There is increased drainage or redness from any incision * You have any unanswered questions, problems or concerns. FOLLOW UP VISIT: * If not already scheduled, please call the office at to schedule a follow-up appointment. Post-operative Instructions Dear Patient and Family/Friends, Before you are discharged from the hospital, it is important to know what to expect when you get home after surgery. To that end, we have created this sheet of discharge instructions which covers many commonly asked questions. Make sure you go through this sheet in its entirety with your nurse before you are discharged. Please note that we will go over the specifics of your surgery and recovery when you return for your first post-operative visit. Sincerely, Dr. Keller Pain Expect to be in a fair amount of pain after surgery. Remember, our goal is not to eliminate your pain, but to make it tolerable. It is a good idea to stay ahead of your pain by taking the medications you were prescribed once you get home. Typically, the pain starts improving 3-7 days after surgery. You should start weaning off the narcotic pain medication (oxycodone, hydrocodone, hyd romorphone, morphine) as soon as your pain improves. Please call our office if your pain is not adequately controlled. Ice Ice your operative site at least 5 times a day for 15-30 minutes at a time. Make sure you have a thin cloth between the ice or cooling unit and your skin to prevent noel bite. This is especially important if you received a nerve block. Continue icing your operative site for the first 5-7 days after surgery, then as needed. Diet/Nausea/Vomiting Start by drinking clear liquids and eating crackers. If you can tolerate this, then you may resume your normal diet. If you feel nauseated or vomit, take Zofran/ondansetron (if prescribed). Please call our office if you have intractable nausea or vomiting, or, if after hours, you may go to the Emergency Room for help. Constipation Constipation is a common side effect of narcotic pain medication. If you have not had a bowel movement within 2 days after surgery, we recommend purchasing an over the counter laxative such as Milk of Magnesia, Dulcolax, or Miralax from a local pharmacy, and taking it as instructed. Call our clinic if any questions. Physical therapy You will be given a prescription for physical therapy or occupational therapy at your first post-operative appointment. Typically, patients start therapy within 1 week of surgery Wound care and showering We will inspect your wound at your first post-operative visit, and may do a dressing change at that time. Most patients will be in a water-proof dressing that is removed 14 days after surgery. It is normal to see some dried blood on the dressing. Do not remove your dressing, paper strips or sutures yourself unless you are given permission. Showering is allowed the day after surgery. Do not scrub or remove any dressings. The wound should not be submerged underwater (i.e. in a bathtub or pool) until 4 weeks after surgery SUNNY stockings If you were given white stockings, these are to be worn at all times except to shower (on both legs) for the first 2 weeks after surgery. Driving You may not drive while taking narcotic pain medication or while in a cast, splint, sling or brace. You, the patient, need to make the final determination about when you are safe to drive, however, the earliest you may consider driving after surgery is below: Hand/Wrist/Elbow Surgery: 3 days Shoulder Surgery: 2 weeks Hip,/Knee/Ankle Surgery: 4 weeks Fracture repair: 6 weeks Travel Avoid long distance travel (greater than 1 hour) in airplanes and cars for the first 6 weeks after surgery. If you must travel, you need to have a Doppler ultrasound done before you travel to rule out a blood clot in your legs. Follow-up You should have a follow-up appointment already scheduled 1-2 days after surgery. If not, please contact our office to make this appointment before you leave the hospital. When to call the office It is normal to have swelling and bruising in the limb that was operated on. This will improve with time. It is also normal to have fevers for the first 2 days after surgery. Reasons you should call your doctor include: Uncontrolled pain; Nausea, vomiting, or constipation that does not improve with medication; Fevers over 101.5, chills, sweats; Drainage or bleeding from the wound; Foul odor; Spreading areas of redness; Any other concerns Pending Studies at Discharge: Yes Studies:: CBC in 1 week Stand-Alone Forms: My [facility] Skilled Items Patient informed of condition?: Yes DNR: No Discharge Level of Care: Skilled Communicable Disease: No Discharge Prognosis: Stable Lines: None Urinary Catheter: No Medications and DC Order Prescriptions: New pantoprazole 40 mg Tablet,Delayed Release (Dr/Ec) 40 mg PO BID 42 Days Qty: 84 RF: 3 multivitamin [Daily-Wilber] Tablet 1 tab PO QAM Qty: 30 RF: 0 sucralfate 100 mg/mL Suspension 10 ml PO ACHS 30 Days Qty: 300 RF: 0 ciprofloxacin HCl 250 mg Tablet 250 mg PO Q12 Qty: 4 RF: 0 enoxaparin 40 mg/0.4 mL Syringe 40 mg subcut QAM 30 Days Qty: 12 RF: 0 Continued levothyroxine 125 mcg tablet 125 mcg PO DAILY RF: 0 miconazole nitrate 2 % cream 1 appln TOP BID RF: 0 acetaminophen [Tylenol] 325 mg tablet 650 mg PO Q4H PRN (Reason: Pain) RF: 0 tramadol 50 mg Tablet 50 mg PO Q12H PRN (Reason: Pain) RF: 0 docusate sodium 100 mg capsule 100 mg PO DAILY RF: 0 furosemide 20 mg tablet 10 mg PO DAILY RF: 0 Discontinued aspirin 81 mg Tablet,Delayed Release (Dr/Ec) 81 mg PO DAILY RF: 0 Discharge Orders: Discharge Order (Routine); Ordered 08/05/20 Ordered By: Everardo Ruiz Admission Data Admit Date/Time: 07/22/20 15:21 Attending Provider: Everardo Ruiz Admit Provider: Erwin Saeed Primary Care Provider: Rob Mann Other Providers: Everardo Ruiz ; Moose Vincent ; Reid Keller ; Kamari Oden ; Erwin Saeed ; Brenda Wise ; Shanell Stanton Other Interventions: Discharge Summary Assessment (RN) Last Done: 08/05/20 13:36
[2020-08-05 13:39] VITALS: BP 137/63
== END 2020-08-05 15:09 | DRG 481 ==
LOC: ED 13:14 → 3N 15:21 → SUATTDRO 15:21 → 3N 17:09

== ENCOUNTER 2020-11-03 16:11 | Inpatient (IN) ==
--- NOTE | 2020-11-03 18:07 | Emergency Department Note ---
Impression & Plan Retained ureteral stent, CKD (chronic kidney disease) stage 4, GFR 15-29 ml/min ED Provider Note NAME: LINDA WRIGHT AGE: 85 SEX: F : 1935 ARRIVES VIA: Walk-In INFORMANT: Patient, ED PROVIDER(S): Natalio Matt MD Chief Complaint: [] HPI: Did review the patient's telehealth consult note completed on October [address] Bauman. The patient was unable to complete her case for ureteral stent removal due to transportation. The patient has had a stent for approximately 9 months that the patient could develop pyelonephritis. I did discuss that if the patient was admitted to the hospital and that they could likely remove the stent. The patient does reiterate that she is here to have her stent removed. The patient currently is unaware as to why she had it placed in the first place. The patient denies any fevers, chills, chest pains, shortness of breath, nausea or vomiting. Patient states that her appetite has been appropriate. The patient denies any abdominal pain. The patient also denies any urinary symptoms. The patient states she has had a recent bowel movement. The patient does not believe she is on current antibiotics. Patient does relate that she had a hip replacement completed several months ago. ROS: See HPI for pertinent positives and negatives. A total of 10 systems were reviewed and otherwise negative. Past medical history: See below Surgical history: See below Social history: See below Physical Exam: GENERAL: Wearing glasses and a mask. NAD, non-toxic. EYE EXAM: Normal conjunctiva. PERRL, no anisocoria and EOM's grossly intact w/o pain. NECK: Supple, no nuchal rigidity, no adenopathy, non-tender. No signs of meningismus. LUNGS: Clear to auscultation. Normal chest wall mechanics. HEART: NSR, no MRG. ABDOMEN: Abdomen soft, non-tender, normo-active bowel sounds, no masses, no rebound or guarding. BACK: No CVA TTP. SKIN: No rashes and no bruising. UPPER EXTREMITIES: Upper extremities are grossly normal. LOWER EXTREMITIES: Grossly normal, 1+ left lower extremity, 1-2+ right lower extremity edema, redness noted without crepitus over the anterior and lateral lower extremities, compartments are soft. NEURO EXAM: A&O x3, cranial nerves II-XII grossly intact, normal speech, moves all 4 extremities on command w/o issue. Differential diagnoses: Infection, dehydration, metabolic abnormality, hypo/hyperglycemia, electrolyte disturbance, anemia, hypoxia, cardiac sources, intracerebral event, toxicologic, neurologic, as well as other pathologies. Course: Patient was seen and evaluated the bedside. Full history physical exam was performed. EKG: Indication: Screener Normal sinus rhythm, rate 85, normal intervals, normal axis, no ST changes or T WI. Imaging Studies: Radiology results as stated below per my review in the radiologist's inter pretation: XR chest 1V portable HISTORY: 85 years-old Female weakness acute weakness COMPARISON: Chest radiograph 07/22/2020 TECHNIQUE: Portable upright AP view of the chest FINDINGS: Cardiac silhouette is enlarged, unchanged. Moderate hiatal hernia. No pneumothorax, pleural effusion, airspace consolidation or overt pulmonary edema. Degenerative changes of the shoulders and spine. IMPRESSION: No acute process. ACT 112: Negative or not required by law. The above report was generated using voice recognition software. It may contain grammatical, syntax or spelling errors. Electronically signed by: Be Brice M.D. 11/03/2020 7:06 PM Dictated: 11/03/201903 Transcribed: 11/03/201903 Cardiac monitoring: An order was placed for continuous cardiac monitoring. The monitor shows a rate of 72 with sinus rhythm. MDM: Patient does present with concern for requiring ureteral stent removed. Blood work is obtained along with EKG urinalysis and Covid test. The patient's urine does show the possibility of infection. I did have the pharmacist review her prior cultures and cefepime was ordered. I did speak the on-call hospitalist and the patient was admitted to the medicine service Dr. Calzada, and I did speak with Thea Caceres PA-C. Past Med/Surg History Medical History Anemia CKD (chronic kidney disease), stage III DVT of leg (deep venous thrombosis) left Gastric ulcer 07/2020 - on PPI GERD (gastroesophageal reflux disease) History of kidney stones Hypothyroidism On anticoagulant therapy warfarin daily for DVT Osteoarthritis Ureterolithiasis Surgical History History of esophagogastroduodenoscopy (EGD) (~07/27/20) History of left hip replacement History of open reduction and internal fixation (ORIF) procedure (~07/23/20) right troch nail History of tonsillectomy History of tooth extraction all teeth Family History Mother Family history of diabetes mellitus Other No family history of adverse response to anesthesia Social History Smoking Status: Never smoker Second Hand Exposure: Yes (family members smoke); Hx Alcohol Use: No Hx Substance Use: No Preferred Language: Danish Communication Ability: Effective 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 Beliefs That Will Affect Care: None marital status: / Current Living Situation: Family Current Living Situation Comment: Lives with granddaughter and 2 great grandchildren Feels Safe at Home: Yes Assistive Devices: Cane, Denture - Upper, Denture - Lower, Glasses and Walker Allergies Allergies Allergy/AdvReac Type Severity Reaction Status Date / Time tetracycline Allergy Unknown Verified 10/13/20 15:56 Home Meds Home Medications Medication Instructions Recorded Confirmed acetaminophen 325 mg tablet 650 mg PO Q4H PRN tab 03/16/20 11/03/20 levothyroxine 125 mcg tablet 125 mcg PO QAM 03/16/20 11/03/20 miconazole nitrate 2 % topical 1 appln TOP BID PRN 03/16/20 11/03/20 cream docusate sodium 100 mg PO BID 07/22/20 11/03/20 furosemide 10 mg PO Q OTHER DAY 07/22/20 11/03/20 melatonin 3 mg PO HS 10/13/20 11/03/20 pantoprazole 40 mg PO QAM 10/13/20 11/03/20 warfarin 2.5 mg PO DAILY 10/13/20 11/03/20 ferrous sulfate 325 mg PO BID 11/03/20 11/03/20 tramadol 50 mg PO DAILY PRN 11/03/20 11/03/20 warfarin 5 mg PO DIRECTED 11/03/20 11/03/20 Previous Rx's Medication Instructions Recorded multivitamin [Daily-Wilber] 1 tab PO QAM #30 tab 07/28/20 Results & Data (ED) Vital Signs Vital Signs - 24 hr 11/03/20 16:50 11/03/20 17:45 11/03/20 20:04 Temperature 37.1 C Temperature Source Temporal Artery Scan Pulse Rate 75 Pulse Rate [Left Finger] 83 68 Respiratory Rate 18 14 16 Respiratory Effort / Characteristics Non-Labored Spontaneous Non-Labored Spontaneous Respiratory Depth Normal Normal Respiratory Pattern Regular Regular Blood Pressure 149/75 H Blood Pressure [Right Arm] 166/84 H 141/63 H Blood Pressure Mean 99 Blood Pressure Mean [Right Arm] 111 89 Blood Pressure Position Sitting Blood Pressure Position [Right Arm] Sitting Lying Pulse Oximetry 99 98 98 Oxygen Delivery Method Room Air Room Air Sepsis Recent Fever Within 48 Hours No Sepsis New/Unexplained Change in Mental Status N/A Sepsis Action Taken by Nursing No Action Required 11/03/20 21:34 Temperature Temperature Source Pulse Rate Pulse Rate [Left Finger] 72 Respiratory Rate 16 Respiratory Effort / Characteristics Non-Labored Spontaneous Respiratory Depth Normal Respiratory Pattern Regular Blood Pressure Blood Pressure [Right Arm] 148/94 H Blood Pressure Mean Blood Pressure Mean [Right Arm] 112 Blood Pressure Position Blood Pressure Position [Right Arm] Lying Pulse Oximetry 94 Oxygen Delivery Method Room Air Sepsis Recent Fever Within 48 Hours Sepsis New/Unexplained Change in Mental Status Sepsis Action Taken by Custodial Medications Current Medication List: was personally reviewed by me Laboratory Data Attestation: I reviewed the patient's lab results. Result diagrams: 11/03/20 18:50 11/03/20 18:50 Lab Results 11/03/20 11/03/20 11/03/20 Range/Units 18:50 18:50 18:50 WBC 6.95 (4.8-10.8) K/uL RBC 3.94 L (4.2-5.4) M/uL Hgb 11.3 L (12.0-16.0) g/dL Hct 34.9 L (37-47) % MCV 88.6 (80-100) fL MCH 28.7 (25-34) pg MCHC 32.4 (32-36) g/dL RDW Std Deviation 46.9 H (36.4-46.3) fL RDW Coeff of Marisel 14.3 (11.5-14.5) % Plt Count 349 (130-400) K/uL MPV 9.3 (7.4-10.4) fL Immature Gran % (Auto) 0.3 % Neut % (Auto) 63.4 % Lymph % (Auto) 23.6 % Gibson % (Auto) 8.3 % Eos % (Auto) 3.5 % Baso % (Auto) 0.9 % Neut # (Auto) 4.41 (1.4-6.5) K/uL Lymph # (Auto) 1.64 (1.2-3.4) K/uL Gibson # (Auto) 0.58 (0.11-0.59) K/uL Eos # (Auto) 0.24 (0-0.5) K/uL Baso # (Auto) 0.06 (0-0.2) K/uL Immature Gran # (Auto) 0.02 (0.00-0.02) K/uL PT (9.0-12.0) Seconds INR (0.9-1.1) Sodium 137 (136-145) mmol/L Potassium 3.4 L (3.5-5.1) mmol/L Chloride 107 (98-107) mmol/L Carbon Dioxide 25 (21-32) mmol/L Anion Gap 5.0 (3-11) BUN 24 H (7-18) mg/dl Creatinine 1.43 H (0.6-1.2) mg/dl Est Cr Clr Drug Dosing 29.3 ml/min Est GFR ( Amer) 38.9 Est GFR (Non-Af Amer) 33.5 BUN/Creatinine Ratio 16.6 (10-20) Glucose 90 (70-99) mg/dl Calcium 9.2 (8.5-10.1) mg/dl Magnesium 2.1 (1.8-2.4) mg/dl Total Bilirubin 0.5 (0.2-1) mg/dl AST 13 L (15-37) U/L ALT 13 (12-78) U/L Alkaline Phosphatase 113 (45-117) U/L Total Protein 8.1 (6.4-8.2) gm/dl Albumin 3.2 L (3.4-5.0) gm/dl Globulin 4.9 H (2.5-4.0) gm/dl Albumin/Globulin Ratio 0.6 L (0.9-2) TSH 6.460 H (0.300-4.500) uIu/ml Free T4 1.24 (0.8-1.6) ng/dl Urine Color Yellow Urine Appearance Turbid A (Clear) Urine pH 6.5 (4.5-7.5) Ur Specific Walnut 1.012 (1.000-1.030) Urine Protein 1+ H (Negative) Urine Glucose (UA) Negative (Negative) Urine Ketones Negative (Negative) Urine Blood 3+ H (Negative) Urine Nitrite Positive A (Negative) Urine Bilirubin Negative (Negative) Urine Urobilinogen Negative (Negative) Ur Leukocyte Esterase 3+ H (Negative) Urine WBC (Auto) >30 H (0-5) /hpf Urine RBC (Auto) >30 H (0-4) /hpf U Hyaline Cast (Auto) 1-5 (0-5) /lpf U Epithel Cells (Auto) 5-10 H (0-5) /lpf Urine Bacteria (Auto) 2+ H (Negative) Urine Yeast Present A (None Prsent) COVID-19 Eval Order SARS-CoV-2 (PCR) (Negative) Influenza Type A (PCR) (Neg) Influenza Type B (PCR) (Neg) RSV (RT-PCR) (Neg) 11/03/20 11/03/20 11/03/20 Range/Units 18:50 18:50 18:50 WBC (4.8-10.8) K/uL RBC (4.2-5.4) M/uL Hgb (12.0-16.0) g/dL Hct (37-47) % MCV (80-100) fL MCH (25-34) pg MCHC (32-36) g/dL RDW Std Deviation (36.4-46.3) fL RDW Coeff of Marisel (11.5-14.5) % Plt Count (130-400) K/uL MPV (7.4-10.4) fL Immature Gran % (Auto) % Neut % (Auto) % Lymph % (Auto) % Gibson % (Auto) % Eos % (Auto) % Baso % (Auto) % Neut # (Auto) (1.4-6.5) K/uL Lymph # (Auto) (1.2-3.4) K/uL Gibson # (Auto) (0.11-0.59) K/uL Eos # (Auto) (0-0.5) K/uL Baso # (Auto) (0-0.2) K/uL Immature Gran # (Auto) (0.00-0.02) K/uL PT 25.1 H (9.0-12.0) Seconds INR 2.7 H (0.9-1.1) Sodium (136-145) mmol/L Potassium (3.5-5.1) mmol/L Chloride (98-107) mmol/L Carbon Dioxide (21-32) mmol/L Anion Gap (3-11) BUN (7-18) mg/dl Creatinine (0.6-1.2) mg/dl Est Cr Clr Drug Dosing ml/min Est GFR ( Amer) Est GFR (Non-Af Amer) BUN/Creatinine Ratio (10-20) Glucose (70-99) mg/dl Calcium (8.5-10.1) mg/dl Magnesium (1.8-2.4) mg/dl Total Bilirubin (0.2-1) mg/dl AST (15-37) U/L ALT (12-78) U/L Alkaline Phosphatase (45-117) U/L Total Protein (6.4-8.2) gm/dl Albumin (3.4-5.0) gm/dl Globulin (2.5-4.0) gm/dl Albumin/Globulin Ratio (0.9-2) TSH (0.300-4.500) uIu/ml Free T4 (0.8-1.6) ng/dl Urine Color Urine Appearance (Clear) Urine pH (4.5-7.5) Ur Specific Walnut (1.000-1.030) Urine Protein (Negative) Urine Glucose (UA) (Negative) Urine Ketones (Negative) Urine Blood (Negative) Urine Nitrite (Negative) Urine Bilirubin (Negative) Urine Urobilinogen (Negative) Ur Leukocyte Esterase (Negative) Urine WBC (Auto) (0-5) /hpf Urine RBC (Auto) (0-4) /hpf U Hyaline Cast (Auto) (0-5) /lpf U Epithel Cells (Auto) (0-5) /lpf Urine Bacteria (Auto) (Negative) Urine Yeast (None Prsent) COVID-19 Eval Order [facility]Rsv at [facility] SARS-CoV-2 (PCR) NEGATIVE (Negative) Influenza Type A (PCR) Negative (Neg) Influenza Type B (PCR) Negative (Neg) RSV (RT-PCR) Negative (Neg) Administered Medications Discontinued Medications Cefepime HCl (Maxipime) 2,000 mg in 20 mls @ 5 mls/min IV NOW STA; Protocol Stop: 11/03/20 20:05 Last Admin: 11/03/20 20:15 Dose: 5 mls/min Documented by: [id number] Potassium Chloride (Potassium Chloride Crtab 20 Meq Tabcr) 40 meq PO NOW STA Stop: 11/03/20 20:56 Last Admin: 11/03/20 21:32 Dose: 40 meq Documented by: [id number] Imaging Data Radiologist's Impression: Chest X-Ray 11/03/20 18:32 XR chest 1V portable HISTORY: 85 years-old Female weakness acute weakness COMPARISON: Chest radiograph 07/22/2020 TECHNIQUE: Portable upright AP view of the chest FINDINGS: Cardiac silhouette is enlarged, unchanged. Moderate hiatal hernia. No pneumotho rax, pleural effusion, airspace consolidation or overt pulmonary edema. Degenerative changes of the shoulders and spine. IMPRESSION: No acute process. ACT 112: Negative or not required by law. The above report was generated using voice recognition software. It may contain grammatical, syntax or spelling errors. Electronically signed by: Be Brice M.D. 11/03/2020 7:06 PM Discharge Plan Visit Data Chief Complaint: Referred by Doctor Stated Complaint: DOC REF- TAKE STENT OUT FROM KIDNEY ED Provider: Natalio Matt Discharge Problem: Retained ureteral stent, CKD (chronic kidney disease) stage 4, GFR 15-29 ml/min Forms Stand Alone Forms: My [facility] Prescriptions Prescriptions: No Action levothyroxine 125 mcg tablet 125 mcg PO QAM RF: 0 miconazole nitrate 2 % cream 1 appln TOP BID PRN (Reason: Rash) RF: 0 acetaminophen [Tylenol] 325 mg tablet 650 mg PO Q4H PRN (Reason: Pain) RF: 0 docusate sodium 100 mg capsule 100 mg PO BID RF: 0 furosemide 20 mg tablet 10 mg PO Q OTHER DAY RF: 0 multivitamin [Daily-Wilber] Tablet 1 tab PO QAM Qty: 30 RF: 0 warfarin 2.5 mg Tablet 2.5 mg PO DAILY RF: 0 melatonin 3 mg Tablet 3 mg PO HS RF: 0 pantoprazole 40 mg tablet,delayed release (DR/EC) 40 mg PO QAM RF: 0 warfarin 2.5 mg tablet 5 mg PO DIRECTED RF: 0 tramadol 50 mg tablet 50 mg PO DAILY PRN (Reason: Pain) RF: 0 ferrous sulfate 325 mg (65 mg iron) tablet 325 mg PO BID RF: 0
[2020-11-03 19:02] LABS: Basophils # (auto) 0.06 K/uL (0-0.2); Basophils % (auto) 0.9 %; Eosinophils # (auto) 0.24 K/uL (0-0.5); Eosinophils % (auto) 3.5 %; Hematocrit (blood only) 34.9 % (37-47); Hemoglobin 11.3 g/dL (12.0-16.0); Immature Granulocytes # (auto) 0.02 K/uL (0.00-0.02); Immature Granulocytes % (auto) 0.3 %; Lymphocytes # (auto) 1.64 K/uL (1.2-3.4); Lymphocytes % (auto) 23.6 %; Mean Corpuscular Hemoglobin 28.7 pg (25-34); Mean Corpuscular Hgb Conc 32.4 g/dL (32-36); Mean Corpuscular Volume 88.6 fL (80-100); Mean Platelet Volume 9.3 fL (7.4-10.4); Monocytes # (auto) 0.58 K/uL (0.11-0.59); Monocytes % (auto) 8.3 %; Neutrophils # (auto) 4.41 K/uL (1.4-6.5); Neutrophils % (auto) 63.4 %; Platelet Count 349 K/uL (130-400); RDW Coefficient of Variation 14.3 % (11.5-14.5); RDW Standard Deviation 46.9 fL (36.4-46.3); Red Blood Count 3.94 M/uL (4.2-5.4); White Blood Count 6.95 K/uL (4.8-10.8)
--- NOTE | 2020-11-03 19:07 | XRay Report ---
XR chest 1V portable HISTORY: 85 years-old Female weakness acute weakness COMPARISON: Chest radiograph 07/22/2020 TECHNIQUE: Portable upright AP view of the chest FINDINGS: Cardiac silhouette is enlarged, unchanged. Moderate hiatal hernia. No pneumothorax, pleural effusion, airspace consolidation or overt pulmonary edema. Degenerative changes of the shoulders and spine. IMPRESSION: No acute process. ACT 112: Negative or not required by law. The above report was generated using voice recognition software. It may contain grammatical, syntax o r spelling errors. Electronically signed by: Be Brice M.D. 11/03/2020 7:06 PM
[2020-11-03 19:14] LABS: Appearance Urine Turbid (Clear); Bacteria Urine Automated 2+ (Negative); Bilirubin Urine Negative (Negative); Blood Urine 3+ (Negative); Color Urine Yellow; Glucose Urine UA Negative (Negative); Ketones Urine Negative (Negative); Leukocyte Esterase Urine 3+ (Negative); Nitrite Urine Positive (Negative); Protein Urine 1+ (Negative); RBC Urine Automated >30 /hpf (0-4); Specific Gravity Urine 1.012 (1.000-1.030); Urobilinogen Urine Negative (Negative); WBC Urine Automated >30 /hpf (0-5); pH Urine 6.5 (4.5-7.5)
[2020-11-03 19:20] LABS: Albumin Level 3.2 gm/dl (3.4-5.0); BUN Creatinine Ratio 16.6 (10-20); Calcium 9.2 mg/dl (8.5-10.1); Creatinine Clr Calc Pharmacy 29.3 ml/min; Est GFR (African American) 38.9; Est GFR (Non-African American) 33.5; Potassium 3.4 mmol/L (3.5-5.1)
[2020-11-03 19:31] LABS: Albumin Globulin Ratio 0.6 (0.9-2); Bilirubin,Total 0.5 mg/dl (0.2-1); Globulin 4.9 gm/dl (2.5-4.0); Thyroid Stimulating Hormone 6.46 uIu/ml (0.300-4.500); Total Protein 8.1 gm/dl (6.4-8.2)
[2020-11-03 19:44] LABS: T4 Free Thyroxine 1.24 ng/dl (0.8-1.6)
[2020-11-03] MEDS ORDERED: CEFEPIME 2,000 MG/20 ML VIAL IV STA (20:02)
[2020-11-03 20:05] LABS: Influenza A virus by PCR Negative (Neg); Influenza B virus by PCR Negative (Neg); RSV by PCR Negative (Neg); SARS CoV2 RNA(COVID-19) InHosp NEGATIVE (Negative)
[2020-11-03 20:54] LABS: Magnesium 2.1 mg/dl (1.8-2.4)
[2020-11-03] MEDS ORDERED: POTASSIUM CHLORIDE CRTAB 20 MEQ TABCR PO STA (20:55)
[2020-11-03 20:57] LABS: INR 2.7 (0.9-1.1); Prothrombin Time 25.1 Seconds (9.0-12.0)
--- NOTE | 2020-11-03 21:00 | History & Physical Report ---
Date of Service November 03, 2020 Assessment & Plan (1) UTI (urinary tract infection): (2) Retained ureteral stent: Pt is 85 y/o F with PMH HTN, hypothyroidism, h/o right femur fracture in 07/2020 s/p ORIF, DVT RLE diagnosed in 09/2020 and is on Coumadin, h/o urosepsis secondary to obstructing ureteral stone in 02/2020 s/p ureteral stent presented to ER for dysuria and consideration for stent removal. In ER afebrile, vitals stable. No leukocytosis leukocytosis. UA consistent with UTI In ER given cefepime Blood cultures pending, drawn after antibiotics given Urine culture pending Continue cefepime, renally dosed Gentle IVF N.p.o. midnight Urology consult, planned procedure tomorrow CBC, BMP in a.m. (3) DVT (deep venous thrombosis): RLE DVT diagnosed 09/29/2020. On Coumadin. History right femur fracture s/p ORIF in 07/2020 INR: 2.7 Hold Coumadin pending procedure tomorrow INR in a.m. (4) CKD (chronic kidney disease), stage III: Cr: 1.4. Was 1.4 in 09/2020. Monitor renal functions, avoid nephrotoxic agents when possible (5) Hypokalemia: K: 3.4. Magnesium WNL Replace and monitor (6) Hypothyroidism: Continue levothyroxine DVT Prophylaxis -INR: 2.7 Full Code as per discussion with pt Follows with Dr Victor for routine care Pt was seen and care coordinated with Dr Calzada See addendum History of Present Illness Chief Complaint: dysuria, h/o ureter stent Primary Care Provider: Kvng Victor MD Pt is 85 y/o F with PMH HTN, hypothyroidism, h/o right femur fracture in 07/2020 s/p ORIF, DVT RLE diagnosed in 09/2020 and is on Coumadin, h/o urosepsis secondary to obstructing ureteral stone in 02/2020 s/p ureteral stent presented to ER for dysuria and consideration for stent removal. Patient was to have ureteral stent removed previously however reports transportation issues. Patient reports today started with some dysuria. History of dysuria 2 weeks ago and on 10/14/2020 was started on Keflex for 5 days. Had urine culture at that time positive for Streptococcus agalactiae. She states finished Keflex course and symptoms resolved until today. Denies fever/chills, N/V, hematuria, urinary frequency. Reports been having bilateral lower extremity edema since hip fracture 3 months ago. Denies diarrhea, JIMENEZ, dizziness, syncope, vision changes, neck pain, CP, SOB, orthopnea, palpitations, cough, sore throat, choking, otalgia, rhinorrhea, abdominal pain, flank pain, paresthesias, weakness, extremity weakness, rashes. Allergies Allergy/AdvReac Type Severity Reaction Status Date / Time tetracycline Allergy Unknown Verified 10/13/20 15:56 Home Medications Medication Instructions Recorded Confirmed Type acetaminophen 325 mg tablet 650 mg PO Q4H PRN tab 03/16/20 11/03/20 History levothyroxine 125 mcg tablet 125 mcg PO QAM 03/16/20 11/03/20 History miconazole nitrate 2 % topical 1 appln TOP BID PRN 03/16/20 11/03/20 History cream docusate sodium 100 mg PO BID 07/22/20 11/03/20 History furosemide 10 mg PO Q OTHER DAY 07/22/20 11/03/20 History multivitamin [Daily-Wilber] 1 tab PO QAM #30 tab 07/28/20 11/03/20 Rx melatonin 3 mg PO HS 10/13/20 11/03/20 History pantoprazole 40 mg PO QAM 10/13/20 11/03/20 History warfarin 2.5 mg PO DAILY 10/13/20 11/03/20 History ferrous sulfate 325 mg PO BID 11/03/20 11/03/20 History tramadol 50 mg PO DAILY PRN 11/03/20 11/03/20 History warfarin 5 mg PO DIRECTED 11/03/20 11/03/20 History Past Med/Surg History Medical History Anemia CKD (chronic kidney disease), stage III DVT of leg (deep venous thrombosis) left Gastric ulcer 07/2020 - on PPI GERD (gastroesophageal reflux disease) History of kidney stones Hypothyroidism On anticoagulant therapy warfarin daily for DVT Osteoarthritis Ureterolithiasis Surgical History History of esophagogastroduodenoscopy (EGD) (~07/27/20) History of left hip replacement History of open reduction and internal fixation (ORIF) procedure (~07/23/20) right troch nail History of tonsillectomy History of tooth extraction all teeth Family History Mother Family history of diabetes mellitus Other No family history of adverse response to anesthesia Social History Smoking Status: Never smoker Second Hand Exposure: Yes (family members smoke); Hx Alcohol Use: No Hx Substance Use: No Preferred Language: Swedish Communication Ability: Effective Qa Tester Required: No Beliefs That Will Affect Care: None marital status: / Current Living Situation: Family Current Living Situation Comment: Lives with granddaughter and 2 great grandchildren Feels Safe at Home: Yes Assistive Devices: Cane, Denture - Upper, Denture - Lower, Glasses and Walker Review of Systems Review of Systems: All systems reviewed & are unremarkable except as noted in HPI & below Physical Exam Physical Exam: General: no distress, WDWN Head: normocephalic, atraumatic Eyes: PERRL, EOM's intact, conjunctiva non-injected, anicteric ENT: normal inspection external ears, nose, mucous membranes moist Neck: supple, trachea midline Lungs: clear, no respiratory distress, no wheezing/rhonchi/rales CV: RRR, no murmur, 1+ pretibial edema Abd: normal BS, soft, non-tender; no CVA or flank tenderness Ext: no calf tenderness, BLE extremities with edema, erythema no significant warmth, non-tender to palpation Neuro: A&O x 3, no focal deficits noted, normal affect Skin: warm, dry Results & Data Results & Data ([facility]) Vital Signs (Past 12 Hours) Vital Signs Temp Pulse Pulse Resp BP BP Pulse Ox 11/03/20 20:04 68 16 141/63 H 98 11/03/20 17:45 83 14 166/84 H 98 11/03/20 16:50 37.1 C 75 18 149/75 H 99 Laboratory Results Short CBC 11/03/20 11/03/20 Range/Units 18:50 18:50 WBC 6.95 (4.8-10.8) K/uL Hgb 11.3 L (12.0-16.0) g/dL Hct 34.9 L (37-47) % Plt Count 349 (130-400) K/uL Creatinine 1.43 H (0.6-1.2) mg/dl Est GFR ( Amer) 38.9 Est GFR (Non-Af Amer) 33.5 BMP 11/03/20 18:50 Sodium 137 Potassium 3.4 L Chloride 107 Carbon Dioxide 25 BUN 24 H Creatinine 1.43 H Glucose 90 Calcium 9.2 Liver Function 11/03/20 Range/Units 18:50 Total Bilirubin 0.5 (0.2-1) mg/dl AST 13 L (15-37) U/L ALT 13 (12-78) U/L Alkaline Phosphatase 113 (45-117) U/L Albumin 3.2 L (3.4-5.0) gm/dl Urine 11/03/20 Range/Units 18:50 Urine Color Yellow Urine Appearance Turbid A (Clear) Urine pH 6.5 (4.5-7.5) Ur Specific [place] 1.012 (1.000-1.030) Urine Protein 1+ H (Negative) Urine Glucose (UA) Negative (Negative) Diagnostic Findings CXR: IMPRESSION: No acute process. Code Status & VTE Plan VTE Prophylaxis Plan VTE Prophylaxis will be ordered: Yes Supervising Physician Co-Signing Physician Notes Care coordinated with Thea Caceres PA-C. Agree with above note. Patient seen and examined. Please refer to her notes for full details. Vital signs reviewed. Physical exam: General exam: Alert and oriented. Not in acute distress. CVS: S1 and S2 heard, regular rate and rhythm, no murmurs. RS: Clear to auscultation, no wheezing or crackles. ABD: Soft, bowel sounds present, nontender, no distention. ASSOCIATE PROJECT MANAGER: Nonfocal. EXT: No edema, no erythema. Labs: Reviewed. Assessment and plan: 85f with hx of UTI and stent placement hx of dvt on coumadin comes with ongoing uti and stent removal. UTI On cefepime will follow x urinary stent placement urology consult for stent removal. Other diagnosis and plan of care as per Thea Caceres PA-C. Kenn rosario MD.
[2020-11-04] MEDS ORDERED: SODIUM CHLORIDE 0.9% 1000ML 1,000 ML IV SCH (01:57)
[2020-11-04] MEDS ORDERED: POLYETHYLENE (MIRALAX) 17 GM PACK PO PRN (01:57)
[2020-11-04] MEDS ORDERED: ONDANSETRON INJ 2 MG/ML 2 ML VIAL IV PRN ×2 (01:57→14:23)
--- NOTE | 2020-11-04 04:52 | Urology Consultation ---
Date of Consultation November 04, 2020 Assessment & Plan (1) Retained ureteral stent: The patient has blood and urine cultures sent which are pending. She has been placed on empiric antibiotics in form of cefepime which can be continued and changed based on culture results Her Coumadin has been held. We will keep the patient n.p.o. in anticipation for cystoscopy ATTENDING NOTE: Patient assessed and evaluated and discussed independently and agree with note as above. Agree with findings. Patient has retained stent with large stone burden and multiple comorbidities. Awaiting INR levels to see if able to go to OR today for stent exchange vs removal vs stone treatment vs laser of encrusted stents. High risk due to overall health with significant stone burden and stents in place for approx 9 months. Imaging pending. Medicine assess to see in need reversal vs holding of coumadin. If unable to do today, may plan to take to OR tomorrow if more stable. Will continue to monitor and observe. Risks and benefits discussed at length for procedure. These include bleeding, infection, injury to surrounding tissues or organs, and risks associated with anesthesia. Patient states understanding and agrees to proceed. Will sign consent and proceed once patient properly prepared. Plan for cystoscopy with possible bilateral stent exchange and stone treatment. History of Present Illness Reason for Consultation: Longstanding ureteral stent Attending Physician: Kenn Calzada MD History of Present Illness This is an 85-year-old female who had bilateral ureteral stents placed by Dr. Bauman in February 2020. At the time the patient was noted to be in septic shock and have an obstructing right ureteral stone as well as a left staghorn calculus. Since this procedure patient has had additional medical issues including a hip fracture requiring surgical intervention by orthopedics. She was most recently seen in the office by Dr. Bauman on October 06 of this year. During that office visit he recommended patient undergo repeat cystoscopy with either stent exchange or additional interventions for her nephrolithiasis. Patient ultimately presented to [facility] emergency department yesterday. As the patient has had her stents for several months it was felt that the best course of action was to have her admitted to the hospital for definitive urologic evaluation. Patient notes that she has not had any fevers, shakes, chills. She denies any back pain. She denies any nausea or vomiting. She denies any dysuria or hematuria. She had imaging and labs performed which were independently reviewed by myself. CBC revealed a normal white blood cell count as well as normal platelet count. Her hemoglobin was noted to be 11.3 with a hematocrit of 34.9. Her INR is noted to be 2.7. Chemistry profile revealed a BUN of 24, a creatinine of 1.4, potassium 3.4, and normal sodium. A chest x-ray was performed that showed no evidence of pneumonia or CHF. A Covid test was noted to be negative. An EKG showed normal sinus rhythm without acute ischemic changes. Urinalysis revealed turbid urine with positive nitrite, positive leukocyte esterase, and pyuria with greater than 30 white blood cells per high-power field. At the time of interview the patient was resting comfortably in bed in no distress. Allergies Allergy/AdvReac Type Severity Reaction Status Date / Time tetracycline Allergy Unknown Verified 10/13/20 15:56 Home Medications Medication Instructions Recorded Confirmed Type acetaminophen 325 mg tablet 650 mg PO Q4H PRN tab 03/16/20 11/03/20 History levothyroxine 125 mcg tablet 125 mcg PO QAM 03/16/20 11/03/20 History miconazole nitrate 2 % topical 1 appln TOP BID PRN 03/16/20 11/03/20 History cream docusate sodium 100 mg PO BID 07/22/20 11/03/20 History furosemide 10 mg PO Q OTHER DAY 07/22/20 11/03/20 History multivitamin [Daily-Wilber] 1 tab PO QAM #30 tab 07/28/20 11/03/20 Rx melatonin 3 mg PO HS 10/13/20 11/03/20 History pantoprazole 40 mg PO QAM 10/13/20 11/03/20 History warfarin 2.5 mg PO DAILY 10/13/20 11/03/20 History ferrous sulfate 325 mg PO BID 11/03/20 11/03/20 History tramadol 50 mg PO DAILY PRN 11/03/20 11/03/20 History warfarin 5 mg PO DIRECTED 11/03/20 11/03/20 History Patient History Medical History Anemia CKD (chronic kidney disease), stage III DVT of leg (deep venous thrombosis) left Gastric ulcer 07/2020 - on PPI GERD (gastroesophageal reflux disease) History of kidney stones Hypothyroidism On anticoagulant therapy warfarin daily for DVT Osteoarthritis Ureterolithiasis Surgical History History of esophagogastroduodenoscopy (EGD) (~07/27/20) History of left hip replacement History of open reduction and internal fixation (ORIF) procedure (~07/23/20) right troch nail History of tonsillectomy History of tooth extraction all teeth Family History Mother Family history of diabetes mellitus Other No family history of adverse response to anesthesia Social History Smoking Status: Never smoker Second Hand Exposure: Yes (family members smoke); Hx Alcohol Use: No Hx Substance Use: No Preferred Language: Ghanaian Communication Ability: Effective Mirror Inspector Required: No Beliefs That Will Affect Care: None marital status: / Current Living Situation: Family Current Living Situation Comment: Lives with granddaughter and 2 great grandchildren Feels Safe at Home: Yes Assistive Devices: Cane, Denture - Upper, Denture - Lower, Glasses and Walker Review of Systems Constitutional: no fever and no chills Eyes: no diplopia Ear, Nose, Mouth, Throat: no ear pain Respiratory: no cough and no dyspnea Cardiovascular: no chest pain Gastrointestinal: no abdominal pain, no nausea and no vomiting Genitourinary: no dysuria, no hematuria and no flank pain Musculoskeletal: no back pain Integumentary: no rash Neurologic: no localized weakness Physical Exam Constitutional: well developed and well nourished; no acute distress Eyes: no conjunctival abnormality ENMT: Ears: no hearing impairment Neck: trachea midline Respiratory: normal respiratory effort, lungs clear to auscultation Cardiovascular: Rate/Rhythm: regular rate and regular rhythm Gastrointestinal (Abdomen): Percussion/Palpation: abdomen soft; abdomen nontender Musculoskeletal: No calf tenderness Skin: no rashes, warm and dry Neurologic: moves all extremities Psychiatric: A+Ox3, euthymic affect Results & Data ([facility]) Vital Signs (Past 12 Hours) Vital Signs Temp Pulse Pulse Resp BP BP BP 11/04/20 03:29 69 11/04/20 02:36 36.7 C 69 18 130/81 11/04/20 02:01 36.5 C 68 14 157/83 H 11/04/20 01:07 59 L 18 119/62 11/04/20 00:00 71 18 113/66 11/03/20 22:30 61 20 116/58 L 11/03/20 21:34 72 16 148/94 H 11/03/20 20:04 68 16 141/63 H 11/03/20 17:45 83 14 166/84 H Pulse Ox 11/04/20 03:29 11/04/20 02:36 96 11/04/20 02:01 95 11/04/20 01:07 98 11/04/20 00:00 97 11/03/20 22:30 95 11/03/20 21:34 94 11/03/20 20:04 98 11/03/20 17:45 98 PG Care Time/CCT Total # of Minutes Spent Total Time Spent with Patient: Total time spent is greater than 50% in coordination of care (as documented) at patient's floor/unit and/or counseling patient: Coding Level of Care Code 98947 Inpt Consult Level 5 Diagnoses Retained ureteral stent Z96.0
[2020-11-04] MEDS: LEVOTHYROXINE SODIUM 125 MCG TABLET PO SCH (06:00)
[2020-11-04 06:30] LABS: Hematocrit (blood only) 33.3 % (37-47); Hemoglobin 10.8 g/dL (12.0-16.0); Mean Corpuscular Hgb Conc 32.4 g/dL (32-36); Mean Corpuscular Volume 89.5 fL (80-100); Mean Platelet Volume 9.4 fL (7.4-10.4); Platelet Count 327 K/uL (130-400); RDW Coefficient of Variation 14.4 % (11.5-14.5); RDW Standard Deviation 47.6 fL (36.4-46.3); Red Blood Count 3.72 M/uL (4.2-5.4); White Blood Count 5.54 K/uL (4.8-10.8)
[2020-11-04 06:44] LABS: INR 3.1 (0.9-1.1); Prothrombin Time 28.4 Seconds (9.0-12.0)
[2020-11-04 07:22] LABS: BUN Creatinine Ratio 18.2 (10-20); Calcium 8.9 mg/dl (8.5-10.1); Creatinine Clr Calc Pharmacy 32.9 ml/min; Est GFR (African American) 45.3; Est GFR (Non-African American) 39.1; Magnesium 2.2 mg/dl (1.8-2.4); Potassium 4.5 mmol/L (3.5-5.1)
[2020-11-04] MEDS ORDERED: PHYTONADIONE 5 MG in SODIUM CHLORIDE 0.9% 50 ML IV STA (08:18)
[2020-11-04] MEDS: PANTOprazole 40 MG TAB PO SCH (08:36)
[2020-11-04] MEDS: FERROUS SULFATE 325 MG TAB PO SCH ×2 (08:37→21:02)
--- NOTE | 2020-11-04 10:20 | CT Scan Report ---
ABDOMEN AND PELVIS CT WITHOUT CONTRAST CT DOSE: 845.34 mGycm HISTORY: Acute bilateral flank pain with ureteral stents stent position, stones TECHNIQUE: Multiaxial CT images of the abdomen and pelvis were performed without contrast. A dose lo wering technique was utilized adhering to the principles of ALARA. COMPARISON STUDY: CT abdomen and pelvis 07/24/2020 FINDINGS: Coronary artery calcifications. Mild linear bibasilar atelectasis/scarring. Respiratory mot ion artifact limits exam. Trace splenic ascites. Unremarkable spleen, and pancreas. Thickening of the adrenal glands suggestive of hyperplasia. Mild distention of the gallbladder. Unremarkable liver. Satisfactory positioning of the bilateral ureteral stents. Punctate nonobstructing calculus of the in ferior pole right kidney. Unchanged positioning of the 4 mm calculus of the distal right ureter, imag e 313 which is positioned approximately 2 cm proximal to the ureterovesicular junction. Large calculu s of the left renal pelvis measures up to 2.8 x 1.7 cm. Unchanged mild dilation of the superior pole likely consistent with the left. Mild dilation of the right renal pelvis and ureter. Decompressed uri nary bladder with wall thickening. The visualized uterus and adnexa are unremarkable. No aortic aneur ysm or adenopathy. Moderate hiatal hernia. Mild fecal retention. No bowel obstruction or bowel wall thickening. The appe ndix is not diagnostically visualized. No secondary signs of acute appendicitis. No mesenteric inflam mation. Asymmetric atrophy of the left iliacus muscle. No acute fracture. Demineralized severe osteoa rthritis of the right femoral acetabular joint. Intratrochanteric nail with medullary latoya of the righ t femur. Left hip total joint arthroplasty. IMPRESSION: 1. Stable positioning of the bilateral ureteral stents. There is mild dilation of the right renal pel vis and ureter with unchanged mild dilation of the superior pole collecting system on the left. 2. Unchanged positioning of the 4 mm calculus of the distal right ureter with unchanged left staghorn calculus. 3. No bowel obstruction or bowel wall thickening. 4. Moderate sized hiatal hernia. 5. Additional findings as above. ACT 112: Negative or not required by law. The above report was generated using voice recognition software. It may contain grammatical, syntax o r spelling errors. Electronically signed by: Be Brice M.D. 11/04/2020 10:19 AM
--- NOTE | 2020-11-04 10:43 | Electrocardiogram Report ---
Test Reason : Blood Pressure : / mmHG Vent. Rate : 085 BPM Atrial Rate : 085 BPM P-R Int : 196 ms QRS Dur : 086 ms QT Int : 378 ms P-R-T Axes : 061 019 047 degrees QTc Int : 449 ms Normal sinus rhythm Normal ECG When compared with ECG of 22-JUL-2020 14:26, Premature ventricular complexes are no longer Present Confirmed by Ildefonso Cantrell ([id number]) on 11/04/2020 10:43:18 AM Referred By: Patrick Bauman Confirmed By:Meliton aCntrell
[2020-11-04 12:58] LABS: INR 1.9 (0.9-1.1); Prothrombin Time 18.1 Seconds (9.0-12.0)
[2020-11-04] MEDS ORDERED: fentaNYL citrate 100 MCG/2 ML VIAL ONE (13:57)
[2020-11-04] MEDS ORDERED: LIDOCAINE 2% 2 ML VIAL/AMP(20MG/ML) INFIL ONE (14:02)
[2020-11-04] MEDS ORDERED: PROPOFOL IV EMULSION 10 MG/ML 20 ML VIAL IV ONE (14:02)
[2020-11-04] MEDS ORDERED: ONDANSETRON INJ 2 MG/ML 2 ML VIAL ONE (14:02)
--- NOTE | 2020-11-04 14:14 | Hospitalist Progress Note ---
Date of Service November 04, 2020 Assessment & Plan (1) UTI (urinary tract infection): (2) Retained ureteral stent: Pt is 85 y/o F with PMH HTN, hypothyroidism, h/o right femur fracture in 07/2020 s/p ORIF, DVT RLE diagnosed in 09/2020 and is on Coumadin, h/o urosepsis secondary to obstructing ureteral stone in 02/2020 s/p ureteral stent presented to ER for dysuria and consideration for stent removal. Afebrile, vitals stable. No leukocytosis leukocytosis. UA consistent with UTI Has been on intravenous cefepime Blood cultures pending, Urine culture pending Gentle IVF N.p.o. midnight Appreciate urology input and recommendation We will have cystoscopic evaluation this afternoon (3) DVT (deep venous thrombosis): RLE DVT diagnosed 09/29/2020. On Coumadin. History right femur fracture s/p ORIF in 07/2020 INR: 2.7 INR was 3.1 this morning on 11/04/2020 Review of options she was given vitamin K 5 mg intravenously in the morning and intermittently INR at 12:30 PM noted to be 1.9 We will start him on Coumadin as soon as feasible after the procedure (4) CKD (chronic kidney disease), stage III: Cr: 1.4. Was 1.4 in 09/2020. Monitor renal functions, avoid nephrotoxic agents when possible Creatinine is improved 1.26 on 08/26 (5) Hypokalemia: K: 3.4. Magnesium WNL Replace and monitor (6) Hypothyroidism: Continue levothyroxine DVT Prophylaxis As above Full Code as per discussion with pt Follows with Dr Victor for routine care Admission and Anticipated Discharge Date Admission Date: November 03, 2020 Subjective 11/04/2020 The patient was seen and examined in medical floor She has retained bilateral ureteral stent since July of 2020 Presented to ER with dysuria Very anxious to have the stent out today Denies any fever and/or chills Review of Systems Review of Systems: All systems reviewed and are unremarkable except as noted below Genitourinary: + dysuria and + urinary hesitancy; no hematuria Physical Exam Physical Exam: Lying in bed comfortably but very anxious Constitutional: well developed, well nourished and + acute distress (Due to abdominal discomfort); not ill appearing Eyes: PERRL, conjunctivae normal, anicteric sclerae ENMT: external ear and nose normal, oropharynx normal Neck: trachea midline, no thyromegaly Respiratory: no respiratory distress Auscultation: lungs clear to auscultation bilaterally Cardiovascular: Rate/Rhythm: regular rate and regular rhythm Heart Sounds: no murmur Extremities: no edema Gastrointestinal (Abdomen): Inspection/Auscultation: normal bowel sounds; abdomen not distended Percussion/Palpation: abdomen soft; abdomen nontender Musculoskeletal: No acute arthritis in any joint Neurologic: Alert, awake and oriented x3 Psychiatric: Affect: + anxious affect Lymphatic: no cervical or axillary lymphadenopathy Results & Data Results & Data ([facility]) Vital Signs (Past 12 Hours) Vital Signs Temp Pulse Pulse Resp BP BP Pulse Ox 11/04/20 13:45 36.8 C 82 18 141/56 H 99 11/04/20 11:32 36.9 C 88 18 137/66 92 11/04/20 07:41 36.9 C 83 18 149/82 H 90 11/04/20 03:29 69 11/04/20 02:36 36.7 C 69 18 130/81 96 Laboratory Results Short CBC 11/03/20 11/04/20 Range/Units 18:50 06:10 WBC 6.95 5.54 (4.8-10.8) K/uL Hgb 11.3 L 10.8 L (12.0-16.0) g/dL Hct 34.9 L 33.3 L (37-47) % Plt Count 349 327 (130-400) K/uL BMP 11/03/20 11/04/20 18:50 06:10 Sodium 137 141 Potassium 3.4 L 4.5 D Chloride 107 112 H Carbon Dioxide 25 27 BUN 24 H 23 H Creatinine 1.43 H 1.26 H Glucose 90 81 Calcium 9.2 8.9 Liver Function 11/03/20 Range/Units 18:50 Total Bilirubin 0.5 (0.2-1) mg/dl AST 13 L (15-37) U/L ALT 13 (12-78) U/L Alkaline Phosphatase 113 (45-117) U/L Albumin 3.2 L (3.4-5.0) gm/dl Urine 11/03/20 Range/Units 18:50 Urine Color Yellow Urine Appearance Turbid A (Clear) Urine pH 6.5 (4.5-7.5) Ur Specific [place] 1.012 (1.000-1.030) Urine Protein 1+ H (Negative) Urine Glucose (UA) Negative (Negative) Medications Administered Current Inpatient Medications Acetaminophen (Acetaminophen 325 Mg Tab) 650 mg PO Q4H PRN PRN Reason: Pain or Fever Stop: 12/04/20 01:56 Docusate Sodium (Docusate Sodium 100 Mg Cap) 100 mg PO BID [facility] Stop: 12/04/20 20:59 Ferrous Sulfate (Ferrous Sulfate 325 Mg Tab) 325 mg PO BID [facility] Stop: 12/04/20 08:59 Last Admin: 11/04/20 08:37 Dose: 325 mg Documented by: Cefepime HCl 1,000 mg/ Syringe 11.3 mls @ 5.5 mls/min IV Q24H [facility]; Protocol Stop: 11/12/20 20:03 Sodium Chloride (Nss 1000ml) 1,000 mls @ 80 mls/hr IV .[id number] [facility] Stop: 11/04/20 14:26 Last Admin: 11/04/20 03:09 Dose: 80 mls/hr Documented by: Levothyroxine Sodium (Levothyroxine Sodium 125 Mcg Tablet) 125 mcg PO DAILYBB [facility] Stop: 12/04/20 06:29 Last Admin: 11/04/20 06:00 Dose: 125 mcg Documented by: Melatonin (Melatonin 3 Mg Tab) 3 mg PO HS [facility] Stop: 12/04/20 20:59 Multivitamins (Multivitamin Tab) [facility] Stop: 12/05/20 08:59 Ondansetron HCl (Ondansetron Inj 2 Mg/Ml 2 Ml Vial) 4 mg IV Q6H PRN PRN Reason: Nausea And Vomiting Stop: 12/04/20 01:56 Pantoprazole Sodium (Pantoprazole 40 Mg Tab) 40 mg PO QAM [facility] Stop: 12/04/20 08:59 Last Admin: 11/04/20 08:36 Dose: 40 mg Documented by: Polyethylene Glycol (Polyethylene (Miralax) 17 Gm Pack) 17 gm PO DAILY PRN PRN Reason: Constipation Stop: 12/04/20 01:56 Tramadol HCl (Tramadol Hcl 50 Mg Tablet) 50 mg PO DAILY PRN PRN Reason: Pain Stop: 12/04/20 01:56
--- NOTE | 2020-11-04 14:22 | Anesthesiology Consultation ---
Date of Service November 04, 2020 Assessment & Plan (1) Encounter for pre-operative examination: Chart Review Chart Review: Acceptable Risk for Surgery History Surgery Operation Date: 11/04/20 12:55 Proposed Procedures p Cystoscopy, Bilateral Retrograde Pyelogram, Bilateral Ureteroscopy, Possible Stone Treatment, Bilateral Stent Placement - Patrick Bauman, Height/Weight Height: 5 ft 4 in Weight: 74.8 kg Allergies Allergy/AdvReac Type Severity Reaction Status Date / Time tetracycline Allergy Unknown Verified 10/13/20 15:56 Medications Home Medications Medication Instructions Recorded Confirmed Last Taken acetaminophen 325 mg tablet 650 mg PO Q4H PRN tab 03/16/20 11/03/20 Unknown levothyroxine 125 mcg tablet 125 mcg PO QAM 03/16/20 11/03/20 07/22/20 miconazole nitrate 2 % topical 1 appln TOP BID PRN 03/16/20 11/03/20 07/22/20 cream docusate sodium 100 mg PO BID 07/22/20 11/03/20 07/22/20 furosemide 10 mg PO Q OTHER DAY 07/22/20 11/03/20 07/22/20 multivitamin [Daily-Wilber] 1 tab PO QAM #30 tab 07/28/20 11/03/20 Unknown melatonin 3 mg PO HS 10/13/20 11/03/20 Unknown pantoprazole 40 mg PO QAM 10/13/20 11/03/20 Unknown warfarin 2.5 mg PO DAILY 10/13/20 11/03/20 11/03/20 ferrous sulfate 325 mg PO BID 11/03/20 11/03/20 Unknown tramadol 50 mg PO DAILY PRN 11/03/20 11/03/20 Unknown warfarin 5 mg PO DIRECTED 11/03/20 11/03/20 Unknown Active Medications Generic Name Dose Route Start Last Admin Trade Name Freq PRN Reason Stop Dose Admin Ferrous Sulfate 325 mg 11/04/20 09:00 11/04/20 08:37 Ferrous Sulfate 325 Mg Tab PO 12/04/20 08:59 325 mg BID INGE Administration Sodium Chloride 1,000 mls @ 80 mls/hr 11/04/20 01:57 11/04/20 03:09 Nss 1000ml IV 11/04/20 14:26 80 mls/hr .[id number] INGE Administration Levothyroxine Sodium 125 mcg 11/04/20 06:30 11/04/20 06:00 Levothyroxine Sodium 125 Mcg Tablet PO 12/04/20 06:29 125 mcg DAILYBB INGE Administration Pantoprazole Sodium 40 mg 11/04/20 09:00 11/04/20 08:36 Pantoprazole 40 Mg Tab PO 12/04/20 08:59 40 mg QAM INGE Administration NPO Date Last Intake of Fluids: 11/03/20 Time Last Intake of Fluids: 13:30 Date Last Intake of Solids: 11/03/20 Time Last Intake of Solids: 13:30 Past Medical History Medical History Anemia CKD (chronic kidney disease), stage III DVT of leg (deep venous thrombosis) left Gastric ulcer 07/2020 - on PPI GERD (gastroesophageal reflux disease) History of kidney stones Hypothyroidism On anticoagulant therapy warfarin daily for DVT Osteoarthritis Ureterolithiasis Past Family History Family History Mother Family history of diabetes mellitus Other No family history of adverse response to anesthesia Past Surgical History Surgical History History of esophagogastroduodenoscopy (EGD) (~07/27/20) History of left hip replacement History of open reduction and internal fixation (ORIF) procedure (~07/23/20) right troch nail History of tonsillectomy History of tooth extraction all teeth Social History Smoking Status: Never smoker Hx Alcohol Use: No Hx Substance Use: No substance use type: does not use Physical Exam Vital Signs Last Vital Signs Temp 36.8 C 11/04/20 13:45 Pulse 82 11/04/20 13:45 Resp 18 11/04/20 13:45 BP 141/56 H 11/04/20 13:45 Pulse Ox 99 11/04/20 13:45 Testing Laboratory Results 11/04/20 06:10 11/04/20 06:10 PT 18.1 Seconds (9.0-12.0) H 11/04/20 12:31 INR 1.9 (0.9-1.1) H 11/04/20 12:31 Urine Color Yellow 11/03/20 18:50 Urine Appearance Turbid (Clear) A 11/03/20 18:50 Urine pH 6.5 (4.5-7.5) 11/03/20 18:50 Ur Specific [place] 1.012 (1.000-1.030) 11/03/20 18:50 Urine Protein 1+ (Negative) H 11/03/20 18:50 Urine Glucose (UA) Negative (Negative) 11/03/20 18:50 Urine Ketones Negative (Negative) 11/03/20 18:50 Urine Nitrite Positive (Negative) A 11/03/20 18:50 Ur Leukocyte Esterase 3+ (Negative) H 11/03/20 18:50 Urine WBC (Auto) >30 /hpf (0-5) H 11/03/20 18:50 Urine RBC (Auto) >30 /hpf (0-4) H 11/03/20 18:50 U Hyaline Cast (Auto) 1-5 /lpf (0-5) 11/03/20 18:50 U Epithel Cells (Auto) 5-10 /lpf (0-5) H 11/03/20 18:50 Urine Bacteria (Auto) 2+ (Negative) H 11/03/20 18:50 Electrocardiogram Date: 07/22/20 Findings: + NSR @ (87) and + NSST changes PVC's
[2020-11-04] MEDS ORDERED: ATROPINE SULFATE 0.1 MG/ML 10ML SYR IV PRN (14:23)
[2020-11-04] MEDS ORDERED: fentaNYL citrate 100 MCG/2 ML VIAL IV PRN (14:23)
--- NOTE | 2020-11-04 14:59 | Operative Report ---
PG Post Operative Report Pre & Post Diagnosis Right ureteral stone, left staghorn stone, retained stents Same Operation Date: 11/04/20 12:55 <No data on this case meets the specified criteria> I identified the patient and participated in the time-out.: Yes Procedure 1. Cystoscopy with bilateral retrograde pyelogram 2. Right Ureteroscopy, stone basket extraction, stent removal 3. Left Stent exchange. Operation Date: 11/04/20 12:55 <No data on this case meets the specified criteria> Surgeon Patrick Bauman, II, DO Simulation Specialist None Estimated Blood Loss 1 Findings Consistent with Post-Op Diagnosis Partially calcified stents removed. Right Ureteral Stone removed. Left stent exchange. Specimens Stone Right Ureter Drains 6 Fr Multilength on Left Anesthesia Type General Complications none Disposition Disposition: Recovery Room Indications Patient with bothersome stones. Risks and benefits discussed at length. Description of Procedure Patient was consented and brought back to the operating room. Patient was placed under anesthesia in the supine position and moved to the dorsal lithotomy position. Patient was prepped and draped in the regular sterile fashion. A time out was completed. A 30degree Cystoscope was placed into the bladder and the entire bladder was examined. The UO's were identified. The left stent was grasped and partially removed. A wire was placed. The UO was cannulized with a catheter and a retrograde pyelogram was completed. A wire was then replaced. A 6 Fr Multilength stent was placed on the left. The right stent was grasped and partially removed. A wire was placed. The Rigid ureteroscope was taken into the ureter. The stone was identified. The large right ureteral stone was grasped and removed and sent for analysis. The entire area was once again examined. No residual large fragments or areas of concern were noted. The scope was slowly removed with the wire left in place. Contrast was placed through the scope for a pyelogram. No areas of concer. The entire ureter was examined as the scope was slowly removed. No obstructions or other areas of concern were noted. With the major stone on the right removed and issues with transportation and stent tolerance, the right stent was not replaced. The bladder was emptied. The scope was removed. The patient was cleaned, aroused from anesthesia, and transferred to the pacu in stable condition having tolerated the procedure well with no complications. I was present and participated in all aspects of the procedure. The patient will be monitored in the PACU until transferred. Plan to maintain stent on left with possible lithotripsy at some point vs intermittent stent exchange. I attest to the content of the Intraoperative Record and any orders documented therein. Any exceptions are noted below.
[2020-11-04] MEDS ORDERED: DIATRIZOATE MEGLUMINE 30% 100ML VIAL INSTIL ONE (15:09)
--- NOTE | 2020-11-04 15:22 | Fluoroscopy Report ---
FL retrograde includes kub HISTORY: 85 years-old Female B/L bilateral cystourethrogram with stent placement COMPARISON: CT abdomen and pelvis of same day TECHNIQUE: 5 spot fluoroscopic images of the abdomen were obtained utilizing 26.5 seconds fluoroscopy time FINDINGS: Bilateral cystourethrogram. Left ureteral stent appears to be in satisfactory positioning. Contrast w ithin the urinary bladder lumen. Mild dilation of the right renal collecting system. Guidewire is not ed within the right ureter and renal pelvis. IMPRESSION: Fluoroscopic assistance as above. ACT 112: Negative or not required by law. The above report was generated using voice recognition software. It may contain grammatical, syntax o r spelling errors. Electronically signed by: Be Brice M.D. 11/04/2020 3:20 PM
--- NOTE | 2020-11-04 15:30 | Anesthesiology Progress Note ---
Date of Service November 04, 2020 Anesthesia Post Procedure Vital Signs Vital Signs: Temp Pulse Pulse Pulse Resp BP BP 11/04/20 15:20 79 14 11/04/20 15:10 85 18 11/04/20 15:02 36.5 C 78 18 11/04/20 13:45 36.8 C 82 18 141/56 H 11/04/20 11:32 36.9 C 88 18 11/04/20 07:41 36.9 C 83 18 11/04/20 03:29 69 11/04/20 02:36 36.7 C 69 18 130/81 11/04/20 02:01 36.5 C 68 14 11/04/20 01:07 59 L 18 119/62 11/04/20 00:00 71 18 11/03/20 22:30 61 20 11/03/20 21:34 72 16 11/03/20 20:04 68 16 11/03/20 17:45 83 14 11/03/20 16:50 37.1 C 75 18 149/75 H BP Pulse Ox 11/04/20 15:20 155/70 H 100 11/04/20 15:10 149/90 H 100 11/04/20 15:02 175/76 H 100 11/04/20 13:45 99 11/04/20 11:32 137/66 92 11/04/20 07:41 149/82 H 90 11/04/20 03:29 11/04/20 02:36 96 11/04/20 02:01 157/83 H 95 11/04/20 01:07 98 11/04/20 00:00 113/66 97 11/03/20 22:30 116/58 L 95 11/03/20 21:34 148/94 H 94 11/03/20 20:04 141/63 H 98 11/03/20 17:45 166/84 H 98 11/03/20 16:50 99 Transfer of Care Handoff Completed per policy Notes Mental Status: alert / awake / arousable Patient Amnestic to Procedure: Yes Nausea / Vomiting: adequately controlled Pain: adequately controlled Airway Patency, RR, SpO2: stable & adequate BP & HR: stable & adequate Hydration State: stable & adequate Anesthetic Complications: no major complications apparent
[2020-11-04] MEDS ORDERED: CEFEPIME 1,000 MG in SYRINGE 0 ML IV SCH (20:00)
[2020-11-04] MEDS: traMADol HCL 50 MG TABLET PO PRN (20:00)
[2020-11-04] MEDS: DOCUSATE SODIUM 100 MG CAP PO SCH (21:02)
[2020-11-04] MEDS: MELATONIN 3 MG TAB PO SCH (21:02)
[2020-11-05] MEDS: LEVOTHYROXINE SODIUM 125 MCG TABLET PO SCH (05:19)
[2020-11-05 06:48] LABS: BUN Creatinine Ratio 16.4 (10-20); Calcium 7.8 mg/dl (8.5-10.1); Creatinine Clr Calc Pharmacy 26.7 ml/min; Est GFR (African American) 34.7; Potassium 3.9 mmol/L (3.5-5.1)
[2020-11-05 06:52] LABS: Basophils # (auto) 0.03 K/uL (0-0.2); Basophils % (auto) 0.2 %; Eosinophils # (auto) 0.03 K/uL (0-0.5); Eosinophils % (auto) 0.2 %; Hematocrit (blood only) 32.5 % (37-47); Hemoglobin 10.3 g/dL (12.0-16.0); Immature Granulocytes # (auto) 0.05 K/uL (0.00-0.02); Immature Granulocytes % (auto) 0.3 %; Lymphocytes # (auto) 0.99 K/uL (1.2-3.4); Mean Corpuscular Hemoglobin 28.8 pg (25-34); Mean Corpuscular Hgb Conc 31.7 g/dL (32-36); Mean Corpuscular Volume 90.8 fL (80-100); Monocytes % (auto) 6.1 %; Neutrophils # (auto) 17.47 K/uL (1.4-6.5); Neutrophils % (auto) 88.2 %; Platelet Count 296 K/uL (130-400); RDW Coefficient of Variation 14.8 % (11.5-14.5); RDW Standard Deviation 49.3 fL (36.4-46.3); Red Blood Count 3.58 M/uL (4.2-5.4); White Blood Count 19.77 K/uL (4.8-10.8)
[2020-11-05] MEDS ORDERED: MEROPENEM CONSULT ACTIVE PRN (07:25)
[2020-11-05] MEDS ORDERED: CASPOFUNGIN 70 MG in SODIUM CHLORIDE 0.9% 250 ML IV ONE (08:00)
[2020-11-05] MEDS ORDERED: MEROPENEM 500 MG in SYRINGE 0 ML IV SCH (08:00)
[2020-11-05] MEDS: FERROUS SULFATE 325 MG TAB PO SCH ×2 (08:33→21:17)
[2020-11-05] MEDS: DOCUSATE SODIUM 100 MG CAP PO SCH ×2 (08:33→21:17)
[2020-11-05] MEDS: MULTIVITAMIN TAB PO SCH (08:33)
--- NOTE | 2020-11-05 09:07 | Urology Progress Note ---
Date of Service November 05, 2020 Assessment & Plan (1) Retained ureteral stent: (2) UTI (urinary tract infection): (3) Left nephrolithiasis: 85yo F admitted with bilateral retained ureteral stent secondary to right ureteral calculus, left staghorn calculus, and urinary tract infection - POD #1 status post s/p Cystoscopy with bilateral retrograde pyelogram; Right Ureteroscopy, stone basket extraction, stent removal and Left Stent exchange. - Clinically patient feels well, vital signs reveal hypotension. - Afebrile, non-toxic appearing. - Labs reviewed, Wbc and creatinine elevated today. - Plan of care reviewed with Dr. Bauman. - Urine culture on admission preliminary gram negative bacilli and group b strep, repeat urine culture to be collected. - Blood cultures from admission preliminary no growth, repeat blood cultures pending. - Mayer catheter to be placed this morning. - IV Meropenem and IV Caspofungin initiated by Dr. Bauman. - Per Dr. Bauman, Ok to resume anticoagulation. - Continue supportive care and additional antibiotic therapy per primary team. - Will continue to follow Admission and Anticipated Discharge Date Admission Date: November 03, 2020 Subjective POD #1 s/p Cystoscopy with bilateral retrograde pyelogram; Right Ureteroscopy, stone basket extraction, stent removal and Left Stent exchange. Pt examined at bedside this AM. Awake, resting comfortably in bed on arrival. Denies any back, flank, or suprapubic pain. Denies fevers or chills. Tolerating PO diet, no nausea or vomiting. Ambulating to bathroom without dizziness/lightheadedness. Voiding without difficulty- Urine output overnight 350 ml No hematuria, some mild dysuria. Feels she is emptying her bladder well. Chart review: Afebrile, BP 94/52, P 74 Wbc 19.77, Hgb 10.3, Cr 1.57 Urine culture 11/03- preliminary gram negative bacilli Blood culture 11/03- preliminary no growth Repeat blood/urine cultures 11/05 - pending On IV Meropenem Review of Systems Constitutional: as per Subjective / HPI Gastrointestinal: as per Subjective / HPI Genitourinary: as per Subjective / HPI Physical Exam Constitutional: well developed and well nourished; no acute distress Respiratory: no respiratory distress and no labored breathing Cardiovascular: Extremities: no calf tenderness Gastrointestinal (Abdomen): Inspection/Auscultation: abdomen normal to inspection; abdomen not distended Percussion/Palpation: abdomen soft; abdomen nontender and no guarding Musculoskeletal: Head/Neck/Chest: normocephalic Skin: Warm and dry. No visible rashes or lesions. Neurologic: awake Psychiatric: Orientation: alert, oriented x 3 and cooperative Results & Data ([facility]) Vital Signs (Past 12 Hours) Vital Signs Temp Pulse Pulse Resp BP Pulse Ox 11/05/20 07:27 37.1 C 74 18 94/52 L 94 11/05/20 07:13 71 11/05/20 03:41 37.0 C 75 18 92/54 L 96 11/05/20 02:58 83 11/04/20 22:33 37.4 C 90 18 91/51 L 94 PG Care Time/CCT Total # of Minutes Spent Total Time Spent with Patient: Total time spent is greater than 50% in coordination of care (as documented) at patient's floor/unit and/or counseling patient: Coding Level of Care Code 20270 Subseq Hosp Care Lvl 2 Diagnoses Retained ureteral stent Z96.0 UTI (urinary tract infection) N39.0 Left nephrolithiasis N20.0
[2020-11-05 09:26] LABS: INR 1.2 (0.9-1.1); Prothrombin Time 12.4 Seconds (9.0-12.0)
--- NOTE | 2020-11-05 09:30 | Communication Note ---
Date of Service: November 05, 2020 GI asked to discuss colonoscopy with patient as she was scheduled for OP endoscopy mid November. She is admitted w/ acute DVT. Inpatient team was questioning if endoscopy could be arranged during admission. I discussed this with patient and she is not interested in colonoscopy prep or examination at this time due to other acute issues. Please recall GI w/ any questions or concerns.
--- NOTE | 2020-11-05 10:27 | Anesthesiology Progress Note ---
Date of Service November 05, 2020 Anesthesia Post Procedure Vital Signs Vital Signs: Temp Pulse Pulse Pulse Resp BP BP 11/05/20 07:27 37.1 C 74 18 94/52 L 11/05/20 07:13 71 11/05/20 03:41 37.0 C 75 18 92/54 L 11/05/20 02:58 83 11/04/20 22:33 37.4 C 90 18 91/51 L 11/04/20 19:11 36.5 C 88 18 95/59 L 11/04/20 17:15 36.4 C L 98 H 18 130/73 11/04/20 16:46 78 11/04/20 16:45 36.5 C 89 18 151/73 H 11/04/20 16:18 36.4 C L 80 18 166/50 H 11/04/20 16:00 36.3 C L 88 20 163/76 H 11/04/20 15:40 83 14 167/96 H 11/04/20 15:30 36.2 C L 84 20 153/67 H 11/04/20 15:20 79 14 155/70 H 11/04/20 15:10 85 18 149/90 H 11/04/20 15:02 36.5 C 78 18 175/76 H 11/04/20 13:45 36.8 C 82 18 141/56 H 11/04/20 11:32 36.9 C 88 18 137/66 Pulse Ox 11/05/20 07:27 94 11/05/20 07:13 11/05/20 03:41 96 11/05/20 02:58 11/04/20 22:33 94 11/04/20 19:11 97 11/04/20 17:15 90 11/04/20 16:46 11/04/20 16:45 97 11/04/20 16:18 98 11/04/20 16:00 91 11/04/20 15:40 98 11/04/20 15:30 98 11/04/20 15:20 100 11/04/20 15:10 100 11/04/20 15:02 100 11/04/20 13:45 99 11/04/20 11:32 92 Notes Mental Status: alert / awake / arousable and participated in evaluation Patient Amnestic to Procedure: Yes Nausea / Vomiting: adequately controlled Pain: adequately controlled Airway Patency, RR, SpO2: stable & adequate BP & HR: stable & adequate Hydration State: stable & adequate Anesthetic Complications: no major complications apparent and Pt Satisfied with anesthetic care
[2020-11-05] MEDS ORDERED: Heparin IV Adult Wt-Based Low-Dose *NO* Bolus Protocol IV SCH (10:30)
[2020-11-05 10:39] LABS: Partial Thromboplastin Ratio 1.1; Partial Thromboplastin Time 29.3 Seconds (21.0-31.0)
[2020-11-05] MEDS ORDERED: PIPERACILL/TAZOBAC CONSULT ACTIVE PRN (11:02)
[2020-11-05] MEDS: HEPARIN SODIUM/DEXTROSE 25,000 UNITS/500 ML BAG IV SCH (11:16)
[2020-11-05] MEDS: PANTOprazole 40 MG TAB PO SCH (11:18)
[2020-11-05] MEDS: PIPERACILLIN/TAZOBACTAM 3.375 GM in DEXTROSE 5% 100 ML IV SCH ×2 (14:48→21:16)
--- NOTE | 2020-11-05 14:54 | Hospitalist Progress Note ---
Date of Service November 05, 2020 Assessment & Plan (1) UTI (urinary tract infection): UA was consistent with UTI on admission White count went of very high following the procedure Repeat cultures have been taken She has been started with intravenous Zosyn We will await cultures (2) Retained ureteral stent: Pt is 85 y/o F with PMH HTN, hypothyroidism, h/o right femur fracture in 07/2020 s/p ORIF, DVT RLE diagnosed in 09/2020 and is on Coumadin, h/o urosepsis secondary to obstructing ureteral stone in 02/2020 s/p ureteral stent presented to ER for dysuria and consideration for stent removal. Afebrile, vitals stable. No leukocytosis leukocytosis. UA consistent with UTI Has been on intravenous cefepime and that are changed to intravenous Zosyn following the procedure Initial blood cultures are negative and the repeat culture is pending Urine culture grew Morganella morganii and repeat urine culture is pending Gentle IVF Appreciate neurology input and recommendation She is status post cystoscopy and bilateral retrograde pyelogram, right ure teroscopy, stone basket extraction, stent removal and left stent exchange We will continue current antibiotic and await reports of cultures (3) DVT (deep venous thrombosis): RLE DVT diagnosed 09/29/2020. On Coumadin. History right femur fracture s/p ORIF in 07/2020 INR: 2.7 INR was 3.1 this morning on 11/04/2020 Review of options she was given vitamin K 5 mg intravenously in the morning and intermittently INR at 12:30 PM noted to be 1.9 INR is subtherapeutic and will start intravenous heparin and Coumadin She is supposed to have a colonoscopy as an outpatient Discussed with the patient by the GI service for possible scope while she is in the hospital The patient did not want to have it done right away (4) CKD (chronic kidney disease), stage III: Cr: 1.4. Was 1.4 in 09/2020. Monitor renal functions, avoid nephrotoxic agents when possible Creatinine is improved 1.26 on 08/26 (5) Hypokalemia: K: 3.4. Magnesium WNL Replace and monitor Potassium is normalized (6) Hypothyroidism: Continue levothyroxine DVT Prophylaxis As above Full Code as per discussion with pt Follows with Dr Victor for routine care Admission and Anticipated Discharge Date Admission Date: November 03, 2020 Subjective 11/04/2020 The patient was seen and examined in medical floor She has retained bilateral ureteral stent since July of 2020 Presented to ER with dysuria Very anxious to have the stent out today Denies any fever and/or chills 11/05/2020 The patient was seen and examined in medical telemetry unit She is status post cystoscopy and bilateral retrograde pyelogram, right ureteroscopy, stone basket extraction, stent removal and left stent exchange Still complains to have some pain in the right lower back Denies any fever and/or chills, no nausea and or vomiting Review of Systems Review of Systems: All systems reviewed and are unremarkable except as noted below Genitourinary: + dysuria and + urinary hesitancy; no hematuria Physical Exam Physical Exam: Lying in bed comfortably but very anxious Constitutional: well developed, well nourished and + acute distress (Due to abdominal discomfort); not ill appearing Eyes: PERRL, conjunctivae normal, anicteric sclerae ENMT: external ear and nose normal, oropharynx normal Neck: trachea midline, no thyromegaly Respiratory: no respiratory distress Auscultation: lungs clear to auscultation bilaterally Cardiovascular: Rate/Rhythm: regular rate and regular rhythm Heart Sounds: no murmur Extremities: no edema Gastrointestinal (Abdomen): Inspection/Auscultation: normal bowel sounds; abdomen not distended Percussion/Palpation: + abdomen tender (Right flank and right renal angle) and abdomen soft Musculoskeletal: No acute arthritis in any joint Psychiatric: Affect: + anxious affect Lymphatic: no cervical or axillary lymphadenopathy Results & Data Results & Data ([facility]) Vital Signs (Past 12 Hours) Vital Signs Temp Pulse Pulse Resp BP Pulse Ox 11/05/20 11:20 37.2 C 77 18 98/49 L 96 11/05/20 07:27 37.1 C 74 18 94/52 L 94 11/05/20 07:13 71 11/05/20 03:41 37.0 C 75 18 92/54 L 96 11/05/20 02:58 83 Laboratory Results Short CBC 11/05/20 Range/Units 05:24 WBC 19.77 H D (4.8-10.8) K/uL Hgb 10.3 L (12.0-16.0) g/dL Hct 32.5 L (37-47) % Plt Count 296 (130-400) K/uL BMP 11/05/20 05:24 Sodium 136 Potassium 3.9 Chloride 108 H Carbon Dioxide 24 BUN 26 H Creatinine 1.57 H D Glucose 117 H Calcium 7.8 L Medications Administered Current Inpatient Medications Acetaminophen (Acetaminophen 325 Mg Tab) 650 mg PO Q4H PRN PRN Reason: Pain or Fever Stop: 12/04/20 01:56 Docusate Sodium (Docusate Sodium 100 Mg Cap) 100 mg PO BID [facility] Stop: 12/04/20 20:59 Last Admin: 11/05/20 08:33 Dose: 100 mg Documented by: Ferrous Sulfate (Ferrous Sulfate 325 Mg Tab) 325 mg PO BID [facility] Stop: 12/04/20 08:59 Last Admin: 11/05/20 08:33 Dose: 325 mg Documented by: Heparin Sodium/Dextrose (Heparin Sodium/Dextrose) 25,000 units in 500 mls @ 15 mls/hr IV .Q24H [facility]; Protocol Stop: 12/05/20 09:59 Last Admin: 11/05/20 11:16 Dose: 750 units/hr, 15 mls/hr Documented by: Piperacillin Sod/Tazobactam (Sod 3.375 gm/ Dextrose) 115 mls @ 28.75 mls/hr IV Q8H [facility]; Protocol Stop: 11/15/20 13:59 Last Admin: 11/05/20 14:48 Dose: 28.8 mls/hr Documented by: Levothyroxine Sodium (Levothyroxine Sodium 125 Mcg Tablet) 125 mcg PO DAILYBB [facility] Stop: 12/04/20 06:29 Last Admin: 11/05/20 05:19 Dose: 125 mcg Documented by: Melatonin (Melatonin 3 Mg Tab) 3 mg PO [facility] Stop: 12/04/20 20:59 Last Admin: 11/04/20 21:02 Dose: 3 mg Documented by: Miscellaneous Information (Piperacill/Tazobac Consult Active) 1 ea N/A UD PRN PRN Reason: Consult Stop: 12/05/20 11:01 Multivitamins (Multivitamin Tab) 1 tab PO QAM [facility] Stop: 12/05/20 08:59 Last Admin: 11/05/20 08:33 Dose: 1 tab Documented by: Ondansetron HCl (Ondansetron Inj 2 Mg/Ml 2 Ml Vial) 4 mg IV Q6H PRN PRN Reason: Nausea And Vomiting Stop: 12/04/20 01:56 Pantoprazole Sodium (Pantoprazole 40 Mg Tab) [facility] [place] Stop: 12/04/20 08:59 Last Admin: 11/05/20 11:18 Dose: 40 mg Documented by: Polyethylene Glycol (Polyethylene (Miralax) 17 Gm Pack) 17 gm PO DAILY PRN PRN Reason: Constipation Stop: 12/04/20 01:56 Tramadol HCl (Tramadol Hcl 50 Mg Tablet) 50 mg PO DAILY PRN PRN Reason: Pain Stop: 12/04/20 01:56 Last Admin: 11/04/20 20:00 Dose: 50 mg Documented by:
[2020-11-05] MEDS: traMADol HCL 50 MG TABLET PO PRN (16:11)
[2020-11-05] MEDS ORDERED: PHENAZOPYRIDINE HCL 200 MG TAB PO PRN (17:36)
[2020-11-05 17:49] LABS: Partial Thromboplastin Ratio 1.6
[2020-11-05] MEDS: MELATONIN 3 MG TAB PO SCH (21:17)
[2020-11-06 00:58] LABS: Partial Thromboplastin Ratio 1.7; Partial Thromboplastin Time 44.9 Seconds (21.0-31.0)
[2020-11-06] MEDS: LEVOTHYROXINE SODIUM 125 MCG TABLET PO SCH (06:16)
[2020-11-06] MEDS: PIPERACILLIN/TAZOBACTAM 3.375 GM in DEXTROSE 5% 100 ML IV SCH ×3 (06:17→22:25)
[2020-11-06 07:52] LABS: Basophils # (auto) 0.03 K/uL (0-0.2); Basophils % (auto) 0.3 %; Eosinophils # (auto) 0.27 K/uL (0-0.5); Eosinophils % (auto) 2.3 %; Hematocrit (blood only) 32.1 % (37-47); Hemoglobin 10.2 g/dL (12.0-16.0); Immature Granulocytes # (auto) 0.05 K/uL (0.00-0.02); Immature Granulocytes % (auto) 0.4 %; Lymphocytes # (auto) 1.49 K/uL (1.2-3.4); Lymphocytes % (auto) 12.6 %; Mean Corpuscular Hemoglobin 28.6 pg (25-34); Mean Corpuscular Hgb Conc 31.8 g/dL (32-36); Mean Corpuscular Volume 89.9 fL (80-100); Mean Platelet Volume 9.7 fL (7.4-10.4); Monocytes # (auto) 1.01 K/uL (0.11-0.59); Monocytes % (auto) 8.6 %; Neutrophils # (auto) 8.94 K/uL (1.4-6.5); Neutrophils % (auto) 75.8 %; Platelet Count 244 K/uL (130-400); RDW Coefficient of Variation 14.5 % (11.5-14.5); RDW Standard Deviation 47.8 fL (36.4-46.3); Red Blood Count 3.57 M/uL (4.2-5.4); White Blood Count 11.79 K/uL (4.8-10.8)
[2020-11-06 08:01] LABS: Partial Thromboplastin Ratio 1.7; Partial Thromboplastin Time 44.7 Seconds (21.0-31.0)
[2020-11-06 08:10] LABS: BUN Creatinine Ratio 15.6 (10-20); Calcium 8.1 mg/dl (8.5-10.1); Creatinine Clr Calc Pharmacy 28.9 ml/min; Est GFR (African American) 37.9; Est GFR (Non-African American) 32.7; Potassium 3.5 mmol/L (3.5-5.1)
[2020-11-06] MEDS: FERROUS SULFATE 325 MG TAB PO SCH ×2 (08:14→20:17)
[2020-11-06] MEDS: MULTIVITAMIN TAB PO SCH (08:15)
[2020-11-06] MEDS: PANTOprazole 40 MG TAB PO SCH (08:15)
[2020-11-06] MEDS: DOCUSATE SODIUM 100 MG CAP PO SCH ×2 (08:17→20:17)
--- NOTE | 2020-11-06 08:41 | Urology Progress Note ---
Date of Service November 06, 2020 Assessment & Plan (1) Left nephrolithiasis: (2) Retained ureteral stent: Status post recent cystoscopy, right stone extraction and stent removal, left stent exchangestaghorn calculus on the left Her white blood cell count has decreased from 19-11.79, her creatinine has improved slightly from 1.57-1.46 (baseline closer to 1.1) Subjectively feels well Asking to go home From a perspective she seems to be quite stable I think she will require continued antibiotic coverage as a precaution -has been receiving Zosyn here Admission and Anticipated Discharge Date Admission Date: November 03, 2020 Subjective Subjectively reports that she is doing quite well aside from some right hip pain His hip pain has been present since her prior hip surgery Denies any right or left flank pain Physical Exam Constitutional: well developed and well nourished Respiratory: no respiratory distress Cardiovascular: Extremities: no pedal edema Gastrointestinal (Abdomen): Inspection/Auscultation: abdomen normal to inspection Results & Data ([facility]) Vital Signs (Past 12 Hours) Vital Signs Temp Pulse Pulse Resp BP Pulse Ox 11/06/20 07:38 36.9 C 75 18 108/66 97 11/06/20 04:12 37.9 C H 78 18 131/88 97 11/06/20 00:00 89 11/05/20 23:52 37.7 C H 75 16 97/61 L 96 PG Care Time/CCT Total # of Minutes Spent Total Time Spent with Patient: Total time spent is greater than 50% in coordination of care (as documented) at patient's floor/unit and/or counseling patient: Coding Level of Care Code 81205 Subseq Hosp Care Lvl 3 Diagnoses Left nephrolithiasis N20.0 Retained ureteral stent Z96.0
[2020-11-06 09:19] LABS: INR 1.2 (0.9-1.1)
[2020-11-06] MEDS ORDERED: WARFARIN SOD 7.5 MG TAB PO STA (11:15)
--- NOTE | 2020-11-06 12:43 | Hospitalist Progress Note ---
Date of Service November 06, 2020 Assessment & Plan (1) UTI (urinary tract infection): UA was consistent with UTI on admission White count went of very high following the procedure Repeat cultures have been taken She has been started with intravenous Zosyn Has been getting Pyridium for dysuria No fever no chills and the white count has been improving Awaiting urine culture (2) Retained ureteral stent: Pt is 85 y/o F with PMH HTN, hypothyroidism, h/o right femur fracture in 07/2020 s/p ORIF, DVT RLE diagnosed in 09/2020 and is on Coumadin, h/o urosepsis secondary to obstructing ureteral stone in 02/2020 s/p ureteral stent presented to ER for dysuria and consideration for stent removal. Afebrile, vitals stable. No leukocytosis leukocytosis. UA consistent with UTI Has been on intravenous cefepime and that are changed to intravenous Zosyn follo wing the procedure Initial blood cultures are negative and the repeat culture is pending Urine culture grew Morganella morganii and repeat urine culture is pending Gentle IVF Appreciate neurology input and recommendation She is status post cystoscopy and bilateral retrograde pyelogram, right ureteroscopy, stone basket extraction, stent removal and left stent exchange We will continue current antibiotic and await reports of cultures Likely to need antibiotic on discharge (3) DVT (deep venous thrombosis): RLE DVT diagnosed 09/29/2020. On Coumadin. History right femur fracture s/p ORIF in 07/2020 INR: 2.7 INR was 3.1 this morning on 11/04/2020 Review of options she was given vitamin K 5 mg intravenously in the morning and intermittently INR at 12:30 PM noted to be 1.9 INR is subtherapeutic and will start intravenous heparin and Coumadin Will start her Coumadin and continue heparin for now Likely discharge tomorrow She is supposed to have a colonoscopy as an outpatient Discussed with the patient by the GI service for possible scope while she is in the hospital The patient did not want to have it done right away (4) CKD (chronic kidney disease), stage III: Cr: 1.4. Was 1.4 in 09/2020. Monitor renal functions, avoid nephrotoxic agents when possible Creatinine is improved 1.26 on 08/26 Creatinine has been improving (5) Hypokalemia: K: 3.4. Magnesium WNL Replace and monitor Potassium is normalized (6) Hypothyroidism: Continue levothyroxine DVT Prophylaxis As above Full Code as per discussion with pt Follows with Dr Victor for routine care Admission and Anticipated Discharge Date Admission Date: November 03, 2020 Subjective 11/04/2020 The patient was seen and examined in medical floor She has retained bilateral ureteral stent since July of 2020 Presented to ER with dysuria Very anxious to have the stent out today Denies any fever and/or chills 11/05/2020 The patient was seen and examined in medical telemetry unit She is status post cystoscopy and bilateral retrograde pyelogram, right ureteroscopy, stone basket extraction, stent removal and left stent exchange Still complains to have some pain in the right lower back Denies any fever and/or chills, no nausea and or vomiting 11/06/2020 The patient was seen and examined in medical telemetry unit She has been sleeping this morning but denies any significant symptoms No more fever and/or chills and her white count has been improving Review of Systems Review of Systems: All systems reviewed and are unremarkable except as noted below Genitourinary: + dysuria and + urinary hesitancy; no hematuria Physical Exam Physical Exam: Lying in bed comfortably but very anxious Constitutional: well developed, well nourished and + acute distress (Due to abdominal discomfort); not ill appearing Eyes: PERRL, conjunctivae normal, anicteric sclerae ENMT: external ear and nose normal, oropharynx normal Neck: trachea midline, no thyromegaly Respiratory: no respiratory distress Auscultation: lungs clear to auscultation bilaterally Cardiovascular: Rate/Rhythm: regular rate and regular rhythm Heart Sounds: no murmur Extremities: no edema Gastrointestinal (Abdomen): Inspection/Auscultation: normal bowel sounds; abdomen not distended Percussion/Palpation: + abdomen tender (Right flank and right renal angle) and abdomen soft Musculoskeletal: No acute arthritis in any joint Neurologic: Alert, awake and oriented x3 Psychiatric: A+Ox3, euthymic affect Affect: + anxious affect Lymphatic: no cervical or axillary lymphadenopathy Results & Data Results & Data ([facility]) Vital Signs (Past 12 Hours) Vital Signs Temp Pulse Resp BP Pulse Ox 11/06/20 11:13 36.6 C 66 18 184/86 H 93 11/06/20 07:38 36.9 C 75 18 108/66 97 11/06/20 04:12 37.9 C H 78 18 131/88 97 Laboratory Results Short CBC 11/06/20 Range/Units 07:10 WBC 11.79 H (4.8-10.8) K/uL Hgb 10.2 L (12.0-16.0) g/dL Hct 32.1 L (37-47) % Plt Count 244 (130-400) K/uL BMP 11/06/20 07:10 Sodium 133 L Potassium 3.5 Chloride 105 Carbon Dioxide 23 BUN 23 H Creatinine 1.46 H Glucose 110 H Calcium 8.1 L Medications Administered Current Inpatient Medications Acetaminophen (Acetaminophen 325 Mg Tab) 650 mg PO Q4H PRN PRN Reason: Pain or Fever Stop: 12/04/20 01:56 Docusate Sodium (Docusate Sodium 100 Mg Cap) 100 mg PO BID [facility] Stop: 12/04/20 20:59 Last Admin: 11/06/20 08:17 Dose: 100 mg Documented by: Ferrous Sulfate (Ferrous Sulfate 325 Mg Tab) 325 mg PO BID [facility] Stop: 12/04/20 08:59 Last Admin: 11/06/20 08:14 Dose: 325 mg Documented by: Heparin Sodium/Dextrose (Heparin Sodium/Dextrose) 25,000 units in 500 mls @ 18 mls/hr IV .Q24H [facility]; Protocol Stop: 12/05/20 09:59 Last Titration: 11/06/20 08:18 Dose: 900 units/hr, 18 mls/hr Documented by: Piperacillin Sod/Tazobactam (Sod 3.375 gm/ Dextrose) 115 mls @ 28.75 mls/hr IV Q8H [facility]; Protocol Stop: 11/15/20 13:59 Last Infusion: 11/06/20 11:11 Dose: Infused Documented by: Levothyroxine Sodium (Levothyroxine Sodium 125 Mcg Tablet) 125 mcg PO DAILYBB [facility] Stop: 12/04/20 06:29 Last Admin: 11/06/20 06:16 Dose: 125 mcg Documented by: Melatonin (Melatonin 3 Mg Tab) 3 mg PO HS [facility] Stop: 12/04/20 20:59 Last Admin: 11/05/20 21:17 Dose: 3 mg Documented by: Miscellaneous Information (Piperacill/Tazobac Consult Active) 1 ea N/A UD PRN PRN Reason: Consult Stop: 12/05/20 11:01 Multivitamins (Multivitamin Tab) 1 tab PO [facility] Stop: 12/05/20 08:59 Last Admin: 11/06/20 08:15 Dose: 1 tab Documented by: Ondansetron HCl (Ondansetron Inj 2 Mg/Ml 2 Ml Vial) 4 mg IV Q6H PRN PRN Reason: Nausea And Vomiting Stop: 12/04/20 01:56 Pantoprazole Sodium (Pantoprazole 40 Mg Tab) 40 mg PO [facility] Stop: 12/04/20 08:59 Last Admin: 11/06/20 08:15 Dose: 40 mg Documented by: Phenazopyridine HCl (Phenazopyridine Hcl 200 Mg Tab) 200 mg PO TID PRN PRN Reason: Bladder pain Stop: 12/05/20 17:35 Polyethylene Glycol (Polyethylene (Miralax) 17 Gm Pack) 17 gm PO DAILY PRN PRN Reason: Constipation Stop: 12/04/20 01:56 Tramadol HCl (Tramadol Hcl 50 Mg Tablet) 50 mg PO DAILY PRN PRN Reason: Pain Stop: 12/04/20 01:56 Last Admin: 11/05/20 16:11 Dose: 50 mg Documented by:
[2020-11-06] MEDS: HEPARIN SODIUM/DEXTROSE 25,000 UNITS/500 ML BAG IV SCH (13:02)
[2020-11-06 15:03] LABS: Partial Thromboplastin Ratio 1.7; Partial Thromboplastin Time 44.1 Seconds (21.0-31.0)
[2020-11-06] MEDS: traMADol HCL 50 MG TABLET PO PRN (19:06)
[2020-11-06] MEDS: ACETAMINOPHEN 325 MG TAB PO PRN (20:16)
[2020-11-06] MEDS: MELATONIN 3 MG TAB PO SCH (20:16)
[2020-11-06 22:12] LABS: Partial Thromboplastin Ratio 1.9
[2020-11-06 22:13] LABS: Partial Thromboplastin Time 50.9 Seconds (21.0-31.0)
[2020-11-06] MEDS: DICLOFENAC SOD 1% GEL 100 GM TUBE EXT PRN (22:25)
[2020-11-07 06:06] LABS: Basophils # (auto) 0.04 K/uL (0-0.2); Basophils % (auto) 0.4 %; Eosinophils # (auto) 0.27 K/uL (0-0.5); Eosinophils % (auto) 2.8 %; Hematocrit (blood only) 31.5 % (37-47); Hemoglobin 10.1 g/dL (12.0-16.0); Immature Granulocytes # (auto) 0.04 K/uL (0.00-0.02); Immature Granulocytes % (auto) 0.4 %; Lymphocytes # (auto) 1.71 K/uL (1.2-3.4); Mean Corpuscular Hemoglobin 28.7 pg (25-34); Mean Corpuscular Hgb Conc 32.1 g/dL (32-36); Mean Corpuscular Volume 89.5 fL (80-100); Mean Platelet Volume 9.7 fL (7.4-10.4); Monocytes # (auto) 0.87 K/uL (0.11-0.59); Monocytes % (auto) 9.2 %; Neutrophils # (auto) 6.56 K/uL (1.4-6.5); Neutrophils % (auto) 69.2 %; Platelet Count 241 K/uL (130-400); RDW Coefficient of Variation 14.8 % (11.5-14.5); RDW Standard Deviation 48.4 fL (36.4-46.3); Red Blood Count 3.52 M/uL (4.2-5.4); White Blood Count 9.49 K/uL (4.8-10.8)
[2020-11-07 06:25] LABS: Partial Thromboplastin Ratio 2.5
[2020-11-07] MEDS: LEVOTHYROXINE SODIUM 125 MCG TABLET PO SCH (06:39)
[2020-11-07] MEDS: PIPERACILLIN/TAZOBACTAM 3.375 GM in DEXTROSE 5% 100 ML IV SCH ×3 (06:39→22:09)
[2020-11-07 06:42] LABS: BUN Creatinine Ratio 16.2 (10-20); Calcium 8.1 mg/dl (8.5-10.1); Creatinine Clr Calc Pharmacy 30.8 ml/min; Est GFR (African American) 40.6; Potassium 3.5 mmol/L (3.5-5.1)
[2020-11-07] MEDS: DICLOFENAC SOD 1% GEL 100 GM TUBE EXT PRN ×2 (06:42→20:19)
[2020-11-07 06:45] LABS: Partial Thromboplastin Time 65.8 Seconds (21.0-31.0)
[2020-11-07] MEDS: ACETAMINOPHEN 325 MG TAB PO PRN ×2 (08:10→20:19)
[2020-11-07] MEDS: MULTIVITAMIN TAB PO SCH (08:11)
[2020-11-07] MEDS: PANTOprazole 40 MG TAB PO SCH (08:11)
[2020-11-07] MEDS: FERROUS SULFATE 325 MG TAB PO SCH ×2 (08:11→20:20)
[2020-11-07] MEDS: DOCUSATE SODIUM 100 MG CAP PO SCH ×2 (08:11→20:20)
[2020-11-07 08:53] LABS: INR 1.6 (0.9-1.1); Prothrombin Time 16.1 Seconds (9.0-12.0)
--- NOTE | 2020-11-07 09:36 | Urology Progress Note ---
Date of Service November 07, 2020 Assessment & Plan (1) Left nephrolithiasis: (2) Retained ureteral stent: Afebrile, vital signs stable Leukocytosis improving, creatinine improving Subjectively improving Overall seems to be on a good path Continue current care Discharge when deemed medically stable We will continue to follow peripherally, please reconsult if things issues become more prominent Admission and Anticipated Discharge Date Admission Date: November 03, 2020 Subjective Continues to progress appropriately She denies any flank pain today Her hip pain that she was complaining about yesterday seems to be improved today Denies any dysuria or gross hematuria Physical Exam Constitutional: well developed and well nourished Respiratory: no respiratory distress Cardiovascular: Extremities: no pedal edema Gastrointestinal (Abdomen): Inspection/Auscultation: abdomen normal to inspection Results & Data ([facility]) Vital Signs (Past 12 Hours) Vital Signs Temp Pulse Pulse Resp BP Pulse Ox 11/07/20 08:07 36.8 C 63 18 100/62 95 11/07/20 03:27 37 C 62 18 98/62 L 96 11/06/20 23:03 69 11/06/20 22:50 36.7 C 71 18 104/63 96 PG Care Time/CCT Total # of Minutes Spent Total Time Spent with Patient: Total time spent is greater than 50% in coordination of care (as documented) at patient's floor/unit and/or counseling patient: Coding Level of Care Code 06637 Subseq Hosp Care Lvl 2 Diagnoses Left nephrolithiasis N20.0 Retained ureteral stent Z96.0
[2020-11-07] MEDS: HEPARIN SODIUM/DEXTROSE 25,000 UNITS/500 ML BAG IV SCH (10:06)
--- NOTE | 2020-11-07 11:57 | Hospitalist Progress Note ---
Date of Service November 07, 2020 Assessment & Plan (1) UTI (urinary tract infection): UA was consistent with UTI on admission White count went of very high following the procedure Repeat cultures have been taken She has been started with intravenous Zosyn Has been getting Pyridium for dysuria No fever no chills and the white count has been improving Awaiting urine culture-culture has been negative We will continue intravenous antibiotic for today Discontinue Mayer (2) Retained ureteral stent: Pt is 85 y/o F with PMH HTN, hypothyroidism, h/o right femur fracture in 07/2020 s/p ORIF, DVT RLE diagnosed in 09/2020 and is on Coumadin, h/o urosepsis secondary to obstructing ureteral stone in 02/2020 s/p ureteral stent presented to ER for dysuria and consideration for stent removal. Afebrile, vitals stable. No leukocytosis leukocytosis. UA consistent with UTI Has been on intravenous cefepime and that are changed to intravenous Zosyn following the procedure Initial blood cultures are negative and the repeat culture is pending Urine culture grew Morganella morganii and repeat urine culture is pending Gentle IVF Appreciate neurology input and recommendation She is status post cystoscopy and bilateral retrograde pyelogram, right ureteroscopy, stone basket extraction, stent removal and left stent exchange We will continue current antibiotic and await reports of cultures Urine culture came back negative and will not need any antibiotic on discharge (3) DVT (deep venous thrombosis): RLE DVT diagnosed 09/29/2020. On Coumadin. History right femur fracture s/p ORIF in 07/2020 INR: 2.7 INR was 3.1 this morning on 11/04/2020 Review of options she was given vitamin K 5 mg intravenously in the morning and intermittently INR at 12:30 PM noted to be 1.9 INR is subtherapeutic and will start intravenous heparin and Coumadin Will start her Coumadin and continue heparin for now INR is 1.6 today Continue intravenous heparin She is supposed to have a colonoscopy as an outpatient Discussed with the patient by the GI service for possible scope while she is in the hospital The patient did not want to have it done right away (4) CKD (chronic kidney disease), stage III: Cr: 1.4. Was 1.4 in 09/2020. Monitor renal functions, avoid nephrotoxic agents when possible Creatinine is improved 1.26 on 08/26 Creatinine has been improving (5) Hypokalemia: K: 3.4. Magnesium WNL Replace and monitor Potassium is normalized (6) Hypothyroidism: Continue levothyroxine DVT Prophylaxis As above Full Code as per discussion with pt Follows with Dr Victor for routine care We will get PT and OT evaluation and possible discharge tomorrow Admission and Anticipated Discharge Date Admission Date: November 03, 2020 Subjective 11/04/2020 The patient was seen and examined in medical floor She has retained bilateral ureteral stent since July of 2020 Presented to ER with dysuria Very anxious to have the stent out today Denies any fever and/or chills 11/05/2020 The patient was seen and examined in medical telemetry unit She is status post cystoscopy and bilateral retrograde pyelogram, right ureteroscopy, stone basket extraction, stent removal and left stent exchange Still complains to have some pain in the right lower back Denies any fever and/or chills, no nausea and or vomiting 11/06/2020 The patient was seen and examined in medical telemetry unit She has been sleeping this morning but denies any significant symptoms No more fever and/or chills and her white count has been improving 11/07/2020 The patient was seen and examined in medical telemetry unit She has been much better today and complains some nausea Denies any more urinary symptoms, no fever and/or chills She is less anxious today Review of Systems Review of Systems: All systems reviewed and are unremarkable except as noted below Genitourinary: + urinary hesitancy; no dysuria and no hematuria Physical Exam Physical Exam: Lying in bed comfortably but very anxious Constitutional: well developed, well nourished and + acute distress (Due to abdominal discomfort); not ill appearing Eyes: PERRL, conjunctivae normal, anicteric sclerae ENMT: external ear and nose normal, oropharynx normal Neck: trachea midline, no thyromegaly Respiratory: no respiratory distress Auscultation: lungs clear to auscultation bilaterally Cardiovascular: Rate/Rhythm: regular rate and regular rhythm Heart Sounds: no murmur Extremities: no edema Gastrointestinal (Abdomen): Inspection/Auscultation: normal bowel sounds; abdomen not distended Percussion/Palpation: + abdomen tender (Right flank and right renal angle) and abdomen soft Musculoskeletal: No acute arthritis involving any joint Neurologic: Alert, awake and oriented x3. Generally weak but no focal sensory and/or motor deficit appreciated Psychiatric: A+Ox3, euthymic affect Affect: + anxious affect Lymphatic: no cervical or axillary lymphadenopathy Results & Data Results & Data ([facility]) Vital Signs (Past 12 Hours) Vital Signs Temp Pulse Resp BP Pulse Ox 11/07/20 08:07 36.8 C 63 18 100/62 95 11/07/20 03:27 37 C 62 18 98/62 L 96 Laboratory Results Short CBC 11/07/20 Range/Units 05:51 WBC 9.49 (4.8-10.8) K/uL Hgb 10.1 L (12.0-16.0) g/dL Hct 31.5 L (37-47) % Plt Count 241 (130-400) K/uL BMP 11/07/20 05:51 Sodium 136 Potassium 3.5 Chloride 107 Carbon Dioxide 24 BUN 22 H Creatinine 1.38 H Glucose 119 H Calcium 8.1 L Medications Administered Current Inpatient Medications Acetaminophen (Acetaminophen 325 Mg Tab) 650 mg PO Q4H PRN PRN Reason: Pain or Fever Stop: 12/04/20 01:56 Last Admin: 11/07/20 08:10 Dose: 650 mg Documented by: Diclofenac Sodium (Diclofenac Sod 1% Gel 100 Gm Tube) 2 gm EXT BID PRN PRN Reason: Pain Stop: 12/06/20 21:14 Last Admin: 11/07/20 06:42 Dose: 2 gm Documented by: Docusate Sodium (Docusate Sodium 100 Mg Cap) 100 mg PO BID [facility] Stop: 12/04/20 20:59 Last Admin: 11/07/20 08:11 Dose: 100 mg Documented by: Ferrous Sulfate (Ferrous Sulfate 325 Mg Tab) 325 mg PO BID [facility] Stop: 12/04/20 08:59 Last Admin: 11/07/20 08:11 Dose: 325 mg Documented by: Heparin Sodium/Dextrose (Heparin Sodium/Dextrose) 25,000 units in 500 mls @ 19 mls/hr IV .Q24H [facility]; Protocol Stop: 12/05/20 09:59 Last Admin: 11/07/20 10:06 Dose: 950 units/hr, 19 mls/hr Documented by: Piperacillin Sod/Tazobactam (Sod 3.375 gm/ Dextrose) 115 mls @ 28.75 mls/hr IV Q8H [facility]; Protocol Stop: 11/15/20 13:59 Last Infusion: 11/07/20 11:07 Dose: Infused Documented by: Levothyroxine Sodium (Levothyroxine Sodium 125 Mcg Tablet) 125 mcg PO DAILYBB [facility] Stop: 12/04/20 06:29 Last Admin: 11/07/20 06:39 Dose: 125 mcg Documented by: Melatonin (Melatonin 3 Mg Tab) 3 mg PO HS [facility] Stop: 12/04/20 20:59 Last Admin: 11/06/20 20:16 Dose: 3 mg Documented by: Miscellaneous Information (Piperacill/Tazobac Consult Active) 1 ea N/A UD PRN PRN Reason: Consult Stop: 12/05/20 11:01 Multivitamins (Multivitamin Tab) 1 tab PO [facility] Stop: 12/05/20 08:59 Last Admin: 11/07/20 08:11 Dose: 1 tab Documented by: Ondansetron HCl (Ondansetron Inj 2 Mg/Ml 2 Ml Vial) 4 mg IV Q6H PRN PRN Reason: Nausea And Vomiting Stop: 12/04/20 01:56 Pantoprazole Sodium (Pantoprazole 40 Mg Tab) 40 mg PO [facility] Stop: 12/04/20 08:59 Last Admin: 11/07/20 08:11 Dose: 40 mg Documented by: Phenazopyridine HCl (Phenazopyridine Hcl 200 Mg Tab) 200 mg PO TID PRN PRN Reason: Bladder pain Stop: 12/05/20 17:35 Polyethylene Glycol (Polyethylene (Miralax) 17 Gm Pack) 17 gm PO DAILY PRN PRN Reason: Constipation Stop: 12/04/20 01:56 Last Admin: 11/07/20 10:00 Dose: 17 gm Documented by: Tramadol HCl (Tramadol Hcl 50 Mg Tablet) 50 mg PO DAILY PRN PRN Reason: Pain Stop: 12/04/20 01:56 Last Admin: 11/06/20 19:06 Dose: 50 mg Documented by: Warfarin Sodium (Warfarin Sod 5 Mg Tab) 5 mg PO DAILY@1600 [facility] Stop: 12/07/20 15:59
[2020-11-07] MEDS: traMADol HCL 50 MG TABLET PO PRN (13:01)
[2020-11-07] MEDS ORDERED: WARFARIN SOD 5 MG TAB PO SCH (16:00)
[2020-11-07] MEDS: MELATONIN 3 MG TAB PO SCH (20:20)
[2020-11-08] MEDS: PIPERACILLIN/TAZOBACTAM 3.375 GM in DEXTROSE 5% 100 ML IV SCH ×2 (05:53→13:57)
[2020-11-08] MEDS: LEVOTHYROXINE SODIUM 125 MCG TABLET PO SCH (05:53)
[2020-11-08] MEDS: ACETAMINOPHEN 325 MG TAB PO PRN (05:56)
[2020-11-08 06:22] LABS: INR 2.8 (0.9-1.1); Partial Thromboplastin Ratio 2.9; Prothrombin Time 26.2 Seconds (9.0-12.0)
[2020-11-08 06:25] LABS: Partial Thromboplastin Time 75.2 Seconds (21.0-31.0)
[2020-11-08] MEDS: FERROUS SULFATE 325 MG TAB PO SCH (07:58)
[2020-11-08] MEDS: MULTIVITAMIN TAB PO SCH (07:59)
[2020-11-08] MEDS: PANTOprazole 40 MG TAB PO SCH (07:59)
[2020-11-08] MEDS: DOCUSATE SODIUM 100 MG CAP PO SCH (07:59)
--- NOTE | 2020-11-08 11:19 | Hospitalist Progress Note ---
Date of Service November 08, 2020 Assessment & Plan (1) UTI (urinary tract infection): UA was consistent with UTI on admission White count went of very high following the procedure Repeat cultures have been taken She has been started with intravenous Zosyn Has been getting Pyridium for dysuria No fever no chills and the white count has been improving Awaiting urine culture-culture has been negative We will continue intravenous antibiotic for today Discontinue Mayer Denies any withdrawal symptoms (2) Retained ureteral stent: Pt is 85 y/o F with PMH HTN, hypothyroidism, h/o right femur fracture in 07/2020 s/p ORIF, DVT RLE diagnosed in 09/2020 and is on Coumadin, h/o urosepsis secondary to obstructing ureteral stone in 02/2020 s/p ureteral stent presented to ER for dysuria and consideration for stent removal. Afebrile, vitals stable. No leukocytosis leukocytosis. UA consistent with UTI Has been on intravenous cefepime and that are changed to intravenous Zosyn following the procedure Initial blood cultures are negative and the repeat culture is pending Urine culture grew Morganella morganii and repeat urine culture is pending Gentle IVF Appreciate neurology input and recommendation She is status post cystoscopy and bilateral retrograde pyelogram, right ureteroscopy, stone basket extraction, stent removal and left stent exchange We will continue current antibiotic and await reports of cultures Urine culture came back negative and will not need any antibiotic on discharge She will have a follow-up with the urologist as an outpatient (3) DVT (deep venous thrombosis): RLE DVT diagnosed 09/29/2020. On Coumadin. History right femur fracture s/p ORIF in 07/2020 INR: 2.7 INR was 3.1 this morning on 11/04/2020 Review of options she was given vitamin K 5 mg intravenously in the morning and intermittently INR at 12:30 PM noted to be 1.9 INR is subtherapeutic and will start intravenous heparin and Coumadin Will start her Coumadin and continue heparin for now INR is more than 2 today, heparin is discontinued She is supposed to have a colonoscopy as an outpatient Discussed with the patient by the GI service for possible scope while she is in the hospital The patient did not want to have it done right away (4) CKD (chronic kidney disease), stage III: Cr: 1.4. Was 1.4 in 09/2020. Monitor renal functions, avoid nephrotoxic agents when possible Creatinine is improved 1.26 on 08/26 Creatinine has been improving (5) Hypokalemia: K: 3.4. Magnesium WNL Replace and monitor Potassium is normalized (6) Hypothyroidism: Continue levothyroxine DVT Prophylaxis As above Full Code as per discussion with pt Follows with Dr Victor for routine care We will get PT and OT evaluation and possible discharge tomorrow She will be discharged home this afternoon Admission and Anticipated Discharge Date Admission Date: November 03, 2020 Subjective 11/04/2020 The patient was seen and examined in medical floor She has retained bilateral ureteral stent since July of 2020 Presented to ER with dysuria Very anxious to have the stent out today Denies any fever and/or chills 11/05/2020 The patient was seen and examined in medical telemetry unit She is status post cystoscopy and bilateral retrograde pyelogram, right ureteroscopy, stone basket extraction, stent removal and left stent exchange Still complains to have some pain in the right lower back Denies any fever and/or chills, no nausea and or vomiting 11/06/2020 The patient was seen and examined in medical telemetry unit She has been sleeping this morning but denies any significant symptoms No more fever and/or chills and her white count has been improving 11/07/2020 The patient was seen and examined in medical telemetry unit She has been much better today and complains some nausea Denies any more urinary symptoms, no fever and/or chills She is less anxious today 11/08/2020 The patient was seen and examined in medical telemetry unit She has been feeling much better denies any abdominal and/or back pain No more urinary symptoms Denies any significant anxiety Review of Systems Review of Systems: All systems reviewed and are unremarkable except as noted below Genitourinary: no dysuria, no urinary hesitancy and no hematuria Physical Exam Physical Exam: Lying in bed comfortably Constitutional: well developed, well nourished and + acute distress (Due to abdominal discomfort); not ill appearing Eyes: PERRL, conjunctivae normal, anicteric sclerae ENMT: external ear and nose normal, oropharynx normal Neck: trachea midline, no thyromegaly Respiratory: no respiratory distress Auscultation: lungs clear to auscultation bilaterally Cardiovascular: Rate/Rhythm: regular rate and regular rhythm Heart Sounds: no murmur Extremities: no edema Gastrointestinal (Abdomen): Inspection/Auscultation: normal bowel sounds; abdomen not distended Percussion/Palpation: abdomen soft; abdomen nontender (Right flank and right renal angle) Musculoskeletal: No acute arthritis in any joint Psychiatric: A+Ox3, euthymic affect Affect: + anxious affect Lymphatic: no cervical or axillary lymphadenopathy Results & Data Results & Data ([facility]) Vital Signs (Past 12 Hours) Vital Signs Temp Pulse Pulse Resp BP BP Pulse Ox 11/08/20 11:15 36.7 C 63 18 116/65 97 11/08/20 10:15 36.6 C 64 18 119/64 130/73 100 11/08/20 07:42 64 11/08/20 06:50 36.6 C 64 18 119/64 100 11/08/20 03:16 36.9 C 68 18 105/68 98 11/08/20 00:00 65 11/07/20 23:35 99/61 L Medications Administered Current Inpatient Medications Acetaminophen (Acetaminophen 325 Mg Tab) 650 mg PO Q4H PRN PRN Reason: Pain or Fever Stop: 12/04/20 01:56 Last Admin: 11/08/20 05:56 Dose: 650 mg Documented by: Diclofenac Sodium (Diclofenac Sod 1% Gel 100 Gm Tube) 2 gm EXT BID PRN PRN Reason: Pain Stop: 12/06/20 21:14 Last Admin: 11/07/20 20:19 Dose: 2 gm Documented by: Docusate Sodium (Docusate Sodium 100 Mg Cap) 100 mg PO BID [facility] Stop: 12/04/20 20:59 Last Admin: 11/08/20 07:59 Dose: 100 mg Documented by: Ferrous Sulfate (Ferrous Sulfate 325 Mg Tab) 325 mg PO BID [facility] Stop: 12/04/20 08:59 Last Admin: 11/08/20 07:58 Dose: 325 mg Documented by: Piperacillin Sod/Tazobactam (Sod 3.375 gm/ Dextrose) 115 mls @ 28.75 mls/hr IV Q8H [facility]; Protocol Stop: 11/15/20 13:59 Last Infusion: 11/08/20 09:52 Dose: Infused Documented by: Levothyroxine Sodium (Levothyroxine Sodium 125 Mcg Tablet) [facility] Stop: 12/04/20 06:29 Last Admin: 11/08/20 05:53 Dose: 125 mcg Documented by: Melatonin (Melatonin 3 Mg Tab) 3 mg PO [facility] Stop: 12/04/20 20:59 Last Admin: 11/07/20 20:20 Dose: 3 mg Documented by: Miscellaneous Information (Piperacill/Tazobac Consult Active) 1 ea N/A UD PRN PRN Reason: Consult Stop: 12/05/20 11:01 Multivitamins (Multivitamin Tab) 1 tab PO [facility] Stop: 12/05/20 08:59 Last Admin: 11/08/20 07:59 Dose: 1 tab Documented by: Ondansetron HCl (Ondansetron Inj 2 Mg/Ml 2 Ml Vial) 4 mg IV Q6H PRN PRN Reason: Nausea And Vomiting Stop: 12/04/20 01:56 Pantoprazole Sodium (Pantoprazole 40 Mg Tab) 40 mg PO [facility] Stop: 12/04/20 08:59 Last Admin: 11/08/20 07:59 Dose: 40 mg Documented by: Phenazopyridine HCl (Phenazopyridine Hcl 200 Mg Tab) 200 mg PO TID PRN PRN Reason: Bladder pain Stop: 12/05/20 17:35 Polyethylene Glycol (Polyethylene (Miralax) 17 Gm Pack) 17 gm PO DAILY PRN PRN Reason: Constipation Stop: 12/04/20 01:56 Last Admin: 11/07/20 10:00 Dose: 17 gm Documented by: Tramadol HCl (Tramadol Hcl 50 Mg Tablet) 50 mg PO DAILY PRN PRN Reason: Pain Stop: 12/04/20 01:56 Last Admin: 11/07/20 13:01 Dose: 50 mg Documented by: Warfarin Sodium (Warfarin Sod 5 Mg Tab) 5 mg PO DAILY@1600 [facility] Stop: 12/07/20 15:59 Last Admin: 11/07/20 16:40 Dose: 5 mg Documented by:
[2020-11-08 13:01] LABS: Partial Thromboplastin Ratio 1.6; Partial Thromboplastin Time 41.9 Seconds (21.0-31.0)
--- NOTE | 2020-11-08 18:24 | Discharge Summary ---
Date of Service November 08, 2020 Admission HPI Per Admitting Provider Pt is 85 y/o F with PMH HTN, hypothyroidism, h/o right femur fracture in 07/2020 s/p ORIF, DVT RLE diagnosed in 09/2020 and is on Coumadin, h/o urosepsis secondary to obstructing ureteral stone in 02/2020 s/p ureteral stent presented to ER for dysuria and consideration for stent removal. Patient was to have ureteral stent removed previously however reports transportation issues. Patient reports today started with some dysuria. History of dysuria 2 weeks ago and on 10/14/2020 was started on Keflex for 5 days. Had urine culture at that time positive for Streptococcus agalactiae. She states finished Keflex course a nd symptoms resolved until today. Denies fever/chills, N/V, hematuria, urinary frequency. Reports been having bilateral lower extremity edema since hip fracture 3 months ago. Denies diarrhea, JIMENEZ, dizziness, syncope, vision changes, neck pain, CP, SOB, orthopnea, palpitations, cough, sore throat, choking, otalgia, rhinorrhea, abdominal pain, flank pain, paresthesias, weakness, extremity weakness, rashes. Admission Exam Per Admitting Provider Physical Exam: General: no distress, WDWN Head: normocephalic, atraumatic Eyes: PERRL, EOM's intact, conjunctiva non-injected, anicteric ENT: normal inspection external ears, nose, mucous membranes moist Neck: supple, trachea midline Lungs: clear, no respiratory distress, no wheezing/rhonchi/rales CV: RRR, no murmur, 1+ pretibial edema Abd: normal BS, soft, non-tender; no CVA or flank tenderness Ext: no calf tenderness, BLE extremities with edema, erythema no significant warmth, non-tender to palpation Neuro: A&O x 3, no focal deficits noted, normal affect Skin: warm, dry Principal Diagnosis UTI, retained ureteral stent status post cystoscopy and ureteroscopy, DVT on Coumadin, CKD Discharge Exam Constitutional well developed, well nourished and + acute distress (Due to abdominal discomfort); not ill appearing Eyes PERRL, conjunctivae normal, anicteric sclerae ENMT external ear and nose normal, oropharynx normal Neck trachea midline, no thyromegaly Respiratory no respiratory distress Auscultation: lungs clear to auscultation bilaterally Cardiovascular Rate/Rhythm: regular rate and regular rhythm Heart Sounds: no murmur Extremities: no edema Gastrointestinal (Abdomen) Inspection/Auscultation: normal bowel sounds; abdomen not distended Percussion/Palpation: abdomen soft; abdomen nontender (Right flank and right renal angle) Psychiatric A+Ox3, euthymic affect Affect: + anxious affect Lymphatic no cervical or axillary lymphadenopathy Discharge Data Allergies Allergy/AdvReac Type Severity Reaction Status Date / Time tetracycline Allergy Unknown Verified 10/13/20 15:56 Consultations 11/03/20 19:58 ED Decision to Admit Stat 11/04/20 07:00 Consult Urology Routine Procedures Performed Operation Date: 11/04/20 12:55 Actual Procedures p left stent exchange(Left) - Patrick Bauman DO s Cystoscopy bilateral retrograde, right ureteroscopy, basket stone extraction, (Bilateral) - Patrick Bauman DO Ordered Studies 11/04/20 08:25 CT abd pelvis wo con Stat 11/04/20 13:00 FL retrograde includes kub Routine Hospital Course (1) UTI (urinary tract infection): UA was consistent with UTI on admission White count went of very high following the procedure Repeat cultures have been taken She has been started with intravenous Zosyn Has been getting Pyridium for dysuria No fever no chills and the white count has been improving Awaiting urine culture-culture has been negative We will continue intravenous antibiotic for today Discontinue Mayer Denies any withdrawal symptoms (2) Retained ureteral stent: Pt is 85 y/o F with PMH HTN, hypothyroidism, h/o right femur fracture in 07/2020 s/p ORIF, DVT RLE diagnosed in 09/2020 and is on Coumadin, h/o urosepsis secondary to obstructing ureteral stone in 02/2020 s/p ureteral stent presented to ER for dysuria and consideration for stent removal. Afebrile, vitals stable. No leukocytosis leukocytosis. UA consistent with UTI Has been on intravenous cefepime and that are changed to intravenous Zosyn following the procedure Initial blood cultures are negative and the repeat culture is pending Urine culture grew Morganella morganii and repeat urine culture is pending Gentle IVF Appreciate neurology input and recommendation She is status post cystoscopy and bilateral retrograde pyelogram, right ureteroscopy, stone basket extraction, stent removal and left stent exchange We will continue current antibiotic and await reports of cultures Urine culture came back negative and will not need any antibiotic on discharge She will have a follow-up with the urologist as an outpatient (3) DVT (deep venous thrombosis): RLE DVT diagnosed 09/29/2020. On Coumadin. History right femur fracture s/p ORIF in 07/2020 INR: 2.7 INR was 3.1 this morning on 11/04/2020 Review of options she was given vitamin K 5 mg intravenously in the morning and intermittently INR at 12:30 PM noted to be 1.9 INR is subtherapeutic and will start intravenous heparin and Coumadin Will start her Coumadin and continue heparin for now INR is more than 2 today, heparin is discontinued She is supposed to have a colonoscopy as an outpatient Discussed with the patient by the GI service for possible scope while she is in the hospital The patient did not want to have it done right away (4) CKD (chronic kidney disease), stage III: Cr: 1.4. Was 1.4 in 09/2020. Monitor renal functions, avoid nephrotoxic agents when possible Creatinine is improved 1.26 on 08/26 Creatinine has been improving (5) Hypokalemia: K: 3.4. Magnesium WNL Replace and monitor Potassium is normalized (6) Hypothyroidism: Continue levothyroxine DVT Prophylaxis As above Full Code as per discussion with pt Follows with Dr Victor for routine care We will get PT and OT evaluation and possible discharge tomorrow She will be discharged home this afternoon Total Time Total Time Spent Total Time Spent (In Minutes): 35 minutes Total Time Includes: Examination of the Patient, Discharge Planning, Medication Reconciliation and Communication With Other Providers Discharge Plan Discharge Items Patient Disposition: Home - Home Health Services Reason For Visit: UTI Discharge Diagnosis: UTI, retained ureteral stent status post cystoscopy and ureteroscopy, DVT on Coumadin, CKD Condition on Discharge: Fair Activity: Resume your previous activity Non-emergency contact: Primary Care Provider Call non-emergency contact if: you have any medication questions and your symptoms worsen Follow-up/Referrals: Kvng Victor MD [Primary Care Provider] - (Date & Time 11/10/2020 11:20 AM Provider Kathy Victor MD Department Internal Medicine [facility] ) Diet: Heart Healthy Addtl Attending Provider Instructions: Please take precaution to avoid fall Try to drink plenty of fluid Have regular follow-up with your Coumadin clinic Keep follow-up appointment with urologist Pending Studies at Discharge: No Stand-Alone Forms: [facility], Smoking Cessation Medications and DC Order Prescriptions: New diclofenac sodium [Voltaren] 1 % Gel 2 g EXT BID PRN (Reason: pain) 15 Days Qty: 30 RF: 0 Continued levothyroxine 125 mcg tablet 125 mcg PO QAM RF: 0 miconazole nitrate 2 % cream 1 appln TOP BID PRN (Reason: Rash) RF: 0 acetaminophen [Tylenol] 325 mg tablet 650 mg PO Q4H PRN (Reason: Pain) RF: 0 docusate sodium 100 mg capsule 100 mg PO BID RF: 0 furosemide 20 mg tablet 10 mg PO Q OTHER DAY RF: 0 multivitamin [Daily-Wilber] Tablet 1 tab PO QAM Qty: 30 RF: 0 warfarin 2.5 mg Tablet 2.5 mg PO DAILY RF: 0 melatonin 3 mg Tablet 3 mg PO HS RF: 0 pantoprazole 40 mg tablet,delayed release (DR/EC) 40 mg PO QAM RF: 0 warfarin 2.5 mg tablet 5 mg PO DIRECTED RF: 0 tramadol 50 mg tablet 50 mg PO DAILY PRN (Reason: Pain) RF: 0 ferrous sulfate 325 mg (65 mg iron) tablet 325 mg PO BID RF: 0 Discharge Orders: Discharge Order (Routine); Ordered 11/08/20 Ordered By: Willian Metcalf/Other Patient Handouts: Preventing Deep Vein Thrombosis, Urinary Tract Infections in Women Admission Data Admit Date/Time: 11/03/20 20:25 Attending Provider: Willian Doran Admit Provider: Kenn Calzada Primary Care Provider: Kvng Victor Other Providers: Kenn Calzada ; Macrus Vanegas Other Interventions: Discharge Summary Assessment (RN) Last Done: 11/08/20 10:15
[2020-11-10 13:06] LABS: Component 2 DNR; Source URETERAL STONE
== END 2020-11-08 15:23 | disposition home health service (06) | DRG 660 ==
LOC: ED 16:11 → SUATTDRO 20:25 → 2N 20:25